=== PATIENT | female | born 1950 | race Caucasian/White ===

== ENCOUNTER → 2018-07-23 11:04 | Outpatient (CLI) | payer MEDICARE, OTHER, SELFPAY ==
[2018-06-30 10:24] VITALS: BMI 25.9
--- NOTE | 2018-07-23 11:10 | BD_ITS ---
STUDY: DUAL ENERGY X-RAY ABSORPTIOMETRY / DXA REASON FOR EXAM: Female, 68 years old. The patient is postmenopausal. Loss of height. TECHNIQUE: Bone Mineral Density (BMD) measurements of lumbar spine and left hip were obtained. Prior right total hip replacement. COMPARISON: None. FINDINGS: Lumbar Spine (L1-L4): g/cm2 (1.258) / T-score (0.6) / Z-score (2.3) Findings are suggestive of normal bone density with a low fracture risk. Left Femur Total: g/cm2 (0.823) / T-score (-1.5) / Z-score (-0.2) Left Femoral Neck: g/cm2 (0.808) / T-score (-1.7) / Z-score (-0.1) BD/Dexa Bone Density Study IMPRESSION: The patient is considered osteopenic as outlined below according to World Aniceto Organization (WHO) criteria with a moderate fracture risk. Reference Information: The T-score is the number of standard deviations above or below the standard which is normal for young adults at their peak bone mineral density. The World Health Organization (WHO) interprets the T-scores as follows: Above -1 Normal bone density Between -1 and -2.5 Osteopenia Equal to / or below -2.5 Osteoporosis As a practical clinical guideline, osteopenia may be graded as follows: Mild -1 through -1.5 Moderate -1.6 through -2.0 Severe -2.1 through -2.4 The Z-score is the number of standard deviations above or below age-matched controls. A Z-score of less than -1.5 would be considered abnormal. References: 1. NIH Osteoporosis and Related Bone Diseases http://www.osteo.org 2. International Society for Clinical Densitometry http://www.iscd.org 3. National Osteoporosis Foundation http://www.nof.org Electronically Signed: Blake Johnson MD at 8:33 EST Tel [phone], Service support ,
== END ==
PROVIDERS: Visit Provider Obstetrics & Gynecology
DX: Z78.0 Asymptomatic menopausal state (principal); M85.80 Other specified disorders of bone density and structure, unspecified site
CPT/HCPCS: 77080

== ENCOUNTER → 2019-07-22 13:21 | Outpatient (CLI) | payer MEDICARE, OTHER, SELFPAY ==
[2019-07-01 11:39] VITALS: BMI 26.9
--- NOTE | 2019-07-22 13:21 | BI_ITS ---
MAMMOGRAPHY - BILATERAL SCREENING REASON FOR EXAM: Female, 69 years old. Routine annual screening examination. PERTINENT HISTORY: Grandmother with breast cancer. Remote right stereotactic breast biopsy. Aunt with breast cancer. TECHNIQUE: Digital bilateral breast mirella (3D mammographic acquisition) in the CC and MLO projections. 2-D mediolateral oblique (MLO) and craniocaudad (CC) views of both breasts were obtained. CAD: Full Field Digital Mammography with Computer Added Detection was performed. COMPARISON: Comparison is made with prior outside examination dated May 19, 2018. FINDINGS: Breast Composition: The breasts are heterogeneously dense, which may obscure small masses. There are no dominant masses or suspicious calcifications. There is a 1 cm x 1.3 cm well-defined nodule in the central lateral aspect of the left breast. Correlation with ultrasound is recommended. No other significant abnormalities are identified. BI/SCREEN MAMM (CAD) W/MIRELLA BILAT IMPRESSION: 1 cm x 1.3 cm nodule in the central lateral aspect of the left breast as described. Correlation with ultrasound is recommended. ASSESSMENT CATEGORY: BIRADS Category 0: Incomplete. Need additional imaging evaluation. A letter regarding these results will be sent to the patient by the facility within 30 days. Approximately 10% of breast cancers are not detected by mammography. A normal mammogram should not delay biopsy of a clinically suspicious abnormality. [id number] Electronically Signed: Blake Johnson, at 14:14 EST , Service support ,
== END ==
PROVIDERS: Family Provider Family Medicine; PCP Family Medicine; Referring Provider Obstetrics & Gynecology; Visit Provider Obstetrics & Gynecology
DX: Z12.31 Encounter for screening mammogram for malignant neoplasm of breast (principal); N63.20 Unspecified lump in the left breast, unspecified quadrant
CPT/HCPCS: 77063; 77067

== ENCOUNTER → 2019-07-27 09:29 | Outpatient (CLI) | payer MEDICARE, OTHER, SELFPAY ==
[2019-07-01 11:39] VITALS: BMI 26.9
--- NOTE | 2019-07-27 09:30 | US_ITS ---
STUDY: ULTRASOUND BREAST - LEFT REASON FOR EXAM: Female, 69 years old. Abnormal screening mammogram. TECHNIQUE: Axial and longitudinal images of the LEFT breast were performed with a high resolution ultrasound transducer. # OF IMAGES: 21 COMPARISON: Comparison is made with prior mammogram dated July 22, 2019. FINDINGS: LEFT Breast: There is a 1.5 cm x 1.4 cm x 0.8 cm cyst at the 3:00 position of the breast at 1 cm from the nipple. US/Breast Limited Unilateral IMPRESSION: The mammographic abnormality corresponds to a 1.5 cm x 1.4 cm x 0.8 cm cyst. ASSESSMENT CATEGORY: BIRADS Category 2: Benign. A letter regarding these results will be sent to the patient by the facility within 30 days. Electronically Signed: Blake Johnson, at 9:04 EST , Service support ,
== END ==
PROVIDERS: Family Provider Family Medicine; PCP Family Medicine; Referring Provider Obstetrics & Gynecology; Visit Provider Obstetrics & Gynecology
DX: N63.42 Unspecified lump in left breast, subareolar (principal)
CPT/HCPCS: 76642

== ENCOUNTER → 2020-11-14 10:44 | Outpatient (CLI) | payer MEDICARE, OTHER, SELFPAY ==
[2020-07-04 13:45] VITALS: BMI 26.4
--- NOTE | 2020-11-14 10:48 | BI_ITS ---
MAMMOGRAPHY - BILATERAL SCREENING REASON FOR EXAM: Female, 70 years old. Routine annual screening examination. PERTINENT HISTORY: Grandmother with breast cancer. Aunt with breast cancer. Prior right stereotactic breast biopsy. TECHNIQUE: Digital bilateral breast mirella (3D mammographic acquisition) in the CC and MLO projections. 2-D mediolateral oblique (MLO) and craniocaudad (CC) views of both breasts were obtained. CAD: Full Field Digital Mammography with Computer Added Detection was performed. COMPARISON: Comparison is made with prior examination dated 07/22/2019. FINDINGS: Breast Composition: The breasts are heterogeneously dense, which may obscure small masses. There are no dominant masses or suspicious calcifications. Cc 1 cm well-defined nodule in the central lateral aspect of the left breast is not seen at this time. This was demonstrated to be a cyst on prior sonogram. No other significant abnormalities are identified. BI/SCRN MAMM (CAD)W/MIRELLA BILAT IMPRESSION: Interval resolution of the small left breast nodule. Yearly follow-up mammogram recommended. (A) ASSESSMENT CATEGORY: BIRADS Category 2: Benign. A letter regarding these results will be sent to the patient by the facility within 30 days. Approximately 10% of breast cancers are not detected by mammography. A normal mammogram should not delay biopsy of a clinically suspicious abnormality. [id number] Electronically Signed: Blake Johnson MD at 12:07 EDT , Service support ,
== END ==
PROVIDERS: PCP Family Medicine; Referring Provider Obstetrics & Gynecology; Visit Provider Obstetrics & Gynecology
DX: Z12.31 Encounter for screening mammogram for malignant neoplasm of breast (principal)
CPT/HCPCS: 77063; 77067

== ENCOUNTER → 2021-12-15 | Outpatient (CLI) | payer MEDICARE, OTHER, SELFPAY ==
--- NOTE | 2021-12-15 10:45 | BI_ITS ---
MAMMOGRAPHY - BILATERAL SCREENING REASON FOR EXAM: Female, 71 years old. Routine annual screening examination. PERTINENT HISTORY: Grandmother with breast cancer. Aunt with breast cancer. TECHNIQUE: Digital bilateral breast mirella (3D mammographic acquisition) in the CC and MLO projections. 2-D mediolateral oblique (MLO) and craniocaudad (CC) views of both breasts were obtained. CAD: Full Field Digital Mammography with Computer Added Detection was performed. COMPARISON: Comparison is made with prior study of 11/14/2020 and 07/22/2019. FINDINGS: Breast Composition: The breasts are heterogeneously dense, which may obscure small masses. There are no dominant masses or suspicious calcifications. No other significant abnormalities are identified. There has been no significant change since the prior study. BI/SCRN MAMM (CAD)W/MIRELLA BILAT IMPRESSION: Stable bilateral screening mammogram. Yearly follow-up mammogram recommended. (A) ASSESSMENT CATEGORY: BIRADS Category 1: Negative. A letter regarding these results will be sent to the patient by the facility within 30 days. Approximately 10% of breast cancers are not detected by mammography. A normal mammogram should not delay biopsy of a clinically suspicious abnormality. [id number] Electronically Signed: Blake Johnson MD at 11:56 EDT ,
== END | disposition home or self-care (01) ==
LOC: OPBI 10:44
PROVIDERS: PCP Family Medicine; Referring Provider Obstetrics & Gynecology; Visit Provider Obstetrics & Gynecology
DX: Z12.31 Encounter for screening mammogram for malignant neoplasm of breast (principal); Z80.3 Family history of malignant neoplasm of breast
CPT/HCPCS: 77063; 77067

== ENCOUNTER → 2023-01-01 | Outpatient (CLI) | payer MEDICARE, OTHER, SELFPAY ==
--- NOTE | 2023-01-01 09:43 | BI_ITS ---
MAMMOGRAPHY - BILATERAL SCREENING REASON FOR EXAM: Female, 72 years old. Routine annual screening examination. PERTINENT HISTORY: Grandmother with breast cancer. Aunt with breast cancer. Right breast stereotactic biopsy in 2016. TECHNIQUE: Digital bilateral breast mirella (3D mammographic acquisition) in the CC and MLO projections. 2-D mediolateral oblique (MLO) and craniocaudad (CC) views of both breasts were obtained. CAD: Full Field Digital Mammography with Computer Added Detection was performed. COMPARISON: Mammogram from 12/15/2021, 11/14/2020. FINDINGS: Breast Composition: The breasts are heterogeneously dense, which may obscure small masses. There are no dominant masses or suspicious calcifications. Stable biopsy marker in the right breast. Stable scattered benign-appearing bilateral calcifications. No other significant abnormalities are identified. There has been no significant change since the prior study. BI/SCRN MAMM (CAD)W/MIRELLA BILAT IMPRESSION: Stable bilateral screening mammogram. Yearly follow-up mammogram recommended. (A) ASSESSMENT CATEGORY: BIRADS Category 2: Benign. A letter regarding these results will be sent to the patient by the facility within 30 days. Approximately 10% of breast cancers are not detected by mammography. A normal mammogram should not delay biopsy of a clinically suspicious abnormality. Electronically Signed: Jeff Malik DO at 15:33 EDT ,
== END | disposition home or self-care (01) ==
LOC: OPBI 09:42
PROVIDERS: Referring Provider Obstetrics & Gynecology; Visit Provider Obstetrics & Gynecology
DX: Z12.31 Encounter for screening mammogram for malignant neoplasm of breast (principal)
CPT/HCPCS: 77063; 77067

== ENCOUNTER → 2024-02-24 | Outpatient (CLI) | payer MEDICARE, OTHER, SELFPAY ==
--- NOTE | 2024-02-24 14:53 | BI_ITS ---
MAMMOGRAPHY - BILATERAL SCREENING REASON FOR EXAM: Female, 73 years old. Routine annual screening examination. PERTINENT HISTORY: Grandmother with breast cancer. TECHNIQUE: Digital bilateral breast mirella (3D mammographic acquisition) in the CC and MLO projections. 2-D mediolateral oblique (MLO) and craniocaudad (CC) views of both breasts were obtained. CAD: Full Field Digital Mammography with Computer Added Detection was performed. COMPARISON: Comparison is made with prior study dated January 01, 2023 and December 15, 2021. FINDINGS: Breast Composition: The breasts are heterogeneously dense, which may obscure small masses. There are no dominant masses or suspicious calcifications. No other significant abnormalities are identified. There has been no significant change since the prior study. BI/SCRN MAMM (CAD)W/MIRELLA BILAT IMPRESSION: Stable bilateral screening mammogram. Yearly follow-up mammogram recommended. (A) ASSESSMENT CATEGORY: BIRADS Category 1: Negative. A letter regarding these results will be sent to the patient by the facility within 30 days. Approximately 10% of breast cancers are not detected by mammography. A normal mammogram should not delay biopsy of a clinically suspicious abnormality. [id number] Electronically Signed: Blake Johnson MD at 15:38 EDT ,
== END | disposition home or self-care (01) ==
LOC: OPBI 14:53
PROVIDERS: PCP Internal Medicine; Referring Provider Obstetrics & Gynecology; Visit Provider Obstetrics & Gynecology
DX: Z12.31 Encounter for screening mammogram for malignant neoplasm of breast (principal); Z80.3 Family history of malignant neoplasm of breast
CPT/HCPCS: 77063; 77067

== ENCOUNTER → 2024-06-03 | Outpatient (CLI) | payer MEDICARE, OTHER, SELFPAY ==
--- NOTE | 2024-06-03 11:04 | BD_ITS ---
STUDY: DUAL ENERGY X-RAY ABSORPTIOMETRY / DXA REASON FOR EXAM: Female, 73 years old. Osteopenia TECHNIQUE: Bone Mineral Density (BMD) measurements of lumbar spine and left hip were obtained. COMPARISON: Comparison is made with prior study dated July 23, 2018. FINDINGS: Lumbar Spine (L1-L4): g/cm2 (1.115) / T-score (0.6) / Z-score (2.9) Findings are suggestive of normal bone density with a low fracture risk. Left Femur Total: g/cm2 (0.725) / T-score (-1.8) / Z-score (-0.1) Left Femoral Neck: g/cm2 (0.644) / T-score (-1.8) / Z-score (0.1) The T-Scores on the most recent prior examination were: Lumbar Spine (L1-L4): There has been worsening of bone density since the previous examination. Left Femur Total: which represents a worsening of 5%. BD/Dexa Bone Density Study IMPRESSION: The patient is considered osteopenic as outlined below according to World Aniceto Organization (WHO) criteria with a moderate fracture risk. There has been worsening of bone density since the previous examination. Reference Information: The T-score is the number of standard deviations above or below the standard which is normal for young adults at their peak bone mineral density. The World Health Organization (WHO) interprets the T-scores as follows: Above -1 Normal bone density Between -1 and -2.5 Osteopenia Equal to / or below -2.5 Osteoporosis As a practical clinical guideline, osteopenia may be graded as follows: Mild -1 through -1.5 Moderate -1.6 through -2.0 Severe -2.1 through -2.4 The Z-score is the number of standard deviations above or below age-matched controls. A Z-score of less than -1.5 would be considered abnormal. References: 1. NIH Osteoporosis and Related Bone Diseases www osteo.org 2. International Society for Clinical Densitometry www iscd.org 3. National Osteoporosis Foundation www nof.org Electronically Signed: Blake Johnson MD at 8:32 EST ,
== END | disposition home or self-care (01) ==
LOC: OPBD 11:01
PROVIDERS: Referring Provider Obstetrics & Gynecology; Visit Provider Obstetrics & Gynecology
DX: M85.80 Other specified disorders of bone density and structure, unspecified site (principal); Z78.0 Asymptomatic menopausal state
CPT/HCPCS: 77080

== ENCOUNTER → 2025-02-24 | Outpatient (CLI) | payer MEDICARE, OTHER, SELFPAY ==
--- NOTE | 2025-02-24 10:15 | BI_ITS ---
EXAM: SCRN MAMM (CAD)W/MIRELLA BILAT DATE: 02/24/2025 CLINICAL HISTORY: F, Age 74 y/o , SCREEN FOR BREAST CANCER Grandmother with breast cancer. Remote right stereotactic breast biopsy. TECHNIQUE: SCRN MAMM (CAD)W/MIRELLA BILAT COMPARISON: Prior exam(s) dated February 24, 2024.. FINDINGS: TISSUE DENSITY: The breasts are heterogeneously dense, which may obscure small masses. Bilateral Breast Mammographic Findings: No significant masses, calcifications or other abnormalities are identified. Stable small benign-appearing mediastinal lymph nodes. A tissue clip marker is once again seen in the anterior upper lateral aspect of the right breast. No suspicious masses, areas of developing architectural distortion, or suspicious calcifications. There has been no significant interval change. BI/SCRN MAMM (CAD)W/MIRELLA BILAT IMPRESSION: Stable examination. OVERALL FINAL ASSESSMENT BI-RADS 2: BENIGN RECOMMENDATION: Routine annual follow-up in 1 Year A letter with findings and recommendations will be mailed to the patient. Reading Location: [facility]
--- OUTSIDE RECORDS SUMMARY | 2025-02-24 19:04 | XMS RPT_ITS | CCD ---
Author Organization [facility] Care Team Providers Care Cutter Apprentice Hand Name Role Phone Clarence WOOTEN, Claudette Chu Primary Care Provider [phone] Dr. Claudette Lima Primary Care Provider Dr. Claudette Lima Referring Provider Dr. Thania Brito Attending Provider Clarence WOOTEN, Claudette Chu Primary Care Provider Clarence WOOTEN, Claudette Chu Primary Care Provider [phone] Sabrina Verduzco MD Primary Care Provider Clarence WOOTEN, Claudette S Primary Care Provider Clarence WOOTEN, Claudette S Primary Care Provider Clarence WOOTEN, Claudette S Primary Care Provider [phone] Batsheva Payan Unavailable Unavailable Romana Chi MD Unavailable [phone] Romana Chi MD Unavailable Alexis Jorgensen PT Unavailable CLARENCE, CLAUDETTE S Primary Care Unavailable CHEL HARRISON Referring Unavailable ROMANA CHI Referring Unavailable CLARENCE, CLAUDETTE S Primary Care Unavailable CLARENCE, CLAUDETTE S Primary Care Unavailable ROMANA CHI Referring Unavailable CLARENCE, CLAUDETTE S Primary Care Unavailable CLARENCE, CLAUDETTE S Primary Care Unavailable ROHITH WILLIS Referring Unavailable CLARENCE, CLAUDETTE S Primary Care Unavailable SYLVAIN CORDERO Consulting Unavailable ROMANA CHI Attending Unavailable ROMANA CHI Admitting Unavailable CLARENCE, CLAUDETTE S Primary Care Unavailable ROHITH WILLIS Referring Unavailable Claudette Lima MD Primary Care Provider ROHITH WILLIS Attending Unavailable CLARENCE, CLAUDETTE S Primary Care Unavailable ROMANA CHI Attending Unavailable CLARENCE, CLAUDETTE S Primary Care Unavailable ROMANA CHI Attending Unavailable CLARENCE, CLAUDETTE S Primary Care Unavailable ROMANA CHI Attending Unavailable CLARENCE, CLAUDETTE S Primary Care Unavailable ROMANA CHI Attending Unavailable CLARENCE, CLAUDETTE S Primary Care Unavailable Sultana Cohen DO Primary Care Provider SULTANA COHEN Attending Unavailable ZAYDA, SULTANA Primary Care Unavailable ZAYDA, SULTANA Attending Unavailable ZAYDA, SULTANA Primary Care Unavailable Marcanthony, Thania Attending Unavailable Marcanthony, Thania Referring Unavailable Dax, Sabrina C Primary Care Unavailable Marcanthony, Thania Attending Unavailable Marcanthony, Thania Referring Unavailable GALOWNIA, ENOCH Primary Care Unavailable Marcanthony, Thania Attending Unavailable Marcanthony, Thania Referring Unavailable GALOWNIA, ENOCH Primary Care Unavailable Marcanthony, Thania Attending Unavailable Dax, Sabrina C Primary Care Unavailable Clarence Claudette Referring Unavailable Allergies Allergy Classification Reported Allergen(s) Allergy Type Date of Onset Reaction(s) Facility Penicillins (antibiotic) (1 source) Penicillins Drug Allergy 5 Rash [facility] Sulfonamides (antibiotic) (1 source) Sulfonamides (Antibiotic) Drug Allergy 5 Rash, Other (See Comments) [facility] Tetracyclines (antibiotic) (1 source) Tetracycline Drug Allergy 5 Rash, Other (See Comments) [facility] (20 sources) Penicillins; Translations: [PENICILLINS] Propensity to adverse reactions to drug 6 Rash [facility] (13 sources) Sulfonamides (Antibiotic) Propensity to adverse reactions to drug 6 Rash, Other (See Comments) [facility] (20 sources) Tetracycline; Translations: [TETRACYCLINE] Drug Allergy 6 Rash, Other (See Comments) [facility] Work Phone: (2 sources) Penicillin G Drug Allergy 0 Other [facility] (20 sources) Sulfonamides (Antibiotic); Translations: [SULFA (SULFONAMIDE ANTIBIOTICS)] Allergy to substance 6 Rash [facility] Work Phone: (1 source) Penicillin Drug Allergy 4 [facility] (1 source) Tetracycline Drug Allergy 4 [facility] Medications Current Medications Medication Drug Class(es) Dates Sig (Normalized) Sig (Original) acetaminophen 325 mg / HYDROcodone bitartrate 5 mg oral tablet (2 sources) Opioid Agonist Start: 11-25-2020 End: 11-28-2020 take 1 tablet by mouth every six hours as needed for pain HYDROcodone-acetam inophen (NORCO) 5-325 MG per tablet Indications: Closed displaced fracture of surgical neck of left humerus, unspecified fracture morphology, initial encounter Take 1 tablet by mouth every 6 hours as needed for Pain for up to 3 days. 12 tablet 0 11/25/2020 11/28/2020 Active Start: 11-23-2020 HYDROcodone-ac etaminophen (NORCO) 5-325 MG per tablet 1 tablet ascorbic acid 500 mg oral tablet (15 sources) Vitamin C Start: 03-25-2024 End: 04-08-2024 take 1 tablet by mouth twice daily at mealtime ascorbic acid, vitamin C, (VITAMIN C) 500 mg tablet Take 1 tablet by mouth two times a day with meals for 27 doses. 27 tablet 03/25/2024 Active Start: 03-25-2024 End: 07-29-2024 ascorbic acid (Vitamin C) 50 0 MG tablet Take 500 mg by mouth. 03/25/2024 07/29/2024 Discontinued (Med list cleanup) atorvastatin 20 mg oral tablet (20 sources) HMG-CoA Reductase Inhibitor Start: 01-11-2025 End: 01-11-2026 take 1 tablet by mouth once daily atorvastatin (Lipitor) 20 MG tablet Take 1 tablet (20 mg) by mouth daily. 90 tablet 3 01/11/2025 01/11/2026 Active Start: 12-21-2019 End: 01-11-2025 take 1 tablet by mouth once daily atorvastatin (Lipitor) 10 MG tablet Take 1 tablet (10 mg) by mouth daily. 90 tablet 3 01/06/2025 01/11/2025 Discontinued Comment on above: Take 10 mg by mouth daily at bedtime. Calcium (1 source) Phosphate Binder, Calcium take 1 tablet by mouth once daily calcium 500 MG tablet Take 500 mg by mouth daily. 0 Active calcium carbonate 1250 mg chewable tablet (3 sources) Start: 06-30-2018 take 1 tablet by mouth twice daily Calcium Carbonate (Calci-Chew) 500 mg calcium (1,250 mg) tablet,chewable Active 500 MG PO TWICE A DAY June 30, 2018 11:27am take 1 tablet by mouth once radha y calcium carbonate (OSCAL) 500 MG TABS tablet Take 500 mg by mouth daily 0 Active Calcium Carbonate / vitamin D3 (20 sources) Start: 03-26-2024 take 1 tablet by mouth once daily calcium carbonate/vitamin D3 (CALCIUM 500 + D ORAL) Take 1 tablet by mouth once daily. Patient should start on March 26, 2024. 03/26/2024 Active calcium carbonat e/vitamin D3 (CALCIUM 500 + D ORAL) Take by mouth. Active calcium carbonat e/vitamin D3 (CALCIUM 500 + D ORAL) Take by mouth. 0 Active Comment on above: Take by mouth. Calcium Carbonate-Vitamin D 500-5 MG-MCG tablet (2 sources) Calcium Carbonate-Vitamin D 500-5 MG-MCG tablet Take by mouth. Active carbamide peroxide 65 mg/ml otic solution (1 source) Start: 07-27-19 End: 07-31-19 carbamide peroxide (Debrox) 6.5 % otic solution Administer 5-10 drops into affected ear(s) 2 times daily for 4 days. 15 mL 0 07/27/2022 07/31/2022 Active cetirizine hydrochloride 10 mg oral tablet (3 sources) Histamine-1 Receptor Antagonist take 1 tablet by mouth once daily as needed cetirizine (ZYRTEC) 10 MG tablet Take 10 mg by mouth daily as needed 0 Active clindamycin 300 mg oral capsule (9 sources) Lincosamide Antibacterial Start: 12-05-19 clindamycin (Cleocin) 300 MG capsule Prior to dentist appointment 12/04/2022 Active Start: 12-04-2022 clindamycin (C leocin) 300 MG capsule TAKE 2 CAPSULES BY MOUTH 30 minutes prior to appt. 0 12/04/2022 Active Start: 07-27-2020 End: 11-25-2020 clindamycin (CLEOCIN) 300 MG capsule TAKE 2 CAPSULES ONE HOUR PRIOR TO APPOINTMENT 0 07/27/2020 11/25/2020 Discontinued (Stop Taking at Discharge) docusate sodium 100 mg oral capsule (16 sources) Start: 03-25-2024 End: 04-24-2024 take 1 capsule by mouth every twelve hours as needed docusate sodium (COLACE) 100 mg capsule Take 1 capsule by mouth two times a day as needed for constipation. 60 capsule 03/25/2024 04/24/2024 Active Start: 11-25-2020 take 1 capsule by mo [facility] once daily as needed for constipation docusate sodium (COLACE) 100 MG capsule Take 1 capsule by mouth daily as needed for Constipation 30 capsule 0 11/25/2020 Active labetalol hydrochloride 5 mg/ml injectable solution (1 source) beta-Adrenergic Bj Start: 11-23-2020 labetalol (NORMODYNE;TRANDATE) injection 10 mg Lisinopril (1 source) Angiotensin Converting Enzyme Inhibitor Start: 11-23-2020 lisinopril (PRINIVIL;ZESTRIL) tablet 20 mg melatonin 5 mg oral tablet (1 source) Start: 11-23-2020 take 5 mg by mouth once daily as needed for sleep 5 mg, Oral, NIGHTLY PRN, sleep, Starting Sat11/23/20 at 2100 1 ml morphine sulfate 4 mg/ml injection (1 source) Opioid Agonist Start: 11-23-2020 take 2 mg by mouth every four hours as needed for pain 2 mg, Intravenous, EVERY 4 HOURS PRN, Pain Severe (7-10), Starting Sat11/23/20 at 0315 If oral and IV narcotics ordered, use oral first and only use IV if oral is ineffective or cannot take oral. Do Not give oral and IV within 1 hour of each other unless specifically ordered. MULTI-VITAMIN ORAL (20 sources) take 1 tablet by mouth once daily MULTI-VITAMIN ORAL Take 1 tablet by mouth once daily. Active take 1 tablet by mouth once radha y MULTI-VITAMIN ORAL Take 1 tablet by mouth once daily. 0 Active Comment on above: Take 1 tablet by ligia th once daily. Multiple Vitamin (MULTI-VITAMIN DAILY PO) (9 sources) take 1 tablet by mouth once daily in the morning Multiple Vitamin (MULTI-VITAMIN DAILY PO) Take 1 tablet by mouth in the morning. Active take 1 tablet by ligia th once daily in the morning Multiple Vitamin (MULTI-VITAMIN DAILY PO ) Take 1 tablet by mouth in the morning. 0 Active Multiple Vitamins-Minerals (DAILY VITAMIN PLUS PO) (1 source) Multiple Vitamins-Minerals (DAILY VITAMIN PLUS PO) Take by mouth 0 Active mupirocin 0.02 mg/mg topical ointment (1 source) RNA Synthetase Inhibitor Antibacterial Start : 03-09 End: 03-14 mupirocin (BACTROBAN) 2 % ointment two times a day for 5 days. Apply 0.5 inch with cotton swab (Q-tip) to each nostril in the morning and evening for 5 days prior to and including day of surgery. 22 g 03/09/2024 03/14/2024 Active oxyCODONE hydrochloride 5 mg oral tablet (6 sources) Opioid Agonist Start : 03-25 End: 04-01 take 1 tablet by mouth every six hours as needed oxyCODONE IR (ROXICODONE) 5 mg immediate release tablet Indications: S/P total knee arthroplasty, right Take 1-2 tablets by mouth every 6 hours as needed for pain for up to 7 days. 50 tablet 03/25/2024 04/01/2024 Active 2 ml prochlorperazine 5 mg/ml injection (1 source) Phenothiazine Start : 11-23 10 mg, Intravenous, EVERY 6 HOURS PRN, Nausea, Starting Sat11/23/20 at 0315 3 ml sodium chloride 9 mg/ml injection (3 sources) Start : 11-23 take 1 dose intravenously twice daily 5-40 mL, Intravenous, EVERY 12 HOURS SCHEDULED (2 times per day), First dose on Sat11/23/20 at 0900 For Line Patency: Peripheral IV = 5 mL; Midline or Central Line = 10 mL/lumen. I f following IV push medication, administer flush at same rate as the IV push. Flush volume is determined by type of infusion therapy being given. For non-viscous solutions use: Peripheral IV = 5 mL Midline or Central Line = 10 mL/lumen Fo r viscous solutions (i.e. blood components, parenteral nutrition, contrast media, or after obtaining blood sample) use: Peripheral IV = 10 mL Midline or Central Line = 20 mL/lumen Start: 11-23-2020 take 25 mL intraveno usly every hour as needed 25 mL, Intravenous, at 100 mL/hr, PRN, If patient receiving piggyback infusions without ordered maintenance IV fluids or with frequent/long duration piggyback infusions, Starting Sat11/23/20 at 0315 Administer at the same rate as the piggyback being infused. Start: 11-23-2020 take 5-40 mL intrave nously once as needed 5-40 mL, Intravenous, PRN, Line Care, After every IV line use, Starting Sat11/23/20 at 0315 For Line Patency: Peripheral IV = 5 mL; Midline or Central Line = 10 mL/lumen. If following IV push medication, administer flush at same rate as the IV push. Flush volume is determined by type of infusion therapy being given. For non-viscous solutions use: Peripheral IV = 5 mL Midline or Central Line = 10 mL/lumen For viscous solutions (i.e. blood components, parenteral nutrition, contrast media, or after obtaining blood sample) use: Peripheral IV = 10 mL Midline or Central Line = 20 mL/lumen sodium chloride flush 0.9 % injection 3 mL (1 source) Start: 11-22-2020 sodium chlorid e flush 0.9 % injection 3 mL ubiquinol 100 mg oral capsule (20 sources) Start: 03-26-2024 take 1 capsule by mouth once daily coQ10, ubiquinol, 100 mg cap Take 1 capsule by mouth once daily. 03/26/2024 Active Comment on above: Take by mouth once d aily. Completed/Discontinued Medications Medication Drug Class(es) Dates Sig (Normalized) Sig (Original) acetaminophen 500 mg oral tablet (20 sources) Start: 03-25-2024 End: 07-29-2024 take 2 tablets by mouth every eight hours as needed acetaminophen (Tylenol) 500 MG tablet Take 1,000 mg by mouth every 8 hours as needed. 03/25/2024 07/29/2024 Discontinued (Med list cleanup) Start: 11-23-2020 acetaminophen (TYLENOL) tablet 650 mg End: 03-25-2024 acetaminophen (TYLENOL ARTHR ITIS ORAL) Take 1 tablet by mouth as needed. 03/25/2024 Discontinued acetaminophen (T YLENOL ARTHRITIS ORAL) Take 1 tablet by mouth as needed. Active End: 08-27-2023 Acetaminophen (TYLENOL ARTHR ITIS PAIN PO) Take 1 tablet by mouth if needed. 0 08/27/2023 Discontinued (Therapy completed) Acetaminophen (T YLENOL ARTHRITIS PAIN PO) Take 1 tablet by mouth if needed. 0 Active acetaminophen (T YLENOL ARTHRITIS ORAL) Take 1 tablet by mouth as needed. 0 Active Comment on above: Take 1 tablet by ligia as needed. acetaminophen 325 mg / oxyCODONE hydrochloride 5 mg oral tablet (2 sources) Opioid Agonist Start: 11-24-2020 End: 11-25-2020 oxyCODONE-acetaminophen (PERCOCET) 5-325 MG per tablet Indications: Dislocation of left shoulder joint, initial encounter , Closed displaced fracture of surgical neck of left humerus, unspecified fracture morphology, initial encounter Take 1 tablet by mouth every 6 hours as needed for Pain for up to 7 days. Intended supply: 7 days. Take lowest dose possible to manage pain 28 tablet 0 11/24/2020 11/25/2020 Discontinued (Stop Taking at Discharge) Start: 11-23-2020 End: 11-23-2020 take 1 tablet by mouth every four hours as needed for pain 1 tablet, Oral, EVERY 4 HOURS PRN, Pain Moderate (4-6), Starting 11/23/20 at 0315 Maximum dose of acetaminophen is 4000 mg from all sources in 24 hours. Albuterol Sulfate (2 sources) beta2-Adrenergic Agonist Start: 09-16-2018 End: 07-01-2019 take 1 puff(s) by inhalation every four hours Albuterol Sulfate (Proair Hfa) 90 mcg/actuation HFA aerosol inhaler Discontinued 2 PUFF INHALATION Q4H 8.5 September 16, 2018 4:25pm July 01, 2019 12:35pm Start: 09-16-2018 End: 09-16-2018 albuterol sulfate Discontinu ed 2.5 MG Continuous Nebulization ONCE 1 September 16, 2018 3:53pm September 16, 2018 3:53pm Albuterol Sulfate (Proair Hfa) 90 mcg/actuation HFA aerosol inhaler (1 source) Start: 09-16-2018 End: 07-01-2019 take 1 puff(s) by inhalation every four hours Albuterol Sulfate (Proair Hfa) 90 mcg/actuation HFA aerosol inhaler Discontinued 2 PUFF INHALATION Q4H 8.5 September 16, 2018 1:00am July 01, 2019 12:35pm alendronic acid 70 mg oral tablet (2 sources) Bisphosphonate Start: 07-29-2024 End: 07-29-2025 take 1 tablet by mouth in the morning alendronate (Fosamax) 70 MG tablet Indications: Fracture Risk Assessment Score (FRAX) indicating greater than 20% risk for major osteoporosis-relat ed fracture Take 1 tablet (70 mg) by mouth every 7 days. Take in the morning with a full glass of water, on an empty stomach, and do not take anything else by mouth or lie down for the next 30 min. 4 tablet 11 07/29/2024 01/06/2025 Discontinued (Med list cleanup) apixaban 5 mg oral tablet (3 sources) Factor Xa Inhibitor Start: 01-03-2021 End: 05-07-2022 take 2 tablets by mouth twice daily, then take 1 tablet by mouth twice daily apixaban (ELIQUIS) 5 mg tab(s) 2 tabs bid for 7 days, then 1 po bid 74 tablet 01/03/2021 05/07/2022 Discontinued (Course of therapy completed) Comment on above: 2 tabs bid for 7 day s, then 1 po bid azithromycin 250 mg oral tablet (2 sources) Macrolide Antimicrobial Start: 09-16-2018 End: 09-21-2018 Azithromycin Discontinued 250 MG PO daily 6 5 September 16, 2018 4:12pm September 21, 2018 1:09am 2 po qd for 1 day then 1 po qd for 4 days with food or after eating betamethasone 3 mg/ml / betamethasone acetate 3 mg/ml injectable suspension (10 sources) Corticosteroid Start: 12-25-2023 End: 12-25-2023 betamethasone acetate-betamethas one sodium phosphate 12 mg injection (CELESTONE) Start: 09-25-2023 End: 09-25-2023 betamethasone acetate-betame thasone sodium phosphate 12 mg injection (CELESTONE) Start: 01-16-2023 End: 01-16-2023 betamethasone acetate-betame thasone sodium phosphate 12 mg injection (CELESTONE) Start: 09-12-2022 End: 09-12-2022 betamethasone acetate-betame thasone sodium phosphate 12 mg injection (CELESTONE) Start: 09-12-2022 End: 09-12-2022 betamethasone acetate-betame thasone sodium phosphate 12 mg injection (CELESTONE) CALCIUM CARB,GLUC/MAG OX,GLUC (CALCIUM MAGNESIUM ORAL) (18 sources) End: 03-09-2024 take 2 tablets by mouth twice daily CALCIUM CARB,GLUC/MAG OX,GLUC (CALCIUM MAGNESIUM ORAL) Take 2 tablets by mouth twice daily. 03/09/2024 Discontinued (Course of therapy completed) take 2 tablets by mouth twice da dg CALCIUM CARB,GLUC/MAG OX,GLUC (CALCIUM MAGNESIUM ORAL) Take 2 tablets by mouth twice daily. Active take 2 tablets by mouth twice da dg CALCIUM CARB,GLUC/MAG OX,GLUC (CALCIUM MAGNESIUM ORAL) Take 2 tablets by mouth twice daily. 0 Active Comment on above: Take 2 tablets by [facility] twice daily. ceFAZolin 2000 mg injection (1 source) Cephalosporin Antibacterial Start: End: 2,000 mg, Intravenous, EVERY 8 HOURS, 2 doses, First dose on Sat11/24/20 at 2200, Last dose on Sat11/25/20 at 0600 cholecalciferol 0.075 mg oral tablet (11 sources) Vitamin D End: cholecalciferol (Vitamin D-3) 75 MCG (3000 UT) tablet Take by mouth. 01/06/2025 Discontinued (Med list cleanup) diclofenac sodium 0.01 mg/mg topical gel (1 source) Nonsteroidal Anti-inflammatory Drug End: apply 2 g topically twice daily diclofenac (VOLTAREN) 1 % topical gel Apply 2 g to affected area twice daily. 0 05/07/2022 Discontinued (Course of therapy completed) Comment on above: Apply 2 g to affecte d area twice daily. 0.4 ml enoxaparin sodium 100 mg/ml prefilled syringe (13 sources) Low Molecular Weight Heparin Start: 09-11-2 024 End: 025 enoxaparin (Lovenox) 40 MG/0.4ML solution prefilled syringe 03/25/2024 07/29/2024 Discontinued (Med list cleanup) Start: 03-25-2024 End: 04-08-2024 inject 0.4 mL by subcutaneous injection once daily enoxaparin (LOVENOX) 40 mg/0.4 mL Inject 0.4 mL subcutaneously once daily for 14 days. 5.6 mL 03/25/2024 04/08/2024 Start: 11-25-2020 enoxaparin (LO VENOX) injection 40 mg 2 ml fentaNYL 0.05 mg/ml injection (1 source) Opioid Agonist Start: 11-23-2020 End: 11-23-2020 fentaNYL (SUBLIMAZE) injection hydroCHLOROthiazide 12.5 mg / lisinopril 20 mg oral tablet (20 sources) Thiazide Diuretic, Angiotensin Converting Enzyme Inhibitor Start: 03-23-2022 lisinopril-hydroCHL OROthiazide 20-12.5 MG tablet Start: 06-30-2018 take 1 tablet by ligia th once daily Lisinopril-Hydrochlorothiazide Active 1 TABLET PO DAILY June 30, 2018 11:26am Start: 03-01-2010 End: 01-06-2026 take 1 tablet by mouth once daily lisinopril-hydroCHLOROthiazide 20-12.5 M G tablet Take 1 tablet by mouth daily. 90 tablet 3 01/06/2024 01/06/2025 Discontinued (Reorder) Comment on above: one tablet daily ibuprofen 200 mg oral tablet (1 source) Nonsteroidal Anti-inflammatory Drug End: 05-07-20 take 1 tablet by mouth every six hours as needed ibuprofen (MOTRIN) 200 mg tablet Take 200 mg by mouth every 6 hours as needed for pain. 0 05/07/2022 Discontinued (Course of therapy completed) Comment on above: Take 200 mg by mouth every 6 hours as needed for pain. ketoconazole 20 mg/ml medicated shampoo (3 sources) Azole Antifungal Start: 11-28-19 23 End: 08-27-19 24 ketoconazole (NIZOral) 2 % shampoo wash the full scalp once a day NEEDED for flares. lather and let sit for 3-5 MINUTES before rinsing off. 0 11/27/2022 08/27/2023 Discontinued (Therapy completed) 10 ml lidocaine hydrochloride 10 mg/ml injection (12 sources) Antiarrhythmic, Amide Local Anesthetic Start: 12-25-19 End: 12-25-19 lidocaine (PF) 10 mg/mL (1 %) 4 mL injection (XYLOCAINE) Start: 09-25-2023 End: 09-25-2023 lidocaine (PF) 10 mg/mL (1 % ) 4 mL injection (XYLOCAINE) Start: 05-20-2023 End: 05-20-2023 lidocaine (PF) 10 mg/mL (1 % ) 4 mL injection (XYLOCAINE) Start: 01-16-2023 End: 01-16-2023 lidocaine (PF) 10 mg/mL (1 % ) 4 mL injection (XYLOCAINE) Start: 09-12-2022 End: 09-12-2022 lidocaine (PF) 10 mg/mL (1 % ) 4 mL injection (XYLOCAINE) Start: 09-12-2022 End: 09-12-2022 lidocaine (PF) 10 mg/mL (1 % ) 4 mL injection (XYLOCAINE) 1 ml LORazepam 2 mg/ml injection (1 source) Benzodiazepine Start: 11-24-2020 End: 11-24-2020 LORazepam (ATIVAN) injection 0.5 mg meloxicam 15 mg oral tablet (20 sources) Nonsteroidal Anti-inflammatory Drug Start: 05-16-2022 End: 03-25-2024 take 1 tablet by mouth once daily meloxicam (MOBIC) 15 mg tablet Take 1 tablet by mouth once daily. 30 tablet 2 09/12/2022 12/25/2023 Discontinued Start: 05-07-2022 End: 01-06-2025 take 2 tablets by mouth once daily meloxicam (Mobic) 7.5 MG tablet Take 15 mg by mouth daily. 05/07/2022 01/06/2025 Discontinued (Med list cleanup) Start: 05-07-2022 End: 06-06-2022 take 1 tablet by mouth once daily meloxicam (MOBIC) 7.5 mg tablet Indications: Primary osteoarthritis of right knee , Primary osteoarthritis of left knee Take 1 tablet by mouth once daily. 30 tablet 0 05/07/2022 06/06/2022 Active Comment on above: Take 1 tablet by ligia th once daily. Take 15 mg by mouth. 1 ml methylPREDNISolone acetate 40 mg/ml injection (2 sources) Corticosteroid Start: 2022 End: 2022 methylPREDNISolone acetate 80 mg injection (DEPO-Medrol) metoprolol tartrate 25 mg oral tablet (20 sources) beta-Adrenergic Bj Start: 2020 End: 2023 take 1 tablet by mouth every twelve hours metoprolol tartrate, short acting, (LOPRESSOR) 25 mg tablet Take 1 tablet by mouth every 12 hours. 60 tablet 01/03/2021 03/09/2024 Discontinued (Course of therapy completed) Comment on above: Take 1 tablet by ligia th every 12 hours. 2 ml midazolam 1 mg/ml injection (1 source) Benzodiazepine Start: 2020 End: 2020 midazolam (VERSED) 2 MG/2ML injection NON FORMULARY (3 sources) End: 2023 NON FORMULARY Nightly. MAG RNR for muscle cramping. B-6, magnesium 0 08/27/2023 Discontinued (Therapy completed) NON FORMULARY Lynn damico. MAG RNR for muscle cramping. B-6, magnesium 0 Active ondansetron 4 mg oral tablet (16 sources) Serotonin-3 Receptor Antagonist Start: 03-26-2024 End: 07-29-2024 take 1 tablet by mouth every eight hours as needed ondansetron (Zofran) 4 MG tablet Take 4 mg by mouth every 8 hours as needed. 03/26/2024 07/29/2024 Discontinued (Med list cleanup) oseltamivir 75 mg oral capsule (2 sources) Neuraminidase Inhibitor Start: 09-16-2018 End: 09-21-2018 take 75 mg by mouth twice daily Oseltamivir Discontinued 75 MG PO TWICE A DAY 10 5 September 16, 2018 4:11pm September 21, 2018 1:09am polyethylene glycol 3350 50059 mg powder for oral solution (12 sources) Osmotic Laxative Start: 03-25-2024 End: 04-08-2024 polyethylene glycol 3350 (MIRALAX) 17 gram/dose powder Take 17 g by mouth once daily as needed for constipation for up to 10 days. Dissolve dose in 4 - 8 ounces of liquid and take as directed. 238 g 03/25/2024 04/08/2024 Start: 11-23-2020 polyethylene g lycol (GLYCOLAX) packet 17 g potassium chloride 10 meq extended release oral tablet (20 sources) Start: 01-03-2023 End: 01-06-2026 take 2 tablets by mouth in the morning potassium chloride CR (Klor-Con) 10 MEQ ER tablet Take 2 tablets (20 mEq) by mouth in the morning. 180 tablet 3 01/06/2024 01/06/2025 Discontinued (Reorder) Start: 12-08-2020 potassium chlo ride (KLOR-CON M10) 10 MEQ extended release tablet Indications: Essential hypertension, benign TAKE 1 TABLET TWICE A DAY 180 tablet 4 12/08/2020 Active Start: 11-23-2020 20 mEq, Oral, DAILY, First dose on Sat11/23/20 at 0900 Do not crush or break. Start: 12-21-2019 potassium chlo ride (KLOR-CON M10) 10 MEQ extended release tablet Indications: Benign hypertension TAKE 1 TABLET TWICE A DAY 180 tablet 4 12/21/2019 Active Start: 06-30-2018 Potassium Chlo ride (Klor-Con M20) 20 mEq tablet,ER particles/crystals Active 20 MEQ PO DAILY June 30, 2018 11:26am Comment on above: Take 20 mEq by mouth once daily. 20 ml propofol 10 mg/ml injection (3 sources) General Anesthetic Start: 11-22-2020 End: 11-23-2020 propofol injection Start: 11-22-2020 End: 11-22-2020 propofol injection 79 mg ubidecarenone 100 mg oral capsule (2 sources) Start: 06-30-2018 End: 07-01-2019 Coenzyme Q10 (Co Q-10) 100 m g capsule Discontinued 100 MG PO DAILY June 30, 2018 11:28am July 01, 2019 12:35pm Problems Active Problems Problem Classification Problem Date Documented Da te Episodic/Chronic Anxiety disorders (14 sources) Anxiety state; Translations: [Generalized anxiety disorder] Onset: 03-01-2010 01-24-2015 Chronic Chronic obstructive pulmonary disease and bronchiectasis (2 sources) Bronchitis; Translations: [Bronchitis, not specified as acute or chronic] 09-16-2018 Episodic Diabetes mellitus without complication (15 sources) Impaired fasting glycemia; Translations: [Impaired fasting glucose] Onset: 12-28-2021 04-28-2022 Episodic Disorders of lipid metabolism (20 sources) Hyperlipidemia; Translations: [Hyperlipidemia, unspecified] Onset: 01-24-2015 01-24-2015 Chronic Essential hypertension (20 sources) Benign essential hypertension; Translations: [Essential (primary) hypertension] Onset: 01-24-2015 Resolved: 05-17-2020 Chronic Fracture of upper limb (1 source) Closed fracture of surgical neck of humerus; Translations: [Unspecified displaced fracture of surgical neck of left humerus, initial encounter for closed fracture] Episodic Influenza (4 sources) Influenza due to Influenza A virus; Translations: [Influenza due to other identified influenza virus with other respiratory manifestations] Onset: 12-08-2020 Resolved: 02-03-2021 02-03-2021 Episodic Menopausal disorders (20 sources) Atrophic vaginitis; Translations: [Postmenopausal atrophic vaginitis] Onset: 03-01-2010 Resolved: 03-02-2011 12-17-2018 Chronic Osteoarthritis (20 sources) Osteoarthritis of knee; Translations: [Unilateral primary osteoarthritis, unspecified knee] Onset: 05-06-2015 12-17-2018 Chronic Other aftercare (5 sources) Patient encounter status; Translations: [Aftercare following joint replacement surgery] 05-20-2023 Chronic Other aftercare (1 source) Aftercare following joint replacement surgery; Translations: [Aftercare following right hip joint replacement surgery] Onset: 05-20-2023 Chronic Other bone disease and musculoskeletal deformities (20 sources) Osteopenia; Translations: [Other specified disorders of bone density and structure, unspecified site] Onset: 04-08-2014 01-24-2015 Episodic Other connective tissue disease (17 sources) History of total knee arthroplasty; Translations: [Presence of right artificial knee joint] Onset: 03-25-2024 03-25-2024 Chronic Other connective tissue disease (1 source) Presence of right artificial knee joint; Translations: [S/P total knee arthroplasty, right] Onset: 03-25-2024 Chronic Other connective tissue disease (1 source) Presence of right artificial hip joint; Translations: [Aftercare following right hip joint replacement surgery] Onset: 05-20-2023 Chronic Other ear and sense organ disorders (2 sources) Impacted cerumen in right ear; Translations: [Impacted cerumen, right ear] 08-27-2023 Episodic Other inflammatory condition of skin (1 source) Palmar erythema; Translations: [Other specified erythematous conditions] 01-06-2025 Episodic Other liver diseases (1 source) Disease of liver; Translations: [Liver disease, unspecified] Chronic Other liver diseases (1 source) Lesion of liver; Translations: [Liver disease, unspecified] Chronic Other lower respiratory disease (1 source) Lung field abnormal; Translations: [Other nonspecific abnormal finding of lung field] Episodic Other lower respiratory disease (1 source) Multiple nodules of lung; Translations: [Other nonspecific abnormal finding of lung field] Episodic Other lower respiratory disease (2 sources) Solitary nodule of lung; Translations: [Solitary pulmonary nodule] 01-03-2023 Episodic Other non-traumatic joint disorders (2 sources) Pain in right knee; Translations: [Pain in joint, lower leg] Onset: 04-06-2024 04-06-2024 Episodic Other screening for suspected conditions (not mental disorders or infectious disease) (2 sources) Encounter for screening mammogram for malignant neoplasm of breast; Translations: [Encounter for screening mammogram for malignant neoplasm of breast] Onset: 03-23-2024 Episodic Pulmonary heart disease (20 sources) Pulmonary thromboembolism; Translations: [Other pulmonary embolism without acute cor pulmonale] Onset: 01-02-2021 01-06-2021 Episodic Residual codes; unclassified (1 source) Pain; Translations: [Pain, unspecified] 12-25-2023 Episodic Residual codes; unclassified (1 source) Other specified postprocedural states; Translations: [PONV (postoperative nausea and vomiting)] Onset: 03-09-2024 Episodic Residual codes; unclassified (1 source) At risk of osteoporotic fracture; Translations: [Other specified personal risk factors, not elsewhere classified] 07-29-2024 Episodic Spondylosis; intervertebral disc disorders; other back problems (1 source) Inflammation of sacroiliac joint; Translations: [Sacroiliitis, not elsewhere classified] 05-20-2023 Chronic Thyroid disorders (1 source) Non-toxic uninodular goiter; Translations: [Nontoxic single thyroid nodule] Chronic Unclassified (2 sources) Results; Translations: [Results] Onset: 07-29-2024 Past or Other Problems Problem Classification Problem Date Documented Da te Episodic/Chronic Cardiac dysrhythmias (15 sources) Tachycardia; Translations: [Tachycardia, unspecified] Onset: 12-08-2020 Resolved: 07-12-2022 12-08-2020 Episodic Fluid and electrolyte disorders (15 sources) Hypokalemia; Translations: [Hypokalemia] Onset: 09-21-2015 Resolved: 07-12-2022 Episodic Joint disorders and dislocations; trauma-related (15 sources) Dislocation of shoulder joint; Translations: [Unspecified dislocation of left shoulder joint, initial encounter] Onset: 11-23-2020 Resolved: 07-12-2022 Episodic Mood disorders (20 sources) Depressive disorder; Translations: [Other specified depressive episodes] Onset: 03-01-2010 Resolved: 03-02-2011 03-02-2011 Chronic Nausea and vomiting (20 sources) Postoperative nausea and vomiting; Translations: [Nausea with vomiting, unspecified] Onset: 03-09-2024 03-09-2024 Episodic Other bone disease and musculoskeletal deformities (20 sources) Disorder of skeletal system; Translations: [Disorder of bone, unspecified] Onset: 03-14-2006 Resolved: 06-21-2016 06-21-2016 Episodic Other bone disease and musculoskeletal deformities (1 source) Other specified disorders of bone density and structure, unspecified site; Translations: [Other specified disorders of bone density and structure, unspecified site] Onset: 06-29-2024 Episodic Residual codes; unclassified (1 source) Pain, unspecified; Translations: [Pain] Onset: 12-25-2023 Episodic Urinary tract infections (20 sources) Recurrent cystitis ; Translations: [Cystitis, unspecified without hematuria] Onset: 03-31-2012 Resolved: 06-21-2016 01-24-2015 Episodic Results Test Name Value Interpretation Reference Range Facility 37 01-06-2025 37 Checking your blood pressure at home: 1. Rest for approx 5 min before checking your blood pressure 2. Sit with your feet flat on the floor and back supported by a chair. 3. Rest your arm on a table at about chest height. 4. Start machine. Check blood pressure 2-3 times to obtain an average reading. 5. Goal blood pressure is less than 140/90. If your blood pressure is consistently running higher than that you should talk to your doctor. Normal [facility] CBC panel Auto (Bld)on 01-06 Erythrocyte distribution width (RBC) [Ratio] 12.8 % 11.0 - 15.0 % [facility] Hematocrit (Bld) [Volume fraction] 37.9 % 35.0 - 45.0 % [facility] Hemoglobin (Bld) [Mass/Vol] 12.5 g/dL 11.7 - 15.5 g/dL [facility] MCH (RBC) [Entitic mass] 30.4 pg 27.0 - 33.0 pg [facility] MCHC (RBC) [Mass/Vol] 33 g/dL 32.0 - 36.0 g/dL [facility] Comment on above: For adults, a slight decrease in the calculated MCHC value (in the range of 30 to 32 g/dL) is most likely not clinically significant; however, it should be interpreted with caution in correlation with other red cell parameters and the patient's clinical condition. MCV (RBC) [Entitic vol] 92.2 fL 80.0 - 100.0 fL [facility] Platelet mean volume (Bld) [Entitic vol] 9.3 fL 7.5 - 12.5 fL [facility] Platelets (Bld) [#/Vol] 271 10*3/uL [facility] RBC (Bld) [#/Vol] 4.11 10*6/uL [facility] WBC (Bld) [#/Vol] 7 10*3/uL [facility] Comprehensive metabolic 1998 panelon 01-06-2025 Albumin [Mass/Vol] 4.2 g/dL 3.6 - 5.1 g/dL [facility] Albumin/Globulin [Mass ratio] 1.4 {ratio} [facility] ALP [Catalytic activity/Vol] 85 U/L 37 - 153 U/L [facility] ALT [Catalytic activity/Vol] 12 U/L 6 - 29 U/L [facility] AST [Catalytic activity/Vol] 17 U/L 10 - 35 U/L [facility] Bilirubin [Mass/Vol] 1.1 mg/dL 0.2 - 1 .2 mg/dL [facility] Calcium [Mass/Vol] 9.7 mg/dL 8.6 - 10. 4 mg/dL [facility] Chloride [Moles/Vol] 103 mmol/L 98 - 11 0 mmol/L [facility] CO2 [Moles/Vol] 28 mmol/L 20 - 32 mmol/L [facility] Creatinine [Mass/Vol] 0.67 mg/dL 0.60 - 1.00 mg/dL [facility] GFR/1.73 sq M.predicted among non-blacks MDRD (S/P/Bld) [Vol rate/Area] 92 mL/min/{1.73_m2} > OR = 60 mL/min/1.73 m2 [facility] Globulin (S) [Mass/Vol] 3 g/dL [facility] Glucose [Mass/Vol] 92 mg/dL 65 - 99 mg/dL [facility] Comment on above: Fasting reference interval Potassium [Moles/Vol] 4.2 mmol/L 3.5 - 5.3 mmol/L [facility] Protein [Mass/Vol] 7.2 g/dL 6.1 - 8.1 g/dL [facility] Sodium [Moles/Vol] 140 mmol/L 135 - 146 mmol/L [facility] Urea nitrogen [Mass/Vol] 20 mg/dL 7 - 25 mg/dL [facility] Urea nitrogen/Creatinine [Mass ratio] SEE NOTE: [facility] Comment on above: Not Reported: BUN an d Creatinine are within reference range. Lipid 1996 panelon 5 Cholesterol [Mass/Vol] 165 mg/dL NINF - 200 mg/dL [facility] Cholesterol in HDL [Mass/Vol] 48 mg/dL Low > OR = 50 [facility] Cholesterol in LDL [Mass/Vol] 81 mg/dL mg/dL (calc) [facility] Comment on above: Reference range: <10 0 Desirable range <100 mg/dL for primary prevention; <70 mg/dL for patients with CHD or diabetic patients with > or = 2 CHD risk factors. LDL-C is now calculated using the Rocky-May calculation, which is a validated novel method providing better accuracy than the Friedewald equation in the estimation of LDL-C. Rocky SS et al. BALWINDER. 2013;310(19): 4404-3062 (http://education.fabrooms.GroundWork/faq/EAE954) Cholesterol non HDL [Mass/Vol] 117 mg/dL [facility] Comment on above: For patients with di abetes plus 1 major ASCVD risk factor, treating to a non-HDL-C goal of <100 mg/dL (LDL-C of <70 mg/dL) is considered a therapeutic option. Cholesterol.total/[place] sterol in HDL [Mass ratio] 3.4 {ratio} [facility] Interpretation and review of laboratory results Abnormal [facility] Triglyceride [Mass/Vol] 296 mg/dL High [facility] - 150 mg/dL [facility] Comment on above: If a non-fasting specimen was collected, consider repeat triglyceride testing on a fasting specimen if clinically indicated. Dawson et al. J. of Clin. Lipidol. 2015;9:129-169. No Panel Informationon 01-06 [facility] Office Visiton 01-06-2025 Follow-up visit [id number] Zeenat Mejia 1950 F Date Provider Department Center 01/06/2025 SULTANA PRITCHARD [facility] Family History Problem Relation Age of Onset Breast cancer Maternal Grandmother No Known Problems Son Arthritis Mother Osteoporosis Mother Hypertension Mother COPD Mother Cancer Mother Comments: colon cancer Colon cancer Mother No Known Problems Paternal Grandmother Hyperlipidemia Other Comments: family COPD Other Comments: aunt at aage 82--sudden cardiac No Known Problems Son No Known Problems Maternal Grandfather No Known Problems Daughter No Known Problems Paternal Grandfather Other Father Comments: skin disorder Cancer Son Comments: malignant melanoma back Lupus Sister Family Status - Relation Status Age at Maternal Grandmother Son Alive Mother Paternal Grandmother Other Son Alive Maternal Grandfather Daughter Alive Paternal Grandfather Father Son Alive Sister Level of Service:G0439 [place] PPPS, SUBSEQ VISIT Reason for Visit and Comments: Medicare Annual Wellness Visit Subsequent [677] Normal [facility] Progress Noteon 01-06-2025 Progress Note Declined fosamax at this time. Will review the supplements she discussed at her visit and determine next steps. Normal [facility] Progress Note Provoked. Completed treatment. Normal [facility] Progress Note [facility] [id number] [facility] [address] Dept: [phone] Dept Visit Type: .Medicare Annual Wellness PCP: Sultana Cohen DO Reason for Visit: Medicare Annual Wellness Visit Subsequent ASSESSMENT AND PLAN Assessment & Plan Annual physical exam Up to date on vaccinations. Declined further shingles vaccine d/t cost. Orders: Comprehensive metabolic panel; Future CBC; Future Lipid panel; Future Hyperlipidemia, unspecified hyperlipidemia type Chronic. Monitor. Continue lipitor and adjust as needed. Orders: Lipid panel; Future History of pulmonary embolus (PE) Provoked. Completed treatment. IFG (impaired fasting glucose) Monitor glucose yearly. Osteopenia, unspecified location Declined fosamax at this time. Will review the supplements she discussed at her visit and determine next steps. Palmar erythema With pruritus. Histamine response to alcohol? Evaluate bilirubin on CMP to r/o cholestasis, but doesn't have any abdominal symptoms or jaundice. Follow up in about 1 year (around 01/06/2026) for AWV. There are no Patient Instructions on file for this visit. SUBJECTIVE HPI Zeenat Mejia presents for an annual exam. She has the following concerns today: Follows with specialists: Dermatology Podiatry Chiropractic Ophthalmology Orthopedics - Dr. Chi (knee replacement) Gynecology - Dr. Brito Never started the fosamax d/t risk of SE. Instead took collagen peptides with a probiotic but caused diarrhea. Fosteum - supplement? Small amount of etoh is causing hand and feet itching erythema. Happened with wine, vodka, and tequila. Doesn't drink often. Never had this issue in the past. No association with abdominal pain and yellow of skin. Review of Systems Pertinent ROS noted in the HPI and all other systems are negative. I have reviewed and reconciled the medication list with the patient today. Current Medications[1] Also reviewed during this visit: The following health maintenance schedule was reviewed with the patient and provided in printed form in the after visit summary: Health Maintenance Topic Date Due RSV Immunization for Adults (1 - Risk 60-74 years 1-dose series) Never done Pneumococcal Vaccine: 50+ Years (3 of 3 - PCV20 or PCV21) 12/27/2021 DTaP/Tdap/Td Vaccines (2 - Td or Tdap) 09/16/2024 Medicare Annual Wellness (AWV) 02/04/2025 Mammogram 02/24/2025 COVID-19 Vaccine (3 - 2023- season) 2025 (Originally 03/15/2024) Influenza Vaccine (Season Ended) 2025 Depression Screening 01/05/2026 Diabetes Screening 01/05/2027 Lipid Panel 01/05/2029 Colorectal Cancer Screening 05/03/2032 Hepatitis C Screening Completed Bone Density Scan Completed RSV Immunization under 20 Months Aged Out HIB Vaccines Aged Out Hepatitis B Vaccines Aged Out IPV Vaccines Aged Out Hepatitis A Vaccines Aged Out Meningococcal Vaccine Aged Out Rotavirus Vaccines Aged Out HPV Vaccines Aged Out Meningococcal B Vaccine Aged Out Zoster Vaccines Discontinued Health Risk Assessment General: General In general, how would you say your health is?: Very good In the past 7 days, have you experienced any of the following: New or Increased Pain, New or Increased Fatigue, Loneliness, Social Isolation, Stress or Anger?: No Do you get the social and emotional suppport you need?: Yes Health Habits/Nutrition: Health Habits / Nutrition On average, how many days per week do you engage in moderate to strenous exercise (like a brisk walk)?: 2 days On average, how man minutes do you engage in exercise at this level?: 60 min Have you lost any weight without trying in the past 3 months? : No Have you seen the dentist within the past year?: Yes Hearing/ Vision: Hearing / Vision Do you or your family notice any trouble with your hearing that hasn't been managed with hearing aids?: No Do you have difficulty driving, watching TV, or doing any of your daily activities because of your eyesight?: No Have you had an eye exam within the past year?: Yes No results found. Interventions: Safety: Safety Do you have a working smoke detector?: Yes Do you have any tripping hazards - loose or unsecured carpets or rugs?: No Do you have any tripping hazards - clutter in doorways, halls, or stairs?: (!) Yes Do you have either shower bars, grab bars, non-slip mats or non-slip surfaces in your shower or bathtub? : Yes Do all your stairways have a railing or banister? : (!) No Do you fasten your seatbelt when you are in a car?: Yes ADL: ADL In the past 7 days, did you need help from others to perform any of the following everyday activities: Eating, dressing, grooming,bathing, toileting, or walking / balance? : No In the past 7 days, did you need help from others to take care of any of the following: laundry, housekeeping, ban (more content not included)... Normal [facility] Progress Note Monitor glucose yearly. Normal [facility] 37on 07-29-2024 37 Vitamin D 800iu at least And calcium 1200mg at least. Normal [facility] Office Visiton 07-29-2024 Follow-up visit [id number] Zeenat Mejia Lashell 1950 F Date Provider Department Center 07/29/2024 [id number] COHEN [facility] Family History Problem Relation Age of Onset Breast cancer Maternal Grandmother No Known Problems Son Arthritis Mother Osteoporosis Mother Hypertension Mother COPD Mother Cancer Mother Comments: colon cancer Colon cancer Mother No Known Problems Paternal Grandmother Hyperlipidemia Other Comments: family COPD Other Comments: aunt at aage 82--sudden cardiac No Known Problems Son No Known Problems Maternal Grandfather No Known Problems Daughter No Known Problems Paternal Grandfather Other Father Comments: skin disorder Cancer Son Comments: malignant melanoma back Lupus Sister Family Status - Relation Status Age at Maternal Grandmother Son Alive Mother Paternal Grandmother Other Son Alive Maternal Grandfather Daughter Alive Paternal Grandfather Father Son Alive Sister Level of Service:24723 [place] OFFICE/OUTPATIENT ESTABLISHED LOW MDM 20 MIN Reason for Visit and Comments: Results [95] - Discuss DEXA scan results Normal [facility] Progress Noteon 07-29-2024 Progress Note [facility] - [address] [facility] [address] Visit Type: Office Visit PCP: Sultana Cohen DO Reason for Visit: Results (Discuss DEXA scan results) Assessment and Plan Assessment & Plan Fracture Risk Assessment Score (FRAX) indicating greater than 20% risk for major osteoporosis-related fracture Based on Frax score and her worsening spine bone density she was advised to start medication mgmt to lower her risk of fracture. Reviewed option of starting bisphosphonate. She does not have any contraindications to use of bisphosphonates. Advised to speak to dentist to ensure appropriate monitoring. Will initiate Rx for fosamax 70mg weekly. Intention to continue 5 yrs with dexa in 2 yrs to monitor. Continue adequate calcium and vitamin d replacement. Advised on SE of medication. Orders: alendronate (Fosamax) 70 MG tablet; Take 1 tablet (70 mg) by mouth every 7 days. Take in the morning with a full glass of water, on an empty stomach, and do not take anything else by mouth or lie down for the next 30 min. Follow up if symptoms worsen or fail to improve. Patient Instructions Vitamin D 800iu at least And calcium 1200mg at least. Subjective HPI Osteopenia - notes a h/o being on a medication for bones in the past - doesn't recall the name - gynecology referred her to us for a osteopenia evaluation since DEXA showed T scores worsening Pt notes a h/o broken L shoulder. And L hand fracture. Her mother had a broken leg x3 different locations (all in large bones). She does not have increased risk factors otherwise - no chronic steroid use, no inflammatory arthritis, non-smoker, no etoh use. Per DEXA scan: Spine T 0.6, Z 2.9 Left femur total T -1.8 Left femoral neck T -1.8 Frax score of 26, indicating a 28% risk of major osteoporotic fracture in 10yrs. She is currently taking citracal generic. Review of Systems Pertinent ROS noted in the HPI and all other systems are negative. Current Outpatient Medications Medication Sig Dispense Refill atorvastatin (Lipitor) 10 MG tablet Take 1 tablet (10 mg) by mouth daily. 90 tablet 3 cholecalciferol (Vitamin D-3) 75 MCG (3000 UT) tablet Take by mouth. clindamycin (Cleocin) 300 MG capsule Prior to dentist appointment lisinopril-hydroCHLORO thiazide 20-12.5 MG tablet Take 1 tablet by mouth daily. 90 tablet 3 meloxicam (Mobic) 7.5 MG tablet Take 15 mg by mouth daily. Multiple Vitamin (MULTI-VITAMIN DAILY PO) Take 1 tablet by mouth in the morning. potassium chloride CR (Klor-Con) 10 MEQ ER tablet Take 2 tablets (20 mEq) by mouth in the morning. 180 tablet 3 Ubiquinol 100 MG capsule Take by mouth daily. alendronate (Fosamax) 70 MG tablet Take 1 tablet (70 mg) by mouth every 7 days. Take in the morning with a full glass of water, on an empty stomach, and do not take anything else by mouth or lie down for the next 30 min. 4 tablet 11 No current facility-administered medications for this visit. Patient Active Problem List Diagnosis Date Noted IFG (impaired fasting glucose) 12/28/2021 PE (pulmonary thromboembolism) ([facility]) 01/02/2021 Essential hypertension, benign 11/23/2020 Postmenopausal atrophic vaginitis 12/17/2018 Osteoarthritis of knee 12/17/2018 Primary osteoarthritis of right hip 12/17/2018 Hypercholesterolemia 04/11/2015 Osteopenia 01/24/2015 Anxiety state 01/24/2015 Recurrent cystitis 01/24/2015 Objective BP 110/80 (BP Location: Left arm, Patient Position: Sitting, BP Cuff Size: Adult) Pulse 84 Temp 37 ?C (98.6 ?F) (Temporal) Ht 5' 7 (1.702 m) Wt 166 lb (75.3 kg) SpO2 98% BMI 26.00 kg/m? Physical Exam Vitals reviewed. Constitutional: Appearance: Normal appearance. HENT: Head: Normocephalic and atraumatic. Mouth/Throat: Mouth: Mucous membranes are moist. Pharynx: Oropharynx is clear. Eyes: Extraocular Movements: Extraocular movements intact. Conjunctiva/sclera: Conjunctivae normal. Cardiovascular: Rate and Rhythm: Normal rate. Pulmonary: Effort: Pulmonary effort is normal. Musculoskeletal: Cervical back: Normal range of motion. Neurological: Mental Status: She is alert. Psychiatric: Mood and Affect: Mood normal. Thought Content: Thought content normal. Medications Discontinued During This Encounter Medication Reason enoxaparin (Lovenox) 40 MG/0.4ML solution prefilled syringe Med list cleanup ondansetron (Zofran) 4 MG tablet Med list cleanup acetaminophen (Tylenol) 500 MG tablet Med list cleanup ascorbic acid (Vitamin C) 500 MG tablet Med list cleanup Sultana Cohen DO 07/29/2024 7:01 PM Normal [facility] Progress Note During rooming, patient was asked if they would like a flu shot. She declined. Normal [facility] 36on 07-06-2024 36 noted Normal [facility] 36 Currently taking coricidin for management of symptoms. Feels this is adequate for symptom control right now. She declined treatment with paxlovid d/t SE associated with med. Notes her eye has been deeply blood shot before the covid symptoms started. No vision affected, painful, discharge or itching noted. Tried to call eye doc and waiting to see about evaluation. Normal [facility] 36on 07-05-2024 36 S: Patient called [facility] with complaints of C19 symptoms and positive self-test. B: Symptoms began yesterday. C19 self-test positive this AM. and brother just had C19 last week. A: Patient reports mild, nonproductive cough, chills, nasal congestion, and slight cough. Denies fever, shortness of breath, wheezing, muscle aches, fatigue, loss of taste or smell. R: Patient instructed that this should be treated at home. Home care advice reviewed with patient per protocol, including hot liquids, humidified air, OTC cough medications. Patient instructed to call back with new or worsening symptoms. Patient verbalizes understanding. Reason for Disposition [1] COVID-19 diagnosed by positive lab test (e.g., PCR, rapid self-test kit) AND [2] mild symptoms (e.g., cough, fever, others) AND [3] no complications or SOB Answer Assessment - Initial Assessment Questions 1. SYMPTOMS: What is your main symptom or concern? (e.g., cough, fever, shortness of breath, muscle aches) Chill, congestion, cough. 2. ONSET: When did the symptoms start? Yesterday. 3. COUGH: Do you have a cough? If Yes, ask: How bad is the cough? Yes. Mild. 4. FEVER: Do you have a fever? If Yes, ask: What is your temperature, how was it measured, and when did it start? No. 5. BREATHING DIFFICULTY: Are you having any difficulty breathing? (e.g., normal; shortness of breath, wheezing, unable to speak) No. 6. GMDHZB-CNGH-PSBPX: Are you getting better, staying the same or getting worse compared to yesterday? If getting worse, ask, In what way? Worsening. 7. OTHER SYMPTOMS: Do you have any other symptoms? (e.g., chills, fatigue, headache, loss of smell or taste, muscle pain, sore throat) Chills, slight headache. 8. COVID-19 DIAGNOSIS: How do you know that you have COVID? (e.g., positive lab test or self-test, diagnosed by doctor or [employer]/PA, symptoms after exposure). Yes, took self this morning. 9. COVID-19 EXPOSURE: Was there any known exposure to COVID before the symptoms began? , brother had it. 10. COVID-19 VACCINE: Have you had the COVID-19 vaccine? If Yes, ask: When did you last get it? Had the first vaccination. 11. HIGH RISK DISEASE: Do you have any chronic medical problems? (e.g., asthma, heart or lung disease, weak immune system, obesity, etc.) No. 12. : Is there any chance you are ? When was your last menstrual period? / 13. O2 SATURATION MONITOR: Do you use an oxygen saturation monitor (pulse oximeter) at home? If Yes, ask What is your reading (oxygen level) today? What is your usual oxygen saturation reading? (e.g., 95%) / Protocols used: Coronavirus (COVID-19) [facility]osed [facility] CNOV Office Visit (ORMDNA ) ZEENAT MEJIA ([id number]) 1950 F Date Time Provider Department 06/19/24 1:45 PM ROMANA CHI During your visit today, we recorded the following information about you: Romana Chi MD 2024 9:[address] CHI- POST-OP KNEE ======== Post-Op F/U Office Visit ======== Zeenat Mejia presents today for a 12 weeks status post Right TKA. Post-operative recovery was uneventful. Patient's rating of condition: improving Comments: None Does the Pt. still experience pain? PAIN EVALUATION 06/19/2024 1350 Pain Level: 0 Pain Location: Knee-Right Functional difficulties: Stair climbing Physical Therapy: Yes Pain Medication: None Ambulating without assistance. Medications and Allergies reviewed and verified. ======== EXAM: ======== GEN: AANDO x3, NAD SKIN:Appropriate postop appearance Incision intact Incision well healed RightKnee: ROM: Flexion/Extension:0 degrees to 110 degrees Pain with ROM:No Mal-alignment: No Effusion: None Non Tender to palpation of the medial , lateral , and patellofemoral joint line(s). Stability:Anterior/Pos terior- Yes, stable and Varus/Valgus- Yes, stable Quad strength: normal HIP: range of motion no loss ROM NV: intact and Joyce's negative ======== IMAGING: ======== Xrays: No x-rays today ====== IMPRESSION/PLAN: ====== 74 year old female s/p Right TKA At normal post-operative stage of recovery. Plan: 1. Continue physical therapy exercises for range of motion/strengthening 2. Continue total knee precautions 3. Follow-up for repeat clinical evaluation Romana Chi MD Electronic Signature Allergies As of Date: 06/19/2024 Noted Allergy Reaction PENICILLINS 03/14/2006 2 - Rash SULFA (SULFONAMIDE ANTIBIOTICS) 03/14/2006 2 - Rash TETRACYCLINE 03/14/2006 2 - Rash Date Reviewed: 06/19/2024 Reviewed by: Sultana Hair MA - Fully Assessed Reason for Visit: Established Patient [175] Knee Pain [132] Post Op [174] Primary Visit Diagnosis:Aftercare following right knee joint replacement surgery [Z47.1, Z96.651] Prescriptions as of 2024 - lisinopril-hydroCHLORO thiazide (ZESTORETIC) 20-12.5 mg per tablet Take 1 tablet by mouth once daily. - ondansetron (ZOFRAN) 4 mg tablet Take 1 tablet by mouth every 8 hours as needed for nausea/vomiting. - acetaminophen (TYLENOL) 500 mg tablet Take 2 tablets by mouth every 8 hours as needed for pain. - ascorbic acid, vitamin C, (VITAMIN C) 500 mg tablet Take 1 tablet by mouth two times a day with meals for 27 doses. - calcium carbonate/vitamin D3 (CALCIUM 500 + D ORAL) Take 1 tablet by mouth once daily. Patient should start on March 26, 2024. - MULTI-VITAMIN ORAL Take 1 tablet by mouth once daily. - potassium chloride (K-TAB) 10 mEq tablet Take 20 mEq by mouth once daily. - atorvastatin (LIPITOR) 10 mg tablet Take 10 mg by mouth daily at bedtime. - coQ10, ubiquinol, 100 mg cap Take 1 capsule by mouth once daily. Problem List As Of Date 06/19/2024 Noted Resolved Disorder of bone and cartilage, unspecified [M8*03/14/2006 06/21/2016 Symptomatic menopausal or female climacteric st*03/01/2010 03/02/2011 POSTMENOPAUSAL ATROPHIC VAGINITIS [N95.2] 03/01/2010 Depressive disorder, not elsewhere classified [*03/01/2010 03/02/2011 Recurrent cystitis [N30.90] 03/31/2012 06/21/2016 Osteopenia [M85.80] 04/08/2014 Primary osteoarthritis of left knee [M17.12] 05/06/2015 Primary osteoarthritis of right hip [M16.11] 05/06/2015 Essential hypertension [I10] 08/13/2016 Hyperlipidemia [E78.5] 08/15/2016 PE (pulmonary thromboembolism) (HCC) [I26.99] 01/02/2021 PONV (postoperative nausea and vomiting) [R11.2*03/09/2024 S/P total knee arthroplasty, right [Z96.651] 03/25/2024 Disposition: Return in about 9 months (around 03/20/2025). Follow-up and Disposition History for Encounter Date Provider Department Center 06/19/2024 [id number][facility] Status:Closed by ROMANA CHI on 07/17/24 Normal [facility] Dexa Bone Density Studyon Dexa Bone Density Study [facility] Imaging Services [address] [place], [place] [id number] Dexa Bone Density Study MR#: [id number] Acct: [id number] Name: ZEENAT MEJIA Rep #: [id number] : 1950 F 73 From: Blake shultz MD PCP: SULTANA COHEN Status: REG CLI Study: Dexa Bone Density Study Date of Exam: 06/03/24 Exam# [id number] Ordering Dr: Thania Brito [id number] STUDY: DUAL ENERGY X-RAY ABSORPTIOMETRY / DXA REASON FOR EXAM: Female, 73 years old. Osteopenia TECHNIQUE: Bone Mineral Density (BMD) measurements of lumbar spine and left hip were obtained. COMPARISON: Comparison is made with prior study dated July 23, 2018. FINDINGS: Lumbar Spine (L1-L4): g/cm2 (1.115) / T-score (0.6) / Z-score (2.9) Findings are suggestive of normal bone density with a low fracture risk. Left Femur Total: g/cm2 (0.725) / T-score (-1.8) / Z-score (-0.1) Left Femoral Neck: g/cm2 (0.644) / T-score (-1.8) / Z-score (0.1) The T-Scores on the most recent prior examination were: Lumbar Spine (L1-L4): There has been worsening of bone density since the previous examination. Left Femur Total: which represents a worsening of 5%. BD/Dexa Bone Density Study IMPRESSION: The patient is considered osteopenic as outlined below according to World Aniceto Organization (WHO) criteria with a moderate fracture risk. There has been worsening of bone density since the previous examination. Reference Information: The T-score is the number of standard deviations above or below the standard which is normal for young adults at their peak bone mineral density. The World Health Organization (WHO) interprets the T-scores as follows: Above -1 Normal bone density Between -1 and -2.5 Osteopenia Equal to / or below -2.5 Osteoporosis As a practical clinical guideline, osteopenia may be graded as follows: Mild -1 through -1.5 Moderate -1.6 through -2.0 Severe -2.1 through -2.4 The Z-score is the number of standard deviations above or below age-matched controls. A Z-score of less than -1.5 would be considered abnormal. References: 1. NIH Osteoporosis and Related Bone Diseases www osteo.org 2. International Society for Clinical Densitometry www iscd.org 3. National Osteoporosis Foundation www nof.org Electronically Signed: Blake Johnson MD at 8:32 EST , CC: SULTANA COHEN; Dr. Thania Brito MD Group Insurance Special Agent: Signed Normal [facility] CNOVon 05-06-2024 [facility] Office Visit (ORMDNA ) ZEENAT MEJIA ([id number]) 1950 F Date Time Provider Department 05/06/24 9:00 AM ROMANA CHI During your visit today, we recorded the following information about you: Romana Chi MD 06/01/2024 10:[address] CHI- POST-OP KNEE ======== Post-Op F/U Office Visit ======== Zeenat Lobo Roberto presents today for a 6 weeks status post Right TKA. Post-operative recovery was uneventful. Patient's rating of condition: improving Comments: None Does the Pt. still experience pain? PAIN EVALUATION 05/06/2024 0923 Pain Level: 0 Pain Location: Knee-Right Functional difficulties: Stair climbing Physical Therapy: Yes Pain Medication: Non-narcotic Ambulating with assistance. Medications and Allergies reviewed and verified. ======== EXAM: ======== GEN: AANDO x3, NAD SKIN:Appropriate postop appearance Incision intact Incision well healed RightKnee: ROM: Flexion/Extension:0 degrees to 110 degrees Pain with ROM:No Mal-alignment: No Effusion: None Tender to palpation of the medial joint line(s). Stability:Anterior/Pos terior- Yes, stable and Varus/Valgus- Yes, stable Quad strength: normal HIP: range of motion no loss ROM NV: intact and Joyce's negative ======== IMAGING: ======== Xrays: No x-rays today ====== IMPRESSION/PLAN: ====== 73 year old female s/p Right TKA At normal post-operative stage of recovery. Plan: 1. Continue range of motion/strengthening exercises 2. We reviewed total knee precautions 3. Follow-up for repeat clinical evaluation Romana Chi MD Electronic Signature Allergies As of Date: 05/06/2024 Noted Allergy Reaction PENICILLINS 03/14/2006 2 - Rash SULFA (SULFONAMIDE ANTIBIOTICS) 03/14/2006 2 - Rash TETRACYCLINE 03/14/2006 2 - Rash Date Reviewed: 05/06/2024 Reviewed by: Ijeoma Perez OCCA - Fully Assessed Reason for Visit: Post Op [174] Knee Replacement [363] Primary Visit Diagnosis:Aftercare following right knee joint replacement surgery [Z47.1, Z96.651] Prescriptions as of 06/01/2024 - lisinopril-hydroCHLORO thiazide (ZESTORETIC) 20-12.5 mg per tablet Take 1 tablet by mouth once daily. - ondansetron (ZOFRAN) 4 mg tablet Take 1 tablet by mouth every 8 hours as needed for nausea/vomiting. - acetaminophen (TYLENOL) 500 mg tablet Take 2 tablets by mouth every 8 hours as needed for pain. - ascorbic acid, vitamin C, (VITAMIN C) 500 mg tablet Take 1 tablet by mouth two times a day with meals for 27 doses. - calcium carbonate/vitamin D3 (CALCIUM 500 + D ORAL) Take 1 tablet by mouth once daily. Patient should start on March 26, 2024. - MULTI-VITAMIN ORAL Take 1 tablet by mouth once daily. - potassium chloride (K-TAB) 10 mEq tablet Take 20 mEq by mouth once daily. - atorvastatin (LIPITOR) 10 mg tablet Take 10 mg by mouth daily at bedtime. - coQ10, ubiquinol, 100 mg cap Take 1 capsule by mouth once daily. Problem List As Of Date 05/06/2024 Noted Resolved Disorder of bone and cartilage, unspecified [M8*03/14/2006 06/21/2016 Symptomatic menopausal or female climacteric st*03/01/2010 03/02/2011 POSTMENOPAUSAL ATROPHIC VAGINITIS [N95.2] 03/01/2010 Depressive disorder, not elsewhere classified [*03/01/2010 03/02/2011 Recurrent cystitis [N30.90] 03/31/2012 06/21/2016 Osteopenia [M85.80] 04/08/2014 Primary osteoarthritis of left knee [M17.12] 05/06/2015 Primary osteoarthritis of right hip [M16.11] 05/06/2015 Essential hypertension [I10] 08/13/2016 Hyperlipidemia [E78.5] 08/15/2016 PE (pulmonary thromboembolism) (HCC) [I26.99] 01/02/2021 PONV (postoperative nausea and vomiting) [R11.2*03/09/2024 S/P total knee arthroplasty, right [Z96.651] 03/25/2024 Disposition: Return in about 6 weeks (around 06/17/2024). Follow-up and Disposition History for Encounter Date Provider Department Center 05/06/2024 [id number]-IVJPYLDROMANA CHI [facility] Encounter Status:Closed by ROMANA CHI on 06/01/24 [facility] CNOVon 04-06-2024 CNOV Office Visit (LUANN ) ZEENAT MEJIA ([id number]) 1950 F Date Time Provider Department 04/06/24 11:30 AM ROHITH WILLIS During your visit today, we recorded the following information about you: Rohith Willis PA-C 04/06/2024 12:03 PM Signed Post-op Office Visit Zeenat Mejia 73 year old April 06, 2024 11:29 AM Surgery Date: 03/24/2024 History: Zeenat Mejia is now 2 weeks out from robotic assisted right TKA. Post-operative course has been without complication. No readmissions. The patient was discharged from [facility] to home with home health care on 03/25/2024. Subjective: Patient reports minimal knee pain. Overall is doing well. She is using walker ambulatory aid She is not taking any opioid pain medication Patients rates her condition as improving. Reports compliance with DVT ppx (Lovenox). Participating in home PT. Objective: Right knee: Ambulates with walker Incision well-approximated, no drainage, well-healing. Suture tails trimmed today. Knee ROM 2 - 90 degrees Distally DP/PT palpable Distally SILT S/S/SP/DP/T intact at baseline Distally DF/PF motor intact at baseline Negative joyce/calf tenderness Xrays: Well-positioned total knee replacement in appropriate alignment with no evidence of loosening Assessment and Plan: 73 year old female 2 weeks status post robotic assisted right total knee arthroplasty - continue ice, rest, and use of non-narcotic analgesia as needed - reviewed antibiotic prophylactic protocols - discussed home exercises and therapy - complete Lovenox DVT prophylaxis x 2 weeks; discussed with patient who states she would like to begin taking ASA 81 BID after Lovenox is completed until she is 4 weeks post-op due to hx of PE - WBAT on operative extremity - discussed driving requirement: 4 weeks post-op, off narcotic pain medication, adequate brake time - follow up in 4 weeks for repeat clinical evaluation with Dr. Chi Normal post-operative course discussed with patient. Patient reassured and supported. All questions answered. Buzz Willis PA-C Orthopaedic Surgery Allergies As of Date: 04/06/2024 Noted Allergy Reaction PENICILLINS 03/14/2006 2 - Rash SULFA (SULFONAMIDE ANTIBIOTICS) 03/14/2006 2 - Rash TETRACYCLINE 03/14/2006 2 - Rash Date Reviewed: 03/30/2024 Reviewed by: Harish Manzanares PTA - Fully Assessed Reason for Visit: Established Patient [175] Follow Up [171] Knee Replacement [363] Post Op [174] Primary Visit Diagnosis:S/P total knee arthroplasty, right [Z96.651] Order(s):CONSULT TO PHYSICAL THERAPY [8839] Order #: [id number]: 1 FUTURE Prescriptions as of 04/06/2024 - lisinopril-hydroCHLORO thiazide (ZESTORETIC) 20-12.5 mg per tablet Take 1 tablet by mouth once daily. - ondansetron (ZOFRAN) 4 mg tablet Take 1 tablet by mouth every 8 hours as needed for nausea/vomiting. - acetaminophen (TYLENOL) 500 mg tablet Take 2 tablets by mouth every 8 hours as needed for pain. - ascorbic acid, vitamin C, (VITAMIN C) 500 mg tablet Take 1 tablet by mouth two times a day with meals for 27 doses. - docusate sodium (COLACE) 100 mg capsule Take 1 capsule by mouth two times a day as needed for constipation. - polyethylene glycol 3350 (MIRALAX) 17 gram/dose powder Take 17 g by mouth once daily as needed for constipation for up to 10 days. Dissolve dose in 4 - 8 ounces of liquid and take as directed. - enoxaparin (LOVENOX) 40 mg/0.4 mL Inject 0.4 mL subcutaneously once daily for 14 days. - calcium carbonate/vitamin D3 (CALCIUM 500 + D ORAL) Take 1 tablet by mouth once daily. Patient should start on March 26, 2024. - MULTI-VITAMIN ORAL Take 1 tablet by mouth once daily. - potassium chloride (K-TAB) 10 mEq tablet Take 20 mEq by mouth once daily. - atorvastatin (LIPITOR) 10 mg tablet Take 10 mg by mouth daily at bedtime. - coQ10, ubiquinol, 100 mg cap Take 1 capsule by mouth once daily. Problem List As Of Date 04/06/2024 Noted Resolved Disorder of bone and cartilage, unspecified [M8*03/14/2006 06/21/2016 Symptomatic menopausal or female climacteric st*03/01/2010 03/02/2011 POSTMENOPAUSAL ATROPHIC VAGINITIS [N95.2] 03/01/2010 Depressive disorder, not elsewhere classified [*03/01/2010 03/02/2011 Recurrent cystitis [N30.90] 03/31/2012 06/21/2016 Osteopenia [M85.80] 04/08/2014 Primary osteoarthritis of left knee [M17.12] 05/06/2015 Primary osteoarthritis of right hip [M16.11] 05/06/2015 Essential hypertension [I10] 08/13/2016 Hyperlipidemia [E78.5] 08/15/2016 PE (pulmonary thromboembolism) (HCC) [I26.99] 01/02/2021 PONV (postoperative nausea and vomiting) [R11.2*03/09/2024 S/P total knee arthroplasty, right [Z96.651] 03/25/2024 Encounter Status:Closed by ROHITH WILLIS on 04/06/24 Normal [facility] XR KNEE 3V AP/LAT/MERCHANT R Ton 04-06-2024 XR KNEE 3V AP/LAT/MERCHANT RT * * *Final Report* * * DATE OF EXAM: Apr 06 2024 11:08AM ANDRÉS 5209 - XR KNEE 3V AP/LAT/MERCHANT RT / PROCEDURE REASON: M25.561-Right knee pain, unspecified chronicity * * * * Physician Interpretation * * * * EXAM(s): XR KNEE 3V AP/LAT/MERCHANT RT EXAM DATE/TIME: 04/06/2024 11:08 AM HISTORY: 73 years old Clinical information: Right knee pain, unspecified chronicity f/u right knee Bilateral wt bearing AP and bilateral merchant TECHNIQUE: Images: XR KNEE 3V AP/LAT/MERCHANT RT Comparison: 03/24/2024. RESULT: Findings: Stable postoperative changes from right total knee arthroplasty with metal-backed patellar component. Hardware is intact without periprosthetic fracture or osteolysis. Alignment is unchanged. No evidence of acute fracture or dislocation. IMPRESSION: Right total knee arthroplasty without hardware complication. Group Insurance Special Agent: MITCH Transcribe Date/Time: Apr 06 2024 3:20P Dictated by : KIKO JONES MD This examination was interpreted and the report reviewed and electronically signed by: KIKO JONES MD on Apr 06 2024 3:21PM EST [id number] [facility] XR Knee AP and Lateral and M erchantson 04-06-2024 IMPRESSION: Right total knee arthroplasty without hardware complication. Group Insurance Special Agent: PSCB Transcribe Date/Time: Apr 06 2024 3:20P Dictated by : KIKO JONES MD This examination was interpreted and the report reviewed and electronically signed by: KIKO JONES MD on Apr 06 2024 3:21PM EST [facility] * * *Final Report* * * DATE OF EXAM: Apr 06 2024 11:08AM ANDRÉS 5209 - XR KNEE 3V AP/LAT/MERCHANT RT / PROCEDURE REASON: M25.561-Right knee pain, unspecified chronicity * * * * Physician Interpretation * * * * EXAM(s): XR KNEE 3V AP/LAT/MERCHANT RT EXAM DATE/TIME: 04/06/2024 11:08 AM HISTORY: 73 years old Clinical information: Right knee pain, unspecified chronicity f/u right knee Bilateral wt bearing AP and bilateral merchant TECHNIQUE: Images: XR KNEE 3V AP/LAT/MERCHANT RT Comparison: 03/24/2024. RESULT: Findings: Stable postoperative changes from right total knee arthroplasty with metal-backed patellar component. Hardware is intact without periprosthetic fracture or osteolysis. Alignment is unchanged. No evidence of acute fracture or dislocation. [facility] Provider, [facility] - 04/06/2024 * * *Final Report* * * DATE OF EXAM: Apr 06 2024 11:08AM ANDRÉS 5209 - XR KNEE 3V AP/LAT/MERCHANT RT / PROCEDURE REASON: M25.561-Right knee pain, unspecified chronicity * * * * Physician Interpretation * * * * EXAM(s): XR KNEE 3V AP/LAT/MERCHANT RT EXAM DATE/TIME: 04/06/2024 11:08 AM HISTORY: 73 years old Clinical information: Right knee pain, unspecified chronicity f/u right knee Bilateral wt bearing AP and bilateral merchant TECHNIQUE: Images: XR KNEE 3V AP/LAT/MERCHANT RT Comparison: 03/24/2024. RESULT: Findings: Stable postoperative changes from right total knee arthroplasty with metal-backed patellar component. Hardware is intact without periprosthetic fracture or osteolysis. Alignment is unchanged. No evidence of acute fracture or dislocation. IMPRESSION IMPRESSION: Right total knee arthroplasty without hardware complication. Group Insurance Special Agent: PSCB Transcribe Date/Time: Apr 06 2024 3:20P Dictated by : KIKO JONES MD This examination was interpreted and the report reviewed and electronically signed by: KIKO JONES MD on Apr 06 2024 3:21PM [facility] Study observation (narrative) Ora Luis XR Knee AP and Lateral and M erchantsOrdered By: Ccf Provider on 04-06-2024 [facility] CNCOon 03-26-2024 CNCO Letter Text Normal [facility] CNPNon 03-26-2024 CNPN Telephone (ORMDNA) ROBERTOZEENAT ([id number]) 1950 F Date Time Provider Department 03/26/24 ROMANA CHI During your visit today, we recorded the following information about you: [facility] Roseline 03/26/2024 3:48 PM Signed Patient is vomiting quite a bit and asking for an anti-nausea medication. Please advise. Tka was 03/24/24. Alfred Chandler PA-C 03/26/2024 4:30 PM Signed I talked with Zeenat. Overall she is doing well. She feels she took her pain medicine on an empty stomach and that led to the nausea. I will send in a prescription for Zofran to her pharmacy to make sure she is ok from a nausea standpoint. There are no other concerns at this time. Alfred Chandler PA-C Allergies As of Date: 03/26/2024 Noted Allergy Reaction PENICILLINS 03/14/2006 2 - Rash SULFA (SULFONAMIDE ANTIBIOTICS) 03/14/2006 2 - Rash TETRACYCLINE 03/14/2006 2 - Rash Date Reviewed: 03/26/2024 Reviewed by: Sarwat Torres, PT - Fully Assessed Reason for Visit: Patient Question [9677] Primary Visit Diagnosis:Aftercare following right knee joint replacement surgery [Z47.1, Z96.651] Other Visit Diagnosis:Postoperativ e nausea [R11.0, Z98.890] Order(s):ondansetron (ZOFRAN) 4 mg tabletTake 1 tablet by mouth every 8 hours as needed for nausea/vomiting.Disp: 20 tabletRfl: 0 Prescriptions as of 03/26/2024 - lisinopril-hydroCHLORO thiazide (ZESTORETIC) 20-12.5 mg per tablet Take 1 tablet by mouth once daily. - ondansetron (ZOFRAN) 4 mg tablet Take 1 tablet by mouth every 8 hours as needed for nausea/vomiting. - acetaminophen (TYLENOL) 500 mg tablet Take 2 tablets by mouth every 8 hours as needed for pain. - ascorbic acid, vitamin C, (VITAMIN C) 500 mg tablet Take 1 tablet by mouth two times a day with meals for 27 doses. - docusate sodium (COLACE) 100 mg capsule Take 1 capsule by mouth two times a day as needed for constipation. - polyethylene glycol 3350 (MIRALAX) 17 gram/dose powder Take 17 g by mouth once daily as needed for constipation for up to 10 days. Dissolve dose in 4 - 8 ounces of liquid and take as directed. - oxyCODONE IR (ROXICODONE) 5 mg immediate release tablet Take 1-2 tablets by mouth every 6 hours as needed for pain for up to 7 days. - enoxaparin (LOVENOX) 40 mg/0.4 mL Inject 0.4 mL subcutaneously once daily for 14 days. - calcium carbonate/vitamin D3 (CALCIUM 500 + D ORAL) Take 1 tablet by mouth once daily. Patient should start on March 26, 2024. - MULTI-VITAMIN ORAL Take 1 tablet by mouth once daily. - potassium chloride (K-TAB) 10 mEq tablet Take 20 mEq by mouth once daily. - atorvastatin (LIPITOR) 10 mg tablet Take 10 mg by mouth daily at bedtime. - coQ10, ubiquinol, 100 mg cap Take 1 capsule by mouth once daily. - lisinopril/hydrochloro thiazide(PRINZIDE 20 MG-12.5 MG TAB) one tablet daily Problem List As Of Date 03/26/2024 Noted Resolved Disorder of bone and cartilage, unspecified [M8*03/14/2006 06/21/2016 Symptomatic menopausal or female climacteric st*03/01/2010 03/02/2011 POSTMENOPAUSAL ATROPHIC VAGINITIS [N95.2] 03/01/2010 Depressive disorder, not elsewhere classified [*03/01/2010 03/02/2011 Recurrent cystitis [N30.90] 03/31/2012 06/21/2016 Osteopenia [M85.80] 04/08/2014 Primary osteoarthritis of left knee [M17.12] 05/06/2015 Primary osteoarthritis of right hip [M16.11] 05/06/2015 Essential hypertension [I10] 08/13/2016 Hyperlipidemia [E78.5] 08/15/2016 PE (pulmonary thromboembolism) (HCC) [I26.99] 01/02/2021 PONV (postoperative nausea and vomiting) [R11.2*03/09/2024 S/P total knee arthroplasty, right [Z96.651] 03/25/2024 Prescriptions ordered this encounter Disp Refills Start End ONDANSETRON HCL 4 MG TABLET 20 t* 0 03/26/2024 Route: ORAL Sig: Take 1 tablet by mouth every 8 hours as needed for nausea/vomiting. Encounter Status:Closed by ALFRED CHANDLER on 03/26/24 Normal [facility] Basic metabolic 2000 panelon 03-25-2024 Anion gap [Moles/Vol] 9 mmol/L Normal 8-15 [facility] Comment on above: Order Comment: Speci men Type: BLOOD SPECIMEN Ordering Facility: [facility] Address: [address] [place] [address] Performed By: #### 2 4321-2 #### [facility] CLIA [id number] [address] [place] [address] [place] Calcium [Mass/Vol] 8.7 mg/dL Normal 8.5-10.2 [facility] Comment on above: Order Comment: Speci men Type: BLOOD SPECIMEN Ordering Facility: [facility] Address: [address] [place] [address] Performed By: #### 2 4321-2 #### [facility] CLIA [id number] [address] [place] [address] [place] Chloride [Moles/Vol] 105 mmol/L Normal 98-107 [facility] Comment on above: Order Comment: Speci men Type: BLOOD SPECIMEN Ordering Facility: [facility] Address: [address] [place] [address] Performed By: #### 2 4321-2 #### [facility] CLIA [id number] [address] [place] [address] [place] CO2 [Moles/Vol] 26 mmol/L Normal 22-30 [facility] Comment on above: Order Comment: Speci men Type: BLOOD SPECIMEN Ordering Facility: [facility] Address: [address] [place] [address] Performed By: #### 2 4321-2 #### [facility] CLIA [id number] [address] [place] Creatinine [Mass/Vol] 0.78 mg/dL Normal 0.58-0.96 [facility] Comment on above: Order Comment: Remi diaz Type: BLOOD SPECIMEN Ordering Facility: [facility] Address: [address] [place] [address] Performed By: #### 2 4321-2 #### [facility] CLIA [id number] [address] Creatinine and Glomerular filtration rate.predicted panel (S/P/Bld) 81 mL/min/1.73m??? Normal >=60 [facility] Comment on above: Order Comment: Remi diaz Type: BLOOD SPECIMEN Ordering Facility: [facility] Address: [address] [place] [address] Result Comment: Lisa mated Glomerular Filtration Rate (eGFR) is calculated using the 2020 CKD-EPI creatinine equation. This equation utilizes serum creatinine, sex, and age as parameters. The creatinine assay has traceable calibration to isotope dilution-mass spectrometry. Refer to KDIGO guidelines for clinical interpretation. In patients with unstable renal function, e.g. those with acute kidney injury, the eGFR may not accurately reflect actual GFR. Performed By: #### 2 4321-2 #### [facility] CLIA [id number] [address] OF [facility] Glucose [Mass/Vol] 96 mg/dL Normal 74-99 [facility] Comment on above: Order Comment: Remi diaz Type: BLOOD SPECIMEN Ordering Facility: [facility] Address: [address] [place] [address] Result Comment: The [place] [employer] (ADA) provides guidance for cutoff values for fasting glucose and random glucose. The ADA defines fasting as no caloric intake for at least 8 hours. Fasting plasma glucose results between 100 to 125 mg/dL indicate increased risk for diabetes (prediabetes). Fasting plasma glucose results greater than or equal to 126 mg/dL meet the criteria for diagnosis of diabetes. In the absence of unequivocal hyperglycemia, results should be confirmed by repeat testing. In a patient with classic symptoms of hyperglycemia or hyperglycemic crisis, random plasma glucose results greater than or equal to 200 mg/dL meet the criteria for diagnosis of diabetes. Reference: Standards of Medical Care in Diabetes 2016, [place] [employer]. Diabetes Care. 2016.39(Suppl 1). Performed By: #### 2 4321-2 #### [facility] CLIA [id number] [address] Potassium [Moles/Vol] 3.7 mmol/L Normal 3.7-5.1 [facility] Comment on above: Order Comment: Remi diaz Type: BLOOD SPECIMEN Ordering Facility: [facility] Address: [address] [place] [address] Performed By: #### 2 4321-2 #### [facility] CLIA [id number] [address] Sodium [Moles/Vol] 140 mmol/L Normal 136-144 [facility] Comment on above: Order Comment: Remi diaz Type: BLOOD SPECIMEN Ordering Facility: [facility] Address: [address] [place] [address] Performed By: #### 2 4321-2 #### [facility] CLIA [id number] [address] Urea nitrogen [Mass/Vol] 14 mg/dL Normal 7-21 [facility] Comment on above: Order Comment: Remi diaz Type: BLOOD SPECIMEN Ordering Facility: [facility] Address: [address] [place] [address] Performed By: #### 2 4321-2 #### [facility] CLIA [id number] [address] OF [facility] CASE MANAGEMon 03-25-2024 CASE MANAGEM HNO ID: [id number] Author: LISA QUINONEZ RN Service: ? Author Type: Registered Nurse Type: Care Mgt Progress Note Filed: 03/25/2024 12:46 Note Text: CARE MANAGEMENT DISCHARGE NOTE SERVICE DATE: March 25, 2024 SERVICE TIME: 12:45 PM Admission Date: 03/24/2024 LOS: 0 days Discharge Arrangement Discharge Arrangement: Home with Home Health Services Arranged Medical Services: Skilled Home Health Care Type: Home Health Agency, Physical Therapy Provider Name: [facility] Caregiver Assessment Caregiver is ready, willing and able to meet the patient's needs as recommended by the inter-professional team: Yes Name of Caregiver: Daughter Transportation Arrangements Transportation Arrangements: Car- Daughter to transport Handoff Communication: Handoff to: Primary Care Physician Primary Care Physician Name/Phone: Dr. Claudette Lima-[phone] Additional Information: Discharge order written for today. [facility] will be seeing the patient for Home PT with a start of care date within 24-48 hours. Notified [facility] of the patients discharge home today. Discharge Information Row Name Admission (Current) from 03/24/[address] [facility] Start of Care -- Within 24-48 hours SIGNATURE: Lisa Quinonez RN PATIENT NAME: Zeenat Mejia DATE: March 25, 2024 TIME: 12:45 PM CONTACT #: [phone] [facility] CASE MGT INIT [facility] 2023 CASE MGT INIT [facility] HNO ID: [id number] Author: LISA QUINONEZ RN Service: ? Author Type: Registered Nurse Type: Care Mgt Initial Assessment Filed: 03/25/2024 09:27 Note Text: CARE MANAGEMENT: ASSESSMENT AND DISCHARGE PLAN SERVICE DATE: March 25, 2024 SERVICE TIME: 9:02 AM PCP: Claudette Lima MD Primary Contact: Extended Emergency Contact Information Primary Emergency Contact: Maciel Mejia Address: [address] [place] [id number] Relation: Spouse Secondary Emergency Contact: Amanda Helm Mobile Phone: Relation: Daughter Admission Status: Ambulatory Surgery Insurance Provider: MEDICARE A AND B Discharge Planning requested by: Per Department Practice Potential Transition Plans Home OT/PT Advance Directives Current Advance Directive: Health Care Power of Piping Design Specialist In Chart: No Current Living Arrangements and Support Lives with: Spouse/significant other Type of Residence: Private Residence (House) Does the patient have to climb stairs at home?: Yes;stairs outside the home;stairs within the home Support: Children How do you manage to accomplish the following: Independent: Ambulation;Bathe/Showe r;Dress;Meals/Meal Prep;Going to the bathroom;Medication Management Current Services/Equipment Current Post-Acute Service(s): DME Current DME Type: Cane, Elevated toilet seat, Crutches, Shower seat, Walker Discharge Planning Patient Goal(s): Be able to go home Harvard of Choice Explained: [employer] of Choice Given: Yes Level of Care Discussed: Home Care Are you interested in bedside delivery of your medications? Yes Discharge Planning Participant(s): Patient Patient/Family Comments: Caregiver Assessment: Caregiver is ready, willing and able to meet the patient's needs as recommended by the inter-professional team: Yes Name of Caregiver: Daughter Transport at Discharge: Transportation Arrangements: Car Needs Prior to Discharge: Needs Prior to Discharge: Other: See Comment (Accepting [facility] agency) Post-Acute Discharge Plan: Review of the chart and met with the patient. The patient lives with her in a ranch home. The patient stated her had dementia, the patient's daughter will be helping her out at discharge. PT- Home PT. Discussed PT recommendations with the patient. Referral to [facility]. CM department will continue to follow for DC needs. 9:27 am- [facility] able to accept. SIGNATURE: Lisa Quinonez RN PATIENT NAME: Zeenat Mejia DATE: March 25, 2024 TIME: 9:02 AM CONTACT #: [phone] Normal [facility] CBC panel Auto (Bld)on 03-25 Erythrocyte distribution width (RBC) [Ratio] 12.5 % Normal 11.5-15.0 [facility] Comment on above: Order Comment: Remi diaz Type: BLOOD SPECIMEN Ordering Facility: [facility] Address: [address] [place] [address] Performed By: #### 5 8410-2 #### [facility] CLIA [id number] [address] [place] [address] [place] Hematocrit (Bld) [Volume fraction] 34.1 % Low 36.0-46.0 [facility] Comment on above: Order Comment: Remi diaz Type: BLOOD SPECIMEN Ordering Facility: [facility] Address: [address] [place] [address] Performed By: #### 5 8410-2 #### [facility] CLIA [id number] [address] Hemoglobin (Bld) [Mass/Vol] 11.1 g/dL Low 11.5-15.5 [facility] Comment on above: Order Comment: Speci men Type: BLOOD SPECIMEN Ordering Facility: [facility] Address: [address] [place] [address] Performed By: #### 5 8410-2 #### [facility] CLIA [id number] [address] [place] MCH (RBC) [Entitic mass] 29.9 pg Normal 26.0-34.0 [facility] Comment on above: Order Comment: Speci men Type: BLOOD SPECIMEN Ordering Facility: [facility] Address: [address] [place] [address] Performed By: #### 5 8410-2 #### [facility] CLIA [id number] [address] MCHC (RBC) [Mass/Vol] 32.6 g/dL Normal 30.5-36.0 [facility] Comment on above: Order Comment: Speci men Type: BLOOD SPECIMEN Ordering Facility: [facility] Address: [address] [place] [address] Performed By: #### 5 8410-2 #### [facility] CLIA [id number] [address] MCV (RBC) [Entitic vol] 91.9 fL Normal 80.0-100.0 M [facility] Comment on above: Order Comment: Speci men Type: BLOOD SPECIMEN Ordering Facility: [facility] Address: [address] [place] [address] Performed By: #### 5 8410-2 #### [facility] CLIA [id number] [address] Nucleated RBC (Bld) [#/Vol] 10*3/uL Normal <0.01 [facility] Comment on above: Order Comment: Speci men Type: BLOOD SPECIMEN Ordering Facility: [facility] Address: [address] [place] [address] Performed By: #### 5 8410-2 #### [facility] CLIA [id number] [address] [place] [address] [place] Platelet mean volume (Bld) [Entitic vol] 9.7 fL Normal 9.0-12.7 [facility] Comment on above: Order Comment: Speci men Type: BLOOD SPECIMEN Ordering Facility: [facility] Address: [address] [place] [address] Performed By: #### 5 8410-2 #### [facility] CLIA [id number] [address] [place] [address] [place] Platelets (Bld) [#/Vol] 219 10*3/uL Normal 150-400 [facility] Comment on above: Order Comment: Speci men Type: BLOOD SPECIMEN Ordering Facility: [facility] Address: [address] [place] [address] Performed By: #### 5 8410-2 #### [facility] CLIA [id number] [address] [place] [address] [place] RBC (Bld) [#/Vol] 3.71 10*6/uL Low 3.90-5.20 [facility] Comment on above: Order Comment: Speci men Type: BLOOD SPECIMEN Ordering Facility: [facility] Address: [address] [place] [address] Performed By: #### 5 8410-2 #### [facility] CLIA [id number] [address] [place] WBC (Bld) [#/Vol] 12.08 10*3/uL High 3.70-11.00 [facility] Comment on above: Order Comment: Speci men Type: BLOOD SPECIMEN Ordering Facility: [facility] Address: [address] [place] [address] Performed By: #### 5 8410-2 #### [facility] CLIA [id number] [address] [place] [address] [place] CNCOon 03-25-2024 CNCO Letter Text Normal [facility] CNDSon 03-25-2024 CNDS HNO ID: [id number] Author: ROMANA CHI MD Service: Orthopaedic Surgery Author Type: Physician Boilermaker'S Assistant Type: Discharge Summary Filed: 03/26/2024 10:35 Note Text: Attestation signed by Romana Chi MD at 03/26/2024 10:35 AM Agree with above DISCHARGE SUMMARY PATIENT NAME: Zeenat Mejia ADMISSION DATE: 03/24/2024 DISCHARGE DATE: 03/25/2024 PATIENT DISCHARGE SUMMARY C O N F I D E N T I A L I N F O R M A T I O N The following is a brief overview of your hospitalization. Some of the information contained on this summary may be confidential. This information should be kept in your records and should be shared with your regular doctor. These instructions explain what you or your intensive care anaesthetist need to do to continue your care at home or at another healthcare facility Please go over these instructions with your nurse and intensive care anaesthetist. If you are not sure about something, please ask. Highest Readmission Risk Score: 11 The 30 day readmissions risk score is derived from an internally validated risk model which evaluates patient level characteristics, utilization history, medication orders and lab results up until the day of discharge. Patients with a score of 40 or above are considered highest risk for readmission. Specific patient level drivers will be listed at the bottom of the summary. The 30 day readmissions risk score is derived from an internally validated risk model which evaluates patient level characteristics, utilization history, medication orders and lab results up until the day of discharge. Patients with a score of 40 or above are considered highest risk for readmission. Where I Will be Going after Discharge: Home with Home Health My Condition at Discharge: Stable PRINCIPAL DIAGNOSIS: (Reason after study for this admission): Procedure(s): ROBOTIC ASSISTED TOTAL KNEE ARTHROPLASTY OTHER DIAGNOSES: Patient Active Hospital Problem List: No active hospital problems. OPERATIONS PERFORMED: Procedure(s): ROBOTIC ASSISTED TOTAL KNEE ARTHROPLASTY My Doctors and Medical Team: My Main Hospital Doctor: Romana Burgess MD PHYSICAL EXAM: See daily progress note Vitals: BP 141/56 Pulse 74 Temp 37.1 ?C (98.8 ?F) (Oral) Resp 16 Ht 171.5 cm (5' 7.5) Wt 75.8 kg (167 lb 1.7 oz) SpO2 98% BMI 25.79 kg/m? SUMMARY OF WHAT HAPPENED WHILE PATIENT WAS IN THE HOSPITAL: The patient was followed by Dr. Chi in clinic for right knee osteoarthritis. It was determined the patient would benefit from right total knee arthroplasty. The procedure, its risks, benefits, and potential complications were discussed in detail prior to surgery. The patient conveyed understanding of all topics and consented to surgery. The patient was admitted to the hospital. Underwent an elective right total knee arthroplasty on 03/24/[address] Chi. The patient tolerated the procedure well and was returned to the Post Anesthesia Care Unit in stable condition. Vital signs per PACU protocol. VTE risk assessment performed. O2 therapy monitored by Respiratory Therapy to include incentive spirometry, ADL, wound and support per physician order set postop protocol. PT and OT to evaluate and treat. IV antibiotics, antiemetics, Eliquis for DVT prophylaxis and pain medication were given. Unfortunately both Eliquis and Xarelto are not covered by the patient's insurance or virtual vouchers. DVT prophylaxis was changed to Lovenox on discharge. The patient progressed with physical therapy. Lab values and vital signs were monitored and remained stable. The incision remained clean, dry and intact. Thigh and calf are not swollen. No signs of DVT or infection. The patient progressed with physical therapy towards goal of safety and independence. Patient was determined safe for discharge to home with home health care on 03/25/2024. TREATMENT / WOUND CARE: If you have any concerns about your wound, please contact the office. Keep wound and incision area clean and dry. You may remove your dressing on POD #7-10 (7 to 10 days after surgery). If it remains drainage-free, you may leave the dressing off, keeping the wound open to air. If there is any drainage please contact the office You may not submerge the wound under standing water for 6 weeks time after surgery (i.e. no baths, no hot tubs, no swimming pools). Do not rub the wound, but rather pat dry. If you have non-absorbable sutures in place, these will be taken out on your 1st follow-up appointment. Observe the wound for signs of infection, including increased redness, swelling, or persistent drainage around the incision site. It is normal f (more content not included)... Normal [facility] 03-25-2024 [facility] Telephone (HCSIND) ZEENAT MEJIA ([id number]) 1950 F Date Time Provider Department 03/25/24 ALLAN POLO During your visit today, we recorded the following information about you: Allan Polo PSS 03/25/2024 10:32 AM Signed Date/Time: 03/25/2024 10:31 AM Spoke with Patient @ phone #: - Preferred # for contact: Have you received help from a home care company in the last 60 days? No Are you agreeable to [facility] services? Yes What address will we be seeing you at? [address] [place] [id number] Do you have any upcoming appointments or things we need to schedule around? No Do you have a teachable CG or can you manage your care independently? Spouse can provide minimal help patients friend and daughter will help Allergies As of Date: 03/25/2024 Noted Allergy Reaction PENICILLINS 03/14/2006 2 - Rash SULFA (SULFONAMIDE ANTIBIOTICS) 03/14/2006 2 - Rash TETRACYCLINE 03/14/2006 2 - Rash Date Reviewed: 03/24/2024 Reviewed by: Ashleigh Dominguez RN - Fully Assessed Reason for Visit: Home Care [4073] Cmt: Confirmation Call Prescriptions as of 03/25/2024 - meloxicam (MOBIC) 15 mg tablet Take 1 tablet by mouth once daily. - calcium carbonate/vitamin D3 (CALCIUM 500 + D ORAL) Take by mouth. - MULTI-VITAMIN ORAL Take 1 tablet by mouth once daily. - acetaminophen (TYLENOL ARTHRITIS ORAL) Take 1 tablet by mouth as needed. - potassium chloride (K-TAB) 10 mEq tablet Take 20 mEq by mouth once daily. - atorvastatin (LIPITOR) 10 mg tablet Take 10 mg by mouth daily at bedtime. - coQ10, ubiquinol, 100 mg cap Take by mouth once daily. - lisinopril/hydrochloro thiazide(PRINZIDE 20 MG-12.5 MG TAB) one tablet daily Facility-Administered Medications as of 03/25/2024 - scopolamine - VERIFY patch - scopolamine - REMOVE PATCH - atorvastatin 10 mg tab(s) (LIPITOR) - potassium chloride 20 mEq tablet (K-TAB) - oxyCODONE IR 5-10 mg tab(s) (ROXICODONE) - acetaminophen 1,000 mg tab(s) (TYLENOL) - ondansetron orally disintegrating 4 mg tab(s) (ZOFRAN ODT) - ondansetron (PF) 4 mg injection (ZOFRAN) - magnesium hydroxide 400 mg/5 mL 30 mL (MOM) - bisacodyl EC 10 mg tab(s) (DULCOLAX) - aluminum-magnesium hydroxide-simethicone 200-200-20 mg/5 mL 30 mL - ascorbic acid (vitamin C) 500 mg tab(s) (VITAMIN C) - docusate sodium 100 mg cap(s) (COLACE) - senna 17.2 mg tab(s) (SENOKOT) - apixaban 2.5 mg tab(s) (ELIQUIS) - lactated ringers iv infusion - HYDROmorphone 0.4 mg injection (DILAUDID) - keTORolac 15 mg injection (Toradol) - lisinopril 20 mg tab(s) (ZESTRIL) - hydroCHLOROthiazide 12.5 mg tab(s) Problem List As Of Date 03/25/2024 Noted Resolved Disorder of bone and cartilage, unspecified [M8*03/14/2006 06/21/2016 Symptomatic menopausal or female climacteric st*03/01/2010 03/02/2011 POSTMENOPAUSAL ATROPHIC VAGINITIS [N95.2] 03/01/2010 Depressive disorder, not elsewhere classified [*03/01/2010 03/02/2011 Recurrent cystitis [N30.90] 03/31/2012 06/21/2016 Osteopenia [M85.80] 04/08/2014 Primary osteoarthritis of left knee [M17.12] 05/06/2015 Primary osteoarthritis of right hip [M16.11] 05/06/2015 Essential hypertension [I10] 08/13/2016 Hyperlipidemia [E78.5] 08/15/2016 PE (pulmonary thromboembolism) (HCC) [I26.99] 01/02/2021 PONV (postoperative nausea and vomiting) [R11.2*03/09/2024 Encounter Status:Closed by ALLAN POLO on 03/25/24 Normal [facility] THERAPY NTon 03-25-2024 THERAPY NT HNO ID: [id number] Author: MOI FLORES PTA Service: Physical Therapy Author Type: Electrician Apprentice Powerhouse Type: Therapy (PT/OT/Speech/Resp) Filed: 03/25/2024 12:18 Note Text: Attestation signed by Vladislav Melara PT at 03/25/2024 5:30 PM I reviewed and agree with the documentation corresponding to this therapy visit. SIGNATURE: VLADISLAV MELARA PT DATE: March 25, 2024 TIME: 5:30 PM Physical Therapy Treatment Summary SERVICE DATE: 03/25/2024 SERVICE TIME: 1116 to 1205 ROOM: [id number] PT 6 Clicks Score: 18 Total Joint Replacement Discharge Readiness: Cleared from Physical Therapy DISCHARGE RECOMMENDATIONS Home PT Recommended Discharge Disposition Comments: Home PT for safety assessment and to increase ROM/strength to operative leg/knee and progress safe functional mobility in the patient's home. Recommended Discharge Equipment: No equipment needs anticipated ASSESSMENT Response to Therapy Interventions: Good Participation in Activities, Improved Tolerance for Activity, On-Track to Achieve Discharge Goals, Pain Patient successfully able to progress ambulation distance and initiate stair training. Patient requires no more than CGA but does fatigue quickly with all activity. Extended time allowed throughout session. Patient is safe for DC home. PRECAUTIONS Fall Risk, Lines/Tubes/Drains, Total Knee Replacement, Weight Bearing Restrictions, Bed/Chair Alarm Right Lower Extremity Weight Bearing Status: WBAT CURRENT HOSPITAL COURSE s/p R TKA 03/24/24 Relevant Past Medical History: HTN, ostopenia, hysterectomy; R JOYCE per patient HOME LIVING Patient Lives With: Spouse, Other: See Comment Comments: spouse has Parkinson's and dementia Assistance Available: PRN, Other: See Comment Comments: friend/family to stop as needed Entry To Home: Stairs, With Rail Number Of Stairs Into Home: 4 Number Of Stairs To Bed/Bath: 0 - ranch home, 2 curb steps to family room Stairs to Bed/Bath with: No Rail Tub/Shower Type: tub/shower + extended tub bench + HHSH Laundry: basement; family will complete Equipment Owned: Cane, Commode- Raised, Crutch(es), Hand Held Shower, Extended Tub Bench, Long Handled Shoe Horn, Walker- Wheeled, Injection Mold Technician PRIOR FUNCTIONAL LEVEL Within Functional Limits Ind with amb without device, ADL/IADL, +drives and denies falls. Sleeps on regular, flat bed but plans to sleep in recliner initially. SUBJECTIVE Patient pleasant and motivated to participate with PT. Eder per RN. THERAPY DIAGNOSIS Difficulty walking-musculoskeleta l TREATMENT INTERVENTIONS Therapeutic Exercise (85155), Therapeutic Activity (93911), Gait Training (12008) Timed Code Treatment (minutes): 45 Skilled Treatment Time (minutes): 45 Therapeutic Exercise (69017) Treatment Minutes: 10 $ Therapeutic Exercise (72619) Billed Units: 1 unit Exercise Heel Slides (number of reps): x3on surgical leg LAQ (number of reps): x5on surgical leg Exercise: Reviewed HEP, patient verbalizes understanding, patient limited by pain, extended time and Min A required to complete Therapeutic Activity (98798) Treatment Minutes: 15 $ Therapeutic Activity (07050) Billed Units: 1 unit Gait Training (72256) Treatment Minutes: 20 $ Gait Training (77479) Billed Units: 1 unit TRAINING AND EDUCATION PROVIDED Advanced Balance Activities, Anatomy and Impact on Deficits, Assistive Device Use, Bed Mobility, Benefits of In-Hospital Mobility, Car Transfers, Discharge Planning, Equipment, Exercise Program, Expected Functional Level, Falls Prevention, Gait Pattern, Reduction of Deviations, Handout Issued, Home Set-up/Modifications, Home Safety, Positioning, Patient Exercise/Therapy Program Support Needs, Role of Physical Therapy, Stair Navigation, Standing Balance THERAPEUTIC SKILLS USED Activity Dosing, Cues for Sequencing/Proper Technique for Activity, Cuing Tactile, Facilitation of Joint Range of Motion, Movement Facilitation, Muscle Activation Facilitation, Physical Assist, Postural Alignment Correction FUNCTIONAL STATUS Bed Mobility Supine To Sit: Additional Information Patient in bed side chair upon arrival Sit to Supine: Additional Information Patient in bed side chair at end of treatment Scooting: Stand By Assistance in sitting forward to EOB Transfers Sit To Stand: Contact Guard Assistance x4 trials from chair, cues for hand placement Stand To Sit: Contact Guard Assistance Cues for safe approach, hand placement, R LE exntesion with controlled/eccentric decent Bed to Chair Gait Contact Guard Assistance Step-to gait, cues for upright posture, sequencing and safety, patient fatigues quickly Gait Device: Wheeled Walker General Deviations/Observation s: Samantha decreased, Step length decreased Gait Distance (feet (more content not included)... [facility] THERAPY NT HNO ID: [id number] Author: MICHELLE KEARNEY OT/L Service: Occupational Therapy Author Type: Occupational Therapist Type: Therapy (PT/OT/Speech/Resp) Filed: 03/25/2024 10:14 Note Text: Summary: OT Evaluation Occupational Therapy Evaluation Summary SERVICE DATE: 03/25/2024 SERVICE TIME: 0847 to 09 ROOM: [place] [address] OT 6 Clicks Score: 20 Total Joint Replacement Discharge Readiness: Cleared from Occupational Therapy DISCHARGE RECOMMENDATIONS Home OT Recommended Discharge Disposition Comments: to maximize safety and indep with ADLs/IADLs, functional mobility and transfers s/p R TKA Anticipated Discharge Needs: Physical Assist at Home, Supervision at Home Physical Assist at Home for: Cleaning, Laundry, Meals, Shopping, Transportation Supervision at Home due to: Other: See Comment (initially for optimal safety) Recommended Discharge Equipment: Sock Aid ASSESSMENT Response to Therapy Interventions: Good Participation in Activities, On-Track to Achieve Discharge Goals, Requires Additional Time to Complete Activities Pt is A+Ox4, tolerates entirety of session without adverse effects. Mostly SBA-CGA with self cares; Min A initially for donning/doffing R sock and shoes however pt utilizes AE well to complete Mod I following education. Pt's dtr planning to stay with her for the first night and then prn afterwards d/t pt's has PD and dementia and isn't physcially able to assist very much. Anticipate safe d/c home with assistance from family prn. PRECAUTIONS Fall Risk, Lines/Tubes/Drains, Total Knee Replacement, Weight Bearing Restrictions, Bed/Chair Alarm Right Lower Extremity Weight Bearing Status: WBAT CURRENT HOSPITAL COURSE s/p R TKA 03/24/24 Relevant Past Medical History: HTN, ostopenia, hysterectomy; R JOYCE per patient HOME LIVING Patient Lives With: Spouse, Other: See Comment Comments: spouse has Parkinson's and dementia Assistance Available: PRN, Other: See Comment Comments: friend/family to stop as needed Entry To Home: Stairs, With Rail Number Of Stairs Into Home: 4 Number Of Stairs To Bed/Bath: 0 - ranch home, 2 curb steps to family room Stairs to Bed/Bath with: No Rail Tub/Shower Type: tub/shower + extended tub bench + HHSH Laundry: basement; family will complete Equipment Owned: Cane, Commode- Raised, Crutch(es), Hand Held Shower, Extended Tub Bench, Long Handled Shoe Horn, Walker- Wheeled, Injection Mold Technician PRIOR FUNCTIONAL LEVEL Within Functional Limits Ind with amb without device, ADL/IADL, +drives and denies falls. Sleeps on regular, flat bed but plans to sleep in recliner initially. Baseline Cognition: Oriented to self, Oriented to place, Oriented to time, Oriented to situation SUBJECTIVE RN cleared to work with pt; pt agreeable COGNITION Orientation Deficits: (A+Ox4) Responsiveness: Alert, Awake Follows Commands: 3-step Commands THERAPY DIAGNOSIS Reduced mobility-other, Decreased activities of daily living (ADL) TREATMENT INTERVENTIONS Evaluation, Self Retirement Management (60676) Timed Code Treatment (minutes): 45 Skilled Treatment Time (minutes): 60 TRAINING AND EDUCATION PROVIDED Activity Adaptation/Test Case Developer y Strategies, Adaptive Equipment/DME, Assistive Device Use, Bed Mobility, Benefits of In-Hospital Mobility, Discharge Planning, Disease Specific Education, Edema Management, Executive Functions/Problem Solving, Expected Functional Level, Functional Mobility Involving ADLs, Grooming Tasks, Lower Extremity Dressing, Pain Management, Positioning, Precautions/Restrictio ns, Role of Occupational Therapy, Safety/Judgment, Sitting Balance to Improve [place] with ADLs/Self-Care, Standing Balance to Improve [place] with ADLs/Self-Care, Toileting , Transfer - Bed to Chair, Transfer - Sit to Stand, Transfer - Toilet/Commode, Transfer - Tub Shower Education and instruction on: -- Role of OT and POC -- Total Knee Precautions and WBAT, instructed on use of wheeled walker at all times until home PT progresses to crutches or cane. -- Hospital and home safety. Pt instructed on having areas free of clutter, removal of throw rugs and areas well lit. Pt instructed on wearing appropriate footwear in their home to reduce risk of falls. Pt instructed on securing pets in separate room or fenced in yard while ambulating in home to reduce risk of falls. Pt instructed on using call light for assistance to bathroom and for functional transfers while in hospital to reduce risk of falls. -- Bed mobility. Instructed patient in elevation of surgical LE for edema management and comfort with proper pillow placement and nothing placed directly behind surgical knee. --ADL techniques. Grooming: instructed pt on safe/proper WW management up to sink and UE support on sink top (more content not included)... [facility] HEALTH 03-24-2024 [facility] HNO ID: [id number] Author: MARKY GALO CT Service: Radiology Author Type: Technologist Type: Allied Health Filed: 03/24/2024 10:38 Note Text: Radiology Service Progress Note PATIENT NAME: Zeenat Mejia DATE OF SERVICE: March 24, 2024 TIME: 10:38 AM PATIENT IDENTITY VERIFICATION COMPLETED USING TWO (2) IDENTIFIERS: Name and Date of confirmed by patient verbally. FALL SCREENING: Has the patient had 2 falls in the last year or 1 fall with injury or currently using an Ambulatory Assistive Device (Walker, Cane, Wheelchair, Crutches, etc.)? No PATIENT GENDER DATA: Female. status: : No status: NO. PATIENT RELEVANT IMPLANT DATA REVIEWED: Not Applicable PATIENT PRESENTS WITH AN IMPLANTABLE OR ATTACHED METAL PATTERN MAKER: No RADIOLOGY DEPARTMENT: General X-ray: Exam(s) Completed: Lower Extremity X-Ray(s): Knee, AP / LAT Right PERIPHERAL IV DATA: Not applicable SIGNED BY: JAE Ya March 24, 2024 10:38 AM [facility] ANES POSTPROC EVALon 024 ANES POSTPROC EVAL HNO ID: [id number] Author: LIZ RUSSELL MD Service: Anesthesiology Author Type: Anesthesiologist Type: Anesthesia Postprocedure Evaluation Filed: 03/24/2024 14:03 Note Text: POST ANESTHESIA EVALUATION NOTE : 1950 Procedure Summary Date: 03/24/24 Room / Location: [place] OR / [place] OR Anesthesia Start: 731 Anesthesia Stop: 955 Procedure: ROBOTIC ASSISTED TOTAL KNEE ARTHROPLASTY (Right: Knee) Diagnosis: Primary osteoarthritis of both knees (Primary osteoarthritis of both knees [M17.0]) Surgeons: Romana Chi MD Responsible Provider: Liz Russell MD Anesthesia Type: spinal, regional ASA Status: 3 Anesthesia Type: spinal, regional Last Vitals Vitals Value Taken Time BP 145/72 03/24/24 1209 Temp 36.8 ?C (98.2 ?F) 03/24/24 1209 Pulse 76 03/24/24 1209 Resp 16 03/24/24 1209 SpO2 95 % 03/24/24 1209 Post Anesthesia Patient Status Patient Evaluation: PACU. PACU/ICU Patient Condition: stable. Anticipated Disposition: inpatient floor planned admission. Neurological Status: aware and responsive. Pulmonary Status: breathing comfortably on room air Airway Control: returned to baseline unsupported. Cardiovascular Status: stable. Pain Management: clinically adequate - multimodal analgesia pain management approach Postoperative Hydration: acceptable. Intraoperative Events: no significant anesthesia events Post Operative Nausea/Vomiting Status: no significant post operative nausea or vomiting Recommendation: continue current plan of care and further care per PACU/ICU/floor team. Anesthesia Observations No Documentation SIGNATURE: Liz Russell MD PATIENT NAME: Zeenat Mejia DATE: March 24, 2024 TIME: 2:03 PM CSN: [id number] [facility] ANES PRE-OPon 03-24-2024 ANES PRE-OP HNO ID: [id number] Author: LIZ RUSSELL MD Service: Anesthesiology Author Type: Anesthesiologist Type: Anesthesia Preprocedure Evaluation Filed: 03/24/2024 06:55 Note Text: ANESTHESIOLOGY DAY OF SURGERY NOTE : 1950 Procedure Information Date/Time: 03/24/24729 Procedure: ROBOTIC ASSISTED TOTAL KNEE ARTHROPLASTY (Right: Knee) Location: [place] [address] / [place] Surgeons: Romana Chi MD Estimated body mass index is 25.75 kg/m? as calculated from the following: Height as of 03/09/24: 171.5 cm (5' 7.5). Weight as of 03/09/24: 75.7 kg (166 lb 14.2 oz). Most recent hematocrit and potassium results: Hematocrit 40.0 03/09/2024 Potassium 3.9 03/09/2024 Relevant Problems No relevant active problems I - PHYSICAL EVALUATION AIRWAY Patient intubated: No. Tracheostomy tube not present Mallampati: III. TM distance: >3 FB. Neck ROM: full ROM without neurological symptoms. Mouth opening: adequate. Short neck: no. Thick neck: no DENTAL Normal dental observations. Dental findings: teeth intact. II - ANESTHESIA PLAN ASA Score: 3 Anesthetic Plan: spinal and regional The patient is not a current smoker. NPO Status: adequate Anesthetic plan additional comments: (pre op adductor canal block) + MAC Sedation. Beta Bj Monitoring Plan Monitoring plan: Standard ASA. Post Procedure Analgesic Plan Postoperative analgesic plan: parenteral or oral opioids, multimodal analgesia and peripheral nerve block. Informed Consent Anesthetic risks, benefits, alternatives and personnel discussed. Consent obtained from: patient. Anesthetic risks, benefits, alternatives, personnel and consent discussed: yes. Patient / Responsible Constitution Party agrees to proceed: yes Patient / Surrogate agrees to blood products: yes DNR status not reviewed with patient and/or family prior to surgery. Significant changes in the patient condition since the History and Physical, not otherwise documented in primary service progress note: no. Potential Anesthesia issues that may suggest increased risk of complications or contraindication to planned procedure: none. Vitals Value Taken Time BP 181/97 03/24/24 0635 Pulse 89 03/24/24 0635 Resp 16 03/24/24 0635 Temp 36 ?C (96.8 ?F) 03/24/24 0635 SpO2 97 % 03/24/24 0635 Facility-Administered Medications as of 03/24/2024 Medication Dose Route Frequency - acetaminophen 1,000 mg tab(s) (TYLENOL) 1,000 mg ORAL Pre-Op Once - celecoxib 200 mg cap(s) (CeleBREX) 200 mg ORAL Pre-Op Once - oxyCODONE ER 10 mg tab(s) (OxyCONTIN) 10 mg ORAL Pre-Op Once - scopolamine 1 mg over 3 days 1 Patch (TRANSDERM-SCOP) 1 Patch TRANSDERMAL Pre-Op Once - promethazine 12.5 mg tab(s) (PHENERGAN) 12.5 mg ORAL Pre-Op Once - famotidine 20 mg injection (PEPCID) 20 mg INTRAVENOUS ONCE - midazolam (PF) 1-2 mg injection (VERSED) 1-2 mg INTRAVENOUS ONCE - lidocaine (PF) 10 mg/mL (1 %) 1-2 mg injection (XYLOCAINE) 0.1-0.2 mL INTRADERMAL PRN - lactated ringers iv infusion 5-30 mL/hr INTRAVENOUS CONTINUOUS - NaCl 0.9% iv flush bag 20 mL INTRAVENOUS PRN - ceFAZolin iv piggyback 2 g in D5W (iso-osmotic) 100 mL (ANCEF) 2 g INTRAVENOUS Pre-Op Once - tranexamic acid (CYKLOKAPRON) in NaCl 0.7% 1,000 mg 100 mL 1,000 mg INTRAVENOUS Pre-Op Once - tranexamic acid (CYKLOKAPRON) in NaCl 0.7% 1,000 mg 100 mL 1,000 mg INTRAVENOUS ONCE - ropivacaine 2.46 mg/mL-EPINEPHrine 0.005 mg/mL-cloNIDine 0.0008 mg/mL-ketorolac 0.3 mg/mL 50 mL injection (R.E.C.K.) 50 mL periarticular ONCE Outpatient Medications as of 03/24/2024 Medication Sig - calcium carbonate/vitamin D3 (CALCIUM 500 + D ORAL) Take by mouth. - atorvastatin (LIPITOR) 10 mg tablet Take 10 mg by mouth daily at bedtime. - MULTI-VITAMIN ORAL Take 1 tablet by mouth once daily. - acetaminophen (TYLENOL ARTHRITIS ORAL) Take 1 tablet by mouth as needed. - potassium chloride (K-TAB) 10 mEq tablet Take 20 mEq by mouth once daily. - coQ10, ubiquinol, 100 mg cap Take by mouth once daily. - lisinopril/hydrochloro thiazide(PRINZIDE 20 MG-12.5 MG TAB) one tablet daily I have interviewed and examined the patient. I have reviewed the medical record and/or the pre-anesthesia evaluation, pertinent labs, and test results. This contains updated information obtained within 48 hours of Surgery/Procedure. SIGNATURE: Liz Russell MD PATIENT NAME: Zeenat Mejia DATE: March 24, 2024 TIME: 6:54 AM CSN: [id number] [facility] BRIEF OP NOTon 03-24-2024 BRIEF OP NOT HNO ID: [id number] Author: ROMANA CHI MD Service: Orthopaedic Surgery Author Type: Physician Type: Brief Op Note Filed: 03/24/2024 09:36 Note Text: TOTAL KNEE ARTHROPLASTY BRIEF OPERATIVE / PROCEDURE NOTE LOG ID: [id number] Surgery/Procedure Date: 03/24/2024 Incision/Procedure Start Time: 8:07 AM Incision Close/Procedure End Time: Surgeon(s)/Procedurali st(s) and Boilermaker'S Assistant(s): Surgeons and Role: * Romana Chi MD - Primary Physician Boilermaker'S Assistant: Mary Jo Gan PA-C; Alfred Chandler PA-C Procedure(s): Procedure(s) (LRB): ROBOTIC ASSISTED TOTAL KNEE ARTHROPLASTY (Right) Anesthesia: Spinal Peripheral Block Type: Saphenous/Adductor and VIKAS Approach: Median parapatellar Findings: Full-thickness osteoarticular wear medial compartment, patellofemoral joint and moderate/severe osteoarticular wear lateral compartment Estimated Blood Loss: 50 mls Specimens: Bone cuttings Complications: None Closure Technique: Primary Total Joint Arthroplasty (TJA) Surgical Risk Procedure: Primary total Knee replacement Date assessed: risk assessed on 12/25/2023 12/25/2023 TJA Risk Procedure Primary total Knee replacement Estimated Length of Stay (# of days) 2 Chance of NOT Returning Home at Discharge 10.18 Implant: * No implants in log * Bearing Surface: Fixed Fixation: Cementless SSI Risk Factors: None Constraint: Retaining Option for Deep [facility]/AP Constrained Other: None Pre-Op/Pre-Procedure Diagnosis: Primary osteoarthritis of both knees [M17.0] Post-Op/Post-Procedure Diagnosis: Primary osteoarthritis of both knees [M17.0] Weight Bearing Status: Weight Bearing As Tolerated Patient was accompanied to the next level of care by a licensed practitioner from the surgical team pending completion of this brief op note (or operative note) Patient with a history of pulmonary embolism after a shoulder surgery therefore Eliquis as an anticoagulants will be selected instead of aspirin SIGNATURE: Romana Chi MD PATIENT NAME: Zeenat Mejia DATE: March 24, 2024 TIME: 9:23 AM Normal [facility] CONSULTon 03-24-2024 CONSULT HNO ID: [id number] Author: SYLVAIN CORDERO MD Service: General Internal Medicine Author Type: Physician Type: Consults Filed: 04/05/2024 20:09 Note Text: [facility]- Consultation ZEENAT MEJIA : 1950 AGE: 73 [facility]: [id number]: [facility] LOCATION: [address] ATTENDING PHYSICIAN: Romana Chi M.D. DATE OF SERVICE: 03/24/2024 TIME OF SERVICE: 01:46 PM REASON FOR CONSULTATION: Postop medical management. HISTORY: A 73-year-old female, whose significant medical history includes osteoarthritis, provoked PE after shoulder surgery in 2020, hypertension, hyperlipidemia. Patient underwent elective right total knee arthroplasty under spinal anesthesia. Patient had uneventful intraoperative course. During initial evaluation, patient was alert and oriented. Continued to have some numbness of the lower extremities. No nausea, vomiting, lightheadedness, dizziness. PAST MEDICAL HISTORY: As mentioned above. PAST SURGICAL HISTORY: Includes right acetabular and proximal femur prosthetic graft/hip replacement, endoscopy, and hysterectomy. FAMILY HISTORY: Positive for COPD and osteoporosis. Mother had colon cancer. SOCIAL HISTORY: She does not smoke. She drinks alcohol rarely. MEDICATIONS: Her current home medication list reviewed. ALLERGIES: She is allergic to penicillin, sulfa, and tetracycline, all caused rash. REVIEW OF SYSTEMS: HEENT/Neck: Patient denies any history of TIA or CVA. No history of seizure disorder. No history of glaucoma. No history of chronic cough, wheezing, dyspnea with exertion. No history of asthma, COPD, obstructive sleep apnea. Does have a history of lung nodule. No history of coronary artery disease or congestive heart failure. History of hypertension, hyperlipidemia, and provoked PE after shoulder surgery. No history of bleeding peptic ulcer disease, hepatitis, colitis. Good appetite. Regular bowel movement. No melenic stools. No history of chronic dysuria, hematuria, CKD, or renal calculi. No history of diabetes, hypothyroidism. No history of DVTs, paresthesia of the feet. PHYSICAL EXAM: General: Elderly female. Alert and oriented. HEENT/Neck: Sclerae anicteric. No thyromegaly appreciated. No carotid bruit heard. No lymphadenopathy of the neck. Extraocular muscles intact. Oral mucosa dry. Lungs: Clear to auscultation bilaterally. Cardiovascular: S1, S2. Regular rhythm. No murmur, gallop, or rub appreciated. Abdomen: Soft, nontender, nondistended. No mass felt. Lower Extremities: No ankle edema noted. IMPRESSION: 1. Osteoarthritis, status post right total knee arthroplasty. Deep venous thrombosis prophylaxis with Eliquis 2.5 mg twice a day. 2. Hyperlipidemia. Continue statins. 3. Hypertension. Continue lisinopril/hydrochloro thiazide and potassium. 4. Hold other medications for now. Thank you very much for kind referral. Continue to follow her while she is in the hospital. Sylvain Cordero M.D. Internal Medicine SKChristen:[id number] /[id number] Normal [facility] Hematocrit Auto (Bld) [Volum e fraction]on 03-24-2024 Hematocrit (Bld) [Volume fraction] 36.5 % Normal 36.0-46.0 [facility] Comment on above: Order Comment: Remi diaz Type: BLOOD SPECIMEN Ordering Facility: [facility] Address: [address] [place] [address] Performed By: #### 5 [id number] #### [facility] CLIA [id number] [address] [place] Hgb Bld-mCncon 03-24-2024 Hemoglobin (Bld) [Mass/Vol] 11.8 g/dL Normal 11.5-15.5 [facility] Comment on above: Order Comment: Remi diaz Type: BLOOD SPECIMEN Ordering Facility: [facility] Address: [address] [place] [address] Performed By: #### 5 8410-2 #### [facility] CLIA [id number] [address] [place] NURSING PROGon 03-24-2024 NURSING PROG HNO ID: [id number] Author: CELINE WEST RN Service: Nursing Author Type: Registered Nurse Type: Nursing Progress Note Filed: 03/24/2024 07:18 Note Text: Dr. Russell at bedside for Ultrasound guided Right adductor nerve block. RN at bedside, pt monitored throughout, BP 159/93 Pulse 80 Temp 36 ?C (96.8 ?F) Resp 15 SpO2 99% . Pt medicated with 2mg IV after sign in. Pt tolerated procedure without difficulty. Family called to bedside at completion of procedure. Report to OR staff Normal [facility] OPERATIVE NOon 03-24-2024 OPERATIVE NO HNO ID: [id number] Author: ROMANA CHI MD Service: Orthopaedic Surgery Author Type: Physician Type: Operative Report Filed: 03/24/2024 10:20 Note Text: [facility] OPERATIVE REPORT PATIENT NAME: Zeenat Mejia CSN: [id number] LOG ID: [id number] Surgery Date: 03/24/2024 Surgeon(s) and Boilermaker'S Assistant(s): Surgeons and Role: * Romana Chi MD - Primary- surgeon * Alfred Chandler PA -Surgical Orderly No qualified orthopedic resident available. The PA was utilized for soft tissue retraction and to hold the limb in proper alignment to allow me to correctly implant the final arthroplasty components. BMI: Estimated body mass index is 25.75 kg/m? as calculated from the following: Height as of 03/09/24: 171.5 cm (5' 7.5). Weight as of 03/09/24: 75.7 kg (166 lb 14.2 oz). Procedure(s): Procedure(s) (LRB): ROBOTIC ASSISTED TOTAL KNEE ARTHROPLASTY (Right) Anesthesia: Spinal Incision Start: 8:07 AM Incision Stop: 9:43 AM Attestation: I was present for all of the critical portions of the operation and performed all critical portions. The resident/fellow/PA assisted during exposure, implantation of the device, and deep closure. The PA /SPARK TESTER performed the closure of the subcutaneous tissue and skin. I was scrubbed from skin incision through the closure of the extensor mechanism and was immediately available for the duration of the entire case. Preop Diagnosis: Pre-Op Diagnosis Codes: * Primary osteoarthritis of both knees [M17.0] Postop Diagnosis: Same as Pre-Op Diagnosis Codes: * Primary osteoarthritis of both knees [M17.0] Implants: * No implants in log * OPERATIVE INDICATIONS: The patient has a long history of progressive right knee pain, arthritis, and degeneration. Non-operative treatment has been attempted but has not improved or controlled the symptoms and pain that occurs during normal daily activities. Knee motion has also become limited and is restricting the patient. Total knee arthroplasty was recommended. The risks, benefits and potential complications of the arthroplasty surgery were discussed with the patient in detail. Specific details of the surgical procedure, hospitalization, recovery, rehabilitation, and long-term precautions were also presented. Pre-operative teaching was provided. Implant/prosthesis selection wasoutlined, and the many options available were explained; the final choice will be made at the time of the procedure to match the anatomy and condition of the bone, ligaments, tendons, and muscles. The patient was evaluated medically for pre-operative optimization, and risk assessment. Nazia-operative blood management and the potential for blood transfusion were discussed with risks and options clearly outlined. Understanding of all topics was conveyed to me by the patient pre-operatively, and patient consent was given to proceed with the robotically assisted right total knee replacement. OPERATIVE PROCEDURE: The patient was identified and brought into the Operating Room by the anesthesia and nursing teams. Anesthesia was successfully performed. The patient was then positioned supine on the operating room table, and all bony prominences were padded. Intravenous antibiotic prophylaxis dosing was confirmed. A tourniquet was applied to the upper thigh. A full knee exam was done after anesthesia was in full effect. The patient had developed a varus deformity in the knee from cartilage wear and bone loss. Flexion contracture was mild. The leg was prepped and draped in the usual sterile fashion. A surgical time-out was performed immediately preceding the incision with all personnel in the operating room; the patient identity was again confirmed, the correct knee surgical site and extremity were identified and confirmed, X-rays were reviewed, and availability of the appropriate surgical equipment was established. A surgical time-out was performed immediately preceding the incision with all personnel in the operating room; the patient identity was again confirmed, the correct knee surgical site and extremity were identified and confirmed, X-rays were reviewed, and availability of the appropriate surgical equipment was established. The knee was exsanguinated and exposed using an anterior-midline skin incision. Dissection was carried down through skin and subcutaneous tissue to the extensor mechanism with a scalpel. A median para-patellar arthrotomy was made to enter the knee space sharply. A large amount of normal appearing joint fluid was encountered and suctioned. The synovium was thickened, hypertrophic, and inflamed. A partial synovectomy was performed for exposure, and the medial and lateral gutters were cleared of scar and synovial reflections. The deep fibers of the medial collateral ligament was carefully elevated off the proximal 5-10 mm of tibial bone. The patella was then subluxed laterally. The knee was then flexed up (more content not included)... Normal [facility] SURGICAL PATHOLOGYon 024 CASE REPORT Normal [facility] Comment on above: Order Comment: Remi diaz Type: BLOOD SPECIMEN Ordering Facility: [facility] Address: [address] [place] [address] Result Comment: Surg ical Pathology Report Case: [id number] Authorizing Provider: Romana Chi MD Collected: 03/24/2024 07:45 AM Ordering Location: [facility] Surgery Received: 03/24/2024 11:54 AM Pathologist: Nathan Muniz MD Specimen: Knee, Right, Arthroplasty, right knee bone cuttings Performed By: #### 5 8410-2 #### [facility] CLIA [id number] [address] CLINICAL HISTORY Normal [facility] Comment on above: Order Comment: Remi diaz Type: BLOOD SPECIMEN Ordering Facility: [facility] Address: [address] [place] [address] Result Comment: Pre- op diagnosis: Primary osteoarthritis of both knees [M17.0] Performed By: #### 5 8410-2 #### [facility] CLIA [id number] [address] FINAL DIAGNOSIS [facility] Comment on above: Order Comment: Remi diaz Type: BLOOD SPECIMEN Ordering Facility: [facility] Address: [address] [place] [address] Result Comment: A. R ight knee, arthroplasty: - Degenerative joint disease. Performed By: #### 5 8410-2 #### [facility] CLIA [id number] [address] FINAL PERFORMING LAB Normal [facility] Comment on above: Order Comment: Remi diaz Type: BLOOD SPECIMEN Ordering Facility: [facility] Address: [address] [place] [address] Result Comment: Diag nostic interpretation performed at [facility], [address] [place] [address] CLIA# [id number] Marketing And Outreach Coordinator: Rob Burkett M.D. Performed By: #### 5 8410-2 #### [id number] [address] GROSS DESCRIPTION Normal [facility] Comment on above: Order Comment: Remi diaz Type: BLOOD SPECIMEN Ordering Facility: [facility] Address: [address] [place] [address] Result Comment: Kaitlynn ball, Right, Arthroplasty Received in formalin, labeled right knee bone cuttings are multiple segments of bone and cartilage measuring 11 x 9 x 3 cm in aggregate. One portion is recognizable as tibial plateau and shows eburnation and roughening of the articular surface. Separate fragments consistent with femoral condyles also show evidence of cartilage eburnation and roughening. Also received are multiple irregular fragments of shen tissue probably representing synovium, capsule and meniscus. Supervisor Record Press sections are submitted as follows: A1-A2 tibial plateau and femoral condyles following formic decalcification A3 soft tissue KSZ March 24, 2024 3:57 PM Gross examination performed at [facility], [address] [place] [address] Performed By: #### 5 8410-2 #### [id number] [address] [place] THERAPY NTon 03-24-2024 THERAPY NT HNO ID: [id number] Author: MYLES SANDERS PT Service: Physical Therapy Author Type: Physical Therapist Type: Therapy (PT/OT/Speech/Resp) Filed: 03/24/2024 15:15 Note Text: Summary: PT evaluation Physical Therapy Evaluation Summary SERVICE DATE: 03/24/2024 SERVICE TIME: 1348 to 1501 ROOM: [id number] PT 6 Clicks Score: 18 Total Joint Replacement Discharge Readiness: Pending Physical Therapy Clearance DISCHARGE RECOMMENDATIONS Home PT Recommended Discharge Disposition Comments: Home PT for safety assessment and to increase ROM/strength to operative leg/knee and progress safe functional mobility in the patient's home. Recommended Discharge Equipment: No equipment needs anticipated ASSESSMENT Response to Therapy Interventions: Good Participation in Activities, Improved Tolerance for Activity, On-Track to Achieve Discharge Goals, Pain, Requires Additional Time to Complete Activities, Requires Encouragement to Complete Activities, Slow Progression with Functional Activities/Skills Patient presents with expected limitations post TKA including pain and decreased ROM/strength operative leg and impaired functional mobility. Patient AANDO x 3 and demonstrates good follow through with cues and education. min cues to stay on task. patient is receptive to education. Patient ind at baseline without device and demonstrates safety with functional mobility with cues/CGA and FWW on level surfaces . Tolerance limited by fatigue and pain. Patient would benefit from skilled PT in acute setting to continue to progress ROM/strength and functional mobility to support patient goal of safe home going. PRECAUTIONS Fall Risk, Lines/Tubes/Drains, Total Knee Replacement, Weight Bearing Restrictions, Bed/Chair Alarm Right Lower Extremity Weight Bearing Status: WBAT CURRENT HOSPITAL COURSE s/p R TKA 03/24/24 Relevant Past Medical History: HTN, ostopenia, hysterectomy; R JOYCE per patient HOME LIVING Patient Lives With: Spouse, Other: See Comment Comments: spouse has Parkinson's and dementia Assistance Available: PRN, Other: See Comment Comments: friend/family to stop as needed Entry To Home: Stairs, With Rail Number Of Stairs Into Home: 4 Number Of Stairs To Bed/Bath: 0 - ranch home, 2 curb steps to family room Stairs to Bed/Bath with: No Rail Equipment Owned: Cane, Commode- Raised, Crutch(es), Hand Held Shower, Extended Tub Bench, Long Handled Shoe Horn, Walker- Wheeled PRIOR FUNCTIONAL LEVEL Within Functional Limits Ind with amb without device, ADL/IADL, +drives and denies falls. SUBJECTIVE patient agreeable to PT and cleared by RN. THERAPY DIAGNOSIS Difficulty walking-musculoskeleta l TREATMENT INTERVENTIONS Evaluation, Therapeutic Activity (32157), Gait Training (63073) Timed Code Treatment (minutes): 45 Skilled Treatment Time (minutes): 65 $ Evaluation-Low (15452) Billed Units: 1 unit Therapeutic Activity (83658) Treatment Minutes: 30 $ Therapeutic Activity (45416) Billed Units: 2 units Gait Training (57571) Treatment Minutes: 15 $ Gait Training (22857) Billed Units: 1 unit Range of Motion: WFL Except, ROM Limitation Comments ROM Limitation Comments: right knee AROM with functional mobility grossly 10 - 50 deg Strength: WFL Except, Strength Limitation Comments Strength Limitation Comments: right Le grossly at least 3-/5 per clinical judgement based on weight bearing. Quality of Movement: Bradykinetic TRAINING AND EDUCATION PROVIDED Anatomy and Impact on Deficits, Assistive Device Use, Bed Mobility, Benefits of In-Hospital Mobility, Discharge Planning, Disease Specific Education, Equipment, Exercise Program, Expected Functional Level, Falls Prevention, Gait Pattern, Reduction of Deviations, Handout Issued, Home Set-up/Modifications, Modalities, Patient Exercise/Therapy Program Support Needs, Positioning, Precautions/Restrictio ns, Pre-gait Activities, Role of Physical Therapy, Standing Balance, Transfers, Treatment Protocol, Edema Management, Energy Conservation, Pain Neuroscience THERAPEUTIC SKILLS USED Activity Dosing, Assessment of Tolerance Including Vitals Response to Activity, Cues for Sequencing/Proper Technique for Activity, Cuing Verbal, Management of Critical Lines, Tubes and/or Drains, Movement Facilitation, Muscle Activation Facilitation, Physical Assist, Postural Alignment Correction, Teach-Back for Education, Cuing Tactile, Cuing Visual, Task Analysis Learning FUNCTIONAL STATUS Bed Mobility Supine To Sit: Stand By Assistance, Additional Information Cues for technique. HOB 45 deg, mod rail use. extended time, step by step cues. intermittent use of L LE to manage right. extended time Sit to Supine: Stand By Assistance, Additional Information cues for technique. L LE to manage (more content not included)... [facility] XR KNEE 2V AP/LAT RTon 03-24 XR KNEE 2V AP/LAT RT * * *Final Report* * * DATE OF EXAM: Mar 24 2024 10:25AM MDX 5207 - XR KNEE 2V AP/LAT RT / PROCEDURE REASON: Post Operative Assessment * * * * Physician Interpretation * * * * EXAMINATION: XR KNEE 2V AP/LAT RT PATIENT/TECHNOLOGIST PROVIDED HISTORY: POST-OP RIGHT TKR POST-OP RIGHT TKR CLINICAL INFORMATION: 73 years old Female with Post Operative Assessment TECHNIQUE: XR KNEE 2V AP/LAT RT Laterality: RIGHT Number of different views (projections): 2 COMPARISON: Radiographs 12/25/2023 RESULT: Interval RIGHT total knee arthroplasty with metal-backed patellar component in satisfactory alignment and position. No periprosthetic fracture or dislocation. Expected immediate postoperative changes with soft tissue and intra-articular gas and overlying dressing material. IMPRESSION: Interval RIGHT total knee arthroplasty without complication. Group Insurance Special Agent: PSCB Transcribe Date/Time: Mar 24 2024 1:03P Dictated by : DORON SKINNER DO This examination was interpreted and the report reviewed and electronically signed by: DORON SKINNER DO on Mar 24 2024 1:04PM EST [id number] [facility] HEALTHon 03-10-2024 [facility] HNO ID: [id number] Author: [facility] Service: Radiology Author Type: Technologist Type: Allied Health Filed: 03/10/2024 09:07 Note Text: Radiology Service Progress Note PATIENT NAME: Zeenat Mejia DATE OF SERVICE: March 10, 2024 TIME: 9:07 AM PATIENT IDENTITY VERIFICATION COMPLETED USING TWO (2) IDENTIFIERS: Name and Date of confirmed by patient verbally and Name and Date of confirmed by identification band. FALL SCREENING: Has the patient had 2 falls in the last year or 1 fall with injury or currently using an Ambulatory Assistive Device (Walker, Cane, Wheelchair, Crutches, etc.)? No PATIENT GENDER DATA: Female. status: : No status: NO. PATIENT RELEVANT IMPLANT DATA REVIEWED: Not Applicable PATIENT PRESENTS WITH AN IMPLANTABLE OR ATTACHED METAL PATTERN MAKER: No RADIOLOGY DEPARTMENT: CT; Exam(s) Completed: RT CHAU KNEE PERIPHERAL IV DATA: Not applicable SIGNED BY: JAE Powell March 10, 2024 9:07 AM [facility] CT KNEE WO IVCON RTon 2023 CT KNEE WO IVCON RT * * *Final Report* * * DATE OF EXAM: Mar 10 2024 9:14AM [facility] 0084 - CT KNEE WO IVCON RT / PROCEDURE REASON: multiple diagnoses * * * * Physician Interpretation * * * * EXAMINATION: CT KNEE WO IVCON RT CLINICAL HISTORY: 73 years old Female with Primary osteoarthritis of right knee Preoperative testing . . TECHNIQUE: CT RIGHT knee without contrast Chau protocol, knee 0.62 mm axial slices, hip and ankle 2.5 mm axial slices obtained for the purposes of presurgical planning CT Radiation dose: Integrated Dose-length product (DLP) for this visit = 1618 mGy*cm. CT Dose Reduction Employed: Automated exposure control(AEC) and iterative recon COMPARISON: Radiographs 12/25/2023 RESULT: Limited CT images for the purposes of presurgical planning. Right knee: Tricompartment osteoarthritis, most advanced in the lateral joint compartment. Joint effusion. Fatty atrophy of the medial head of the gastrocnemius muscle. Right hip: Right total hip arthroplasty. Mild left hip osteoarthrosis. Right ankle and imaged foot: Mild degenerative changes Salicylic Acid Blender: No significant finding. IMPRESSION: Limited CT images for the purposes of presurgical planning. Group Insurance Special Agent: MITCH Transcribe Date/Time: Mar 10 2024 9:21A Dictated by : JOSE FISHER MD This examination was interpreted and the report reviewed and electronically signed by: JOSE FISHER MD on Mar 10 2024 9:24AM EST [id number] [facility] CT Knee - right WO contrasto n 03-10-2024 IMPRESSION: Limited CT images for the purposes of presurgical planning. Group Insurance Special Agent: MITCH Transcribe Date/Time: Mar 10 2024 9:21A Dictated by : JOSE FISHER MD This examination was interpreted and the report reviewed and electronically signed by: JOSE FISHER MD on Mar 10 2024 9:24AM [facility] RADIOLOGY * * *Final Report* * * DATE OF EXAM: Mar 10 2024 9:14AM [facility] [place] [facility] 0084 - CT KNEE WO IVCON RT / PROCEDURE REASON: multiple diagnoses * * * * Physician Interpretation * * * * EXAMINATION: CT KNEE WO IVCON RT CLINICAL HISTORY: 73 years old Female with Primary osteoarthritis of right knee Preoperative testing . . TECHNIQUE: CT RIGHT knee without contrast Chau protocol, knee 0.62 mm axial slices, hip and ankle 2.5 mm axial slices obtained for the purposes of presurgical planning CT Radiation dose: Integrated Dose-length product (DLP) for this visit = 1618 mGy*cm. CT Dose Reduction Employed: Automated exposure control(AEC) and iterative recon COMPARISON: Radiographs 12/25/2023 RESULT: Limited CT images for the purposes of presurgical planning. Right knee: Tricompartment osteoarthritis, most advanced in the lateral joint compartment. Joint effusion. Fatty atrophy of the medial head of the gastrocnemius muscle. Right hip: Right total hip arthroplasty. Mild left hip osteoarthrosis. Right ankle and imaged foot: Mild degenerative changes Salicylic Acid Blender: No significant finding. [facility] Provider, [facility] - 03/10/2024 * * *Final Report* * * DATE OF EXAM: Mar 10 2024 9:14AM [facility] [place] 0084 - CT KNEE WO IVCON RT / PROCEDURE REASON: multiple diagnoses * * * * Physician Interpretation * * * * EXAMINATION: CT KNEE WO IVCON RT CLINICAL HISTORY: 73 years old Female with Primary osteoarthritis of right knee Preoperative testing . . TECHNIQUE: CT RIGHT knee without contrast Chau protocol, knee 0.62 mm axial slices, hip and ankle 2.5 mm axial slices obtained for the purposes of presurgical planning CT Radiation dose: Integrated Dose-length product (DLP) for this visit = 1618 mGy*cm. CT Dose Reduction Employed: Automated exposure control(AEC) and iterative recon COMPARISON: Radiographs 12/25/2023 RESULT: Limited CT images for the purposes of presurgical planning. Right knee: Tricompartment osteoarthritis, most advanced in the lateral joint compartment. Joint effusion. Fatty atrophy of the medial head of the gastrocnemius muscle. Right hip: Right total hip arthroplasty. Mild left hip osteoarthrosis. Right ankle and imaged foot: Mild degenerative changes Salicylic Acid Blender: No significant finding. IMPRESSION IMPRESSION: Limited CT images for the purposes of presurgical planning. Group Insurance Special Agent: PSCB Transcribe Date/Time: Mar 10 2024 9:21A Dictated by : JOSE FISHER MD This examination was interpreted and the report reviewed and electronically signed by: JOSE FISHER MD on Mar 10 2024 9:24AM EST [facility] Radiology Study observation (narrative) [facility] CT Knee - right WO contrastO rdered By: [facility] Provider on 03-10-2024 [facility] Basic metabolic 2000 panelon 03-09-2024 Anion gap [Moles/Vol] 10 mmol/L 8 - 15 mmol/L [facility] Calcium [Mass/Vol] 9.9 mg/dL 8.5 - 10. 2 mg/dL [facility] Chloride [Moles/Vol] 100 mmol/L 98 - 10 7 mmol/L [facility] CO2 [Moles/Vol] 30 mmol/L 22 - 30 mmol/L [facility] Creatinine [Mass/Vol] 0.74 mg/dL 0.58 - 0.96 mg/dL [facility] GFR/1.73 sq M.predicted among non-blacks MDRD (S/P/Bld) [Vol rate/Area] 86 mL/min/{1.73_m2} - PINF [facility] Comment on above: Estimated Glomerular Filtration Rate (eGFR) is calculated using the 2020 CKD-EPI creatinine equation. This equation utilizes serum creatinine, sex, and age as parameters. The creatinine assay has traceable calibration to isotope dilution-mass spectrometry. Refer to KDIGO guidelines for clinical interpretation. In patients with unstable renal function, e.g. those with acute kidney injury, the eGFR may not accurately reflect actual GFR. Glucose [Mass/Vol] 95 mg/dL 74 - 99 mg/dL [facility] Comment on above: The [place] Di[employer] s Association (ADA) provides guidance for cutoff values for fasting glucose and random glucose. The ADA defines fasting as no caloric intake for at least 8 hours. Fasting plasma glucose results between 100 to 125 mg/dL indicate increased risk for diabetes (prediabetes). Fasting plasma glucose results greater than or equal to 126 mg/dL meet the criteria for diagnosis of diabetes. In the absence of unequivocal hyperglycemia, results should be confirmed by repeat testing. In a patient with classic symptoms of hyperglycemia or hyperglycemic crisis, random plasma glucose results greater than or equal to 200 mg/dL meet the criteria for diagnosis of diabetes. Reference: Standards of Medical Care in Diabetes 2016, [place] [employer]. Diabetes Care. 2016.39(Suppl 1). Interpretation and review of laboratory results Normal [facility] Potassium [Moles/Vol] 3.9 mmol/L 3.7 - 5.1 mmol/L [facility] Sodium [Moles/Vol] 140 mmol/L 136 - 144 mmol/L [facility] Urea nitrogen [Mass/Vol] 19 mg/dL 7 - 21 mg/dL [facility] Anion gap [Moles/Vol] 10 mmol/L Normal 8-15 [facility] Comment on above: Order Comment: Speci men Type: BLOOD SPECIMEN Ordering Facility: [facility] Address: [address] [place] [address] Performed By: #### 2 4321-2 #### [facility] CLIA [id number] [address] [place] [address] [place] Calcium [Mass/Vol] 9.9 mg/dL Normal 8.5-10.2 [facility] Comment on above: Order Comment: Speci men Type: BLOOD SPECIMEN Ordering Facility: [facility] Address: [address] [place] [address] Performed By: #### 2 4321-2 #### [facility] CLIA [id number] [address] [place] [address] [place] Chloride [Moles/Vol] 100 mmol/L Normal 98-107 [facility] Comment on above: Order Comment: Speci men Type: BLOOD SPECIMEN Ordering Facility: [facility] Address: [address] [place] [address] Performed By: #### 2 4321-2 #### [facility] CLIA [id number] [address] [place] [address] [place] CO2 [Moles/Vol] 30 mmol/L Normal 22-30 [facility] Comment on above: Order Comment: Speci men Type: BLOOD SPECIMEN Ordering Facility: [facility] Address: [address] [place] [address] Performed By: #### 2 4321-2 #### [facility] CLIA [id number] [address] [place] [address] [place] Creatinine [Mass/Vol] 0.74 mg/dL Normal 0.58-0.96 [facility] Comment on above: Order Comment: Speci men Type: BLOOD SPECIMEN Ordering Facility: [facility] Address: [address] [place] [address] Performed By: #### 2 4321-2 #### [facility] CLIA [id number] [address] [place] [address] [place] Creatinine and Glomerular filtration rate.predicted panel (S/P/Bld) 86 mL/min/1.73m??? Normal >=60 [facility] Comment on above: Order Comment: Remi diaz Type: BLOOD SPECIMEN Ordering Facility: [facility] Address: [address] [place] [address] Result Comment: Lisa mated Glomerular Filtration Rate (eGFR) is calculated using the 2020 CKD-EPI creatinine equation. This equation utilizes serum creatinine, sex, and age as parameters. The creatinine assay has traceable calibration to isotope dilution-mass spectrometry. Refer to KDIGO guidelines for clinical interpretation. In patients with unstable renal function, e.g. those with acute kidney injury, the eGFR may not accurately reflect actual GFR. Performed By: #### 2 4321-2 #### [facility] CLIA [id number] [address] [place] [address] [place] Glucose [Mass/Vol] 95 mg/dL Normal 74-99 [facility] Comment on above: Order Comment: Remi diaz Type: BLOOD SPECIMEN Ordering Facility: [facility] Address: [address] [place] [address] Result Comment: The [place] Diabetes [employer] (ADA) provides guidance for cutoff values for fasting glucose and random glucose. The ADA defines fasting as no caloric intake for at least 8 hours. Fasting plasma glucose results between 100 to 125 mg/dL indicate increased risk for diabetes (prediabetes). Fasting plasma glucose results greater than or equal to 126 mg/dL meet the criteria for diagnosis of diabetes. In the absence of unequivocal hyperglycemia, results should be confirmed by repeat testing. In a patient with classic symptoms of hyperglycemia or hyperglycemic crisis, random plasma glucose results greater than or equal to 200 mg/dL meet the criteria for diagnosis of diabetes. Reference: Standards of Medical Care in Diabetes 2016, [place] [employer]. Diabetes Care. 2016.39(Suppl 1). Performed By: #### 2 4321-2 #### [facility] CLIA [id number] [address] [place] [address] [place] Potassium [Moles/Vol] 3.9 mmol/L Normal 3.7-5.1 [facility] Comment on above: Order Comment: Remi diaz Type: BLOOD SPECIMEN Ordering Facility: [facility] Address: [address] [id number] Performed By: #### 2 4321-2 #### [facility] CLIA [id number] [address] [place] [facility] Sodium [Moles/Vol] 140 mmol/L Normal 136-144 [facility] Comment on above: Order Comment: Speci men Type: BLOOD SPECIMEN Ordering Facility: [facility] Address: [address] [place] [address] Performed By: #### 2 4321-2 #### [facility] CLIA [id number] [address] Urea nitrogen [Mass/Vol] 19 mg/dL Normal 7-21 [facility] Comment on above: Order Comment: Speci men Type: BLOOD SPECIMEN Ordering Facility: [facility] Address: [address] [place] [address] Performed By: #### 2 4321-2 #### [facility] CLIA [id number] [address] STATES OF [facility] CBC W Auto Differential pane l (Bld)on 03-09-2024 Basophils (Bld) [#/Vol] 0.04 10*3/uL [facility] Basophils/100 WBC (Bld) 0.6 % [facility] Differential cell count method Nom (Bld) Auto [facility] Eosinophils (Bld) [#/Vol] 0.11 10*3/uL [facility] Eosinophils/100 WBC (Bld) 1.7 % [facility] Erythrocyte distribution width (RBC) [Ratio] 12.6 % 11.5 - 15.0 % [facility] Hematocrit (Bld) [Volume fraction] 40.0 % 36.0 - 46.0 % [facility] Hemoglobin (Bld) [Mass/Vol] 13.2 g/dL 11.5 - 15.5 g/dL [facility] Immature granulocytes (Bld) [#/Vol] 0.03 10*3/uL [facility] Immature granulocytes/100 WBC (Bld) 0.5 % [facility] Lymphocytes (Bld) [#/Vol] 1.99 10*3/uL [facility] Lymphocytes/100 WBC (Bld) 30.1 % [facility] MCH (RBC) [Entitic mass] 30.1 pg 26.0 - 34.0 pg [facility] MCHC (RBC) [Mass/Vol] 33.0 g/dL 30.5 - 36.0 g/dL [facility] MCV (RBC) [Entitic vol] 91.3 fL 80.0 - 100.0 fL [facility] Monocytes (Bld) [#/Vol] 0.75 10*3/uL [facility] Monocytes/100 WBC (Bld) 11.3 % [facility] Neutrophils (Bld) [#/Vol] 3.70 10*3/uL [facility] Neutrophils/100 WBC (Bld) 55.8 % [facility] Nucleated RBC (Bld) [#/Vol] NINF [facility] Nucleated RBC/100 WBC (Bld) [Ratio] 0.0 % /100 WBC [facility] Platelet mean volume (Bld) [Entitic vol] 9.3 fL 9.0 - 12.7 fL [facility] Platelets (Bld) [#/Vol] 265 10*3/uL [facility] RBC (Bld) [#/Vol] 4.38 10*6/uL 3.90 - 5.2 0 m/uL [facility] WBC (Bld) [#/Vol] 6.62 10*3/uL [facility] Basophils (Bld) [#/Vol] 0.04 10*3/uL Normal <0.11 [facility] Comment on above: Order Comment: Speci men Type: BLOOD SPECIMEN Ordering Facility: [facility] Address: [address] [place] [address] Performed By: #### 5 7021-8 #### [facility] CLIA [id number] [address] Basophils/100 WBC (Bld) 0.6 % Normal [facility] Comment on above: Order Comment: Speci men Type: BLOOD SPECIMEN Ordering Facility: [facility] Address: [address] [place] [address] Performed By: #### 5 7021-8 #### [facility] CLIA [id number] [address] STATES OF [place] Differential cell count method Nom (Bld) Auto Normal [facility] Comment on above: Order Comment: Speci men Type: BLOOD SPECIMEN Ordering Facility: [facility] Address: [address] [place] [address] Performed By: #### 5 7021-8 #### [facility] CLIA [id number] [address] [place] [address] [place] Eosinophils (Bld) [#/Vol] 0.11 10*3/uL Normal <0.46 [facility] Comment on above: Order Comment: Speci men Type: BLOOD SPECIMEN Ordering Facility: [facility] Address: [address] [place] [address] Performed By: #### 5 7021-8 #### [facility] CLIA [id number] [address] [place] [address] [place] Eosinophils/100 WBC (Bld) 1.7 % Normal [facility] Comment on above: Order Comment: Speci men Type: BLOOD SPECIMEN Ordering Facility: [facility] Address: [address] [place] [address] Performed By: #### 5 7021-8 #### [facility] CLIA [id number] [address] [place] [address] [place] Erythrocyte distribution width (RBC) [Ratio] 12.6 % Normal 11.5-15.0 [facility] Comment on above: Order Comment: Speci men Type: BLOOD SPECIMEN Ordering Facility: [facility] Address: [address] [place] [address] Performed By: #### 5 7021-8 #### [facility] CLIA [id number] [address] [place] Hematocrit (Bld) [Volume fraction] 40.0 % Normal 36.0-46.0 [facility] Comment on above: Order Comment: Speci men Type: BLOOD SPECIMEN Ordering Facility: [facility] Address: [address] [place] [address] Performed By: #### 5 7021-8 #### [facility] CLIA [id number] [address] [place] [address] [place] Hemoglobin (Bld) [Mass/Vol] 13.2 g/dL Normal 11.5-15.5 [facility] Comment on above: Order Comment: Speci men Type: BLOOD SPECIMEN Ordering Facility: [facility] Address: [address] [place] [address] Performed By: #### 5 7021-8 #### [facility] CLIA [id number] [address] [place] [address] [place] Immature granulocytes (Bld) [#/Vol] 0.03 10*3/uL Normal <0.10 [facility] Comment on above: Order Comment: Speci men Type: BLOOD SPECIMEN Ordering Facility: [facility] Address: [address] [place] [address] Performed By: #### 5 7021-8 #### [facility] CLIA [id number] [address] Immature granulocytes/100 WBC (Bld) 0.5 % Normal [facility] Comment on above: Order Comment: Speci men Type: BLOOD SPECIMEN Ordering Facility: [facility] Address: [address] [place] [address] Performed By: #### 5 7021-8 #### [facility] CLIA [id number] [address] [place] [address] [place] Lymphocytes (Bld) [#/Vol] 1.99 10*3/uL Normal 1.00-4.00 [facility] Comment on above: Order Comment: Speci men Type: BLOOD SPECIMEN Ordering Facility: [facility] Address: [address] [place] [address] Performed By: #### 5 7021-8 #### [facility] CLIA [id number] [address] OF [place] Lymphocytes/100 WBC (Bld) 30.1 % Normal [facility] Comment on above: Order Comment: Speci men Type: BLOOD SPECIMEN Ordering Facility: [facility] Address: [address] [place] [address] Performed By: #### 5 7021-8 #### [facility] CLIA [id number] [address] [place] [address] [place] MCH (RBC) [Entitic mass] 30.1 pg Normal 26.0-34.0 [facility] Comment on above: Order Comment: Speci men Type: BLOOD SPECIMEN Ordering Facility: [facility] Address: [address] [place] [address] Performed By: #### 5 7021-8 #### [facility] CLIA [id number] [address] [place] [address] [place] MCHC (RBC) [Mass/Vol] 33.0 g/dL Normal 30.5-36.0 [facility] Comment on above: Order Comment: Speci men Type: BLOOD SPECIMEN Ordering Facility: [facility] Address: [address] [place] [address] Performed By: #### 5 7021-8 #### [facility] CLIA [id number] [address] MCV (RBC) [Entitic vol] 91.3 fL Normal 80.0-100.0 [facility] Comment on above: Order Comment: Speci men Type: BLOOD SPECIMEN Ordering Facility: [facility] Address: [address] [place] [address] Performed By: #### 5 7021-8 #### [facility] CLIA [id number] [address] OF [place] Monocytes (Bld) [#/Vol] 0.75 10*3/uL Normal <0.87 [facility] Comment on above: Order Comment: Speci men Type: BLOOD SPECIMEN Ordering Facility: [facility] Address: [address] [place] [address] Performed By: #### 5 7021-8 #### [facility] CLIA [id number] [address] Monocytes/100 WBC (Bld) 11.3 % Normal [facility] Comment on above: Order Comment: Speci men Type: BLOOD SPECIMEN Ordering Facility: [facility] Address: [address] [place] [address] Performed By: #### 5 7021-8 #### [facility] CLIA [id number] [address] OF [place] Neutrophils (Bld) [#/Vol] 3.70 10*3/uL Normal 1.45-7.50 [facility] Comment on above: Order Comment: Speci men Type: BLOOD SPECIMEN Ordering Facility: [facility] Address: [address] [place] [address] Performed By: #### 5 7021-8 #### [facility] CLIA [id number] [address] Neutrophils/100 WBC (Bld) 55.8 % Normal [facility] Comment on above: Order Comment: Speci men Type: BLOOD SPECIMEN Ordering Facility: [facility] Address: [address] [place] [address] Performed By: #### 5 7021-8 #### [facility] CLIA [id number] [address] [place] Nucleated RBC (Bld) [#/Vol] 10*3/uL Normal <0.01 [facility] Comment on above: Order Comment: Speci men Type: BLOOD SPECIMEN Ordering Facility: [facility] Address: [address] [place] [address] Performed By: #### 5 7021-8 #### [facility] CLIA [id number] [address] [place] Nucleated RBC/100 WBC (Bld) [Ratio] 0.0 /100 WBC Normal [facility] Comment on above: Order Comment: Speci men Type: BLOOD SPECIMEN Ordering Facility: [facility] Address: [address] [place] [address] Performed By: #### 5 7021-8 #### [facility] CLIA [id number] [address] [place] Platelet mean volume (Bld) [Entitic vol] 9.3 fL Normal 9.0-12.7 [facility] Comment on above: Order Comment: Speci men Type: BLOOD SPECIMEN Ordering Facility: [facility] Address: [address] [place] [address] Performed By: #### 5 7021-8 #### [facility] CLIA [id number] [address] [place] [address] [place] Platelets (Bld) [#/Vol] 265 10*3/uL Normal 150-400 [facility] Comment on above: Order Comment: Speci men Type: BLOOD SPECIMEN Ordering Facility: [facility] Address: [address] [place], [place] [address] Performed By: #### 5 7021-8 #### [facility] CLIA [id number] [address] RBC (Bld) [#/Vol] 4.38 10*6/uL Normal 3.90-5.20 [facility] Comment on above: Order Comment: Speci men Type: BLOOD SPECIMEN Ordering Facility: [facility] Address: [address] [place], [place] [address] Performed By: #### 5 7021-8 #### [facility] CLIA [id number] [address] WBC (Bld) [#/Vol] 6.62 10*3/uL Normal 3.70-11.00 [facility] Comment on above: Order Comment: Speci men Type: BLOOD SPECIMEN Ordering Facility: [facility] Address: [address] [place] [address] Performed By: #### 5 7021-8 #### [facility] CLIA [id number] [address] ECG COMPLETEon 03-09-2024 Atrial Rate 79 BPM [facility] Calculated P [place] 65 degrees [facility] Calculated R [place] 60 degrees [facility] Calculated T [place] 57 degrees [facility] P-R Interval 170 ms [facility] QRS Duration 94 ms [facility] QT Interval 420 ms [facility] QTC Calculation (Bazett) 481 ms [facility] Ventricular Rate 79 BPM [facility] SINUS RHYTHM WITH POSSIBLE PREMATURE VENTRICULAR COMPLEXES OTHERWISE NORMAL ECG WHEN COMPARED WITH ECG OF 15-Aug-2016 10:11, ELECTRONIC DEMAND PACING IS NO LONGER PRESENT FUSION COMPLEXES ARE NO LONGER PRESENT PREMATURE VENTRICULAR COMPLEXES ARE NO LONGER PRESENT Confirmed by MD FALCON GREGORY () on 03/09/2024 11:10:22 AM [facility] NAME : ZEENAT MEJIA PID : [id number] : 1950 Gender : Female Race : ORD : [id number] Procedure Date : Mar 09 2024 10:19:42 Edit Date : Aug 26 2024 11:32:34 Diagnosis: SINUS RHYTHM WITH POSSIBLE PREMATURE VENTRICULAR COMPLEXES OTHERWISE NORMAL ECG WHEN COMPARED WITH ECG OF 15-Aug-2016 10:11, ELECTRONIC DEMAND PACING IS NO LONGER PRESENT FUSION COMPLEXES ARE NO LONGER PRESENT PREMATURE VENTRICULAR COMPLEXES ARE NO LONGER PRESENT Confirmed by MD FALCON GREGORY () on 03/09/2024 11:10:22 AM Test Reason : [facility] Location : 10 : [facility]/ Overread By : MD FALCON GREGORY Edited By : MD FALCON GREGORY Referred By : ROMANA CHI Acquired by : [facility] ECG COMPLETE Ventricular Rate : 7 9 BPM Atrial Rate : 79 BPM P-R Interval : 170 ms QRS Duration : 94 ms Q-T Interval : 420 ms QTC Calculation(Bazett) : 481 ms Calculated P [place] : 65 degrees Calculated R [place] : 60 degrees Calculated T [place] : 57 degrees SINUS RHYTHM WITH POSSIBLE PREMATURE VENTRICULAR COMPLEXES OTHERWISE NORMAL ECG WHEN COMPARED WITH ECG OF 15-Aug-2016 10:11, ELECTRONIC DEMAND PACING IS NO LONGER PRESENT FUSION COMPLEXES ARE NO LONGER PRESENT PREMATURE VENTRICULAR COMPLEXES ARE NO LONGER PRESENT Confirmed by MD FALCON GREGORY () on 03/09/2024 11:10:22 AM NAME : ZEENAT MEJIA PID : [id number] : 1950 Gender : Female Race : ORD : [id number] Procedure Date : Mar 09 2024 10:19:42 Edit Date : Mar 09 2024 11:32:34 Diagnosis: SINUS RHYTHM WITH POSSIBLE PREMATURE VENTRICULAR COMPLEXES OTHERWISE NORMAL ECG WHEN COMPARED WITH ECG OF 15-Aug-2016 10:11, ELECTRONIC DEMAND PACING IS NO LONGER PRESENT FUSION COMPLEXES ARE NO LONGER PRESENT PREMATURE VENTRICULAR COMPLEXES ARE NO LONGER PRESENT Confirmed by MD FALCON GREGORY () on 03/09/2024 11:10:22 AM Test Reason : [facility] Location : 10 : [facility]/ Overread By : MD FALCON GREGORY Edited By : MD FALCNO GREGORY Referred By : ROMANA CHI Acquired by : [facility] HISTORY PHYSICALon HISTORY PHYSICAL HNO ID: [id number] Author: CHEL HARRISON PA-C Service: ? Author Type: Physician Boilermaker'S Assistant Type: H&P Filed: 03/10/2024 11:27 Note Text: HISTORY AND PHYSICAL EXAMINATION SERVICE DATE: 03/09/2024 SERVICE TIME: 11:14 AM PRIMARY CARE PHYSICIAN: Claudette Lima MD Assessment Patient has the following medical conditions which may affect nazia-operative course: Essential hypertension Assessment: BP today in clinic 154/86. Stable on RX. Hyperlipidemia Assessment: Stable on RX PE (pulmonary thromboembolism) (HCC) Assessment: after shoulder surgery in 2020, no longer takes AC PONV (postoperative nausea and vomiting) Assessment: reports vomiting after hysterectomy Gomez Activity Status Index: METS: Climb a flight of stairs or walk up a hill (5.50 METs) DASI Score: 5.5 Patient denies any chest pain or undue shortness of breath with the above physical activity. Clinical Frailty Scale: 3. Well, with treated comorbid disease STOP-Bang Score: Snores loudly Has or is being treated for high blood pressure Patient over 50 years old Denies feeling tired, fatigued, or sleepy during the daytime Has not been observed to stop breathing or choking/gasping during sleep BMI less than or equal to 35 kg/m2 Does not have a large neck Non-male patient STOP-Bang Score: 3 [id number] Score: Age: 65-74 Sex: female CHF history: No Hypertension history: Yes Stroke/TIA/thromboembo lism history: No Vascular disease history: No Diabetes history: No [id number] Score: 3 ARISCAT Score: Age: 51-80 Preoperative SpO2: >=96% Respiratory infection in the last month: No Preoperative anemia: Yes Surgical incision: peripheral Duration of surgery: 2-3 hrs Emergency procedure: No ARISCAT Score: 30 ANESTHESIA FINDINGS: Intubation History: No history of difficult intubation. No abnormal airway history Significant Anesthesia Considerations: reports vomitting after hyster potential postop nausea/vomiting Airway History: No history of difficult airway No abnormal airway history I - PHYSICAL EVALUATION AIRWAY Patient intubated: No. Tracheostomy tube not present Mallampati: IV. TM distance: >3 FB. Neck ROM: full ROM without neurological symptoms. Mouth opening: adequate. Short neck: no. Thick neck: no Marie present: no Lip Bite Test: I DENTAL Dental findings: broken tooth. Additional comments: + crowns, permanent bridge. II - ANESTHESIA PLAN Anesthetic Plan: other Anesthetic plan additional comments: *PACC/TCI - anesthesia choice. Beta Bj Monitoring Plan Post Procedure Analgesic Plan Prepared for Surgery: optimally prepared for surgery. Labs, EKG March 10, 2024 11:27 AM Labs and EKG reviewed. OK to proceed with procedure. Chel Harrison PA-C CONSULTS: Patient does not require consults for optimization at this time Planned Anesthetic: other anesthesia choice REASON FOR VISIT: Zeenat Mejia is a 73 year old female who is scheduled for Procedure(s): ROBOTIC ASSISTED TOTAL KNEE ARTHROPLASTY (Right) at the request of Romana Cortes MD for consultation. My final recommendation will be communicated back to the requesting physician by way of shared medical record or letter. Subjective The patient has the following: ACTIVE PROBLEM LIST POSTMENOPAUSAL ATROPHIC VAGINITIS Osteopenia Primary Osteoarthritis of Left Knee Primary Osteoarthritis of Right Hip Essential Hypertension Hyperlipidemia Pe (Pulmonary Thromboembolism) (Hcc) Ponv (Postoperative Nausea and Vomiting) COVID-19 Immunization Status Overdue - Covid-19 Vaccine () Overdue since 03/15/2023 10/04/2020 Imm Admin: COVID-19 original vaccine, age 12+ yr, monovalent (PFIZER-BIONTECH - PURPLE TOP) 09/13/2020 Imm Admin: COVID-19 original vaccine, age 12+ yr, monovalent (PFIZER-BIONTECH - PURPLE TOP) CHIEF COMPLAINT: Pre-anesthesia optimization HPI: Zeenat Mejia is a 73 year old female presenting for pre-anesthesia consultation. Pt has history of bilateral knee OA, reports stairs or stepping off curb causes a lot of difficulty. Affecting ambulation and activities. Above procedure recommended to manage symptoms. Procedure scheduled on 03/24/2024 at [facility]. REVIEW OF SYSTEMS: General: No weight loss, malaise or fevers. Neurological: No history of TIA's, stroke, TABULATING MACHINE MECHANIC tumor, impaired sensorium, hemiplegia, paraplegia or quadraplegia. No neurological symptoms or problems. Respiratory: + lung nodule. No history of current cough or dyspnea, or pneumonia in the past 6 weeks. No history of respiratory/pulmonary symptoms or problems. Cardiovascular: Positive for: DVT/PE (provoked from shoulder surgery, 2020), hyperlipidemia and hypertension Negative for: arrhythmia, atrial fibrillation, CAD, chest pain and murmur/valvular heart disease. GI: Positive for: history of polyps Negative for: dysphagia, GERD, heartburn, irritable bowel syndrome, infla (more content not included)... [facility] 03-04-2024 [facility] Telephone (ME2E) ORBERTOZEENAT Lashell ([id number]) 1950 F Date Time Provider Department 03/04/24 [facility] ME2E During your visit today, we recorded the following information about you: Batsheva Rose PSS 03/04/2024 6:49 AM Signed TOTAL JOINT COMPLETE CARE PROGRAM PRE-OPERATIVE TEACHING Service Date: 03/03/2024 Service Time: 3:50PM Date of : 1950 Gender: female Date of Surgery: 03/24/24 Procedure: Right Total Knee Replacement Complete Care Program was discussed with the patient: Metal Reed Tuner Identification: Patient identified a intensive care anaesthetist to help when discharged to home: spouse, neighbors Home Environment: Home Layout: Ranch, Entry Steps: 3 with rail, Bedroom Location: 1st floor, Bathroom Location: 1st floor, and tub shower. Pt owns walker, cane, tall toilets. Discussed with patient importance of attending joint education class and provided date and times of class: YES declined. Patient received Joint Education Binder: Yes Patient plans discharge home with [facility] SIGNATURE: JESIKA Harrell PATIENT NAME: Zeenat Camarenaier DATE: March 04, 2024 TIME: 6:47 AM Allergies As of Date: 03/04/2024 Noted Allergy Reaction PENICILLINS 03/14/2006 2 - Rash SULFA (SULFONAMIDE ANTIBIOTICS) 03/14/2006 2 - Rash TETRACYCLINE 03/14/2006 2 - Rash Date Reviewed: 12/25/2023 Reviewed by: Ijeoma Perez OCCA - Fully Assessed Reason for Visit: Pre-Op Teaching [134] Prescriptions as of 03/04/2024 - meloxicam (MOBIC) 15 mg tablet Take 1 tablet by mouth once daily. - calcium carbonate/vitamin D3 (CALCIUM 500 + D ORAL) Take by mouth. - MULTI-VITAMIN ORAL Take 1 tablet by mouth once daily. - acetaminophen (TYLENOL ARTHRITIS ORAL) Take 1 tablet by mouth as needed. - metoprolol tartrate, short acting, (LOPRESSOR) 25 mg tablet Take 1 tablet by mouth every 12 hours. - potassium chloride (K-TAB) 10 mEq tablet Take 20 mEq by mouth once daily. - CALCIUM CARB,GLUC/MAG OX,GLUC (CALCIUM MAGNESIUM ORAL) Take 2 tablets by mouth twice daily. - atorvastatin (LIPITOR) 10 mg tablet Take 10 mg by mouth daily at bedtime. - coQ10, ubiquinol, 100 mg cap Take by mouth once daily. - lisinopril/hydrochloro thiazide(PRINZIDE 20 MG-12.5 MG TAB) one tablet daily Problem List As Of Date 03/04/2024 Noted Resolved Disorder of bone and cartilage, unspecified [M8*03/14/2006 06/21/2016 Symptomatic menopausal or female climacteric st*03/01/2010 03/02/2011 POSTMENOPAUSAL ATROPHIC VAGINITIS [N95.2] 03/01/2010 Depressive disorder, not elsewhere classified [*03/01/2010 03/02/2011 Recurrent cystitis [N30.90] 03/31/2012 06/21/2016 Osteopenia [M85.80] 04/08/2014 Primary osteoarthritis of left knee [M17.12] 05/06/2015 Primary osteoarthritis of right hip [M16.11] 05/06/2015 Essential hypertension [I10] 08/13/2016 Hyperlipidemia [E78.5] 08/15/2016 PE (pulmonary thromboembolism) (HCC) [I26.99] 01/02/2021 Encounter Status:Closed by [facility] ZEENAT MEJIA ([id number]) 1950 F Date Time Provider Department 02/25/24 [facility]I During your visit today, we recorded the following information about you: Roseline Mcconnell 02/25/2024 10:[address] order and schedule ct scan for 03/24/24 Rt tka chau. Rohith Willis PA-C 02/25/2024 11:[address] order entered. Cady Prabhakar 02/25/2024 2:56 PM Signed Patient called stating she received a call but accidentally refused the call and she did not get a voice mail. If someone called her today, can you please call her back. Janae Garland 02/25/2024 4:54 PM Signed Patient scheduled for CT on 03/10/2024 Janae Garland Allergies As of Date: 02/25/2024 Noted Allergy Reaction PENICILLINS 03/14/2006 2 - Rash SULFA (SULFONAMIDE ANTIBIOTICS) 03/14/2006 2 - Rash TETRACYCLINE 03/14/2006 2 - Rash Date Reviewed: 12/25/2023 Reviewed by: Ijeoma Perez OCCA - Fully Assessed Reason for Visit: Appointment [186] Primary Visit Diagnosis:Primary osteoarthritis of right knee [M17.11] Other Visit Diagnosis:Preoperative testing [Z01.818] Order(s):CT KNEE WO IVCON RIGHT [[id number]] Order #: [id number] FUTURE Prescriptions as of 02/25/2024 - meloxicam (MOBIC) 15 mg tablet Take 1 tablet by mouth once daily. - calcium carbonate/vitamin D3 (CALCIUM 500 + D ORAL) Take by mouth. - MULTI-VITAMIN ORAL Take 1 tablet by mouth once daily. - acetaminophen (TYLENOL ARTHRITIS ORAL) Take 1 tablet by mouth as needed. - metoprolol tartrate, short acting, (LOPRESSOR) 25 mg tablet Take 1 tablet by mouth every 12 hours. - potassium chloride (K-TAB) 10 mEq tablet Take 20 mEq by mouth once daily. - CALCIUM CARB,GLUC/MAG OX,GLUC (CALCIUM MAGNESIUM ORAL) Take 2 tablets by mouth twice daily. - atorvastatin (LIPITOR) 10 mg tablet Take 10 mg by mouth daily at bedtime. - coQ10, ubiquinol, 100 mg cap Take by mouth once daily. - lisinopril/hydrochloro thiazide(PRINZIDE 20 MG-12.5 MG TAB) one tablet daily Problem List As Of Date 02/25/2024 Noted Resolved Disorder of bone and cartilage, unspecified [M8*03/14/2006 06/21/2016 Symptomatic menopausal or female climacteric st*03/01/2010 03/02/2011 POSTMENOPAUSAL ATROPHIC VAGINITIS [N95.2] 03/01/2010 Depressive disorder, not elsewhere classified [*03/01/2010 03/02/2011 Recurrent cystitis [N30.90] 03/31/2012 06/21/2016 Osteopenia [M85.80] 04/08/2014 Primary osteoarthritis of left knee [M17.12] 05/06/2015 Primary osteoarthritis of right hip [M16.11] 05/06/2015 Essential hypertension [I10] 08/13/2016 Hyperlipidemia [E78.5] 08/15/2016 PE (pulmonary thromboembolism) (HCC) [I26.99] 01/02/2021 Encounter Status:Closed by JANAE GARLAND on 02/25/24 Normal [facility] Roll Mill Operator Office Visit Reporton 02-24-2024 Roll Mill Operator Office Visit Report [facility]'s [address] [place] [id number] OFFICE VISIT Date of Service: 02/24/24 MR#: [id number] Acct: [id number] Name: ZEENAT MEJIA Rep #: [id number] : 1950 Provider: Dr. 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) Chief Complaint: est annual Alteration Workroom Supervisor Required: No Is patient in pain?: No Allergies penicillin G Allergy (Mild, Verified 02/24/24 15:38) Other Sulfa (Sulfonamide Antibiotics) Allergy (Mild, Verified 02/24/24 15:38) Other tetracycline Allergy (Mild, Verified 02/24/24 15:38) Other Medications ???Medication ???Instructions ???Recorded ???Confirmed ???Type calcium carbonate (Calci-Chew) 500 mg PO BID 06/30/18 02/24/24 History lisinopril 20 1 tab PO DAILY 06/30/18 02/24/24 History mg-hydrochlorothiazide 12.5 mg tablet potassium chloride 20 mEq 20 meq PO DAILY 06/30/18 02/24/24 History tablet,extended release(part/cryst) (Klor-Con M) atorvastatin 10 mg tablet 10 mg PO DAILY 02/24/24 02/24/24 History coenzyme Q10 60 mg tablet 60 mg PO DAILY 02/24/24 02/24/24 History multivitamin 1 tab PO DAILY 02/24/24 02/24/24 History Is last menstrual period known: No Post menopausal: Yes Patient : No : No PFS Medical History (Updated 02/24/24 @ 16:[address] Thania Brito MD) Pulmonary embolism Macular hole of right eye Osteopenia MVP (mitral valve prolapse) Hyperlipidemia Hypertension Anemia Arthritis Surgical History H/O shoulder surgery S/P cataract extraction History of hip replacement History of hysterectomy History of tonsillectomy Family History Mother Hypertension Colon cancer Father Hypertension Social History Smoking Status: Never smoker alcohol intake: never substance use type: does not use caffeine: Yes what type of physical activity do you participate in: walking seatbelt use: always do you feel safe at home: Yes additional social history: [employer]- Retired History 5 Elective abortions Hx Para 4 Spontaneous abortions Hx # Term Pregnancies Ectopic pregnancies Hx # Pregnancies Multiple births # of living children Past Pregnancies Del. Date Name GA/Weeks Outcome Route Bth Weight Gen Labor Lgth Anesthesia Del Locatn Provider FOB Unknown 1979 Amanda Unknown 1983 Uriel Unknown Craig Unknown 1990 Tad HPI Encounter for routine gynecological examination Details: ZEENAT MEJIA is a 73 year old who presents for annual exam. with parkinsons/dementia Last PAP: hyst History of abnormal PAP: no severe Last mammogram: today History of abnormal mammogram: Colon cancer screening: up to date - every 5 years Other preventative health care screenings: Marta (leaving this year) PCP does screening labs Dexa last done in 2019 ROS Const Constitutional: Reports as per HPI; Denies fatigue, increased appetite, poor appetite, weight gain or weight loss Cardio Card: Denies chest pain Resp Resp: Denies cough or dyspnea GI GI: Reports as per HPI; Denies abdominal pain, bloating, constipation, nausea or vomiting : Reports as per HPI and other; Denies difficulty voiding, dysuria, hematuria, nipple discharge, pelvic pain, prolapse symptoms, urinary frequency, urinary incontinence, urinary urgency, vaginal discharge, vaginal dryness, vaginal odor or vaginal pruritus Skin Skin/Breast: Denies changing lesions, breast mass, breast pain, breast skin changes or nipple discharge Psych Psych: Denies anxiety or depression Exam Const General: cooperative, healthy appearing, comfortable, no acute distress, well developed and well groomed HENMT Head: normal to inspection and normocephalic Ears: hearing grossly normal bilaterally and external ears normal Nose: external nose normal Face and sinus: normal facial exam Neck Neck: normal visual inspection, full ROM and no lymphadenopathy Thyroid: thyroid normal Chest Chest palpation inspection: normal inspection of the chest Breast inspection: normal inspection of the breasts and normal inspection of the axillae Breast palpation: normal palpation of the breasts, normal palpation of the axillae and no axillary lymphadenopathy Resp Effort Inspection: normal respiratory effort GI Inspection: normal to inspection and non-distended Palpation: soft, no hepatosplenomegaly and no guarding (more content not included)... Normal [facility] SCRN MAMM (CAD)W/MIRELLA BILATo n 02-24-2024 SCRN MAMM (CAD)W/MIRELLA BILAT [facility] [address], [place] [address] SCRN MAMM (CAD)W/MIRELLA BILAT MR#: [id number] Acct: [id number] Name: ZEENAT MEJIA Rep #: [id number] : 1950 F 73 From: Blake shultz MD PCP: Dr. Sabrina Verduzco MD Status: REG CLI Study: SCRN MAMM (CAD)W/MIRELLA BILAT Date of Exam: 02/12 09/07 Exam# [id number] Ordering Dr: Thania Brito [id number] MAMMOGRAPHY - BILATERAL SCREENING REASON FOR EXAM: Female, 73 years old. Routine annual screening examination. PERTINENT HISTORY: Grandmother with breast cancer. TECHNIQUE: Digital bilateral breast mirella (3D mammographic acquisition) in the CC and MLO projections. 2-D mediolateral oblique (MLO) and craniocaudad (CC) views of both breasts were obtained. CAD: Full Field Digital Mammography with Computer Added Detection was performed. COMPARISON: Comparison is made with prior study dated January 01, 2023 and December 15, 2021. FINDINGS: Breast Composition: The breasts are heterogeneously dense, which may obscure small masses. There are no dominant masses or suspicious calcifications. No other significant abnormalities are identified. There has been no significant change since the prior study. BI/SCRN MAMM (CAD)W/MIRELLA BILAT IMPRESSION: Stable bilateral screening mammogram. Yearly follow-up mammogram recommended. (A) ASSESSMENT CATEGORY: BIRADS Category 1: Negative. A letter regarding these results will be sent to the patient by the facility within 30 days. Approximately 10% of breast cancers are not detected by mammography. A normal mammogram should not delay biopsy of a clinically suspicious abnormality. [id number] Electronically Signed: Blake Johnson MD at 15:38 EDT , CC: Dr. Sabrina Verduzco MD; Dr. Thania Brito MD Group Insurance Special Agent: Signed Normal [facility] XR Knee - bilateral 4 Viewso n 12-29-2023 * * *Final Report* * * DATE OF EXAM: Dec 25 2023 11:11AM NADRÉS [id number] - XR KNEE 4V AP/PA/LAT/MERCH KENDALL / PROCEDURE REASON: [id number] * * * * Physician Interpretation * * * * PROCEDURE: Bilateral knees INDICATION: Pain .BILATERAL KNEE PAIN TECHNIQUE: XR KNEE 4V AP/PA/LAT/MERCH KENDALL COMPARISON: 05/07/2022 FINDINGS: Tricompartment osteoarthrosis bilaterally, most advanced on the left in the medial joint compartment and on the right in the lateral joint compartment. No fracture or joint effusion. [facility] Provider, Anna Marques Shubham - 12/29/2023 * * *Final Report* * * DATE OF EXAM: Dec 25 2023 11:11AM ANDRÉS 5618 - XR KNEE 4V AP/PA/LAT/MERCH KENDALL / PROCEDURE REASON: [id number] * * * * Physician Interpretation * * * * PROCEDURE: Bilateral knees INDICATION: Pain .BILATERAL KNEE PAIN TECHNIQUE: XR KNEE 4V AP/PA/LAT/MERCH KENDALL COMPARISON: 05/07/2022 FINDINGS: Tricompartment osteoarthrosis bilaterally, most advanced on the left in the medial joint compartment and on the right in the lateral joint compartment. No fracture or joint effusion. IMPRESSION IMPRESSION: Advanced bilateral osteoarthrosis, showing mild interval progression Group Insurance Special Agent: [facility] Transcribe Date/Time: Dec 29 2023 9:10P Dictated by : JOSE FISHER MD This examination was interpreted and the report reviewed and electronically signed by: JOSE FISHER MD on Dec 29 2023 9:11PM EST [facility] XR Knee - bilateral 4 ViewsO rdered By: Cc Provider on 12-29-2023 [facility] CNOVgogo 12-25-2023 CNOV Office Visit (ORMDNA ) ZEENAT MEJIA ([id number]) 1950 F Date Time Provider Department 12/25/23 11:00 AM ROMANA CHI During your visit today, we recorded the following information about you: Weight Height 76 kg 1.702 m Romana Chi MD 01/22/2024 7:24 AM Signed CONSULT ORTHOPAEDIC: KNEE PRIMARY CARE PHYSICIAN: Claudette Lima MD REFERRING PROVIDER: No referring provider defined for this encounter. ASSESSMENT AND PLAN Impression: Right Knee Severe Degenerative Osteoarthritis, Primary Left knee osteoarthritis Diagnoses: Osteoarthritis both knees Based upon the evaluation today and after discussions with Zeenat MejiaZeenat has significant, worsening pain at the knee. This pain is increased with activity and weight bearing, and interferes with activities of daily living. These symptoms have continued despite a number of non-surgical measures, including a trial of oral pain medication and attempted physical therapy/ structured exercise program and/or use of an assistive device/ bracing (for at least 12 weeks unless the patient was unable to tolerate these measures as discussed above). At this point, the patient will not benefit from further PT due to the severity of their condition. The patient's physical examination is consistent with limitations in range of motion, pain with passive range of motion, crepitus, and effusion/ synovitis. These examination findings are corroborated by imaging findings of joint space narrowing, periarticular osteophyte formation, and subchondral sclerosis. The patient has been treated by the practice and all reasonable treatments have failed to control the disease, which causes significant pain and limits activities of daily living. The patient has failed conservative treatment and joint replacement surgery was discussed and agreed upon by both provider and patient. We will proceed with surgical management to improve function and relieve pain refractory to non-surgical measures. Right Primary Total Knee Arthroplasty as evidenced by progressive symptoms. Progressive Symptoms Include: Pain impacting sleep or causing fatigue Pain worsened by weight bearing Pain effecting living situation Pain limiting ability to stay fit and healthy Unable to ambulate 2 blocks without significant pain and dysfunction . Surgery Details Date and Location: At [facility] on date to be determined. Implants: Donell Robotic: Yes Predicted LOS: 2 days (Inpatient candidate) Informed consent obtained in the office today. The risks and benefits of surgery were discussed at length including but not limited to the risks of infection, bleeding, nerve or blood vessel injury, deep venous thrombosis, pulmonary embolism, arthrofibrosis, reflex sympathetic dystrophy, , paralysis, knee or patellar dislocation, extensor mechanism injury, bone fracture, component loosening or failure requiring re-operation or amputation. Informed consent was obtained and the patient was scheduled for surgery. We also discussed fixation strategies including cement and cementless fixation and advantages and disadvantages of each. We discussed the details of the surgery as well as rehabilitation. All questions were answered, and the patient wishes to proceed with surgery.. The patient has been ordered: No orders found for this visit on 12/25/23. CONSULTS: Patient does not require consults for optimization at this time. Total Joint Arthroplasty: Risk Calculator Zeenatnessa Mejia has a 10.18% chance of NOT returning home at discharge for a Primary total Knee replacement. Zeenat's estimated Length of Stay is 2 days (Inpatient candidate). Zeenat's 30 day chance of readmission is . Estimated LOS 2 days Discharge Disposition Probability D/C to Home 89.82 % D/C to SNF 10.18 % These calculations are based on the following factors: - 73 years of age - sex is not male - BMI of 26.24 kg/m2 - 0 hospitalizations in the last 12 months - no history of heart disease - no history of diabetes - no history of COPD - no history of anemia - preoperative ambulation: impaired community distances - 3 step(s) to enter home - bed location is on the first floor - bath location is on the first floor - caregiver is consistent - home is not more than 150 miles away - PROMIS-10 Mental Health T score 50+ - Marital status: Risk Factors for Total Knee Arthroplasty (TKA) Major Risk Factors Obesity normal High: BMI > 40 Moderate: BMI 30-40 Normal: BMI < 30 Diabetes normal High: A1C > 8 Moderate: A1C 7-8 Normal: A1C < 7 Hx of DVT / PE High Risk High: dx of DVT / PE Normal: no dx of DVT / PE Smoking normal High: Current smoker Normal: Non smoker Narcotics Use normal High:NarxCare >=300 Moderate: 100-299 Normal: 0-99 Depression Unknown Risk High: PHQ-9 >14 Moderate: (more content not included)... Normal [facility] Large Joint Arthro/Inj: bila teral knee jointson 12-25-2023 Romana Chi MD 01/22/2024 7:24 AM Large Joint Arthro/Inj: bilateral knee joints Informed Consent Consent Obtained: Verbal [place] Protocol A moment to CARE was completed. SIGN IN Personnel directly involved with the procedure wore the appropriate PPE. Special Equipment: N/A Patient/Surrogate Stated/Verified: Patient name, Date of , Relevant allergies and Intended procedure TIME OUT Intended patient and procedure match the source document(s). Consent documented and matches the intended procedure. Relevant labs, photos, and/or imaging studies have been reviewed. Correct side/site marked and visible. Medications required for procedure verified. No fire risk assessment and interventions applicable. No implant(s) inserted. 12/25/2023 11:53 AM The procedure site was prepped in the usual sterile fashion. Site: bilateral knee joints Medications (Right): 12 mg betamethasone acetate-betamethasone sodium phosphate 6 mg/mL Medications (Left): 12 mg betamethasone acetate-betamethasone sodium phosphate 6 mg/mL Anesthetics (Right): 4 mL lidocaine (PF) 10 mg/mL (1 %) Anesthetics (Left): 4 mL lidocaine (PF) 10 mg/mL (1 %) Outcome: Tolerated well, no immediate complications Post-injection instructions were reviewed with the patient and the patient voiced understanding of these instructions. SIGN OUT No specimen collected. No instruments, equipment or retained foreign bodies applicable. Post-procedure follow-up management communicated and Plan of Care Visit completed when applicable [facility] XR KNEE 4V AP/PA/LAT/MERCH B ILon 12-25-2023 XR KNEE 4V AP/PA/LAT/MERCH KENDALL * * *Final Report* * * DATE OF EXAM: Dec 25 2023 11:11AM ANDRÉS 5618 - XR KNEE 4V AP/PA/LAT/MERCH KENDALL / PROCEDURE REASON: [id number] * * * * Physician Interpretation * * * * PROCEDURE: Bilateral knees INDICATION: Pain .BILATERAL KNEE PAIN TECHNIQUE: XR KNEE 4V AP/PA/LAT/MERCH KENDALL COMPARISON: 05/07/2022 FINDINGS: Tricompartment osteoarthrosis bilaterally, most advanced on the left in the medial joint compartment and on the right in the lateral joint compartment. No fracture or joint effusion. IMPRESSION: Advanced bilateral osteoarthrosis, showing mild interval progression Group Insurance Special Agent: [employer] Transcribe Date/Time: Dec 29 2023 9:10P Dictated by : JOSE FISHER MD This examination was interpreted and the report reviewed and electronically signed by: JOSE FISHER MD on Dec 29 2023 9:11PM EST [id number] Normal [facility] XR Knee - bilateral 4 Viewso n 12-25-2023 Radiology Study observation (narrative) [facility] (ORMDNA) ZEENAT MEJIA ([id number]) 1950 F Date Time Provider Department 11/12/23 ROMANA CHI During your visit today, we recorded the following information about you: Roseline Mcconnell 11/12/2023 12:03 PM Signed Patient called to schedule a tka. Please advise if she needs seen first. Alfred Chandler PA-C 11/13/2023 8:01 AM Signed Zeenat saw Dr. Chi 09/24/23 and had bilateral knee injections. I believe they did discuss surgery but she was not ready to commit to surgery at the time. She is appropriate surgical candidate for either knee. Depending on which one hurts the most but will need to be scheduled after 12/26/23 because of the recent injections. [facility] 11/13/2023 10:44 AM Signed I spoke to the patient. She will be scheduled 03/24/24. Allergies As of Date: 11/12/2023 Noted Allergy Reaction PENICILLINS 03/14/2006 2 - Rash SULFA (SULFONAMIDE ANTIBIOTICS) 03/14/2006 2 - Rash TETRACYCLINE 03/14/2006 2 - Rash Date Reviewed: 10/21/2023 Reviewed by: Romana Chi MD - Fully Assessed Reason for Visit: Patient Question [2057] Prescriptions as of 11/13/2023 - calcium carbonate/vitamin D3 (CALCIUM 500 + D ORAL) Take by mouth. - meloxicam (MOBIC) 15 mg tablet Take 1 tablet by mouth once daily. - MULTI-VITAMIN ORAL Take 1 tablet by mouth once daily. - acetaminophen (TYLENOL ARTHRITIS ORAL) Take 1 tablet by mouth as needed. - metoprolol tartrate, short acting, (LOPRESSOR) 25 mg tablet Take 1 tablet by mouth every 12 hours. - potassium chloride (K-TAB) 10 mEq tablet Take 20 mEq by mouth once daily. - CALCIUM CARB,GLUC/MAG OX,GLUC (CALCIUM MAGNESIUM ORAL) Take 2 tablets by mouth twice daily. - atorvastatin (LIPITOR) 10 mg tablet Take 10 mg by mouth daily at bedtime. - coQ10, ubiquinol, 100 mg cap Take by mouth once daily. - lisinopril/hydrochloro thiazide(PRINZIDE 20 MG-12.5 MG TAB) one tablet daily Problem List As Of Date 11/12/2023 Noted Resolved Disorder of bone and cartilage, unspecified [M8*03/14/2006 06/21/2016 Symptomatic menopausal or female climacteric st*03/01/2010 03/02/2011 POSTMENOPAUSAL ATROPHIC VAGINITIS [N95.2] 03/01/2010 Depressive disorder, not elsewhere classified [*03/01/2010 03/02/2011 Recurrent cystitis [N30.90] 03/31/2012 06/21/2016 Osteopenia [M85.80] 04/08/2014 Primary osteoarthritis of left knee [M17.12] 05/06/2015 Primary osteoarthritis of right hip [M16.11] 05/06/2015 Essential hypertension [I10] 08/13/2016 Hyperlipidemia [E78.5] 08/15/2016 PE (pulmonary thromboembolism) (HCC) [I26.99] 01/02/2021 Encounter Status:Closed by ROSELINE MCCONNELL on 11/13/23 [facility] Maryam 09-25-2023 CNOV Office Visit (ORMDNA ) ZEENAT MEJIA ([id number]) 1950 F Date Time Provider Department 09/25/23 3:00 PM ROMANA CHI During your visit today, we recorded the following information about you: Romana Chi MD 10/21/2023 8:05 PM Signed [id number] Ms. Mejia was last seen for bilateral knee pain secondary to osteoarthritis four months. had the following plan implemented corticosteroid injection She presents today for Follow Up of the Left Knee and Follow Up of the Right Knee. Review of Systems Constitutional: Negative for fever. Respiratory: Negative for cough and shortness of breath. Cardiovascular: Negative for chest pain. History: PAIN EVALUATION 09/25/2023 1515 Pain Level: 0 Pain Location: -- knees Frequency: Intermittent The patient denies swelling, warmth, discharge, drainage, fevers, chills, sweats. She reports compliance with therapy, sling/splint/ambulator y device/dressing/wound care, and the use of medications. Previous treatments have included steroid injections. She reports no change in past medical AND surgical history, medications, allergies, social history, family history and review of systems since last visit, with the exception of the following: None Radiographs: Last XR Knee - Impression Only XR KNEE GENERAL 4V AP BOTH/PA BOTH/LAT/MERC BILATERAL Exam End: 05/07/2022 10:05 AM (Final result) Impression: IMPRESSION: Progressive bilateral osteoarthrosis Group Insurance Special Agent: [employer] Transcribe Date/Time: May 07 2022 11:02A Dictated by : JOSE FISHER MD ... Physical Examination: Unchanged from previous. Grossly NVI. Right Knee with valgus alignment left knee with varus alignment Both knees with with palpable effusion Both knees palpable crepitance at the patellofemoral joint Procedure: Large Joint Arthro/Inj: bilateral knee joints Informed Consent Consent Obtained: Verbal [place] Protocol A moment to CARE was completed. SIGN IN Personnel directly involved with the procedure wore the appropriate PPE. Special Equipment: N/A Patient/Surrogate Stated/Verified: Patient name, Date of , Relevant allergies and Intended procedure TIME OUT Intended patient and procedure match the source document(s). Consent documented and matches the intended procedure. Relevant labs, photos, and/or imaging studies have been reviewed. Correct side/site marked and visible. Medications required for procedure verified. No fire risk assessment and interventions applicable. No implant(s) inserted. 09/25/2023 3:42 PM The procedure site was prepped in the usual sterile fashion. Site: bilateral knee joints Medications (Right): 12 mg betamethasone acetate-betamethasone sodium phosphate 6 mg/mL Medications (Left): 12 mg betamethasone acetate-betamethasone sodium phosphate 6 mg/mL Anesthetics (Right): 4 mL lidocaine (PF) 10 mg/mL (1 %) Anesthetics (Left): 4 mL lidocaine (PF) 10 mg/mL (1 %) Outcome: Tolerated well, no immediate complications Post-injection instructions were reviewed with the patient and the patient voiced understanding of these instructions. SIGN OUT No instruments, equipment or retained foreign bodies applicable. Assessment: Bilateral knee pain secondary to osteoarthritis patient is not at the point that she would like to commit to surgical but is considering it. She has concerns given the fact that her has Parkinson's disease and does require assistance Plan: 1. Injection corticosteroid both knees as noted above 2. Continue independent exercise program 3. Follow-up for repeat clinical evaluation Allergies As of Date: 09/25/2023 Noted Allergy Reaction PENICILLINS 03/14/2006 2 - Rash SULFA (SULFONAMIDE ANTIBIOTICS) 03/14/2006 2 - Rash TETRACYCLINE 03/14/2006 2 - Rash Date Reviewed: 09/25/2023 Reviewed by: Romana Chi MD - Fully Assessed Reason for Visit: Follow Up [171] Follow Up [171] Primary Visit Diagnosis:Primary osteoarthritis of both knees [M17.0] Order(s):Large Joint Arthro/Inj: bilateral knee joints [[id number]] Order #: [id number] [] betamethasone acetate-betamethasone sodium phosphate 12 mg injection (CELESTONE)Disp: Rfl: [] betamethasone acetate-betamethasone sodium phosphate 12 mg injection (CELESTONE)Disp: Rfl: [] lidocaine (PF) 10 mg/mL (1 %) 4 mL injection (XYLOCAINE)Disp: Rfl: [] lidocaine (PF) 10 mg/mL (1 %) 4 mL injection (XYLOCAINE)Disp: Rfl: Prescriptions as of 10/21/2023 - calcium carbonate/vitamin D3 (CALCIUM 500 + D ORAL) Take by mouth. - meloxicam (MOBIC) 15 mg tablet Take 1 tablet by mouth once daily. - MULTI-VITAMIN ORAL Take 1 tablet by mouth once daily. - acetaminophen (TYLENOL ARTHRITIS ORAL) Take 1 tablet by mouth as needed. - metoprolol tartrate, short acting, (LOPRESSOR) 25 mg tablet Take 1 tablet by mouth (more content not included)... Normal [facility] XR HIP 3V PELV+ AP/LAT RTon 05-20-2023 XR HIP 3V PELV+ AP/LAT RT * * *Final Report* * * DATE OF EXAM: May 20 2023 2:28PM ANDRÉS [id number] - XR HIP 3V PELV+ AP/LAT RT / PROCEDURE REASON: multiple diagnoses * * * * Physician Interpretation * * * * EXAMINATION / TECHNIQUE: XR HIP 3V PELV+ AP/LAT RT PATIENT/TECHNOLOGIST PROVIDED HISTORY: F/U RIGHT HIP REPLACEMENT CLINICAL INFORMATION ( PROVIDED BY ORDERING CLINICIAN) : Aftercare following right hip joint replacement surgery COMPARISON: 05/25/2020 RESULT: Right total hip arthroplasty with satisfactory alignment. No evidence of loosening. No acute fracture or dislocation. Stable/mature cortical remodeling along the lateral right femur adjacent to stem. Left hip joint space, pubic symphysis, and sacroiliac joints are relatively preserved. IMPRESSION: Right total hip arthroplasty without hardware-related complication. Group Insurance Special Agent: [employer] Transcribe Date/Time: May 20 2023 3:58P Dictated by : TAD HENDRICKS MD This examination was interpreted and the report reviewed and electronically signed by: TAD HENDRICKS MD on May 20 2023 3:59PM EST [id number] [facility] [facility] XR HIP GENERAL 3V PELV/AP/LA T RIGHTon 05-20-2023 [facility] XR Pelvis and Hip - right AP and Lateral frogon 05-20-2023 IMPRESSION: Right total hip arthroplasty without hardware-related complication. Group Insurance Special Agent: [employer] Transcribe Date/Time: May 20 2023 3:58P Dictated by : TAD HENDRICKS MD This examination was interpreted and the report reviewed and electronically signed by: TAD HENDRICKS MD on May 20 2023 3:59PM EST [facility] * * *Final Report* * * DATE OF EXAM: May 20 2023 2:28PM MDO 5352 - XR HIP 3V PELV+ AP/LAT RT / PROCEDURE REASON: multiple diagnoses * * * * Physician Interpretation * * * * EXAMINATION / TECHNIQUE: XR HIP 3V PELV+ AP/LAT RT PATIENT/TECHNOLOGIST PROVIDED HISTORY: F/U RIGHT HIP REPLACEMENT CLINICAL INFORMATION ( PROVIDED BY ORDERING CLINICIAN) : Aftercare following right hip joint replacement surgery COMPARISON: 05/25/2020 RESULT: Right total hip arthroplasty with satisfactory alignment. No evidence of loosening. No acute fracture or dislocation. Stable/mature cortical remodeling along the lateral right femur adjacent to stem. Left hip joint space, pubic symphysis, and sacroiliac joints are relatively preserved. [facility] Provider, [facility] - 05/20/2023 * * *Final Report* * * DATE OF EXAM: May 20 2023 2:28PM MDO 5352 - XR HIP 3V PELV+ AP/LAT RT / PROCEDURE REASON: multiple diagnoses * * * * Physician Interpretation * * * * EXAMINATION / TECHNIQUE: XR HIP 3V PELV+ AP/LAT RT PATIENT/TECHNOLOGIST PROVIDED HISTORY: F/U RIGHT HIP REPLACEMENT CLINICAL INFORMATION ( PROVIDED BY ORDERING CLINICIAN) : Aftercare following right hip joint replacement surgery COMPARISON: 05/25/2020 RESULT: Right total hip arthroplasty with satisfactory alignment. No evidence of loosening. No acute fracture or dislocation. Stable/mature cortical remodeling along the lateral right femur adjacent to stem. Left hip joint space, pubic symphysis, and sacroiliac joints are relatively preserved. IMPRESSION IMPRESSION: Right total hip arthroplasty without hardware-related complication. Group Insurance Special Agent: PSCB Transcribe Date/Time: May 20 2023 3:58P Dictated by : TAD HENDRICKS MD This examination was interpreted and the report reviewed and electronically signed by: TAD HENDRICKS MD on May 20 2023 3:59PM EST [facility] Radiology Study observation (narrative) [facility] XR Pelvis and Hip - right AP and Lateral frogOrdered By: [facility]cf Provider on 05-20-2023 [facility] XR Knee - bilateral 4 Viewso n 05-07-2022 * * *Final Report* * * DATE OF EXAM: May 07 2022 10:05AM ANDRÉS 5618 - XR KNEE 4V AP/PA/LAT/MERCH KENDALL / PROCEDURE REASON: M17.0-Primary osteoarthritis of knees, bilateral * * * * Physician Interpretation * * * * PROCEDURE: Bilateral knees INDICATION: Primary osteoarthritis of knees, bilateral .BILATERAL KNEE PAIN TECHNIQUE: XR KNEE 4V AP/PA/LAT/MERCH KENDALL COMPARISON: 05/02/2016 FINDINGS: Severe lateral joint compartment narrowing on the right and medial joint compartment narrowing on the left with bilateral tricompartment spur formation. Left-sided lateral tibial translation. Mild bilateral patellofemoral joint compartment narrowing, left greater than right. No acute fracture. Small bilateral joint effusions. [facility] Provider, [facility] - 05/07/2022 * * *Final Report* * * DATE OF EXAM: May 07 2022 10:05AM ANDRÉS 5618 - XR KNEE 4V AP/PA/LAT/MERCH KENDALL / PROCEDURE REASON: M17.0-Primary osteoarthritis of knees, bilateral * * * * Physician Interpretation * * * * PROCEDURE: Bilateral knees INDICATION: Primary osteoarthritis of knees, bilateral .BILATERAL KNEE PAIN TECHNIQUE: XR KNEE 4V AP/PA/LAT/MERCH KENDALL COMPARISON: 05/02/2016 FINDINGS: Severe lateral joint compartment narrowing on the right and medial joint compartment narrowing on the left with bilateral tricompartment spur formation. Left-sided lateral tibial translation. Mild bilateral patellofemoral joint compartment narrowing, left greater than right. No acute fracture. Small bilateral joint effusions. IMPRESSION IMPRESSION: Progressive bilateral osteoarthrosis Group Insurance Special Agent: PSCB Transcribe Date/Time: May 07 2022 11:02A Dictated by : JOSE FISHER MD This examination was interpreted and the report reviewed and electronically signed by: JOSE FISHER MD on May 07 2022 11:03AM EST [facility] Radiology Study observation (narrative) [facility] XR Knee - bilateral 4 ViewsO rdered By: [facility] Provider on 05-07-2022 [facility] CT Chest/Abdomen/Pelvis (No PO, No IV)on 11-21-2021 CT Chest/Abdomen/Pelvis (No PO, No IV) Patient Name: ZEENAT MEJIA Computed Tomography ACCESSION EXAM DATE/TIME PROCEDURE ORDERING PROVIDER [id number] 11/21/2021 09:[address] Chest/Abdomen/Pelvis ABELINO HARPER (No PO, No IV) CPT code 99736 [id number] Reason For Exam (CT Chest/Abdomen/Pelvis (No PO, No IV)) lung nodule, liver findings Report CT CHEST, ABDOMEN, AND PELVIS, WITHOUT INTRAVENOUS CONTRAST CLINICAL HISTORY: lung nodule, liver findings COMPARISON: CT abdomen 03/24/2021 CT chest 08/01/2021 performed at outside facility TECHNIQUE: Transaxial sequence through the chest, abdomen and pelvis with 3 mm reconstruction without Isovue-370 intravenous contrast media. Enteric contrast was not administered. Coronal and sagittal reconstructions included. Dose reduction was employed with automated exposure control. FINDINGS: LIMITATIONS: * Lack of intravenous contrast patient of the solid organs and vessels. * Lack of enteric contrast limits evaluation of the bowel. * Current examination could not be compared to prior studies [id number] giving a performed at outside facility. Additionally current study is utilized enteric and intravenous contrast. CHEST: Heart/mediastinum: Heart size is within normal limits. Thoracic aorta and pulmonary trunk are normal in caliber. Scant atherosclerosis with involvement of the coronary arteries. No suspicious bulky adenopathy. Lungs/pleura: Mild branching and nodular centrilobular opacities involving the right middle lobe and lingula similar to slightly improved. 4 mm subpleural nodule left upper lobe series 3 image 149 unchanged. 4 mm nodule left lower lobe series 3 image 190 unchanged. Scant biapical pleural-parenchymal scarring. Chronic atelectasis or scarring involving the right greater than left subpleural lower lobes. No consolidation, pleural effusions, or pneumothorax. Central tracheobronchial tree appears patent. Osseous structures/soft tissues: Osseous structures appear somewhat demineralized. Mild degenerative spondylosis in the visualized spine Computed Tomography Report left shoulder arthroplasty prosthesis with streak artifact. No suspicious bulky axillary adenopathy. Subcentimeter thyroid nodules unchanged. Additional findings: None. ABDOMEN AND PELVIS: Liver: 9 mm focal hypodensity inferior right hepatic lobe adjacent to gallbladder fossa. Liver is otherwise fairly homogeneous on this unenhanced examination. Gallbladder/Biliary tree: Gallbladder appears within normal limits. No intra or extrahepatic biliary ductal dilatation Spleen: No significant abnormality detected. Pancreas: Homogeneous without adjacent stranding or other significant abnormality. Adrenals: No discrete mass or nodule detected. Kidneys/pelvic organs: No obstructive uropathy. No nephrolithiasis. Tiny hypodensity right kidney too small to characterize but unchanged. Somewhat limited evaluation of the pelvic organs due to streak artifact from right hip arthroplasty prosthesis. Urinary bladder is slightly underdistended but without definite abnormality. Uterus is not visualized. GI tract: No dilated loops of small bowel. Duodenal diverticula incidentally noted. Portions of a normal-appearing appendix are possibly partially visualized. Colonic diverticula without evidence of acute diverticulitis. Mild to moderate amount retained colonic stool. Peritoneal cavity/retroperitoneum : No pneumatosis or pneumoperitoneum. No suspicious bulky adenopathy. No ascites or focal fluid collection. Vasculature: Normal caliber abdominal aorta. Scant atherosclerosis Osseous structures/soft tissues: Osseous structures appear somewhat demineralized. Mild degenerative spondylosis in the visualized spine slight anterolisthesis of L4 over L5. Right hip arthroplasty prosthesis with streak artifact. A few nonspecific sclerotic foci likely bone islands, unchanged. Additional findings: None. IMPRESSION: 1. No CT evidence of acute abnormality in the chest, abdomen, and pelvis. 2. Mild branching nodular opacities involving the right middle lobe and lingula similar to slightly improved suggesting infectious or inflammatory etiology. A few additional small nodules are unchanged as well. Recommend continued surveillance as per clinical protocol. 3. 9 mm focal hypodensity, right hepatic lobe, without significant change. 4. Colonic diverticulosis without CT evidence of acute diverticulitis. Computed Tomography Report Report Dictated on Final Dictated: 11/24/2021 6:37 pm Dictating Physician: MD DAVIS VLADIMIR Signed Date and Time: 11/25/2021 8:54 am Signed by: MD DAVIS VLADIMIR Transcribed Date and Time: 11/25/2021 8:51 Normal [facility] US Head/Neck Soft Tissueon 0 08-09-2021 US Head/Neck Soft Tissue Patient Name: ZEENAT MEJIA Ultrasound ACCESSION EXAM DATE/TIME PROCEDURE ORDERING PROVIDER [id number] 08/09/2021 09:49 EST US Head/Neck Soft Tissue MD CLARENCE, CLAUDETTE ChuApril CPT code 34683 Reason For Exam (US Head/Neck Soft Tissue) Right thyroid nodule seen on CT scan Report THYROID ULTRASOUND CLINICAL INDICATION: Thyroid nodule Grayscale and color Doppler sonographic images of the thyroid were obtained. COMPARISON: None FINDINGS: RIGHT LOBE: 1.9 x 2.3 x 4.5 cm LEFT LOBE: 1.3 x 1.7 x 3.9 cm ISTHMUS: 4 mm in thickness PARENCHYMA: Normal in size and morphology with mildly heterogeneous echogenicity. NODULES: Nodule Location: Mid right lobe Size: 0.9 x 1.3 x 1.1 cm (AP x transverse x cephalocaudad) Composition: Partially cystic (+1) Echogenicity: Hyperechoic or isoechoic (+1) Margins: Smooth (0) Echogenic Foci: None (0) TI-RADS category*: 2 - not suspicious Change since last exam: Not applicable Nodule Location: Inferior left lobe Size: 0.5 x 0.7 x 0.7 cm (AP x transverse x cephalocaudad) Composition: Solid (+2) Echogenicity: Hyperechoic or isoechoic (+1) Margins: Smooth (0) Echogenic Foci: None (0) TI-RADS category*: 3 - mildly suspicious Change since last exam: Not applicable IMPRESSION: Normal size thyroid gland with 2 small nodules which are not suspicious and do not require surveillance or biopsy. TI-RADS Classification: Ultrasound Report Risk for malignancy: TI-RADS 1 = 0 points - (benign) <2% risk TI-RADS 2 = 2 points - (not suspicious) <5% TI-RADS 3 = 3 points - (mildly suspicious) <5% FNA when >/= 2.5cm Follow when >1.5cm at 1, 3 and 5 years TI-RADS 4 = 4-6 points - (moderately suspicious) 5-20% FNA when >/= 1.5cm Follow when >1.0cm at 1, 2, 3 and 5 years TI-RADS 5 = 7+ points - (highly suspicious) >20% FNA when >/= 1.0cm Follow when >0.5cm every year for up to 5 years Notes: 1. There are other existing guidelines to classify thyroid nodules to determine need for FNA; and this decision will be deferred to the ordering physician. 2. Nodule vascularity is no longer considered a useful characteristic to assess risk for malignancy. 3. Score and follow a maximum of four nodules 4. Significant growth is increase in two dimensions each by 20% 5. Follow up scanning of less than 1yr is not warranted 6. FNA biopsy of no more than two nodules with highest TI-RADS levels References: Antony Mcmullen. ACR Thyroid Imaging, Reporting and Data System (TI-RADS): White Paper of the ACR TI-RADS Committee. J Am [employer]. 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 This test was developed and its performance characteristics determined by [facility]'s [facility] [place]. This test has been authorized by FDA under an Emergency Use Authorization (EUA). This test has been validated in accordance with the FDA's Guidance Document Policy for Diagnostics Testing in Laboratories Certified to Perform High Complexity Testing under CLIA prior to Emergency use Authorization for Coronavirus Disease 2019 during the Public Health Emergency issued on September 12, 2019. Test performed by [facility], [facility] [place], [address] [place] [address]. Normal [facility] Comment on above: Performed By: #### C OVID #### [facility] CLIA [id number] [address] [place] [address] CBC W Auto Differential pane l (Bld)on 01-02-2021 Basophils (Bld) [#/Vol] 10*3/uL Normal <0.11 A [facility] Comment on above: Order Comment: Speci men Type: BLOOD SPECIMEN Performed By: #### 5 7021-8 #### [facility] CLIA [id number] [address] [place] [address] [place] Basophils/100 WBC (Bld) 0.2 % Normal A [facility] Comment on above: Order Comment: Speci men Type: BLOOD SPECIMEN Performed By: #### 5 7021-8 #### [facility] CLIA [id number] [address] [place] [address] [facility] [place] Differential cell count method Nom (Bld) Auto Normal [facility] Comment on above: Order Comment: Speci men Type: BLOOD SPECIMEN Performed By: #### 5 7021-8 #### [facility] CLIA [id number] [address] [place] [address] [place] Eosinophils (Bld) [#/Vol] 0.06 10*3/uL Normal <0.46 [facility] Comment on above: Order Comment: Speci men Type: BLOOD SPECIMEN Performed By: #### 5 7021-8 #### [facility] CLIA [id number] [address] [place] [address] [place] Eosinophils/100 WBC (Bld) 0.5 % Normal [facility] Comment on above: Order Comment: Speci men Type: BLOOD SPECIMEN Performed By: #### 5 7021-8 #### [facility] CLIA [id number] [address] [place] [address] [facility] Erythrocyte distribution width (RBC) [Ratio] 13.2 % Normal 11.5-15.0 [facility] Comment on above: Order Comment: Speci men Type: BLOOD SPECIMEN Performed By: #### 5 7021-8 #### [facility] CLIA [id number] [address] [place] [address] [place] Hematocrit (Bld) [Volume fraction] 37.5 % Normal 36.0-46.0 [facility] Comment on above: Order Comment: Speci men Type: BLOOD SPECIMEN Performed By: #### 5 7021-8 #### [facility] CLIA [id number] [address] [place] [address] [place] Hemoglobin (Bld) [Mass/Vol] 12.2 g/dL Normal 11.5-15.5 [facility] Comment on above: Order Comment: Speci men Type: BLOOD SPECIMEN Performed By: #### 5 7021-8 #### [facility] CLIA [id number] [address] [place] [address] [facility] Lymphocytes (Bld) [#/Vol] 1.57 10*3/uL Normal 1.00-4.00 [facility] Comment on above: Order Comment: Speci men Type: BLOOD SPECIMEN Performed By: #### 5 7021-8 #### [facility] CLIA [id number] [address] [place] [address] [place] Lymphocytes/100 WBC (Bld) 12.3 % Normal [facility] Comment on above: Order Comment: Speci men Type: BLOOD SPECIMEN Performed By: #### 5 7021-8 #### [facility] CLIA [id number] [address] [place] [address] [place] MCH (RBC) [Entitic mass] 30.0 pg Normal 26.0-34.0 [facility] Comment on above: Order Comment: Speci men Type: BLOOD SPECIMEN Performed By: #### 5 7021-8 #### [facility] CLIA [id number] [address] [place] [address] [place] MCHC (RBC) [Mass/Vol] 32.5 g/dL Normal 30.5-36.0 [facility] Comment on above: Order Comment: Speci men Type: BLOOD SPECIMEN Performed By: #### 5 7021-8 #### [facility] CLIA [id number] [address] [facility] [place] [address] [place] MCV (RBC) [Entitic vol] 92.1 fL Normal 80.0-100.0 [facility] Comment on above: Order Comment: Speci men Type: BLOOD SPECIMEN Performed By: #### 5 7021-8 #### [facility] CLIA [id number] [address] [place] [address] [place] Monocytes (Bld) [#/Vol] 1.26 10*3/uL High <0.87 [facility] Comment on above: Order Comment: Speci men Type: BLOOD SPECIMEN Performed By: #### 5 7021-8 #### [facility] CLIA [id number] [address] [place] [address] [place] Monocytes/100 WBC (Bld) 9.9 % Normal [facility] Comment on above: Order Comment: Speci men Type: BLOOD SPECIMEN Performed By: #### 5 7021-8 #### [facility] CLIA [id number] [address] [place] [address] [place] Neutrophils (Bld) [#/Vol] 9.82 10*3/uL High 1.45-7.50 [facility] Comment on above: Order Comment: Speci men Type: BLOOD SPECIMEN Performed By: #### 5 7021-8 #### [facility] CLIA [id number] [address] [place] [address] [place] Neutrophils/100 WBC (Bld) 77.1 % Normal [facility] Comment on above: Order Comment: Speci men Type: BLOOD SPECIMEN Performed By: #### 5 7021-8 #### [facility] CLIA [id number] [address] [place] [address] [place] Platelet mean volume (Bld) [Entitic vol] 9.0 fL Normal 9.0-12.7 [facility] Comment on above: Order Comment: Speci men Type: BLOOD SPECIMEN Performed By: #### 5 7021-8 #### [facility] CLIA [id number] [address] [place] [address] [place] Platelets (Bld) [#/Vol] 290 10*3/uL Normal 150-400 [facility] Comment on above: Order Comment: Speci men Type: BLOOD SPECIMEN Performed By: #### 5 7021-8 #### [facility] CLIA [id number] [address] [place] [address] [facility] RBC (Bld) [#/Vol] 4.07 10*6/uL Normal 3.90-5.20 [facility] Comment on above: Order Comment: Speci men Type: BLOOD SPECIMEN Performed By: #### 5 7021-8 #### [facility] CLIA [id number] [address] [place] [address] [facility] WBC (Bld) [#/Vol] 12.73 10*3/uL High 3.70-11.00 [facility] Comment on above: Order Comment: Speci men Type: BLOOD SPECIMEN Performed By: #### 5 7021-8 #### [facility] CLIA [id number] [address] [place] [address] [facility] CBC panel Auto (Bld)on 01-02 Erythrocyte distribution width (RBC) [Ratio] 13.0 % Normal 11.5-15.0 [facility] Comment on above: Order Comment: Speci men Type: BLOOD SPECIMEN Performed By: #### 5 8410-2 #### [facility] CLIA [id number] [address] [place] [address] [facility] Hematocrit (Bld) [Volume fraction] 36.0 % Normal 36.0-46.0 [facility] Comment on above: Order Comment: Speci men Type: BLOOD SPECIMEN Performed By: #### 5 8410-2 #### [facility] CLIA [id number] [address] [place] [address] [facility] Hemoglobin (Bld) [Mass/Vol] 11.6 g/dL Normal 11.5-15.5 [facility] Comment on above: Order Comment: Speci men Type: BLOOD SPECIMEN Performed By: #### 5 8410-2 #### [facility] CLIA [id number] [address] [place] [address] [facility] MCH (RBC) [Entitic mass] 29.7 pg Normal 26.0-34.0 [facility] Comment on above: Order Comment: Speci men Type: BLOOD SPECIMEN Performed By: #### 5 8410-2 #### [facility] CLIA [id number] [address] [place] [address] [facility] MCHC (RBC) [Mass/Vol] 32.2 g/dL Normal 30.5-36.0 [facility] Comment on above: Order Comment: Speci men Type: BLOOD SPECIMEN Performed By: #### 5 8410-2 #### [facility] CLIA [id number] [address] [place] [address] [place] MCV (RBC) [Entitic vol] 92.3 fL Normal 80.0-100.0 [facility] Comment on above: Order Comment: Speci men Type: BLOOD SPECIMEN Performed By: #### 5 8410-2 #### [facility] CLIA [id number] [address] [place] [address] [facility] Platelet mean volume (Bld) [Entitic vol] 8.8 fL Low 9.0-12.7 [facility] Comment on above: Order Comment: Speci men Type: BLOOD SPECIMEN Performed By: #### 5 8410-2 #### [facility] CLIA [id number] [address] [place] [address] [place] Platelets (Bld) [#/Vol] 251 10*3/uL Normal 150-400 [facility] Comment on above: Order Comment: Speci men Type: BLOOD SPECIMEN Performed By: #### 5 8410-2 #### [facility] CLIA [id number] [address] [place] [address] [facility] RBC (Bld) [#/Vol] 3.90 10*6/uL Normal 3.90-5.20 [facility] Comment on above: Order Comment: Speci men Type: BLOOD SPECIMEN Performed By: #### 5 8410-2 #### [facility] CLIA [id number] [address] [place] [address] [facility] WBC (Bld) [#/Vol] 12.70 10*3/uL High 3.70-11.00 [facility] Comment on above: Order Comment: Speci men Type: BLOOD SPECIMEN Performed By: #### 5 8410-2 #### [facility] CLIA [id number] [address] [place] [address] [facility] [address] CHEST W IVCON PEon 2020 CT CHEST W IVCON PE * * *Final Report* * * DATE OF EXAM: Jan 02 2021 2:43PM [facility] 0540 - CT CHEST W IVCON PE / PROCEDURE REASON: PE suspected, high pretest prob * * * * Physician Interpretation * * * * EXAMINATION: CHEST CT WITH CONTRAST (PULMONARY EMBOLISM PROTOCOL) CLINICAL HISTORY: Right-sided chest pain. Technique: Spiral CT acquisition of the chest from the thoracic inlet to the upper abdomen following IV contrast. Axial 1 and 3 mm thick slices plus coronal and sagittal reformatted images. MQ: CTCP_5 Contrast: 100 mL Omnipaque [address] Radiation dose: Integrated Dose-length product (DLP) for this visit = 344 mGy*cm CT Dose Reduction Employed: Automated exposure control (AEC) Comparison: No relevant prior studies available. RESULT: Limitations: None. Evaluation for thromboembolic disease: - Right heart chambers: No thromboembolic disease. - Main pulmonary arteries: No thromboembolic disease. - Lobar pulmonary arteries: No thromboembolic disease. - Segmental pulmonary arteries: Filling defect is in segmental and subsegmental pulmonary artery branches in the right lower lobe consistent with pulmonary emboli. - Subsegmental pulmonary arteries: Filling defect is in segmental and subsegmental pulmonary artery branches in the right lower lobe consistent with pulmonary emboli.. - Additional pulmonary artery findings: The main pulmonary artery is normal in caliber. Lines, tubes, and devices: None. Lung parenchyma and airways: No lung mass or consolidation. Linear opacities in both lower lobes likely atelectasis or scarring. Tracheobronchial tree is unremarkable. Pleural space: Small right pleural effusion. Lower neck, lymph nodes, and mediastinum: The imaged thyroid gland is normal. No lymphadenopathy in the supraclavicular, axillary, mediastinal, or hilar regions. Heart, pericardium, and thoracic vessels: Ectatic ascending thoracic aorta measuring up to 3.9 cm in diameter. No cardiomegaly. No evidence of right heart strain. No pericardial effusion. Bones and soft tissues: Left shoulder replacement. No suspicious lytic or blastic osseous lesions. Upper abdomen: No abnormality in the imaged upper abdomen. Salicylic Acid Blender (topogram) images: No additional findings. IMPRESSION: Pulmonary emboli involving segmental and subsegmental pulmonary artery branches in the right lower lobe. Small right pleural effusion. Areas of atelectasis in both lower lobes. CRITICAL TEST/RESULTS: CRITICAL TEST/RESULTS: Acuity: Critical Finding: Pulmonary embolus Communication: Communicated with DR. JEANCARLOS BELCHER on 01/02/2021 2:55 PM via verbal communication. Group Insurance Special Agent: ALLENB Transcribe Date/Time: Jan 02 2021 2:49P Dictated by : SEBASTIAN PETER MD This examination was interpreted and the report reviewed and electronically signed by: SEBASTIAN PETER MD on Jan 02 2021 2:55PM EST [id number] CRITICAL!! Invalid Interpretation Code [facility] Comprehensive metabolic 2000 panelon 01-02-2021 Albumin [Mass/Vol] 4.2 g/dL Normal 3.9-4.9 [facility] Comment on above: Order Comment: Speci men Type: BLOOD SPECIMEN Performed By: #### 2 4323-8 #### [facility] CLIA [id number] [address] [place] [address] [place] ALP [Catalytic activity/Vol] 117 U/L Normal 34-123 [facility] Comment on above: Order Comment: Speci men Type: BLOOD SPECIMEN Performed By: #### 2 4323-8 #### [facility] CLIA [id number] [address] [place] [address] [place] ALT With P-5'-P [Catalytic activity/Vol] 21 U/L Normal 7-38 [facility] Comment on above: Order Comment: Speci men Type: BLOOD SPECIMEN Performed By: #### 2 4323-8 #### [facility] [place] [facility] CLIA [id number] [address] [place] [address] [place] Anion gap [Moles/Vol] 11 mmol/L Normal 9-18 [facility] Comment on above: Order Comment: Speci men Type: BLOOD SPECIMEN Performed By: #### 2 4323-8 #### [facility] [place] [facility] CLIA [id number] [address] [facility] [place] [address] [place] AST With P-5'-P [Catalytic activity/Vol] 34 U/L Normal 13-35 [facility] Comment on above: Order Comment: Speci men Type: BLOOD SPECIMEN Performed By: #### 2 4323-8 #### [facility] [place] [facility] CLIA [id number] [address] [facility] [place] [address] [place] Bilirubin [Mass/Vol] 1.2 mg/dL Normal 0.2-1.3 [facility] Comment on above: Order Comment: Speci men Type: BLOOD SPECIMEN Performed By: #### 2 4323-8 #### [facility] [place] [facility] CLIA [id number] [address] [facility] [place] [address] [place] Calcium [Mass/Vol] 10.0 mg/dL Normal 8.5-10.2 [facility] Comment on above: Order Comment: Speci men Type: BLOOD SPECIMEN Performed By: #### 2 4323-8 #### [facility] [place] [facility] CLIA [id number] [address] [facility] [place] [address] [place] Chloride [Moles/Vol] 100 mmol/L Normal 97-105 [facility] Comment on above: Order Comment: Speci men Type: BLOOD SPECIMEN Performed By: #### 2 4323-8 #### [facility] [place] [facility] CLIA [id number] [address] [place] [address] [facility] [place] CO2 [Moles/Vol] 27 mmol/L Normal 22-30 [facility] Comment on above: Order Comment: Speci men Type: BLOOD SPECIMEN Performed By: #### 2 4323-8 #### [facility] [place] [facility] CLIA [id number] [address] [place] [address] [place] Creatinine [Mass/Vol] 0.67 mg/dL Normal 0.58-0.96 [facility] Comment on above: Order Comment: Speci men Type: BLOOD SPECIMEN Performed By: #### 2 4323-8 #### [facility] [place] [facility] CLIA [id number] [address] [place] [address] [facility] [place] GFR/1.73 sq M.predicted among blacks MDRD (S/P/Bld) [Vol rate/Area] mL/min/{1.73_m2} Normal [facility] Comment on above: Order Comment: Speci men Type: BLOOD SPECIMEN Performed By: #### 2 4323-8 #### [facility] [place] [facility] CLIA [id number] [address] [place] [address] [facility] GFR/1.73 sq M.predicted among non-blacks MDRD (S/P/Bld) [Vol rate/Area] mL/min/{1.73_m2} Normal [facility] Comment on above: Order Comment: Speci men Type: BLOOD SPECIMEN Result Comment: eGFR (Estimated GFR) Units of measure: mL/min/1.73 meters squared eGFR is derived from the reexpressed MDRD Study equation using the following parameters: serum creatinine, age, gender and race. The creatinine assay has been calibrated to be traceable to IDMS. An eGFR <60 mL/min/1.73m2 for >3 months is consistent with chronic kidney disease. Refer to KDOQI guidelines for clinical interpretation. In patients with unstable renal function, e.g. those with acute kidney injury, the eGFR may not accurately reflect actual GFR. Performed By: #### 2 4323-8 #### [facility] [place] [facility] CLIA [id number] [address] [place] [address] [place] Glucose [Mass/Vol] 94 mg/dL Normal 74-99 [facility] Comment on above: Order Comment: Speci men Type: BLOOD SPECIMEN Result Comment: The [place] [employer] (ADA) provides guidance for cutoff values for fasting glucose and random glucose. The ADA defines fasting as no caloric intake for at least 8 hours. Fasting plasma glucose results between 100 to 125 mg/dL indicate increased risk for diabetes (prediabetes). Fasting plasma glucose results greater than or equal to 126 mg/dL meet the criteria for diagnosis of diabetes. In the absence of unequivocal hyperglycemia, results should be confirmed by repeat testing. In a patient with classic symptoms of hyperglycemia or hyperglycemic crisis, random plasma glucose results greater than or equal to 200 mg/dL meet the criteria for diagnosis of diabetes. Reference: Standards of Medical Care in Diabetes 2016, [place] [employer]. Diabetes Care. 2016.39(Suppl 1). Performed By: #### 2 4323-8 #### [facility] [place] [facility] CLIA [id number] [address] [place] [address] [place] Potassium [Moles/Vol] 3.5 mmol/L Low 3.7-5.1 [facility] Comment on above: Order Comment: Speci men Type: BLOOD SPECIMEN Performed By: #### 2 4323-8 #### [facility] [place] [facility] CLIA [id number] [address] [place] [address] [place] Protein [Mass/Vol] 7.5 g/dL Normal 6.3-8.0 [facility] Comment on above: Order Comment: Speci men Type: BLOOD SPECIMEN Performed By: #### 2 4323-8 #### [facility] [place] [facility] CLIA [id number] [address] [place] [address] [place] Sodium [Moles/Vol] 138 mmol/L Normal 136-144 [facility] Comment on above: Order Comment: Speci men Type: BLOOD SPECIMEN Performed By: #### 2 4323-8 #### [facility] [place] [facility] CLIA [id number] [address] [place] [address] [place] Urea nitrogen [Mass/Vol] 19 mg/dL Normal 7-21 [facility] Comment on above: Order Comment: Speci [facility] Type: BLOOD SPECIMEN Performed By: #### 2 4323-8 #### [facility] CLIA [id number] [address] [place] [address] [facility] HIGH SENSITIVITY TROPONIN To n 01-02-2021 HIGH SENSITIVITY ROBBY 11 ng/L Normal <12 [facility] Comment on above: Order Comment: Speci men Type: BLOOD SPECIMEN Result Comment: When assessing risk for acute coronary syndromes: In patients undergoing blood draw greater than or equal to 2 hours from symptom onset, with history of very low to moderate risk and non-ischemic ECG, an initial hs-Troponin T less than 12 ng/L AND a 1 hour delta hs-Troponin T less than 3 ng/L should be considered very low risk for 30 day MACE. Performed By: #### H STNT #### [facility] CLIA [id number] [address] [place] [address] [facility] HIGH SENSITIVITY ROBBY 12 ng/L High <12 [facility] Comment on above: Order [facility]: [facility] Type: BLOOD SPECIMEN Result Comment: When assessing risk for acute coronary syndromes: In patients undergoing blood draw greater than or equal to 2 hours from symptom onset, with history of very low to moderate risk and non-ischemic ECG, an initial hs-Troponin T less than 12 ng/L AND a 1 hour delta hs-Troponin T less than 3 ng/L should be considered very low risk for 30 day MACE. Performed By: #### H STNT #### [facility] CLIA [id number] [address] [place] [address] [facility] HIGH SENSITIVITY ROBBY 12 ng/L High <12 [facility] Comment on above: Order Comment: [facility] Type: BLOOD SPECIMEN Result Comment: When assessing risk for acute coronary syndromes: In patients undergoing blood draw greater than or equal to 2 hours from symptom onset, with history of very low to moderate risk and non-ischemic ECG, an initial hs-Troponin T less than 12 ng/L AND a 1 hour delta hs-Troponin T less than 3 ng/L should be considered very low risk for 30 day MACE. Performed By: #### H STNT #### [facility] CLIA [id number] [address] [place] [address] [facility] PT panel Coag (PPP)on 2020 INR Coag (PPP) [Relative time] 1.0 {INR} Normal 0.9-1.3 [facility] Comment on above: Order Comment: Speci men Type: BLOOD SPECIMEN Result Comment: Iman min K Antagonist (VKA) Therapeutic Range: INR 2 to 3 (Target INR of 2.5) Note: For patients treated with VKA drugs, such as warfarin, the [place] [employer] 2012 Guideline recommends a therapeutic INR range of 2 to 3 (target INR of 2.5). This recommendation includes high-risk patients with antiphospholipid syndrome with previous arterial or venous thromboembolism, current-generation mechanical or bioprosthetic aortic heart valve replacement. Note: Patients with mechanical aortic valve replacement and additional risk factors for thromboembolic events (atrial fibrillation, previous thromboembolism, LV dysfunction, hypercoagulable conditions) or an older generation mechanical AVR (i.e., ball in-Cage) or any mechanical MVR should have a INR therapeutic range of 2.5 to 3.5 (target INR of 3). Pita GH, et al. Chest 2012, 141:7S-47S Krish RA, et al. [facility] 2017, 70: 252-289 Performed By: #### 3 4528-0, 78613-0 #### [facility] CLIA [id number] [address] [place] [address] [facility] PT Coag (PPP) [Time] 9.9 s Normal 9.7-13.0 [facility] Comment on above: Order Comment: Speci men Type: BLOOD SPECIMEN Performed By: #### 3 4528-0, 47075-3 #### [facility] CLIA [id number] [address] [place] [address] [place] US DVT LOWER LTon 01-02-2021 US DVT LOWER LT * * *Final Report* * * DATE OF EXAM: Jan 02 2021 3:06PM LDU 1006 - US DVT LOWER LT / PROCEDURE REASON: Leg swelling * * * * Physician Interpretation * * * * EXAMINATION: LEFT LOWER EXTREMITY DEEP VENOUS ULTRASOUND WITH DOPPLER IMAGING CLINICAL HISTORY: Shortness of breath left leg swelling TECHNIQUE: Grayscale with compression maneuvers, color Doppler and spectral Doppler at rest and with augmentation of the left distal external iliac, common femoral, femoral and popliteal veins was performed. Grayscale with compression maneuvers of the peroneal and posterior tibial veins was performed. The left great and small saphenous veins were also imaged in grayscale with compression maneuvers at their insertion to the deep system. The contralateral common femoral vein was imaged for comparison. Images were obtained and stored in a permanent archive. MQ: [id number] COMPARISON: None RESULT: LEFT LOWER EXTREMITY PROXIMAL DEEP VEINS Distal External Iliac and Common Femoral Veins: Compression: Normal Doppler: Normal, spontaneous respirophasic flow. Normal response to augmentation. Femoral vein: Compression: Normal Doppler: Normal, spontaneous flow. Normal response to augmentation. Popliteal vein: Compression: Normal Doppler: Normal, spontaneous flow. Normal response to augmentation. CALF DEEP VEINS Peroneal veins: Normal compression. Posterior tibial veins: Normal compression. Gastrocnemius and Soleal veins: Not imaged. SUPERFICIAL VEINS Great saphenous: Patent and compressible at insertion into common femoral vein; not otherwise assessed. Small Saphenous: Not identified. RIGHT LOWER EXTREMITY (FOR COMPARISON) Common Femoral Vein: Compression: Normal Doppler: Normal, spontaneous respirophasic flow. Normal response to augmentation. IMPRESSION: Negative study for proximal DVT in the left lower extremity. Negative study for calf DVT in the left lower extremity. Negative study for superficial thrombophlebitis in the imaged segments of the left lower extremity. [facility] Transcribe Date/Time: Jan 02 2021 3:11P Dictated by : SEBASTIAN PETER MD This examination was interpreted and the report reviewed and electronically signed by: SEBASTIAN PETER MD on Jan 02 2021 3:13PM EST [id number] Normal [facility] aPTT PPPon 01-02-2021 aPTT Coag (PPP) [Time] 24.2 s Normal 23.0-32.4 [facility] Comment on above: Order Comment: Speci men Type: BLOOD SPECIMEN Performed By: #### 3 4528-0, 36456-3 #### [facility] [place] [facility] CLIA [id number] [address] [place] [address] [place] Basic Metabolic Panel w/ Ref muna to MGOrdered By: Taz Bautista on 11-25-2020 Anion gap [Moles/Vol] 7 mmol/L 3 - 13 mmol/L [facility] Work Phone: Calcium [Mass/Vol] 8.8 mg/dL 8.4 - 10. 4 mg/dL [facility] Work Phone: Chloride [Moles/Vol] 103 mmol/L 98 - 10 7 mmol/L [facility] Work Phone: CO2 [Moles/Vol] 26 mmol/L 22 - 30 mmol/L [facility] Work Phone: Creatinine [Mass/Vol] 0.67 mg/dL 0.52 - 1.25 mg/dL [facility] Work Phone: EGFR IF NonAfrican Afghan 89.5 mL/min >60 [facility] Work Phone: Comment on above: KDIGO guidelines pro vide the following GFR categories: Stage GFR(ml/min/1.73 m2) Terms G1 >=90 Normal or high G2 60-89 Mildly decreased* G3a 45-59 Mildly to moderately decreased G3b 30-44 Moderately to severely decreased G4 15-29 Severely decreased G5 <15 Kidney failure *Relative to young adult level. In the absence of evidence of kidney damage, neither GFR category G1 nor G2 fulfill the criteria for CKD. The CKD-EPI equation is validated in individuals 18 years of age and older. Currently the best equation for estimating glomerular filtration rate (GFR) from serum creatinine in children is the Bedside Mccain equation. It is less accurate in patients with extremes of muscle mass, restriction of dietary protein, ingestion of creatine, extra-renal metabolism of creatinine, or treatment with medications that affect renal tubular creatinine secretion. GFR/1.73 sq M.predicted among blacks MDRD (S/P/Bld) [Vol rate/Area] mL/min/{1.73_m2} >60 mL/min [facility] Work Phone: Glucose [Mass/Vol] 121 mg/dL High 70 - 100 mg/dL [facility] Work Phone: Potassium [Moles/Vol] 4.1 mmol/L 3.5 - 5.1 mmol/L [facility] Work Phone: Sodium [Moles/Vol] 136 mmol/L 135 - 145 mmol/L [facility] Work Phone: Urea nitrogen (BldV) [Mass/Vol] 22 mg/dL High 7 - 20 mg/dL [facility] Work Phone: CBCOrdered By: Taz giles on 11-25-2020 Hematocrit (Bld) [Volume fraction] 31.2 % Low 35.0 - 47.0 % [facility] Work Phone: Hemoglobin.gastrointest inal spec 1 Ql (Stl) 10.7 g/dL Low 11.7 - 16.0 g/dL [facility] Work Phone: MCH (RBC) [Entitic mass] 31.2 pg 26.0 - 34.0 pg [facility] Work Phone: MCHC (RBC) [Mass/Vol] 34.5 % 32.0 - 36.0 % [facility] Work Phone: MCV (RBC) [Entitic vol] 90.6 fL 79.0 - 98.0 fL [facility] Work Phone: Platelet distribution width (Bld) [Ratio] 13.5 % 11.5 - 14.5 % [facility] Work Phone: Platelet mean volume (Bld) [Entitic vol] 7.5 fL 7.4 - 10.4 fL [facility] Work Phone: Platelets (Bld) [#/Vol] 259 10*3/uL 140 - 440 10*3/uL [facility] Work Phone: RBC (Bld) [#/Vol] 3.44 10*6/uL Low 3.80 - 5.2 0 10*6/uL [facility] Work Phone: WBC (Bld) [#/Vol] 10.8 10*3/uL High 3.6 - 10.7 10*3/uL [facility] Work Phone: No Panel InformationOrdered By: Taz Bautista on 11-25-2020 Interpretation and review of laboratory results Abnormal [facility] Work Phone: Test Performed by [facility], [address] [place] [address] [facility] Work Phone: [phone] Basic Metabolic Panel w/ Ref muna to MGOrdered By: Taz Bautista on 11-24-2020 Anion gap [Moles/Vol] 4 mmol/L 3 - 13 mmol/L [facility] Work Phone: [phone] Calcium [Mass/Vol] 9.0 mg/dL 8.4 - 10. 4 mg/dL [facility] Work Phone: [phone] Chloride [Moles/Vol] 100 mmol/L 98 - 10 7 mmol/L [facility] Work Phone: [phone] CO2 [Moles/Vol] 30 mmol/L 22 - 30 mmol/L [facility] Work Phone: [phone] Creatinine [Mass/Vol] 0.64 mg/dL 0.52 - 1.25 mg/dL [facility] Work Phone: [phone] EGFR IF NonAfrican Afghan >90.0 >60 mL/min [employer] Phone: Comment on above: KDIGO guidelines pro vide the following GFR categories: Stage GFR(ml/min/1.73 m2) Terms G1 >=90 Normal or high G2 60-89 Mildly decreased* G3a 45-59 Mildly to moderately decreased G3b 30-44 Moderately to severely decreased G4 15-29 Severely decreased G5 <15 Kidney failure *Relative to young adult level. In the absence of evidence of kidney damage, neither GFR category G1 nor G2 fulfill the criteria for CKD. The CKD-EPI equation is validated in individuals 18 years of age and older. Currently the best equation for estimating glomerular filtration rate (GFR) from serum creatinine in children is the Bedside Mccain equation. It is less accurate in patients with extremes of muscle mass, restriction of dietary protein, ingestion of creatine, extra-renal metabolism of creatinine, or treatment with medications that affect renal tubular creatinine secretion. GFR/1.73 sq M.predicted among blacks MDRD (S/P/Bld) [Vol rate/Area] mL/min/{1.73_m2} >60 mL/min [facility] Work Phone: 1 Glucose [Mass/Vol] 113 mg/dL High 70 - 100 mg/dL [facility] Work Phone: Interpretation and review of laboratory results Abnormal [facility] Work Phone: 1 Potassium [Moles/Vol] 3.7 mmol/L 3.5 - 5.1 mmol/L [facility] Work Phone: Sodium [Moles/Vol] 133 mmol/L Low 135 - 145 mmol/L [facility] Work Phone: Urea nitrogen (BldV) [Mass/Vol] 14 mg/dL 7 - 20 mg/dL [facility] Work Phone: Test Performed by [facility] [address] [facility] Work Phone: CBCOrdered By: Taz giles on 11-24-2020 Hematocrit (Bld) [Volume fraction] 33.4 % Low 35.0 - 47.0 % [facility] Work Phone: Hemoglobin.gastrointest inal spec 1 Ql (Stl) 11.4 g/dL Low 11.7 - 16.0 g/dL [facility] Work Phone: Interpretation and review of laboratory results Abnormal [facility] Work Phone: MCH (RBC) [Entitic mass] 31.2 pg 26.0 - 34.0 pg [facility] Work Phone: MCHC (RBC) [Mass/Vol] 34.3 % 32.0 - 36.0 % [facility] Work Phone: MCV (RBC) [Entitic vol] 91.0 fL 79.0 - 98.0 fL [facility] Work Phone: Platelet distribution width (Bld) [Ratio] 13.2 % 11.5 - 14.5 % [facility] Phone: Platelet mean volume (Bld) [Entitic vol] 7.4 fL 7.4 - 10.4 fL [facility] Work Phone: Platelets (Bld) [#/Vol] 259 10*3/uL 140 - 440 10*3/uL [facility] Work Phone: RBC (Bld) [#/Vol] 3.67 10*6/uL Low 3.80 - 5.2 0 10*6/uL [facility] Work Phone: WBC (Bld) [#/Vol] 10.1 10*3/uL 3.6 - 10.7 10*3/uL [facility] Work Phone: Test Performed by [facility], [address] [place] [address] [facility] Work Phone: EKG 12 LeadOrdered By: Marcos Milner on 11-24-2020 [facility] Test Date: 2020-11-23 Pat Name: ZEENAT MEJIA Department: [facility] Room: 23 Gender: F Dental Therapist: TATY CUELLOB: 1950 Requested By: MARCOS MILNER Order Number: [id number] Reading MD: Migue Welch Measurements Intervals [place] Rate: 87 P: 53 VT: 158 QRS: 38 QRSD: 96 T: 40 QT: 434 QTc: 522 Interpretive Statements Sinus rhythm Prolonged QT interval Compared to ECG 11/23/2020 01:53:14 PVCs no longer present Electronically Signed On 11-24-2020 7:39:16 EDT by [employer] Work Phone: Que, [facility] Incoming Cardiology Results From [facility] - 11/24/2020 7:40 AM EDT [facility] Test Date: 2020-11-23 Pat Name: ZEENAT MEJIA Department: [facility] Room: 6123 Gender: F Dental Therapist: TATY CUELLOB: 1950 Requested By: MARCOS MILNER Order Number: [id number] Reading MD: Migue Welch Measurements Intervals [place] Rate: 87 P: 53 VT: 158 QRS: 38 QRSD: 96 T: 40 QT: 434 QTc: 522 Interpretive Statements Sinus rhythm Prolonged QT interval Compared to ECG 11/23/2020 01:53:14 PVCs no longer present Electronically Signed On 11-24-2020 7:39:16 EDT by Migue MITCHELL Work Phone: XR SHOULDER LEFT 1 VWOrdered By: Taz Bautista on 11-24-2020 Patient Name: ZEENAT MEJIA Diagnostic Radiology ACCESSION EXAM DATE/TIME PROCEDURE ORDERING PROVIDER [id number] 11/24/2020 17:49 EDT CR Shoulder 1 View Left [id number] TAZ MANCERA CPT code 31640 Reason For Exam (CR Shoulder 1 View Left) status post reverse total shoulder arthroplasty Report LEFT SHOULDER: CLINICAL INDICATION: status post reverse total shoulder arthroplasty. 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 Skin anjelica overlie the incision site. Alignment is near anatomic. Surgical emphysema noted. Report Dictated on --- Final --- Dictated: 11/24/2020 5:23 pm Dictating Physician: MD FARRELL KEVIN Signed Date and Time: 11/24/2020 5:24 pm Signed by: MD FARRELL KEVIN Transcribed Date and Time: 11/24/2020 5:23 [facility] Work Phone: Que, [facility] Incoming Radiology Results From [facility] - 11/24/2020 5:49 PM EDT Patient Name: ZEENAT MEJIA Diagnostic Radiology ACCESSION EXAM DATE/TIME PROCEDURE ORDERING PROVIDER [id number] 11/24/2020 17:49 EDT CR Shoulder 1 View Left [id number] TAZ MANCERA CPT code 91390 Reason For Exam (CR Shoulder 1 View Left) status post reverse total shoulder arthroplasty Report LEFT SHOULDER: CLINICAL INDICATION: status post reverse total shoulder arthroplasty. 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 Skin anjelica overlie the incision site. Alignment is near anatomic. Surgical emphysema noted. Report Dictated on --- Final --- Dictated: 11/24/2020 5:23 pm Dictating Physician: MD FARRELL KEVIN Signed Date and Time: 11/24/2020 5:24 pm Signed by: MD FARRELL KEVIN Transcribed Date and Time: 11/24/2020 5:23 [facility] Work Phone: Add On Lab TestOrdered By: Jose Manuel Milner on 11-23-2020 Add On Accepted [facility] Work Phone: [phone] Comment on above: Specimen available & acceptable for analysis. Test Performed by [facility], [facility] [place] [address] [facility] Work Phone: Add On Lab TestOrdered By: Kimberley Crawford on 11-23-2020 Add On Accepted [facility] Work Phone: Comment on above: Specimen available & acceptable for analysis. Test Performed by [facility], [facility] [place] [address] [facility] Work Phone: [phone] Basic Metabolic Panel w/ Ref muna to MGOrdered By: Taz Bautista on 11-23-2020 Anion gap [Moles/Vol] 8 mmol/L 3 - 13 mmol/L [facility] Work Phone: [phone] Calcium [Mass/Vol] 8.8 mg/dL 8.4 - 10. 4 mg/dL [facility] Work Phone: Chloride [Moles/Vol] 101 mmol/L 98 - 10 7 mmol/L [facility] Work Phone: CO2 [Moles/Vol] 24 mmol/L 22 - 30 mmol/L [facility] Work Phone: Creatinine [Mass/Vol] 0.52 mg/dL 0.52 - 1.25 mg/dL [facility] Work Phone: EGFR IF NonAfrican Afghan >90.0 >60 mL/min [facility] Work Phone: Comment on above: KDIGO guidelines pro vide the following GFR categories: Stage GFR(ml/min/1.73 m2) Terms G1 >=90 Normal or high G2 60-89 Mildly decreased* G3a 45-59 Mildly to moderately decreased G3b 30-44 Moderately to severely decreased G4 15-29 Severely decreased G5 <15 Kidney failure *Relative to young adult level. In the absence of evidence of kidney damage, neither GFR category G1 nor G2 fulfill the criteria for CKD. The CKD-EPI equation is validated in individuals 18 years of age and older. Currently the best equation for estimating glomerular filtration rate (GFR) from serum creatinine in children is the Bedside Mccain equation. It is less accurate in patients with extremes of muscle mass, restriction of dietary protein, ingestion of creatine, extra-renal metabolism of creatinine, or treatment with medications that affect renal tubular creatinine secretion. GFR/1.73 sq M.predicted among blacks MDRD (S/P/Bld) [Vol rate/Area] mL/min/{1.73_m2} >60 mL/min [facility] Work Phone: [phone] Glucose [Mass/Vol] 111 mg/dL High 70 - 100 mg/dL [facility] Work Phone: [phone] Interpretation and review of laboratory results Abnormal [facility] Work Phone: [phone] Potassium [Moles/Vol] 3.7 mmol/L 3.5 - 5.1 mmol/L [facility] Work Phone: [phone] Sodium [Moles/Vol] 133 mmol/L Low 135 - 145 mmol/L [facility] Work Phone: [phone] Urea nitrogen (BldV) [Mass/Vol] 17 mg/dL 7 - 20 mg/dL [facility] Work Phone: [phone] Test Performed by [facility] [address] [facility] Work Phone: [phone] CBCOrdered By: Taz giles on 11-23-2020 Hematocrit (Bld) [Volume fraction] 34.1 % Low 35.0 - 47.0 % [facility] Work Phone: [phone] Hemoglobin.gastrointest inal spec 1 Ql (Stl) 11.4 g/dL Low 11.7 - 16.0 g/dL [facility] Work Phone: Interpretation and review of laboratory results Abnormal [facility] Work Phone: [phone] MCH (RBC) [Entitic mass] 30.0 pg 26.0 - 34.0 pg [facility] Work Phone: MCHC (RBC) [Mass/Vol] 33.4 % 32.0 - 36.0 % [facility] Work Phone: MCV (RBC) [Entitic vol] 89.8 fL 79.0 - 98.0 fL [facility] Work Phone: Platelet distribution width (Bld) [Ratio] 13.2 % 11.5 - 14.5 % [facility] Work Phone: Platelet mean volume (Bld) [Entitic vol] 7.1 fL Low 7.4 - 10.4 fL [facility] Work Phone: Platelets (Bld) [#/Vol] 273 10*3/uL 140 - 440 10*3/uL [facility] Work Phone: RBC (Bld) [#/Vol] 3.80 10*6/uL 3.80 - 5.2 0 10*6/uL [facility] Work Phone: 1 WBC (Bld) [#/Vol] 13.5 10*3/uL High 3.6 - 10.7 10*3/uL [facility] Work Phone: [phone] Test Performed by [facility], [address] [place] [address] [facility] Work Phone: [phone] UPPER EXTREMITY LEFT WO C ONTRASTOrdered By: Karan Crawford on 11-23-2020 Patient Name: ZEENAT MEJIA Computed Tomography ACCESSION EXAM DATE/TIME PROCEDURE ORDERING PROVIDER [id number] 11/23/2020 02:[address] Up Ext w/o Contrast MD ALYX, BELLA Left CPT code 06031 Reason For Exam (CT Up Ext w/o Contrast Left) L proximal humerus fracture/dislocation Report Clinical history: L proximal humerus fracture/dislocation COMPARISON: Multiple prior radiographs from earlier today and previous day TECHNIQUE: Axial CT images of the left shoulder were obtained without contrast administration. Subsequent coronal and sagittal reformatted images were created for further evaluation. Three dimensional volume rendered and maximum intensity projection reconstruction was performed concurrently with independent workstation software by the radiologist to better visualize the osseous structures in various orientations. FINDINGS: Soft tissue edema is seen throughout the left shoulder with a moderate sized effusion. There is redemonstration of a mildly comminuted humeral neck fracture with foreshortening and lateral displacement of the distal fracture element. Humeral head is dislocated from the glenoid with counterclockwise rotation on coronal views and clockwise rotation on axial views from normal alignment. The fractured surface is impacted on the anterior inferior glenoid. A few additional small fracture fragments are seen adjacent to the humeral neck. No other fractures or dislocations identified. IMPRESSION: Redemonstration of left proximal humeral fracture and dislocation as described above. Report Dictated on Workstation: [email or web address] --- Final --- Dictated: 11/23/2020 3:44 am Dictating Physician: MD LANE JAMES Signed Date and Time: 11/23/2020 4:50 am Signed by: MD LANE JAMES Transcribed Date and Time: 11/23/2020 3:44 [facility] Work Phone: Que, [facility] Incoming Radiology Results From [facility] - 11/23/2020 4:51 AM EDT Patient Name: ZEENAT MEJIA Computed Tomography ACCESSION EXAM DATE/TIME PROCEDURE ORDERING PROVIDER [id number] 11/23/2020 02:[address] Up Ext w/o Contrast MD ALYX, BELLA Left CPT code 07214 Reason For Exam (CT Up Ext w/o Contrast Left) L proximal humerus fracture/dislocation Report Clinical history: L proximal humerus fracture/dislocation COMPARISON: Multiple prior radiographs from earlier today and previous day TECHNIQUE: Axial CT images of the left shoulder were obtained without contrast administration. Subsequent coronal and sagittal reformatted images were created for further evaluation. Three dimensional volume rendered and maximum intensity projection reconstruction was performed concurrently with independent workstation software by the radiologist to better visualize the osseous structures in various orientations. FINDINGS: Soft tissue edema is seen throughout the left shoulder with a moderate sized effusion. There is redemonstration of a mildly comminuted humeral neck fracture with foreshortening and lateral displacement of the distal fracture element. Humeral head is dislocated from the glenoid with counterclockwise rotation on coronal views and clockwise rotation on axial views from normal alignment. The fractured surface is impacted on the anterior inferior glenoid. A few additional small fracture fragments are seen adjacent to the humeral neck. No other fractures or dislocations identified. IMPRESSION: Redemonstration of left proximal humeral fracture and dislocation as described above. Report Dictated on Workstation: [facility] --- Final --- Dictated: 11/23/2020 3:44 am Dictating Physician: MD LANE JAMES Signed Date and Time: 11/23/2020 4:50 am Signed by: MD LANE JAMES Transcribed Date and Time: 11/23/2020 3:44 [facility] Work Phone: EKG 12 LeadOrdered By: Ceci Crawford on 11-23-2020 [facility] Test Date: 2020-11-23 Pat Name: ZEENAT MEJIA Department: [facility] Room: [facility] Gender: F Dental Therapist: TRU : 1950 Requested By: KARAN CRAWFORD Order Number: [id number] Reading MD: Frederick Reyes Measurements Intervals [place] Rate: 99 P: 54 VT: 163 QRS: 51 QRSD: 92 T: 38 QT: 406 QTc: 522 Interpretive Statements Sinus tachycardia PVCs Electronically Signed On 11-23-2020 14:27:51 EDT by Frederick MITCHELL Work Phone: Que, [facility] Incoming Cardiology Results From [facility] - 11/23/2020 2:28 PM EDT [facility] Test Date: 2020-11-23 Pat Name: ZEENAT MEJIA Department: [facility] Room: 6123 Gender: F Dental Therapist: TRU : 1950 Requested By: KARAN CRAWFORD Order Number: [id number] Reading : Frederick Reyes Measurements Intervals [place] Rate: 99 P: 54 VT: 163 QRS: 51 QRSD: 92 T: 38 QT: 406 QTc: 522 Interpretive Statements Sinus tachycardia PVCs Electronically Signed On 11-23-2020 14:27:51 EDT by Frederick Paz Phone: MagnesiumOrdered By: Last Cunha on 11-23-2020 Magnesium [Mass/Vol] 1.9 mg/dL 1.6 - 2 .3 mg/dL [facility] Work Phone: Comment on above: Moderately hemolysed , interpret with caution. Test Performed by [facility], [address] [place] [address] [facility] Work Phone: ProcalcitoninOrdered By: Mathew Crawford on 11-23-2020 Interpretation See Below [facility] Work Phone: Comment on above: PCT <0.50 = Low risk of severe sepsis and/or septic shock. PCT >2.00 = High risk of severe sepsis and/or septic shock. Procalcitonin <0.10 <0.10 ng/mL [facility] Work Phone: Test Performed by [facility], [facility] [place] [address] [facility] Work Phone: XR CHEST PORTABLEOrdered By: Karan Crawford on 11-23-2020 [id number] ACCESSION EXAM DATE/TIME PROCEDURE ORDERING PROVIDER [id number] 11/23/2020 03:06 EDT CR Chest Portable MD CRAWFORD STEPHEN JOHN CPT code 27293 Reason For Exam (CR Chest Portable) pre-op Report Clinical History: pre-op Comparison: None Technique: Single AP radiograph of the chest. Findings: The heart size and mediastinal contours are normal. Pulmonary vascularity is normal and there is no pneumothorax. A few linear left basilar densities are present. There is redemonstration of left proximal humerus dislocation and fracture. Impression: 1. Probable atelectasis in the left lung base. 2. Redemonstration of left proximal humeral dislocation and fracture. Report Dictated on Workstation: [facility] --- Final --- Dictated: 11/23/2020 4:15 am Dictating Physician: MD LANE JAMES Signed Date and Time: 11/23/2020 4:16 am Signed by: MD LANE JAMES Transcribed Date and Time: 11/23/2020 4:15 [facility] Work Phone: Que, [facility] Results From [facility] - 11/23/2020 4:17 AM EDT Patient Name: ZEENAT MEJIA Diagnostic Radiology ACCESSION EXAM DATE/TIME PROCEDURE ORDERING PROVIDER [id number] 11/23/2020 03:06 EDT CR Chest Portable MD CRAWFORD STEPHEN JOHN CPT code 66969 Reason For Exam (CR Chest Portable) pre-op Report Clinical History: pre-op Comparison: None Technique: Single AP radiograph of the chest. Findings: The heart size and mediastinal contours are normal. Pulmonary vascularity is normal and there is no pneumothorax. A few linear left basilar densities are present. There is redemonstration of left proximal humerus dislocation and fracture. Impression: 1. Probable atelectasis in the left lung base. 2. Redemonstration of left proximal humeral dislocation and fracture. Report Dictated on Workstation: [facility] --- Final --- Dictated: 11/23/2020 4:15 am Dictating Physician: MD LANE JAMES Signed Date and Time: 11/23/2020 4:16 am Signed by: MD LANE JAMES Transcribed Date and Time: 11/23/2020 4:15 [facility] Work Phone: XR Shoulder Left 2 VWOrdered By: Bella Wisdom on 11-23-2020 Patient Name: ZEENAT MEJIA Diagnostic Radiology ACCESSION EXAM DATE/TIME PROCEDURE ORDERING PROVIDER [id number] 11/23/2020 00:54 EDT CR Shoulder 2+ Views MD WISDOM KATHERINE Left CPT code 31112 Reason For Exam (CR Shoulder 2+ Views Left) pain Post reduction Xr Report Clinical history: pain Post reduction Xr COMPARISON: 11/22/2020 TECHNIQUE: Axillary view of the left shoulder FINDINGS/IMPRESSION: There is redemonstration of left shoulder dislocation with proximal humeral neck fracture, similar in appearance to prior study. Report Dictated on Workstation: [email or web address] --- Final --- Dictated: 11/23/2020 1:00 am Dictating Physician: MD LANE JAMES Signed Date and Time: 11/23/2020 1:01 am Signed by: MD LANE JAMES Transcribed Date and Time: 11/23/2020 1:00 [facility] Work Phone: Que, [facility] Incoming Radiology Results From [facility] - 11/23/2020 1:03 AM EDT Patient Name: ZEENAT MEJIA Diagnostic Radiology ACCESSION EXAM DATE/TIME PROCEDURE ORDERING PROVIDER [id number] 11/23/2020 00:54 EDT CR Shoulder 2+ Views MD WISDOM KATHERINE Left CPT code 17227 Reason For Exam (CR Shoulder 2+ Views Left) pain Post reduction Xr Report Clinical history: pain Post reduction Xr COMPARISON: 11/22/2020 TECHNIQUE: Axillary view of the left shoulder FINDINGS/IMPRESSION: There is redemonstration of left shoulder dislocation with proximal humeral neck fracture, similar in appearance to prior study. Report Dictated on Workstation: [facility] --- Final --- Dictated: 11/23/2020 1:00 am Dictating Physician: MD LANE JAMES Signed Date and Time: 11/23/2020 1:01 am Signed by: MD LANE JAMES Transcribed Date and Time: 11/23/2020 1:00 [facility] Work Phone: Patient Name: ZEENAT MEJIA Diagnostic Radiology ACCESSION EXAM DATE/TIME PROCEDURE ORDERING PROVIDER [id number] 11/23/2020 00:55 EDT CR Shoulder 2+ Views MD WISDOM KATHERINE Left CPT code 09408 Reason For Exam (CR Shoulder 2+ Views Left) s/p L shoulder reduction Report Clinical history: s/p L shoulder reduction COMPARISON: 11/22/2020 at 6:40 PM TECHNIQUE: Left shoulder, two views FINDINGS: Similar appearance of anterior inferior dislocation of the left humeral head with displaced and angulated humeral neck fracture. No other fractures or dislocations identified. IMPRESSION: Similar appearance of anterior inferior dislocation of the left humeral head with displaced and angulated humeral neck fracture. Report Dictated on Workstation: [facility] --- Final --- Dictated: 11/23/2020 0:37 am Dictating Physician: MD LANE JAMES Signed Date and Time: 11/23/2020 0:39 am Signed by: MD LANE JAMES Transcribed Date and Time: 11/23/2020 0:37 [facility] Work Phone: Que, [facility] Incoming Radiology Results From [facility] - 11/23/2020 12:56 AM EDT Patient Name: ZEENAT MEJIA Diagnostic Radiology ACCESSION EXAM DATE/TIME PROCEDURE ORDERING PROVIDER [id number] 11/23/2020 00:55 EDT CR Shoulder 2+ Views MD ALYX, BELLA Left CPT code 94136 Reason For Exam (CR Shoulder 2+ Views Left) s/p L shoulder reduction Report Clinical history: s/p L shoulder reduction COMPARISON: 11/22/2020 at 6:40 PM TECHNIQUE: Left shoulder, two views FINDINGS: Similar appearance of anterior inferior dislocation of the left humeral head with displaced and angulated humeral neck fracture. No other fractures or dislocations identified. IMPRESSION: Similar appearance of anterior inferior dislocation of the left humeral head with displaced and angulated humeral neck fracture. Report Dictated on Workstation: [facility] --- Final --- Dictated: 11/23/2020 0:37 am Dictating Physician: MD LANE JAMES Signed Date and Time: 11/23/2020 0:39 am Signed by: MD LANE JAMES Transcribed Date and Time: 11/23/2020 0:37 [facility] Work Phone: Basic Metabolic PanelOrdered By: Last Cunha on 11-22-2020 Anion gap [Moles/Vol] 11 mmol/L 3 - 13 mmol/L [facility] Work Phone: Calcium [Mass/Vol] 9.7 mg/dL 8.4 - 10. 4 mg/dL [facility] Work Phone: Chloride [Moles/Vol] 101 mmol/L 98 - 10 7 mmol/L [facility] Work Phone: [phone] CO2 [Moles/Vol] 23 mmol/L 22 - 30 mmol/L [facility] Work Phone: [phone] Creatinine [Mass/Vol] 0.64 mg/dL 0.52 - 1.25 mg/dL [facility] Work Phone: [phone] IF NonAfrican Afghan >90.0 >60 mL/min [facility] Work Phone: [phone] Comment on above: KDIGO guidelines pro vide the following GFR categories: Stage GFR(ml/min/1.73 m2) Terms G1 >=90 Normal or high G2 60-89 Mildly decreased* G3a 45-59 Mildly to moderately decreased G3b 30-44 Moderately to severely decreased G4 15-29 Severely decreased G5 <15 Kidney failure *Relative to young adult level. In the absence of evidence of kidney damage, neither GFR category G1 nor G2 fulfill the criteria for CKD. The CKD-EPI equation is validated in individuals 18 years of age and older. Currently the best equation for estimating glomerular filtration rate (GFR) from serum creatinine in children is the Bedside Mccain equation. It is less accurate in patients with extremes of muscle mass, restriction of dietary protein, ingestion of creatine, extra-renal metabolism of creatinine, or treatment with medications that affect renal tubular creatinine secretion. GFR/1.73 sq M.predicted among blacks MDRD (S/P/Bld) [Vol rate/Area] mL/min/{1.73_m2} >60 mL/min [facility] Work Phone: [phone] Glucose [Mass/Vol] 131 mg/dL High 70 - 100 mg/dL [facility] Work Phone: [phone] Interpretation and review of laboratory results Abnormal [facility] Work Phone: [phone] Potassium [Moles/Vol] 4.5 mmol/L 3.5 - 5.1 mmol/L [facility] Work Phone: [phone] Comment on above: Moderately hemolysed , interpret with caution. Sodium [Moles/Vol] 135 mmol/L 135 - 145 mmol/L [facility] Work Phone: [phone] Urea nitrogen (BldV) [Mass/Vol] 21 mg/dL High 7 - 20 mg/dL [facility] Work Phone: [phone] Test Performed by [facility], [address] [place] [address] [facility] Work Phone: Hemogram (CBC) w/Auto DiffOr dered By: Last Cunha on 11-22-2020 Absolute Baso # 0.1 10*3/uL 0.0 - 0.2 10*3/uL [facility] Work Phone: Absolute Neut # 16.6 10*3/uL High 1.8 - 7.0 10*3/uL [facility] Work Phone: Basophils/100 WBC (Bld) 0.3 % 0.0 - 2.0 % [facility] Work Phone: Eosinophils (Bld) [#/Vol] 0.0 10*3/uL 0.0 - 0.5 10*3/uL [facility] Work Phone: 1 Eosinophils/100 WBC (Bld) 0.1 % Low 1.0 - 6.0 % [facility] Work Phone: Granulocytes/100 WBC (Bld) 89.0 % High 40.0 - 80.0 % [facility] Work Phone: Hematocrit (Bld) [Volume fraction] 36.9 % 35.0 - 47.0 % [facility] Work Phone: Hemoglobin.gastrointest inal spec 1 Ql (Stl) 12.5 g/dL 11.7 - 16.0 g/dL [facility] Work Phone: Interpretation and review of laboratory results Abnormal [facility] Work Phone: Lymphocytes (Bld) [#/Vol] 1.2 10*3/uL 1.0 - 4.3 10*3/uL [facility] Work Phone: 1 Lymphocytes/100 WBC (Bld) 6.3 % Low 20.0 - 40.0 % [facility] Work Phone: MCH (RBC) [Entitic mass] 30.5 pg 26.0 - 34.0 pg [facility] Work Phone: MCHC (RBC) [Mass/Vol] 33.8 % 32.0 - 36.0 % [facility] Work Phone: [phone] MCV (RBC) [Entitic vol] 90.0 fL 79.0 - 98.0 fL [facility] Work Phone: [phone] Monocytes (Bld) [#/Vol] 0.8 10*3/uL 0.0 - 0.8 10*3/uL [facility] Work Phone: 1 Monocytes/100 WBC (Bld) 4.3 % 2.0 - 10.0 % [facility] Work Phone: [phone] Platelet distribution width (Bld) [Ratio] 13.2 % 11.5 - 14.5 % [facility] Phone: [phone] Platelet mean volume (Bld) [Entitic vol] 7.5 fL 7.4 - 10.4 fL [facility] Phone: 1 Platelets (Bld) [#/Vol] 300 10*3/uL 140 - 440 10*3/uL [facility] Work Phone: 1 RBC (Bld) [#/Vol] 4.10 10*6/uL 3.80 - 5.2 0 10*6/uL [facility] Work Phone: [phone] WBC (Bld) [#/Vol] 18.9 10*3/uL High 3.6 - 10.7 10*3/uL [facility] Work Phone: [phone] Test Performed by [facility], [address] [place] [address] [facility] Work Phone: [phone] Procedural sedationOrdered B y: Mari Rodriguez on 11-22-2020 Mari Rodriguez DO 11/23/2020 12:53 AM Procedural sedation Date/Time: 11/23/2020 12:17 AM Performed by: Mari Rodriguez DO Authorized by: Mari Rodriguez DO Consent: Consent obtained: Written Consent given by: Patient Risks discussed: Allergic reaction, inadequate sedation, nausea, vomiting, prolonged hypoxia resulting in organ damage and respiratory compromise necessitating ventilatory assistance and intubation Indications: Procedure performed: Dislocation reduction Procedure necessitating sedation performed by: Different physician Intended level of sedation: Moderate (conscious sedation) Pre-sedation assessment: Time since last food or drink: > 8 hrs ASA classification: class 2 - patient with mild systemic disease Neck mobility: normal Mouth openin or more finger widths Thyromental distance: 4 finger widths Mallampati score: II - soft palate, uvula, fauces visible Pre-sedation assessments completed and reviewed: airway patency, anesthesia/sedation history, cardiovascular function, hydration status, mental status, pain level and respiratory function History of difficult intubation: no Immediate pre-procedure details: Verified: bag valve mask available, intubation equipment available, IV patency confirmed and oxygen available Procedure details (see MAR for exact dosages): Preoxygenation: Nonrebreather mask Sedation: Propofol Intra-procedure monitoring: Blood pressure monitoring, continuous capnometry, continuous pulse oximetry, frequent LOC assessments, 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 Orthopedics unable to successfully reduce shoulder dislocation. Repeat conscious sedation performed without complication but again unable to successfully reduce shoulder dislocation [facility] Work Phone: Protime-INROrdered By: Rao Cunha on 11-22-2020 INR Coag (Bld) [Relative time] 1.0 {INR} [facility] Work Phone: Comment on above: Recommended Anticoag ulant Therapy: SEE BELOW ----- INR of 2.0 - 3.0 : - Prophylaxis of Venous Thrombosis (high-risk surgery) - Treatment of Venous Thrombosis - Treatment of Pulmonary Embolism (Includes tissue heart valves, Acute Myocardial Infarction to prevent systemic embolism, Valvular Heart Disease, and Atrial Fibrillation) ----- INR of 2.5 - 3.5 : - Mechanical Prosthetic Valves (high risk) - If oral anticoagulant therapy is used to prevent Myocardial Infarction PT Coag (PPP) [Time] 10.6 s 9.0 - 1 2.0 s [facility] Work Phone: Comment on above: . Test Performed by [facility], [address] [place] [address] [facility] Work Phone: TYPE AND SCREENOrdered By: Tanya Cunha on 11-22-2020 ABO Grouping A [facility] Work Phone: Rh Type Positive [facility] Work Phone: Test Performed by [address] [address] [facility] Work Phone: XR Shoulder Left 2 VWOrdered By: Bella Wisdom on 11-22-2020 Patient Name: ZEENAT MEJIA Diagnostic Radiology ACCESSION EXAM DATE/TIME PROCEDURE ORDERING PROVIDER [id number] 11/22/2020 22:38 EDT CR Shoulder 2+ Views MD WISDOM KATHERINE Left CPT code 41071 Reason For Exam (CR Shoulder 2+ Views Left) need axillary view to determine if dislocated. If unable to obtain axillary please obtain valpo Report Left shoulder axillary view CLINICAL INDICATION: Evaluate for dislocation COMPARISON: Earlier left shoulder Axillary views of the left shoulder were obtained. Patient has a fracture through the neck of the left humerus. The humeral head is dislocated anterior to the glenoid process. Report Dictated on --- Final --- Dictated: 11/22/2020 11:09 pm Dictating Physician: MD MULLEN DIANE Signed Date and Time: 11/22/2020 11:10 pm Signed by: MD MULLEN DIANE Transcribed Date and Time: 11/22/2020 11:09 [facility] Work Phone: Que, [facility] Incoming Radiology Results From [facility] - 11/22/2020 11:11 PM EDT Patient Name: ZEENAT MEJIA Diagnostic Radiology ACCESSION EXAM DATE/TIME PROCEDURE ORDERING PROVIDER [id number] 11/22/2020 22:38 EDT CR Shoulder 2+ Views MD WISDOM KATHERINE Left CPT code 34427 Reason For Exam (CR Shoulder 2+ Views Left) need axillary view to determine if dislocated. If unable to obtain axillary please obtain valpo Report Left shoulder axillary view CLINICAL INDICATION: Evaluate for dislocation COMPARISON: Earlier left shoulder Axillary views of the left shoulder were obtained. Patient has a fracture through the neck of the left humerus. The humeral head is dislocated anterior to the glenoid process. Report Dictated on --- Final --- Dictated: 11/22/2020 11:09 pm Dictating Physician: MD MULLEN DIANE Signed Date and Time: 11/22/2020 11:10 pm Signed by: MD MULLEN DIANE Transcribed Date and Time: 11/22/2020 11:09 [facility] Work Phone: Colonoscopy w/ or w/o biopsy on 09-15-2013 3 mm polyp at 40 cm Few sigmoid diverticula Small internal hemorrhoids Sub optimal bowel prep [facility] This order was creat ed through External Result Entry [facility] No Panel Information [facility] Vital Signs Date Time Vital Sign Value Performing Clinician Facility 01-06-2025 11:06-0400 Diastolic blood pressure 70 mm[Hg] Sultana Coehn DO Work Phone: [facility] 01-06-2025 11:06-0400 Systolic blood pressure 140 mm[Hg] Sultana Cohen DO Work Phone: [facility] 01-06-2025 09:45-0400 Body height 167.6 cm Sultana Cohen DO Work Phone: [facility] 01-06-2025 09:45-0400 Body mass index (BMI) [Ratio] 26.95 kg/m2 Sultana Cohen DO Work Phone: [facility] 01-06-2025 09:45-0400 Body weight 75.75 kg Sultana Cohen DO Work Phone: [facility] [employer] 01-06-2025 09:45-0400 Heart rate 83 /min Sultana Cohen DO Work Phone: [employer] 01-06-2025 09:45-0400 SaO2% (BldA) [Mass fraction] 97 % Sultana Cohen DO Work Phone: [employer] 07-29-2024 11:14-0500 Body height 170.2 cm Sultana Cohen DO Work Phone: [facility] 07-29-2024 11:14-0500 Body mass index (BMI) [Ratio] 26 kg/m2 Sultana Cohen DO Work Phone: [facility] 07-29-2024 11:14-0500 Body temperature 98.6 [degF] Sultana Cohen DO Work Phone: [facility] 07-29-2024 11:14-0500 Body weight 75.3 kg Sultana Cohen DO Work Phone: [facility] 07-29-2024 11:14-0500 Diastolic blood pressure 80 mm[Hg] Sultana Cohen DO Work Phone: [facility] 07-29-2024 11:14-0500 Heart rate 84 /min Sultana Cohen DO Work Phone: [facility] 07-29-2024 11:14-0500 SaO2% (BldA) [Mass fraction] 98 % Sultana Cohen DO Work Phone: [facility] 07-29-2024 11:14-0500 Systolic blood pressure 110 mm[Hg] Sultana Cohen DO Work Phone: [facility] 04-13-2024 16:20-0400 Diastolic blood pressure 70 mm[Hg] Alexis Rufener PT Work Phone: [facility] 04-13-2024 16:20-0400 Systolic blood pressure 118 mm[Hg] Alexis Rufener PT Work Phone: [facility] 04-13-2024 15:48-0400 Body temperature 98.2 [degF] Alexis Rufener PT Work Phone: [facility] 04-13-2024 15:48-0400 Heart rate 78 /min Alexis Rufener PT Work Phone: [facility] 04-13-2024 15:48-0400 Respiratory rate 16 /min Alexis Rufener PT Work Phone: [facility] 04-13-2024 15:48-0400 SaO2% (BldA) [Mass fraction] 98 % Alexis Rufener PT Work Phone: [facility] 04-10-2024 09:40-0400 Body temperature 97.3 [degF] Nathan Torresert COMMUNICATION TECHNICIAN Work Phone: [facility] 04-10-2024 09:40-0400 Diastolic blood pressure 74 mm[Hg] Nathan Blackert COMMUNICATION TECHNICIAN Work Phone: [facility] 04-10-2024 09:40-0400 Heart rate 81 /min Nathan Blackert COMMUNICATION TECHNICIAN Work Phone: [facility] 04-10-2024 09:40-0400 Respiratory rate 16 /min Nathan Blackert COMMUNICATION TECHNICIAN Work Phone: [facility] 04-10-2024 09:40-0400 SaO2% (BldA) [Mass fraction] 96 % Nathan Blackert COMMUNICATION TECHNICIAN Work Phone: [facility] 04-10-2024 09:40-0400 Systolic blood pressure 116 mm[Hg] Nathan Blackert COMMUNICATION TECHNICIAN Work Phone: [facility] 04-08-2024 10:25-0400 Body temperature 97.81 [degF] Sebastian Heller COMMUNICATION TECHNICIAN Work Phone: [facility] 04-08-2024 10:25-0400 Diastolic blood pressure 68 mm[Hg] Sebastian Heller COMMUNICATION TECHNICIAN Work Phone: [facility] 04-08-2024 10:25-0400 Heart rate 93 /min Sebastian Heller COMMUNICATION TECHNICIAN Work Phone: [facility] 04-08-2024 10:25-0400 Respiratory rate 18 /min Sebastian Heller COMMUNICATION TECHNICIAN Work Phone: [facility] 04-08-2024 10:25-0400 SaO2% (BldA) [Mass fraction] 97 % Sebastian Heller COMMUNICATION TECHNICIAN Work Phone: [facility] 04-08-2024 10:25-0400 Systolic blood pressure 109 mm[Hg] Sebastian Troy COMMUNICATION TECHNICIAN Work Phone: [facility] 04-05-2024 09:05-0400 Body temperature 97.3 [degF] Nathan Torresert COMMUNICATION TECHNICIAN Work Phone: [facility] 04-05-2024 09:05-0400 Diastolic blood pressure 80 mm[Hg] Nathan Blackert COMMUNICATION TECHNICIAN Work Phone: [facility] 04-05-2024 09:05-0400 Heart rate 87 /min Nathan Blackert COMMUNICATION TECHNICIAN Work Phone: [facility] 04-05-2024 09:05-0400 Respiratory rate 16 /min Nathan Blackert COMMUNICATION TECHNICIAN Work Phone: [facility] 04-05-2024 09:05-0400 SaO2% (BldA) [Mass fraction] 99 % Nathan Blackert COMMUNICATION TECHNICIAN Work Phone: [facility] 04-05-2024 09:05-0400 Systolic blood pressure 134 mm[Hg] Nathan Blackert COMMUNICATION TECHNICIAN Work Phone: [facility] 04-03-2024 09:18-0400 Body temperature 98.2 [degF] Nathan Blackert COMMUNICATION TECHNICIAN Work Phone: [facility] 04-03-2024 09:18-0400 Diastolic blood pressure 70 mm[Hg] Nathan Blackert COMMUNICATION TECHNICIAN Work Phone: [facility] 04-03-2024 09:18-0400 Heart rate 93 /min Nathan Blackert COMMUNICATION TECHNICIAN Work Phone: [facility] 04-03-2024 09:18-0400 Respiratory rate 16 /min Nathan Blackert COMMUNICATION TECHNICIAN Work Phone: [facility] 04-03-2024 09:18-0400 SaO2% (BldA) [Mass fraction] 99 % Nathan Blackert COMMUNICATION TECHNICIAN Work Phone: [facility] 04-03-2024 09:18-0400 Systolic blood pressure 130 mm[Hg] Nathan Blackert COMMUNICATION TECHNICIAN Work Phone: [facility] 04-01-2024 09:07-0400 Body temperature 97.3 [degF] Nathan Magana COMMUNICATION TECHNICIAN Work Phone: [facility] 04-01-2024 09:07-0400 Diastolic blood pressure 70 mm[Hg] Nathan Magana COMMUNICATION TECHNICIAN Work Phone: [facility] 04-01-2024 09:07-0400 Heart rate 86 /min Nathan Torresert COMMUNICATION TECHNICIAN Work Phone: [facility] 04-01-2024 09:07-0400 Respiratory rate 16 /min Nathan Magana COMMUNICATION TECHNICIAN Work Phone: [facility] 04-01-2024 09:07-0400 SaO2% (BldA) [Mass fraction] 97 % Nathan Magana COMMUNICATION TECHNICIAN Work Phone: [facility] 04-01-2024 09:07-0400 Systolic blood pressure 120 mm[Hg] Nathan Magana COMMUNICATION TECHNICIAN Work Phone: [facility] 03-30-2024 12:52-0400 Diastolic blood pressure 82 mm[Hg] Prinston Manzanares COMMUNICATION TECHNICIAN Work Phone: [facility] 03-30-2024 12:52-0400 Heart rate 84 /min Prinston Manzanares COMMUNICATION TECHNICIAN Work Phone: [facility] 03-30-2024 12:52-0400 Respiratory rate 17 /min Prinston Manzanares COMMUNICATION TECHNICIAN Work Phone: [facility] 03-30-2024 12:52-0400 SaO2% (BldA) [Mass fraction] 94 % Prinston Manzanares COMMUNICATION TECHNICIAN Work Phone: [facility] 03-30-2024 12:52-0400 Systolic blood pressure 132 mm[Hg] Prinston Manzanares COMMUNICATION TECHNICIAN Work Phone: [facility] 03-30-2024 12:17-0400 Body temperature 98.01 [degF] Prinston Manzanares COMMUNICATION TECHNICIAN Work Phone: [facility] 03-28-2024 12:04-0400 Body temperature 98.1 [degF] Tita Flaco COMMUNICATION TECHNICIAN Work Phone: [facility] 03-28-2024 12:04-0400 Diastolic blood pressure 78 mm[Hg] Tita Flaco COMMUNICATION TECHNICIAN Work Phone: [facility] 03-28-2024 12:04-0400 Heart rate 86 /min Tita Flaco COMMUNICATION TECHNICIAN Work Phone: [facility] 03-28-2024 12:04-0400 Respiratory rate 18 /min Tita Flaco COMMUNICATION TECHNICIAN Work Phone: [facility] 03-28-2024 12:04-0400 SaO2% (BldA) [Mass fraction] 98 % Tita Flaco COMMUNICATION TECHNICIAN Work Phone: [facility] 03-28-2024 12:04-0400 Systolic blood pressure 118 mm[Hg] Tita Flaco COMMUNICATION TECHNICIAN Work Phone: [facility] 03-26-2024 11:38-0400 Diastolic blood pressure 70 mm[Hg] Sarwat Knupp PT Work Phone: [facility] 03-26-2024 11:38-0400 Heart rate 74 /min Sarwat Knupp PT Work Phone: [facility] 03-26-2024 11:38-0400 Respiratory rate 18 /min Sarwat Knupp PT Work Phone: [facility] 03-26-2024 11:38-0400 SaO2% (BldA) [Mass fraction] 98 % Sarwat Knupp PT Work Phone: [facility] 03-26-2024 11:38-0400 Systolic blood pressure 140 mm[Hg] Sarwat Knupp PT Work Phone: [facility] 03-26-2024 10:49-0400 Body temperature 97.5 [degF] Sarwat Knupp PT Work Phone: [facility] 03-09-2024 10:30-0400 Body height 171.5 cm Pacc 1 Work Phone: [facility] 03-09-2024 10:30-0400 Body mass index (BMI) [Ratio] 25.75 kg/m2 Pacc 1 Work Phone: [facility] 03-09-2024 10:30-0400 Body temperature 97.81 [degF] Pacc 1 Work Phone: [facility] 03-09-2024 10:30-0400 Body weight 75.7 kg Pacc 1 Work Phone: [facility] 03-09-2024 10:30-0400 Diastolic blood pressure 86 mm[Hg] Pacc 1 Work Phone: [facility] 03-09-2024 10:30-0400 Heart rate 82 /min Pacc 1 Work Phone: [facility] 03-09-2024 10:30-0400 Respiratory rate 16 /min Pacc 1 Work Phone: [facility] 03-09-2024 10:30-0400 SaO2% (BldA) [Mass fraction] 99 % Pacc 1 Work Phone: [facility] 03-09-2024 10:30-0400 Systolic blood pressure 154 mm[Hg] Pacc 1 Work Phone: [facility] 01-06-2024 10:54-0400 Body height 170.2 cm Sabrina Verduzco MD Work Phone: [facility] 01-06-2024 10:54-0400 Body mass index (BMI) [Ratio] 26.31 kg/m2 Sabrina Verduzco MD Work Phone: [facility] 01-06-2024 10:54-0400 Body temperature 96.8 [degF] Sabrina Verduzco MD Work Phone: [facility] 01-06-2024 10:54-0400 Body weight 76.2 kg Sabrina Verduzco MD Work Phone: [facility] 01-06-2024 10:54-0400 Diastolic blood pressure 78 mm[Hg] Sabrina Verduzco MD Work Phone: [facility] 01-06-2024 10:54-0400 Heart rate 67 /min Sabrina Verduzco MD Work Phone: [facility] 01-06-2024 10:54-0400 SaO2% (BldA) [Mass fraction] 97 % Sabrina Verduzco MD Work Phone: [facility] 01-06-2024 10:54-0400 Systolic blood pressure 127 mm[Hg] Sabrina Verduzco MD Work Phone: [facility] 12-25-2023 11:20-0400 Body height 170.2 cm Romana Chi MD Work Phone: [facility] 12-25-2023 11:20-0400 Body mass index (BMI) [Ratio] 26.24 kg/m2 Romana Chi MD Work Phone: [facility] 12-25-2023 11:20-0400 Body weight 76 kg Romana Chi MD Work Phone: [facility] 08-27-2023 11:38-0500 Body height 170.2 cm Sabrina Verduzco MD Work Phone: [facility] 08-27-2023 11:38-0500 Body mass index (BMI) [Ratio] 26.78 kg/m2 Sabrina Verduzco MD Work Phone: [facility] 08-27-2023 11:38-0500 Body temperature 97.39 [degF] Sabrina Verduzco MD Work Phone: [facility] 08-27-2023 11:38-0500 Body weight 77.56 kg Sabrina Verduzco MD Work Phone: [facility] 08-27-2023 11:38-0500 Diastolic blood pressure 76 mm[Hg] Sabrina Verduzco MD Work Phone: [facility] 08-27-2023 11:38-0500 Heart rate 84 /min Sabrina Verduzco MD Work Phone: [facility] 08-27-2023 11:38-0500 SaO2% (BldA) [Mass fraction] 96 % Sabrina Verduzco MD Work Phone: [facility] 08-27-2023 11:38-0500 Systolic blood pressure 131 mm[Hg] Sabrina Verduzco MD Work Phone: [facility] 07-27-2022 10:45-0500 Diastolic blood pressure 84 mm[Hg] Sabrina Verduzco MD Work Phone: [facility] 07-27-2022 10:45-0500 Systolic blood pressure 146 mm[Hg] Sabrina Verduzco MD Work Phone: [facility] 07-27-2022 10:28-0500 Body mass index (BMI) [Ratio] 27.1 kg/m2 Sabrina Verduzco MD Work Phone: [facility] 07-27-2022 10:28-0500 Body weight 78.47 kg Sabrina Verduzco MD Work Phone: [facility] 07-27-2022 10:28-0500 Heart rate 97 /min Sabrina Verduzco MD Work Phone: [facility] 05-07-2022 10:12-0400 Body height 171.5 cm Alfred Chandler PA-C Work Phone: [facility] 05-07-2022 10:12-0400 Body weight 77.22 kg Alfred Chandler PA-C Work Phone: [facility] 12-15-2021 11:59-0400 Body height 171.[address] Claudette Lima Work Phone: [facility] Work Phone: 12-15-2021 11:59-0400 Body mass index (BMI) [Ratio] 25.2 kg/m2 Dr. Claudette Lima Work Phone: [facility] Work Phone: 12-15-2021 11:59-0400 Body weight 74.[address] Claudette Lima Work Phone: [facility] Work Phone: 12-15-2021 11:59-0400 Diastolic blood pressure 62 mm[Hg] Dr. Claudette Lima Work Phone: [facility] Work Phone: 12-15-2021 11:59-0400 Systolic blood pressure 112 mm[Hg] Dr. Claudette Lima Work Phone: [facility] Work Phone: 11-25-2020 08:39-0400 Body temperature 98.01 [degF] Mari Rodriguez DO Work Phone: [facility] Work Phone: 11-25-2020 08:39-0400 Diastolic blood pressure 71 mm[Hg] Mari Rodriguez DO Work Phone: [facility] Work Phone: 11-25-2020 08:39-0400 Heart rate 100 /min Mari Rodriguez DO Work Phone: [facility] Work Phone: 11-25-2020 08:39-0400 Respiratory rate 18 /min Mari Rodriguez DO Work Phone: [facility] Work Phone: 11-25-2020 08:39-0400 SaO2% (BldA) [Mass fraction] 97 % Mari Rodriguez DO Work Phone: [facility] Work Phone: 11-25-2020 08:39-0400 Systolic blood pressure 120 mm[Hg] Mari Rodriguez DO Work Phone: [facility] Work Phone: 11-22-2020 20:23-0400 Body height 170.2 cm Mari Rodriguez DO Work Phone: [facility] Work Phone: 11-22-2020 20:23-0400 Body mass index (BMI) [Ratio] 27.41 kg/m2 Mari Rodriguez DO Work Phone: [facility] Work Phone: 11-22-2020 20:23-0400 Body weight 79.38 kg Mari Rodriguez DO Work Phone: [facility] Work Phone: Encounters Encounter Date Encounter Type Care Provider Facility Start: 02-24-2025 ambulatory Thania Stephens lity:[facility] Start: 01-07-2025 End: 01-11-2025 Follow-up encounter Sultana Cohen DO Work Phone: [facility] Comment on above: Lipid panel, CBC, Co mprehensive metabolic panel Start: 01-06-2025 End: 01-06-2025 Patient encounter procedure Sultana Cohen DO Work Phone: [facility] Comment on above: Annual physical exam (Primary Dx); Hyperlipidemia, unspecified hyperlipidemia type; History of pulmonary embolus (PE); IFG (impaired fasting glucose); Osteopenia, unspecified location; Palmar erythema Start: 01-06-2025 End: 01-06-2025 ambulatory SULTANA COHEN [facility] Start: 01-06-2025 End: 01-06-2025 Encounter for general adult medical examination without abnormal findings SULTANA GODINEZNAUGH [facility] Start: 07-29-2024 End: 07-29-2024 Office outpatient visit 15 minutes Sultana Cohen DO Work Phone: [facility] Comment on above: Fracture Risk Assess ment Score (FRAX) indicating greater than 20% risk for major osteoporosis-related fracture (Primary Dx) Start: 07-29-2024 End: 07-29-2024 ambulatory SULTANA COHEN [facility] Start: 06-19-2024 End: 06-19-2024 ambulatory ROMANA CHI Facility:[facility] Start: 06-19-2024 End: 06-19-2024 Patient encounter procedure Romana Chi MD Work Phone: Orthopaedics Comment on above: Aftercare following right knee joint replacement surgery (Primary Dx) Start: 06-03-2024 End: 06-03-2024 ambulatory Thania Brito Facility:[facility] Start: 05-06-2024 End: 05-06-2024 ambulatory ROMANA CHI Facility:[facility] Start: 05-06-2024 End: 05-06-2024 Patient encounter procedure Romana Chi MD Work Phone: Orthopaedics Comment on above: Aftercare following right knee joint replacement surgery (Primary Dx) Start: 04-13-2024 End: 04-13-2024 Home visit Alexis Jorgensen PT Work Phone: [facility] Comment on above: PT AGENCY DC W VISIT Start: 04-10-2024 End: 04-10-2024 Home visit Nathan Magana COMMUNICATION TECHNICIAN Work Phone: [facility] Comment on above: COMMUNICATION TECHNICIAN ROUTINE Start: 04-08-2024 End: 04-08-2024 Home visit Sebastian Tory COMMUNICATION TECHNICIAN Work Phone: [facility] Comment on above: COMMUNICATION TECHNICIAN ROUTINE Start: 04-06-2024 End: 04-06-2024 Patient encounter procedure Rohith Willis PA-C Work Phone: Orthopaedics Comment on above: S/P total knee arthr oplasty, right (Primary Dx) Start: 04-06-2024 End: 04-06-2024 ambulatory CLAUDETTE LIMA Facility:[facility] Start: 04-06-2024 End: 04-06-2024 Subsequent hospital visit by physician Radio Gonzales [facility] Work Phone: Radiology Comment on above: Right knee pain, uns pecified chronicity [M25.561] Start: 04-05-2024 End: 04-05-2024 Home visit Nathan Magana COMMUNICATION TECHNICIAN Work Phone: [facility] Comment on above: COMMUNICATION TECHNICIAN ROUTINE Start: 04-03-2024 End: 04-03-2024 Home visit Nathan Magana COMMUNICATION TECHNICIAN Work Phone: [facility] Comment on above: COMMUNICATION TECHNICIAN ROUTINE Start: 04-01-2024 End: 04-01-2024 Home visit Nathan Magana COMMUNICATION TECHNICIAN Work Phone: [facility] Comment on above: COMMUNICATION TECHNICIAN ROUTINE Start: 03-30-2024 End: 03-30-2024 Home visit Harish Manzanares COMMUNICATION TECHNICIAN Work Phone: [facility] Comment on above: COMMUNICATION TECHNICIAN ROUTINE Start: 03-28-2024 End: 03-28-2024 Home visit Tita Sam COMMUNICATION TECHNICIAN Work Phone: [facility] Comment on above: COMMUNICATION TECHNICIAN ROUTINE Start: 03-27-2024 End: 03-27-2024 Home visit Afua Rodriguez RN Work Phone: [facility] Comment on above: CARE COORDINATION Start: 03-26-2024 End: 03-26-2024 Telephone encounter Romana Chi MD Work Phone: Orthopaedics Comment on above: Patient Question Start: 03-26-2024 End: 03-26-2024 Home visit Sarwat Brian PT Work Phone: [facility] Comment on above: PT SOC Start: 03-25-2024 End: 03-25-2024 Telephone encounter Allan Polo PSS [facility] Comment on above: Home Care (Confirmat ion Call ) Start: 03-24-2024 End: 03-25-2024 ambulatory [facility] Facility:[facility] Start: 03-10-2024 ambulatory [facility] Facili ty:[facility] Start: 03-10-2024 Encounter for other preprocedural examination [facility] Start: 03-10-2024 End: 03-10-2024 Patient encounter status [facility] Start: 03-10-2024 End: 03-10-2024 Subsequent hospital visit by physician [facility] Comment on above: Primary osteoarthrit is of right knee [M17.11] Start: 03-09-2024 Encounter for other preprocedural examination [facility] Start: 03-09-2024 End: 03-09-2024 Admission to establishment [place] [id number] Work Phone: Pre Anesthesia Start: 03-09-2024 End: 03-09-2024 Anesthesia consultation [place] [id number] Work Phone: Pre Anesthesia Comment on above: Pre-op evaluation (P rimary Dx); Essential hypertension; PE (pulmonary thromboembolism) (HCC); PONV (postoperative nausea and vomiting) Start: 03-09-2024 End: 03-09-2024 Preprocedural examination done [place] [id number] Work Phone: [facility] Work Phone: Start: 03-09-2024 End: 03-09-2024 [facility] Facility:[facility] Start: 03-04-2024 End: 03-04-2024 Telephone encounter Romana Chi MD Work Phone: [address] Comment on above: Pre-Op Teaching Start: 02-25-2024 Patient encounter status Leatha Chi MD Work Phone: [facility] Start: 02-25-2024 Telephone encounter Romana hCi MD Work Phone: Orthopaedics Comment on above: Appointment Start: 02-24-2024 Encounter for gynecological examination (general) (routine) without abnormal findings Thania Brito [facility] Start: 02-24-2024 End: 02-24-2024 ambulatory Thania Leival[facility] Facility:[facility] Start: 02-24-2024 End: 02-24-2024 ambulatory [facility] Facility:[facility] Start: 01-06-2024 End: 01-06-2024 Assay of hemosiderin, quant Sabrina Verduzco MD Work Phone: [facility] Work Phone: Start: 01-06-2024 End: 01-06-2024 Patient encounter procedure Sabrina Verduzco MD Work Phone: [facility] Medical [facility] Comment on above: Routine general [facility] examination at health care facility (Primary Dx); Hyperlipidemia, unspecified hyperlipidemia type; IFG (impaired fasting glucose) Start: 12-25-2023 End: 12-25-2023 Patient encounter procedure Romana Chi MD Work Phone: Orthopaedics Comment on above: Primary osteoarthrit is of both knees (Primary Dx) Start: 12-25-2023 End: 12-25-2023 ambulatory CLAUDETTE Kimberley [place] Facility:[facility] Start: 12-25-2023 End: 12-25-2023 Subsequent hospital visit by physician Radio Gonzales [facility] Work Phone: Radiology Comment on above: Pain [R52] Start: 11-13-2023 Orders Only Romana hernandez MD Work Phone: Orthopaedics Comment on above: Primary osteoarthrit is of both knees (Primary Dx) Start: 11-12-2023 Telephone encounter Romana Chi MD Work Phone: Orthopaedics Comment on above: Patient Question Start: 09-25-2023 End: 09-25-2023 ambulatory ROMANA CHI Facility:[facility] Start: 09-25-2023 End: 09-25-2023 Patient encounter procedure Romana Chi MD Work Phone: Orthopaedics Comment on above: Primary osteoarthrit is of both knees (Primary Dx) Start: 08-27-2023 ambulatory Maalthi Sutton RN [facility] Start: 08-27-2023 Patient encounter procedure Malathi Sutton [facility] Start: 08-27-2023 End: 08-27-2023 Office outpatient visit 15 minutes Sabrina Verduzco MD Work Phone: [facility] Comment on above: Impacted cerumen, ri ght ear (Primary Dx) Start: 05-20-2023 End: 05-20-2023 Patient encounter procedure Romana Chi MD Work Phone: Orthopaedics Comment on above: Aftercare following right hip joint replacement surgery (Primary Dx); Sacroiliitis (HCC); Primary osteoarthritis of both knees Start: 05-20-2023 ambulatory ROMANA Morgan ity:[facility] Start: 05-20-2023 End: 05-20-2023 Subsequent hospital visit by physician [facility] Isaac Work Phone: Radiology Comment on above: Aftercare following right hip joint replacement surgery [Z47.1, Z96.641] Start: 01-16-2023 End: 01-16-2023 Patient encounter procedure Romana Chi MD Work Phone: Orthopaedics Comment on above: Primary osteoarthrit is of both knees (Primary Dx) Start: 01-03-2023 End: 01-03-2023 Subsequent hospital visit by physician [facility] Ct Exam Room 1 [facility] Comment on above: Solitary pulmonary n odule Start: 01-01-2023 End: 01-01-2023 ambulatory [facility] Work Phone: Start: 01-01-2023 End: 01-01-2023 Patient encounter procedure [facility]-Outpatient Breast [facility] Start: 09-12-2022 End: 09-12-2022 Patient encounter procedure Romana Chi MD Work Phone: Orthopaedics Comment on above: Primary osteoarthrit is of both knees (Primary Dx) Start: 07-27-2022 End: 07-27-2022 Office outpatient visit 15 minutes Sabrina Verduzco MD Work Phone: [facility] Comment on above: Essential hypertensi on (Primary Dx); White coat syndrome with diagnosis of hypertension; Impacted cerumen of right ear Start: 07-11-2022 ambulatory Malathi Hopson RN [facility] Start: 07-11-2022 Patient encounter procedure Malathi Hopson RN [facility] Start: 06-13-2022 End: 06-13-2022 Patient encounter procedure Romana Chi MD Work Phone: Orthopaedics Comment on above: Primary osteoarthrit is of right knee; Primary osteoarthritis of left knee Start: 05-16-2022 Telephone encounter Romana Chi MD Work Phone: Orthopaedics Comment on above: Patient Update Start: 05-07-2022 End: 05-07-2022 Patient encounter procedure Alfred Chandler PA-C Work Phone: Orthopaedics Comment on above: Primary osteoarthrit is of right knee (Primary Dx); Primary osteoarthritis of left knee Start: 05-07-2022 End: 05-07-2022 Subsequent hospital visit by physician [facility] Ginger Gray Work Phone: Radiology Comment on above: Primary osteoarthrit is of knees, bilateral [M17.0] Start: 05-04-2022 Orders Only Alfred Chandler PA-C Work Phone: Orthopaedics Comment on above: Primary osteoarthrit is of knees, bilateral (Primary Dx) Start: 03-27-2022 Telephone encounter Romana Chi MD Work Phone: Orthopaedics Comment on above: Appointment Start: 12-15-2021 End: 12-15-[address] Claudette Lima Work Phone: [facility] Start: 12-15-2021 End: 12-15-[address] Claudette Lima Work Phone: [facility]Outpatient Breast [facility] Start: 11-21-2021 End: 11-21-2021 Subsequent hospital visit by physician Abelino Harper MD Work Phone: [facility] Comment on above: Other nonspecific ab normal finding of lung field; Liver disease, unspecified; Pulmonary nodules; Liver lesion Start: 08-09-2021 End: 08-09-2021 Subsequent hospital visit by physician Claudette Lima MD Work Phone: [facility] Comment on above: Nontoxic single thyr oid nodule Start: 11-23-2020 End: 12-23-2020 Preoperative state Mari Rodriguez DO Work Phone: [facility] Work Phone: Start: 11-22-2020 End: 11-25-2020 Evaluation and management of inpatient Mari Michael DO Work Phone: [facility] Comment on above: Closed displaced fra cture of surgical neck of left humerus, unspecified fracture morphology, initial encounter (Primary Dx); Dislocation of left shoulder joint, initial encounter Start: 11-22-2020 End: 11-25-2020 Preoperative state Mari Rodriguez DO Work Phone: [facility] Start: 09-15-2013 Conversion Encounter Sebastian muse MD Work Phone: [facility] Start: 09-15-2013 Legacy Encounter Sebastian hewitt MD [facility] Phone: [facility] Procedures Date Procedure Procedure Detail Performing Clinician Start: 01-06-2025 Comprehensive metabo lic panel Sultana Cohen DO Work Phone: Start: 01-06-2025 Lipid panel Sultana chambers DO Work Phone: Start: 01-06-2025 Lipid 1996 panel - S michael or Plasma Sultana Cohen DO Work Phone: Start: 01-05-2025 Adult depression scr eening assessment Sultana Cohen DO Work Phone: Start: 04-06-2024 Radiologic examinati on knee 3 views Rohith Willis PA-C Work Phone: Start: 03-10-2024 Ct lower extremity w /o contrast material Rohith Willis PA-C Work Phone: Start: 03-09-2024 Ecg routine ecg w/le ast 12 lds i&r only Chel Harrison PA-C Work Phone: Start: 02-25-2024 Mammography Sultana chambers DO Work Phone: Start: 01-06-2024 Adult depression scr eening assessment Sabrina Verduzco MD Work Phone: Start: 01-06-2024 Lipid 1996 panel - S michael or Plasma Pacc 1 Work Phone: Start: 12-25-2023 Arthrocentesis aspir &/inj major jt/bursa w/o us Romana Chi MD Work Phone: Start: 12-25-2023 Radiologic exam knee complete 4/more views Rohith Willis PA-C Work Phone: Start: 09-25-2023 Arthrocentesis aspir &/inj major jt/bursa w/o us Romana Chi MD Work Phone: Start: 05-20-2023 Arthrocentesis aspir &/inj major jt/bursa w/o us Romana Chi MD Work Phone: Start: 05-20-2023 Radex hip unilateral with pelvis 2-3 views Romana Chi MD Work Phone: Start: 01-16-2023 Arthrocentesis aspir &/inj major jt/bursa w/o us Romana Chi MD Work Phone: Start: 01-04-2023 Lipid 1996 panel - S michael or Plasma Sebastian Daniel MD Work Phone: Start: 01-03-2023 Adult depression scr eening assessment [facility] Start: 01-01-2023 End: 01-01-2023 Screening mammography Start: 09-12-2022 Arthrocentesis aspir &/inj major jt/bursa w/o us Romana Chi MD Work Phone: Start: 05-07-2022 Radiologic exam knee complete 4/more views Alfred Chandler PA-C Work Phone: Start: 05-03-2022 Colonoscopy Sabrina cordova MD Work Phone: Start: 12-28-2021 Lipid 1996 panel - S michael or Plasma Sabrina Verduzco MD Work Phone: Start: 12-15-2021 End: 12-15-[address] Claudette Lima Work Phone: Start: 11-25-2020 BASIC METABOLIC PANE L W/ REFLEX TO MG FOR LOW K Taz Bautista MD Work Phone: Start: 11-25-2020 Blood count complete automated Taz Bautista MD Work Phone: Start: 11-24-2020 OPERATIVE REPORT 3m Sca nning Start: 11-24-2020 Radex shoulder 1 view C madelyn Bautista MD Work Phone: Start: 11-24-2020 BASIC METABOLIC PANE L W/ REFLEX TO MG FOR LOW K Taz Bautista MD Work Phone: Start: 11-24-2020 Blood count complete automated Taz Bautista MD Work Phone: Start: 11-23-2020 ADD ON LAB TEST Marcos schaefer MD Work Phone: Start: 11-23-2020 Procalcitonin (pct) Mathew Crawford MD Work Phone: Start: 11-23-2020 Ecg routine ecg w/le ast 12 lds w/i&r Marcos Minler MD Work Phone: Start: 11-23-2020 BASIC METABOLIC PANE L W/ REFLEX TO MG FOR LOW K Taz Bautista MD Work Phone: Start: 11-23-2020 Blood count complete automated Taz Bautista MD Work Phone: Start: 11-23-2020 Ct upper extremity w /o contrast material Karan Crawford MD Work Phone: Start: 11-23-2020 Radiologic exam ches t single view Karan Crawford MD Work Phone: Start: 11-23-2020 ADD ON LAB TEST Karan Crawford MD Work Phone: Start: 11-23-2020 Ecg routine ecg w/le ast 12 lds w/i&r Karan Crawford MD Work Phone: Start: 11-23-2020 Radex shoulder compl ete minimum 2 views Bella Wisdom MD Work Phone: Start: 11-22-2020 Radex shoulder compl ete minimum 2 views Bella Wisdom MD Work Phone: Start: 11-22-2020 Antibody screen Mari Rodriguez DO Work Phone: Start: 11-22-2020 Basic metabolic pane l calcium total Last Cunha PA-C Work Phone: Start: 11-22-2020 Blood typing serologic abo Last Cunha PA-C Work Phone: Start: 11-22-2020 Radex shoulder compl ete minimum 2 views Bella Wisdom MD Work Phone: Start: 11-22-2020 PROCEDURAL SEDATION Bessy nava Rodriguez DO Work Phone: Start: 11-14-2020 Mammography Alfred Shirley is PA-C Work Phone: Start: 02-19-2017 Colonoscopy Abelino hewitt MD Work Phone: Start: 09-15-2013 COLONOSCOPY W/ OR W/ O BIOPSY Sebastian Daniel MD Work Phone: Start: 09-14-2008 Colonoscopy Alfred Shirley is PA-C Work Phone: Plan of Treatment Date Care Activity Detail Author Start: 05-03-2032 Screening for malign ant neoplasm of colon [facility] Start: 01-06-2030 Lipid panel Lipid Panel [facility] Start: 01-05-2029 Lipid panel [facility] Start: 01-05-2028 Lipid 1996 panel - S michael or Plasma Lipid Screening [facility] Start: 01-05-2028 Lipid panel [facility] Start: 01-05-2028 LIPID SCREEN LIPID SCREEN [facility] Start: 03-25-2027 Diabetes Screening Diabetes Screenin [facility] Start: 03-09-2027 Diabetes Screening Diabetes Screenin [facility] Start: 02-19-2027 Screening for malign ant neoplasm of colon [facility] Start: 01-05-2027 Diabetes mellitus screening Diabetes Screening [facility] Start: 12-28-2026 Lipid panel [facility] Start: 02-05-2026 Medicare Annual Well ness (AWV) Medicare Annual Wellness (AWV) [facility] Start: 01-17-2026 End: 01-17-2026 Patient encounter procedure 01/17/2026 10:00 AM EDT Office Visit [facility] [address] [place] [phone] Sultana Cohen DO [address] [place] [address] [facility] Start: 01-05-2026 Depression Screening Depression Scre ening [facility] Start: 01-04-2026 Diabetes mellitus screening Diabetes Screening [facility] Start: 01-04-2026 DIABETES SCREEN DIABETES SCREEN [facility] Start: 01-04-2026 Diabetes Screening Diabetes Screenin g [facility] Start: 07-29-2025 COVID-19 Vaccine () COVID-19 Vaccine () [facility] Comment on above: Postponed from 03/15 (Patient Refused) Start: 04-13-2025 BP Controlled (<130/80) BP Controlle d (<130/80) [facility] Start: 04-10-2025 BP Controlled (<130/80) BP Controlle d (<130/80) [facility] Start: 04-08-2025 BP Controlled (<130/80) BP Controlle d (<130/80) [facility] Start: 04-02-2025 End: 04-02-2025 Patient encounter procedure 04/02/2025 10:15 AM EDT Office Visit Orthopaedics [address] [address] Romana Chi MD [address] [address] 1 year from surgery f/u Orthopaedics Comment on above: 1 year from surgery f/u Start: 04-01-2025 BP Controlled (<130/80) BP Controlle d (<130/80) [facility] Start: 03-28-2025 BP Controlled (<130/80) BP Controlle d (<130/80) [facility] Start: 03-15-2025 Influenza vaccination Influenz a Vaccine (Season Ended) [facility] Start: 02-24-2025 Screening for malign ant neoplasm of breast Mammogram [facility] Start: 02-04-2025 Medicare Annual Well ness (AWV) Medicare Annual Wellness (AWV) [facility] Start: 01-11-2025 Influenza vaccination Influenza Vacc ine (#1) [facility] Comment on above: Postponed from 03/15 (Patient Refused) Start: 01-06-2025 End: 01-06-2025 Patient encounter procedure [facility] Start: 01-05-2025 Depression Screening Depression Scre ening [facility] Start: 09-16-2024 DTaP/Tdap/Td vaccine (2 - Td or Tdap) DTaP/Tdap/Td vaccine (2 - Td or Tdap) [facility] Start: 09-16-2024 DTaP/Tdap/Td vaccine (2 - Td) DTaP/Tdap/Td vaccine (2 - Td) [facility] Work Phone: Start: 09-16-2024 DTaP/Tdap/Td Vaccine s (2 - Td or Tdap) DTaP/Tdap/Td Vaccines (2 - Td or Tdap) [facility] Start: 09-16-2024 Urine microalbumin profile DTaP,Tdap,Td Vaccine (2 - Td or Tdap) [facility] Start: 08-27-2024 COVID-19 Vaccine ( season) COVID-19 Vaccine ( season) [facility] Comment on above: Postponed from 03/15 (Patient Refused) Start: 07-15-2024 Advance Directive Discussion Advance Directive Discussion [facility] Start: 06-19-2024 End: 06-19-2024 Patient encounter procedure 06/19/2024 1:45 PM EST Office Visit Orthopaedics [address] [id number] Romana Chi MD [address] [address] 3rd post op Rt tka chau 03/24/24 Orthopaedics Comment on above: 3rd post op Rt tka van costello 03/24/24 Start: 05-06-2024 End: 05-06-2024 Patient encounter procedure 05/06/2024 9:00 AM EDT Office Visit Orthopaedics [address] [address] Romana Chi MD [address] [address] 2nd post op Rt tka chau 03/24/24 Orthopaedics Comment on above: 2nd post op Rt tka van costello 03/24/24 Start: 04-06-2024 End: 04-06-2024 Patient encounter procedure Orthopaedics Comment on above: 1st post op Rt tka van hijani 03/24/24 R knee Start: 03-24-2024 End: 03-24-2024 Admission to same day surgery center 03/24/2024 7:30 AM EDT - 03/24/2024 10:15 AM EDT Surgery [facility] Surgery [address] [place] [address] Romana Chi MD [address] [address] ROBOTIC ASSISTED TOTAL KNEE ARTHROPLASTY [facility] Comment on above: ROBOTIC ASSISTED TOT AL KNEE ARTHROPLASTY Start: 03-24-2024 End: 03-24-2024 Arthrp kne condyle&platu medial&lat compartments ROBOTIC ASSISTED TOTAL KNEE ARTHROPLASTY Primary osteoarthritis of both knees 03/24/2024 7:30 AM EDT ME OR Start: 03-24-2024 Subsequent hospital visit by physician 03/24/2024 7:30 AM EDT Hospital Encounter [facility] Surgery [address] [place] [address] Romana Chi MD [address] [address] Primary osteoarthritis of both knees [M17.0] [facility] Surgery Comment on above: Primary osteoarthrit is of both knees [M17.0] Start: 03-21-2024 DIABETES SCREEN DIABETES SCREEN [facility] Start: 03-15-2024 Covid-19 Vaccine ( season) Covid-19 Vaccine () [facility] Start: 03-15-2024 Covid-19 Vaccine () Covid-19 Vaccine () [facility] Start: 03-15-2024 Influenza vaccination [facility] Start: 03-10-2024 End: 03-10-2024 Patient encounter procedure 03/10/2024 9:00 AM EDT Appointment Radiology [address] [place] [address] R KNEE Radiology Comment on above: [facility] CT R KNEE Start: 03-09-2024 End: 03-09-2024 Anesthesia consultation 03/09/2024 10:40 AM EDT PAT Pre Anesthesia [address] [place] [address] 1, Pacc [address] [place] [address] ROBOTIC ASSISTED TOTAL KNEE ARTHROPLASTY [04769] - Knee - Right Pre Anesthesia Comment on above: ROBOTIC ASSISTED TOT AL KNEE ARTHROPLASTY [70514] - Knee - Right Start: 02-03-2024 Medicare Annual Well ness (AWV) Medicare Annual Wellness (AWV) [facility] Start: 01-12-2024 Influenza vaccination Influenza Vacc ine (#1) [facility] Comment on above: Postponed from 03/15 (Patient Refused) Start: 01-06-2024 End: 01-05-2025 CBC panel - Blood by Automated count CBC Lab Routine Hyperlipidemia, unspecified hyperlipidemia type Expected: 01/06/2024 (Approximate), Expires: 01/05/2025 [facility] Work Phone: Comment on above: Expected: 01/06/2024 (Approximate), Expires: 01/05/2025 Start: 01-06-2024 End: 01-05-2025 Comprehensive metabolic 1998 panel - Serum or Plasma Comprehensive metabolic panel Lab Routine Hyperlipidemia, unspecified hyperlipidemia type Expected: 01/06/2024 (Approximate), Expires: 01/05/2025 [facility] Comment on above: Expected: 01/06/2024 (Approximate), Expires: 01/05/2025 Start: 01-06-2024 End: 01-05-2025 Hemoglobin A1c measurement Hemoglobin A1c Lab Routine IFG (impaired fasting glucose) Expected: 01/06/2024 (Approximate), Expires: 01/05/2025 [facility] Comment on above: Expected: 01/06/2024 (Approximate), Expires: 01/05/2025 Start: 01-06-2024 End: 01-05-2025 Lipid 1996 panel - Serum or Plasma Lipid panel Lab Routine Hyperlipidemia, unspecified hyperlipidemia type Expected: 01/06/2024 (Approximate), Expires: 01/05/2025 [facility] Comment on above: Expected: 01/06/2024 (Approximate), Expires: 01/05/2025 Start: 01-06-2024 End: 01-06-2024 Patient encounter procedure 01/06/2024 10:40 AM EDT Office Visit [facility] [address] [place] [phone] Sabrina Verduzco MD [address] [place] [address] [facility] Start: 01-05-2024 Diabetes mellitus screening Diabetes Screening [facility] Start: 01-04-2024 Depression Screening Depression Scre ening [facility] Start: 01-04-2024 Pneumococcal Vaccine : 65+ Years (3 - PPSV23 if available, else PCV20) Pneumococcal Vaccine: 65+ Years (3 - PPSV23 if available, else PCV20) [facility] Comment on above: Postponed from 09/16 (Patient Refused) Start: 01-04-2024 Pneumococcal Vaccine : 65+ Years (3 of 3 - PPSV23 or PCV20) Pneumococcal Vaccine: 65+ Years (3 of 3 - PPSV23 or PCV20) [facility] Comment on above: Postponed from 12/27 (Patient Refused) Start: 01-04-2024 Zoster Vaccines (2 of 3) Zoste r Vaccines (2 of 3) [facility] Comment on above: Postponed from 11/23 (Patient Refused) Start: 01-02-2024 Screening for malign ant neoplasm of breast Mammogram [facility] Start: 12-25-2023 End: 12-25-2023 Patient encounter procedure 12/25/2023 11:00 AM EDT Office Visit Orthopaedics [address] [address] Romana Chi MD [address] [address] bi lat knee inj cortisone Orthopaedics Comment on above: bi lat knee inj gayla isone Start: 08-27-2023 End: 08-27-2024 EAR CERUMEN REMOVAL EAR CERUMEN REMOVAL Procedures Routine Impacted cerumen, right ear Expected: 08/27/2023 (Approximate), Expires: 08/27/2024 [facility] Work Phone: Comment on above: Expected: 08/27/2023 (Approximate), Expires: 08/27/2024 Start: 07-15-2023 Advance Directive Discussion Advance Directive Discussion [facility] Start: 07-15-2023 Behavioral Health Screening Behavioral Health Screening [facility] Start: 07-12-2023 COVID-19 Vaccine (3 - Booster for Pfizer series) COVID-19 Vaccine (3 - Booster for Pfizer series) [facility] Comment on above: Postponed from 11/29 (Patient Refused) Start: 03-15-2023 Covid-19 Vaccine ( season) Covid-19 Vaccine ( season) [facility] Start: 03-15-2023 Influenza vaccination [facility] Start: 01-11-2023 Influenza vaccination Influenza Vacc ine (#1) [facility] Comment on above: Postponed from 03/15 (Patient Refused) Start: 01-11-2023 End: 01-11-2023 Patient encounter procedure 01/11/2023 1:20 PM EDT Office Visit [facility] Pulmonary and Sleep Medicine [address] [place] [phone] Ibis Caldwell, YON - RITA [address] [place] [address] [facility] Start: 01-03-2023 End: 01-03-2023 Patient encounter procedure 01/03/2023 Office Visit Family Medicine Claudette Lima MD [address] [facility], [address] [place] [address] [facility] Start: 12-28-2022 Diabetes mellitus screening Diabetes Screening [facility] Start: 12-15-2022 Screening for malign ant neoplasm of breast Mammogram [facility] Start: 11-14-2022 Screening for malign ant neoplasm of breast Breast cancer screen [facility] Start: 08-01-2022 Creatinine measurement Creatinine [facility] Start: 07-15-2022 ADVANCE DIRECTIVE DISCUSSION ADVANCE DIRECTIVE DISCUSSION [facility] Start: 07-15-2022 DEPRESSION ASSESSMENT DEPRESSION ASS ESSMENT [facility] Start: 03-15-2022 Influenza vaccination S [facility] Start: 01-03-2022 Potassium [Moles/vol ume] in Serum or Plasma Potassium [facility] Start: 12-28-2021 End: 12-28-2021 Patient encounter procedure 12/28/2021 Office Visit Family Medicine Claudette Lima MD [address] [facility] [place] [address] [facility] Start: 12-27-2021 Pneumococcal Vaccine : 50+ (3 of 3 - PCV20 or PCV21) Pneumococcal Vaccine: 50+ (3 of 3 - PCV20 or PCV21) [facility] Start: 12-27-2021 Pneumococcal Vaccine : 50+ Years (3 of 3 - PCV20 or PCV21) Pneumococcal Vaccine: 50+ Years (3 of 3 - PCV20 or PCV21) [facility] Start: 12-27-2021 Pneumococcal Vaccine : 65+ (3 - PPSV23 or PCV20) Pneumococcal Vaccine: 65+ (3 - PPSV23 or PCV20) [facility] Start: 12-27-2021 Pneumococcal Vaccine : 65+ (3 of 3 - PPSV23 or PCV20) Pneumococcal Vaccine: 65+ (3 of 3 - PPSV23 or PCV20) [facility] Start: 12-27-2021 Pneumococcal Vaccine : 65+ Years (3 of 3 - PPSV23 or PCV20) Pneumococcal Vaccine: 65+ Years (3 of 3 - PPSV23 or PCV20) [facility] Start: 12-12-2021 End: 12-12-2021 Patient encounter procedure 12/12/2021 Office Visit Family Medicine Claudette Lima MD [address], [address] [place] [address] [facility] Start: 12-08-2021 Lipid panel [facility] Start: 11-25-2021 Creatinine measurement Creatinine mo nitoring [facility] Start: 11-25-2021 Potassium monitoring Potassium monit oring [facility] Start: 11-24-2021 End: 11-24-2021 Patient encounter procedure 11/24/2021 Office Visit Pulmonology Ibis Caldwell APRN - CELLULAR BIOLOGIST [address] [place], [place] [id number] [facility] Start: 11-14-2021 Mammography [facility] Start: 11-14-2021 Screening for malign ant neoplasm of breast Mammogram Screening [facility] Start: 09-23-2021 Depression Screen Depression Screen [facility] Start: 08-18-2021 End: 08-18-2021 Patient encounter procedure 08/18/2021 Office Visit Pulmonology Romaine Bernardo MD [address] [place] [address] [facility] Start: 07-15-2021 ADVANCE DIRECTIVE DISCUSSION ADVANCE DIRECTIVE DISCUSSION [facility] Start: 07-15-2021 DEPRESSION ASSESSMENT DEPRESSION ASS ESSMENT [facility] Start: 03-15-2021 Influenza vaccination Flu vaccine (# 1) [facility] Start: 03-06-2021 COVID-19 Vaccine (3 - Booster for Pfizer series) COVID-19 Vaccine (3 - Booster for Pfizer series) [facility] Start: 12-22-2020 End: 12-22-2020 Patient encounter procedure 12/22/2020 Office Visit Family Medicine Claudette Lima MD [address], [address] [place] [address] [phone] [facility] Start: 12-21-2020 Annual Wellness Visi t (AWV) Annual Wellness Visit (AWV) [facility] Start: 12-20-2020 Lipid panel Lipid screen [facility] Work Phone: Start: 12-08-2020 End: 12-08-2020 Evaluation and management of inpatient 12/08/2020 Office Visit Family Medicine Claudette Lima MD [address] [facility] [place], [place] [phone] [facility] Start: 11-29-2020 COVID-19 VACCINE (3 - Booster for Pfizer series) COVID-19 VACCINE (3 - Booster for Pfizer series) [facility] Start: 11-29-2020 COVID-19 VACCINE (3 - Pfizer series) COVID-19 VACCINE (3 - Pfizer series) [facility] Start: 10-04-2020 COVID-19 Vaccine (2 - Pfizer 2-dose series) COVID-19 Vaccine (2 - Pfizer 2-dose series) [facility] Work Phone: Start: 09-17-2019 Pneumococcal 65+ yea rs Vaccine (2 - PPSV23 or PCV20) Pneumococcal 65+ years Vaccine (2 - PPSV23 or PCV20) [facility] Start: 09-17-2019 Pneumococcal 65+ yea rs Vaccine (2 of 2 - PPSV23) Pneumococcal 65+ years Vaccine (2 of 2 - PPSV23) [facility] Start: 09-17-2019 Pneumococcal Vaccine : 65+ Years (#3) Pneumococcal Vaccine: 65+ Years (#3) [facility] Start: 2016 PNEUMOCOCCAL: 65+ (1 - PCV) PNEUMOCOCCAL: 65+ (1 - PCV) [facility] Start: 05-31-2016 LIPID SCREEN LIPID SCREEN [facility] Start: 11-24-2015 Shingles Vaccine (2 of 3) Shingles Vaccine (2 of 3) [facility] Start: 11-24-2015 Shingrix Vaccine (2 of 3) Shingrix Vaccine (2 of 3) [facility] Start: 11-24-2015 Zoster Vaccines (2 of 3) Zoste r Vaccines (2 of 3) [facility] Start: 09-14-2013 Colonoscopy COLONOSCOPY [facility] Start: 09-14-2013 COLORECTAL CANCER SCREENING COLORECTAL CANCER SCREENING [facility] Start: 09-14-2013 Screening for malign ant neoplasm of colon [facility] Start: 2011 Hepatitis B Vaccines (1 of 3 - Risk 3-dose series) Hepatitis B Vaccines (1 of 3 - Risk 3-dose series) [facility] Start: 2011 RSV Immunization age d 60 or older (1 - 1-dose 60+ series) RSV Immunization aged 60 or older (1 - 1-dose 60+ series) [facility] Start: 2011 RSV Immunization for Adults (1 - Risk 60-74 years 1-dose series) RSV Immunization for Adults (1 - Risk 60-74 years 1-dose series) [facility] Start: 2011 RSV Vaccine (1 - 1-d ose 60+ series) RSV Vaccine (1 - 1-dose 60+ series) [facility] Start: 2011 RSV Vaccine (1 - Ris k 60-74 years 1-dose series) RSV Vaccine (1 - Risk 60-74 years 1-dose series) [facility] Start: 2001 SHINGRIX VACCINE (1 of 2) SHINGRIX VACCINE (1 of 2) [facility] Start: 1996 COLOGUARD (FIT-DNA) COLOGUARD (FIT-D NA) [facility] Start: [address] COLONOGRAPHY [facility] Start: 1996 FECAL OCCULT BLOOD FECAL OCCULT BLOO D [facility] Start: 1996 Screening for malign ant neoplasm of colon [facility] Start: 1996 SIGMOIDOSCOPY SIGMOIDOSCOPY [facility] Start: 1991 Diabetes screen Diabetes screen [facility] Work Phone: Start: 1986 Diabetes screen Diabetes screen [facility] Start: 1970 Hepatitis A Vaccines (1 of 2 - Risk 2-dose series) Hepatitis A Vaccines (1 of 2 - Risk 2-dose series) [facility] Start: 1970 Urine microalbumin profile DTAP,TDAP,TD (1 - Tdap) [facility] Start: 1969 ANNUAL PCP TEAM RUBBER WASHER EMILE DISEASE VISIT ANNUAL PCP TEAM CHRONIC DISEASE VISIT [facility] Start: 1969 Anxiety Screening Anxiety Screening [facility] Start: 1969 BP CONTROLLED (<130/80) BP CONTROLLE D (<130/80) [facility] Start: 1969 Depression Screening Depression Scre ening [facility] Start: 1969 HEPATITIS C SCREENING HEPATITIS C SC REENING [facility] Start: 1969 Hepatitis C screening Hepatitis C Sc reening [facility] Start: 1952 Hepatitis A Vaccines (1 of 2 - Risk 2-dose series) Hepatitis A Vaccines (1 of 2 - Risk 2-dose series) [facility] Start: 1951 Medicare Annual Well ness (AWV) Medicare Annual Wellness (AWV) [facility] Start: 1951 Screening for malign ant neoplasm of colon [facility] Start: 1951 Screening for osteoporosis Bone Density Scan [facility] Start: 1951 Thyroid Nodule Ultrasound Thyroid Nodule Ultrasound [facility] Basic Metabolic Pane l w/ Reflex to MG Basic Metabolic Panel w/ Reflex to MG Lab Routine Daily until discontinued starting 11/23/2020, 3 completed [facility] Work Phone: Comment on above: Daily until disconti nued starting 11/23/2020, 3 completed CBC panel - Blood by Automated count CBC Lab Routine Daily until discontinued starting 11/23/2020, 3 completed [facility] Work Phone: Comment on above: Daily until disconti nued starting 11/23/2020, 3 completed End: 11-21-2021 CT Chest Abdomen Pelvis WO Contrast [facility] Work Phone: Comment on above: 1 Occurrences starti ng 11/21/2021 until 11/21/2021 End: 01-03-2023 CT Chest WO contrast [facility] Work Phone: Comment on above: Once for 1 Occurrenc es starting 01/03/2023 until 01/03/2023 End: 03-26-2025 CT Knee - right WO contrast CT KNEE WO IVCON RIGHT Radiology Routine Primary osteoarthritis of right knee Preoperative testing 1 Occurrences starting 02/25/2024 until 03/26/2025 [facility] Work Phone: Comment on above: 1 Occurrences starti ng 02/25/2024 until 03/26/2025 End: 11-24-2020 FL Greater Than 1 Hour FL Greater Than 1 Hour Imaging Routine Once for 1 Occurrences starting 11/24/2020 until 11/24/2020 [facility] Work Phone: Comment on above: Once for 1 Occurrenc es starting 11/24/2020 until 11/24/2020 FL Greater Than 1 Hour FL Greate r Than 1 Hour Imaging Routine 11/24/2020 2:37 PM EDT [facility] Work Phone: Oxygen therapy [[facility] Data Set] Initiate Oxygen Therapy Protocol Respiratory Care Routine Daily until discontinued starting 11/23/2020 [facility] Work Phone: Comment on above: Daily until disconti nued starting 11/23/2020 Spirometry panel Incentive mary jane metry RT Respiratory Care Routine Every 2hr while awake until discontinued starting 11/23/2020 [facility] Work Phone: Comment on above: Every 2hr while awak e until discontinued starting 11/23/2020 End: 08-09-2021 US HEAD NECK SOFT TISSUE THYROID [facility] Work Phone: Comment on above: Once for 1 Occurrenc es starting 08/09/2021 until 08/09/2021 End: 06-03-2023 XR KNEE GENERAL 4V AP BOTH/PA BOTH/LAT/MERC BILATERAL XR KNEE GENERAL 4V AP BOTH/PA BOTH/LAT/MERC BILATERAL Radiology Routine Primary osteoarthritis of knees, bilateral 1 Occurrences starting 05/04/2022 until 06/03/2023 [facility] Work Phone: Comment on above: 1 Occurrences starti ng 05/04/2022 until 06/03/2023 [facility] Immunizations Immunization Date Immunization Notes Care Provider Tj goldberg 10-04-2020 COVID-19, Pfizer Pur ple top, DILUTE for use, 12+ yrs, 30mcg/0.3mL dose Claudette Lima MD Work Phone: [facility] Work Phone: 09-13-2020 COVID-19, Pfizer Pur ple top, DILUTE for use, 12+ yrs, 30mcg/0.3mL dose Claudette Lima MD Work Phone: [facility] Work Phone: 05-04-2020 influenza, injectabl e, quadrivalent, preservative free [facility] 1 [facility] 05-04-2020 Influenza, Quadv, adjuvanted, 65 yrs +, IM, PF (Fluad) Claudette Lima MD Work Phone: [facility] Work Phone: 05-04-2020 influenza virus vacc ine, unspecified formulation [facility] 1 [facility] 05-06-2019 influenza virus vacc ine, unspecified formulation Mari Rodriguez DO Work Phone: [facility] Work Phone: 05-06-2019 influenza, injectabl e, quadrivalent, contains preservative Sabrina Verduzco MD Work Phone: [facility] 12-27-2016 pneumococcal conjuga te vaccine, 13 valent Mari Rodriguez DO Work Phone: [facility] 06-28-2016 influenza, injectabl e, quadrivalent, contains preservative Mari Rodriguez DO Work Phone: [facility] 09-29-2015 zoster vaccine, live Mari Rodriguez DO Work Phone: [facility] 09-16-2014 pneumococcal polysaccharide vaccine, 23 valent Mari Rodriguez DO Work Phone: [facility] Work Phone: 09-16-2014 tetanus toxoid, redu adonay diphtheria toxoid, and acellular pertussis vaccine, adsorbed Mari Rodriguez DO Work Phone: [facility] Work Phone: 06-30-2013 influenza virus vacc ine, unspecified formulation Mari Rodriguez DO Work Phone: [facility] Work Phone: 06-30-2013 influenza virus vacc ine, whole virus Sabrina Verduzco MD Work Phone: [facility] 05-10-2010 Influenza Vaccine, unspecified formulation Mari Rodriguez DO Work Phone: [facility] Work Phone: 05-10-2010 influenza, seasonal, injectable Sabrina Verduzco MD Work Phone: [facility] 05-10-2010 influenza, seasonal, injectable, preservative free Sabrina Verduzco MD Work Phone: [facility] Payers Date Payer Category Payer Self-pay [id number] 2021 Medicare supplementa l policy (as second payer) AARP [id number] 2021 Unknown AARP AARP [id number] 2021-Present [address] [place] [address] Supplement [id number] 2016 Private Health Insurance [facility] AARP SUPPLEMENT [id number] 2016-Present [phone] [address] [place] [address] Indemnity [id number] 2016 Private Health Insurance [id number] 2016 Medicare [id number] 2016 Medicare [id number] Unknown [id number] Unknown [id number] Unknown [id number] Unknown [id number] Unknown [id number] Social History Date Type Detail Facility Start: 11-25-2020 End: 07-12-2022 Tobacco smoking status HIIS Never smoker [facility] Work Phone: Start: 11-25-2020 End: 07-12-2022 Tobacco use and exposure Never used [facility] Start: 11-25-2020 End: 06-19-2024 Alcohol intake Current drinker of alcohol (finding) [facility] Work Phone: Start: 09-23-2020 History SDOH Alcohol Frequency 2 [facility] Work Phone: Start: 09-23-2020 History SDOH Alcohol Std Drinks 1 [facility] Work Phone: Start: 09-23-2020 History SDOH Social Connections Phone 5 [facility] Work Phone: Start: 09-23-2020 History SDOH Social Connections Living 3 [facility] Work Phone: Start: 09-23-2020 History SDOH Physica l Activity DPW 7 [facility] Work Phone: Start: 1950 Sex Assigned At Not on file [facility] Work Phone: Start: 04-27-2022 End: 07-27-2022 Exposure to SARS-CoV-2 (event) Not sure [facility] Start: 02-03-2021 End: 01-06-2025 Alcohol intake Ex-drinker (finding) [facility] Work Phone: Start: 12-08-2020 History SDOH Alcohol Comment very rare occasion [facility] Work Phone: Start: 12-15-2021 End: 10-29-2022 Tobacco smoking status NHIS Unknown if ever smoked [facility] Start: 1950 Sex Assigned At Female C [facility] Start: 03-31-2012 Alcohol Comment rarely 6 per year Cl [facility] Start: 01-03-2023 End: 01-06-2024 History of Social function [facility] Start: 01-03-2023 End: 01-06-2024 Humiliation, Afraid, Rape, and Kick questionnaire [HARK] [facility] Within the last year , have you been afraid of your partner or ex-partner? Patient refused [facility] Do you belong to any clubs or organizations such as [employer] groups, [email or web address], [employer] or athletic groups, or school groups? No [facility] Are you now , , , , never or living with a partner? [facility] How often to you hav e a drink containing alcohol? Monthly or less [facility] How many standard dr inks containing alcohol do you have on a typical day? 1 or 2 [facility] How often do you hav e 6 or more drinks on 1 occasion? Never [facility] Do you feel stress - tense, restless, nervous, or anxious, or unable to sleep at night because your mind is troubled all the time - these days [OSQ] Not at all [facility] (I/We) worried wheth er (my/our) food would run out before (I/we) got money to buy more. Never true [facility] Do you belong to any clubs or organizations such as [employer] groups, [email or web address], [employer] or athletic groups, or school groups? Yes [facility] Start: 02-12-2022 Sex Female (finding) [facility] NEGATED: Highlighted rowStart: NINF History of tobacco use Passive smoker [facility] Medical Equipment Procedure Code Equipment Code Equipment Origin al Text Equipment Identifier Dates Head V40 36mm +2 .5mm Offset Taper Biolox Delta Femoral Hip - [id number] Start: 08-30-2016 Stem Accolade Ii 7 127d Femoral - [id number] Start: 08-30-2016 Shell 56mm E Hemispherical Tritanium Acetabular Primary Rim Cluster Hole - [id number] Start: 08-30-2016 Liner 36mm 0d E X3 5.9mm Acetabular Hip - [id number] Start: 08-30-2016 Baseplate Triath margie 4 Tritanium Tibial Coated Sterile Knee - [id number] Start: 03-24-2024 Component Triath isacc 4 Pa Femoral Cruciate Retain Bead Knee Right - [id number] Start: 03-24-2024 Insert Triathlon 4 9mm Tibial Bearing Condylar Stabilize Sterile Knee - [id number] Start: 03-24-2024 Component 32mm Tritanium 10mm Patellar Asymmetric - [id number] Start: 03-24-2024 Goals Date Patient Goal Desired Activity /State Functional Status Date Assessment Result Facility 01-06-2025 Total score [AUDIT-C] 0 01/07/20 9:47 AM EDT Maria De Jesus Mccollum MA [facility] Clinical Notes 03-31-2012 to 01-06-2025 Assessment & Plan Note - Sultana Cohen DO - 01/06/2025 9:40 AM EDTAssessment & Plan Note - Sultana Cohen DO - 01/06/2025 9:40 AM EDTBbhaskar Cohen DO - 01/06/2025 9:40 AM EDT Note Date & Type Note Facility 01-06-2025 Evaluation + Plan note Associated Problem(s): History of pulmonary embolus (PE) Provoked. Completed treatment. [facility] 01-06-2025 Evaluation + Plan note Associated Problem(s): IFG (impaired fasting glucose) Monitor glucose yearly. [facility] 01-06-2025 Evaluation + Plan note Associated Problem(s): Osteopenia Declined fosamax at this time. Will review the supplements she discussed at her visit and determine next steps. [facility] 01-06-2025 History of Present illness Narrative Images from the original note were not included. [facility] [address] [facility] [address] Dept: [phone] Dept Visit Type: .Medicare Annual Wellness PCP: Sultana Cohen DO Reason for Visit: Medicare Annual Wellness Visit Subsequent ASSESSMENT AND PLAN Assessment & Plan Annual physical exam Up to date on vaccinations. Declined further shingles vaccine d/t cost. Orders: Comprehensive metabolic panel; Future CBC; Future Lipid panel; Future Hyperlipidemia, unspecified hyperlipidemia type Chronic. Monitor. Continue lipitor and adjust as needed. Orders: Lipid panel; Future History of pulmonary embolus (PE) Provoked. Completed treatment. IFG (impaired fasting glucose) Monitor glucose yearly. Osteopenia, unspecified location Declined fosamax at this time. Will review the supplements she discussed at her visit and determine next steps. Palmar erythema With pruritus. Histamine response to alcohol? Evaluate bilirubin on CMP to r/o cholestasis, but doesn't have any abdominal symptoms or jaundice. Follow up in about 1 year (around 01/06/2026) for AWV. There are no Patient Instructions on file for this visit. SUBJECTIVE HPI Zeenat Mejia presents for an annual exam. She has the following concerns today: Follows with specialists: Dermatology Podiatry Chiropractic Ophthalmology Orthopedics - Dr. Chi (knee replacement) Gynecology - Dr. Brito Never started the fosamax d/t risk of SE. Instead took collagen peptides with a probiotic but caused diarrhea. Fosteum - supplement? Small amount of etoh is causing hand and feet itching erythema. Happened with wine, vodka, and tequila. Doesn't drink often. Never had this issue in the past. No association with abdominal pain and yellow of skin. Review of Systems Pertinent ROS noted in the HPI and all other systems are negative. I have reviewed and reconciled the medication list with the patient today. Current Medications[1] Also reviewed during this visit: The following health maintenance schedule was reviewed with the patient and provided in printed form in the after visit summary: Health Maintenance Topic Date Due RSV Immunization for Adults (1 - Risk 60-74 years 1-dose series) Never done Pneumococcal Vaccine: 50+ Years (3 of 3 - PCV20 or PCV21) 12/27/2021 DTaP/Tdap/Td Vaccines (2 - Td or Tdap) 09/16/2024 Medicare Annual Wellness (AWV) 02/04/2025 Mammogram 02/24/2025 COVID-19 Vaccine (3 - 2023- season) 2025 (Originally 03/15/2024) Influenza Vaccine (Season Ended) 2025 Depression Screening 01/05/2026 Diabetes Screening 01/05/2027 Lipid Panel 01/05/2029 Colorectal Cancer Screening 05/03/2032 Hepatitis C Screening Completed Bone Density Scan Completed RSV Immunization under 20 Months Aged Out HIB Vaccines Aged Out Hepatitis B Vaccines Aged Out IPV Vaccines Aged Out Hepatitis A Vaccines Aged Out Meningococcal Vaccine Aged Out Rotavirus Vaccines Aged Out HPV Vaccines Aged Out Meningococcal B Vaccine Aged Out Zoster Vaccines Discontinued Health Risk Assessment General: General In general, how would you say your health is?: Very good In the past 7 days, have you experienced any of the following: New or Increased Pain, New or Increased Fatigue, Loneliness, Social Isolation, Stress or Anger?: No Do you get the social and emotional suppport you need?: Yes Health Habits/Nutrition: Health Habits / Nutrition On average, how many days per week do you engage in moderate to strenous exercise (like a brisk walk)?: 2 days On average, how man minutes do you engage in exercise at this level?: 60 min Have you lost any weight without trying in the past 3 months? : No Have you seen the dentist within the past year?: Yes Hearing/ Vision: Hearing / Vision Do you or your family notice any trouble with your hearing that hasn't been managed with hearing aids?: No Do you have difficulty driving, watching TV, or doing any of your daily activities because of your eyesight?: No Have you had an eye exam within the past year?: Yes No results found. Interventions: Safety: Safety Do you have a working smoke detector?: Yes Do you have any tripping hazards - loose or unsecured carpets or rugs?: No Do you have any tripping hazards - clutter in doorways, halls, or stairs?: (!) Yes Do you have either shower bars, grab bars, non-slip mats or non-slip surfaces in your shower or bathtub? : Yes Do all your stairways have a railing or banister? : (!) No Do you fasten your seatbelt when you are in a car?: Yes ADL: ADL In the past 7 days, did you need help from others to perform any of the following everyday activities: Eating, dressing, grooming,bathing, toileting, or walking / balance? : No In the past 7 days, did you need help from others to take care of any of the following: laundry, housekeeping, banking / finances,shopping, telephone use, food preparation, transportation, or taking medications? : No Living Will: Living Will Do you have a living will?: Yes Cognitive: Cognitive Screening: Mini-Cog Words Recalled: 3 Total Score Interpretation: Normal Mini-Cog Fall Risk: Fall Risk One or more falls in the last year:: No Advised to use a cane or walker to get around safely:: No Feels unsteady when walking:: No Steadies self on furniture while walking at home:: No Worried about falling:: Yes Depression Screening: Over the past 2 weeks, how often have you been bothered by any of the following problems? Little interest or pleasure in doing things: (Patient-Rptd) Not at all Feeling down, depressed, or hopeless: (Patient-Rptd) Not at all Patient Health Questionnaire-2 Score: (Patient-Rptd) 0 Interventions: Tobacco Use: Tobacco Use History[2] Alcohol Use: Audit Alcohol Screening Q1: How often do you have a drink containing alcohol?: Never Q2: How many drinks containing alcohol do you have on a typical day when you are drinking?: Patient does not drink Q3: How often do you have six or more drinks on one occasion?: Never Audit-C Score: 0 Skip to questions 9-10?: 1 OBJECTIVE Objective : BP (!) 141/89 Pulse 83 Ht 5' 6 (1.676 m) Wt 167 lb (75.8 kg) SpO2 97% BMI 26.95 kg/m No results found. Physical Exam Constitutional: General: She is not in acute distress. Appearance: Normal appearance. HENT: Head: Normocephalic and atraumatic. Right Ear: Tympanic membrane, ear canal and external ear normal. Left Ear: Tympanic membrane, ear canal and external ear normal. Mouth/Throat: Mouth: Mucous membranes are moist. Pharynx: Oropharynx is clear. No posterior oropharyngeal erythema. Eyes: General: No scleral icterus. Extraocular Movements: Extraocular movements intact. Conjunctiva/sclera: Conjunctivae normal. Pupils: Pupils are equal, round, and reactive to light. Neck: Thyroid: No thyroid mass or thyromegaly. Vascular: No carotid bruit. Cardiovascular: Rate and Rhythm: Normal rate and regular rhythm. Heart sounds: No murmur heard. Pulmonary: Effort: Pulmonary effort is normal. No respiratory distress. Breath sounds: Normal breath sounds. No wheezing, rhonchi or rales. Abdominal: General: Abdomen is flat. Bowel sounds are normal. There is no distension. Palpations: Abdomen is soft. There is no hepatomegaly, splenomegaly or mass. Tenderness: There is no abdominal tenderness. There is no guarding. Musculoskeletal: Cervical back: Normal range of motion. No tenderness. Lymphadenopathy: Cervical: No cervical adenopathy. Neurological: Mental Status: She is alert. Psychiatric: Attention and Perception: Attention normal. Mood and Affect: Mood normal. Behavior: Behavior normal. [1] Current Outpatient Medications Medication Sig Dispense Refill Calcium Carbonate-Vitamin D 500-5 MG-MCG tablet Take by mouth. clindamycin (Cleocin) 300 MG capsule Prior to dentist appointment Multiple Vitamin (MULTI-VITAMIN DAILY PO) Take 1 tablet by mouth in the morning. Ubiquinol 100 MG capsule Take by mouth daily. atorvastatin (Lipitor) 10 MG tablet Take 1 tablet (10 mg) by mouth daily. 90 tablet 3 lisinopril-hydroCHLOROthiazide 20-12.5 MG tablet Take 1 tablet by mouth daily. 90 tablet 3 potassium chloride CR (Klor-Con) 10 MEQ ER tablet Take 2 tablets (20 mEq) by mouth daily. 180 tablet 3 No current facility-administered medications for this visit. [2] Social History Tobacco Use Smoking Status Never Passive exposure: Never Smokeless Tobacco Never documented in this encounter [facility] 01-06-2025 Instructions Sultana Cohen DO - 01/06/2025 9:40 AM EDT Checking your blood pressure at home: 1. Rest for approx 5 min before checking your blood pressure 2. Sit with your feet flat on the floor and back supported by a chair. 3. Rest your arm on a table at about chest height. 4. Start machine. Check blood pressure 2-3 times to obtain an average reading. 5. Goal blood pressure is less than 140/90. If your blood pressure is consistently running higher than that you should talk to your doctor. documented in this encounter [facility] 01-06-2025 Miscellaneous Notes Associated Problem(s): History of pulmonary embolus (PE) Provoked. Completed treatment. Associated Problem(s): IFG (impaired fasting glucose) Monitor glucose yearly. Associated Problem(s): Osteopenia Declined fosamax at this time. Will review the supplements she discussed at her visit and determine next steps. documented in this encounter [facility] 07-29-2024 History of Present illness Narrative During rooming, patient was asked if they would like a flu shot. She declined. Images from the original note were not included. [facility] [place] [id number] [facility] [id number] Visit Type: Office Visit PCP: Sultana Cohen DO Reason for Visit: Results (Discuss DEXA scan results) Assessment and Plan Assessment & Plan Fracture Risk Assessment Score (FRAX) indicating greater than 20% risk for major osteoporosis-related fracture Based on Frax score and her worsening spine bone density she was advised to start medication mgmt to lower her risk of fracture. Reviewed option of starting bisphosphonate. She does not have any contraindications to use of bisphosphonates. Advised to speak to dentist to ensure appropriate monitoring. Will initiate Rx for fosamax 70mg weekly. Intention to continue 5 yrs with dexa in 2 yrs to monitor. Continue adequate calcium and vitamin d replacement. Advised on SE of medication. Orders: alendronate (Fosamax) 70 MG tablet; Take 1 tablet (70 mg) by mouth every 7 days. Take in the morning with a full glass of water, on an empty stomach, and do not take anything else by mouth or lie down for the next 30 min. Follow up if symptoms worsen or fail to improve. Patient Instructions Vitamin D 800iu at least And calcium 1200mg at least. Subjective HPI Osteopenia - notes a h/o being on a medication for bones in the past - doesn't recall the name - gynecology referred her to us for a osteopenia evaluation since DEXA showed T scores worsening Pt notes a h/o broken L shoulder. And L hand fracture. Her mother had a broken leg x3 different locations (all in large bones). She does not have increased risk factors otherwise - no chronic steroid use, no inflammatory arthritis, non-smoker, no etoh use. Per DEXA scan: Spine T 0.6, Z 2.9 Left femur total T -1.8 Left femoral neck T -1.8 Frax score of 26, indicating a 28% risk of major osteoporotic fracture in 10yrs. She is currently taking citracal generic. Review of Systems Pertinent ROS noted in the HPI and all other systems are negative. Current Outpatient Medications Medication Sig Dispense Refill atorvastatin (Lipitor) 10 MG tablet Take 1 tablet (10 mg) by mouth daily. 90 tablet 3 cholecalciferol (Vitamin D-3) 75 MCG (3000 UT) tablet Take by mouth. clindamycin (Cleocin) 300 MG capsule Prior to dentist appointment lisinopril-hydroCHLOROthiazide 20-12.5 MG tablet Take 1 tablet by mouth daily. 90 tablet 3 meloxicam (Mobic) 7.5 MG tablet Take 15 mg by mouth daily. Multiple Vitamin (MULTI-VITAMIN DAILY PO) Take 1 tablet by mouth in the morning. potassium chloride CR (Klor-Con) 10 MEQ ER tablet Take 2 tablets (20 mEq) by mouth in the morning. 180 tablet 3 Ubiquinol 100 MG capsule Take by mouth daily. alendronate (Fosamax) 70 MG tablet Take 1 tablet (70 mg) by mouth every 7 days. Take in the morning with a full glass of water, on an empty stomach, and do not take anything else by mouth or lie down for the next 30 min. 4 tablet 11 No current facility-administered medications for this visit. Patient Active Problem List Diagnosis Date Noted IFG (impaired fasting glucose) 12/28/2021 PE (pulmonary thromboembolism) (HCC) 01/02/2021 Essential hypertension, benign 11/23/2020 Postmenopausal atrophic vaginitis 12/17/2018 Osteoarthritis of knee 12/17/2018 Primary osteoarthritis of right hip 12/17/2018 Hypercholesterolemia 04/11/2015 Osteopenia 01/24/2015 Anxiety state 01/24/2015 Recurrent cystitis 01/24/2015 Objective BP 110/80 (BP Location: Left arm, Patient Position: Sitting, BP Cuff Size: Adult) Pulse 84 Temp 37 C (98.6 F) (Temporal) Ht 5' 7 (1.702 m) Wt 166 lb (75.3 kg) SpO2 98% BMI 26.00 kg/m Physical Exam Vitals reviewed. Constitutional: Appearance: Normal appearance. HENT: Head: Normocephalic and atraumatic. Mouth/Throat: Mouth: Mucous membranes are moist. Pharynx: Oropharynx is clear. Eyes: Extraocular Movements: Extraocular movements intact. Conjunctiva/sclera: Conjunctivae normal. Cardiovascular: Rate and Rhythm: Normal rate. Pulmonary: Effort: Pulmonary effort is normal. Musculoskeletal: Cervical back: Normal range of motion. Neurological: Mental Status: She is alert. Psychiatric: Mood and Affect: Mood normal. Thought Content: Thought content normal. Medications Discontinued During This Encounter Medication Reason enoxaparin (Lovenox) 40 MG/0.4ML solution prefilled syringe Med list cleanup ondansetron (Zofran) 4 MG tablet Med list cleanup acetaminophen (Tylenol) 500 MG tablet Med list cleanup ascorbic acid (Vitamin C) 500 MG tablet Med list cleanup Sultana Cohen DO 07/29/2024 7:01 PM documented in this encounter [facility] 07-29-2024 Instructions Sultana Cohen DO - 07/29/2024 11:20 AM EST Vitamin D 800iu at least And calcium 1200mg at least. documented in this encounter [facility] 06-19-2024 Note HNO ID: [id number] Author: ROMANA CHI MD Service: ? Author Type: Physician Type: Progress Notes Filed: 2024 21:48 Note Text: DR. CHI- POST-OP KNEE Post-Op F/U Office Visit Zeenat Mejia presents today for a 12 weeks status post Right TKA. Post-operative recovery was uneventful. Patient's rating of condition: improving Comments: None Does the Pt. still experience pain? PAIN EVALUATION 06/19/2024 1350 Pain Level: 0 Pain Location: Knee-Right Functional difficulties: Stair climbing Physical Therapy: Yes Pain Medication: None Ambulating without assistance. Medications and Allergies reviewed and verified. EXAM: GEN: AANDO x3, NAD SKIN:Appropriate postop appearance Incision intact Incision well healed RightKnee: ROM: Flexion/Extension:0 degrees to 110 degrees Pain with ROM:No Mal-alignment: No Effusion: None Non Tender to palpation of the medial , lateral , and patellofemoral joint line(s). Stability:Anterior/Posterior- Yes, stable and Varus/Valgus- Yes, stable Quad strength: normal HIP: range of motion no loss ROM NV: intact and Joyce's negative IMAGING: Xrays: No x-rays today IMPRESSION/PLAN: 74 year old female s/p Right TKA At normal post-operative stage of recovery. Plan: 1. Continue physical therapy exercises for range of motion/strengthening 2. Continue total knee precautions 3. Follow-up for repeat clinical evaluation Romana Chi MD Electronic Signature [facility] 06-19-2024 History of Present illness Narrative DR. CHI- POST-OP KNEE Post-Op F/U Office Visit Zeenat Mejia presents today for a 12 weeks status post Right TKA. Post-operative recovery was uneventful. Patient's rating of condition: improving Comments: None Does the Pt. still experience pain? PAIN EVALUATION 06/19/2024 8253 Pain Level: 0 Pain Location: Knee-Right Functional difficulties: Stair climbing Physical Therapy: Yes Pain Medication: None Ambulating without assistance. Medications and Allergies reviewed and verified. EXAM: GEN: A&O x3, NAD SKIN:Appropriate postop appearance Incision intact Incision well healed RightKnee: ROM: Flexion/Extension:0 degrees to 110 degrees Pain with ROM:No Mal-alignment: No Effusion: None Non Tender to palpation of the medial , lateral , and patellofemoral joint line(s). Stability:Anterior/Posterior- Yes, stable and Varus/Valgus- Yes, stable Quad strength: normal HIP: range of motion no loss ROM NV: intact and Joyce's negative IMAGING: Xrays: No x-rays today IMPRESSION/PLAN: 74 year old female s/p Right TKA At normal post-operative stage of recovery. Plan: 1. Continue physical therapy exercises for range of motion/strengthening 2. Continue total knee precautions 3. Follow-up for repeat clinical evaluation Romana Chi MD Electronic Signature documented in this encounter [facility] 05-06-2024 Note HNO ID: [id number] Author: ROMANA CHI MD Service: ? Author Type: Physician Type: Progress Notes Filed: 06/01/2024 10:13 Note Text: DR. CHI- POST-OP KNEE Post-Op F/U Office Visit Zeenat Mejia presents today for a 6 weeks status post Right TKA. Post-operative recovery was uneventful. Patient's rating of condition: improving Comments: None Does the Pt. still experience pain? PAIN EVALUATION 05/06/2024 0923 Pain Level: 0 Pain Location: Knee-Right Functional difficulties: Stair climbing Physical Therapy: Yes Pain Medication: Non-narcotic Ambulating with assistance. Medications and Allergies reviewed and verified. EXAM: GEN: AANDO x3, NAD SKIN:Appropriate postop appearance Incision intact Incision well healed RightKnee: ROM: Flexion/Extension:0 degrees to 110 degrees Pain with ROM:No Mal-alignment: No Effusion: None Tender to palpation of the medial joint line(s). Stability:Anterior/Posterior- Yes, stable and Varus/Valgus- Yes, stable Quad strength: normal HIP: range of motion no loss ROM NV: intact and Joyce's negative IMAGING: Xrays: No x-rays today IMPRESSION/PLAN: 73 year old female s/p Right TKA At normal post-operative stage of recovery. Plan: 1. Continue range of motion/strengthening exercises 2. We reviewed total knee precautions 3. Follow-up for repeat clinical evaluation Romana Chi MD Electronic Signature [facility] 05-06-2024 History of Present illness Narrative DR. CHI- POST-OP KNEE Post-Op F/U Office Visit Zeenat Mejia presents today for a 6 weeks status post Right TKA. Post-operative recovery was uneventful. Patient's rating of condition: improving Comments: None Does the Pt. still experience pain? PAIN EVALUATION 05/06/2024 0923 Pain Level: 0 Pain Location: Knee-Right Functional difficulties: Stair climbing Physical Therapy: Yes Pain Medication: Non-narcotic Ambulating with assistance. Medications and Allergies reviewed and verified. EXAM: GEN: A&O x3, NAD SKIN:Appropriate postop appearance Incision intact Incision well healed RightKnee: ROM: Flexion/Extension:0 degrees to 110 degrees Pain with ROM:No Mal-alignment: No Effusion: None Tender to palpation of the medial joint line(s). Stability:Anterior/Posterior- Yes, stable and Varus/Valgus- Yes, stable Quad strength: normal HIP: range of motion no loss ROM NV: intact and Joyce's negative IMAGING: Xrays: No x-rays today IMPRESSION/PLAN: 73 year old female s/p Right TKA At normal post-operative stage of recovery. Plan: 1. Continue range of motion/strengthening exercises 2. We reviewed total knee precautions 3. Follow-up for repeat clinical evaluation Romana Chi MD Electronic Signature documented in this encounter [facility] 04-13-2024 Miscellaneous Notes SITUATION: only patient present during today's visit. patient reports the following since the last homecare visit: medications/allergies--no changes, no fall. patient reports compliance with HEP and states she is doing really well and is ready for OP PT. BACKGROUND: Diagnoses (reason for Home Care): R TKA Weight Bearing/Precaution Changes: no changes ASSESSMENT: Focus of visit: HEP review, functional mobility, PT Agency DC. R knee ROM 0-107 degrees AROM Physical therapy discharged: goals achieved. Functional performance at discharge - bed mobility independent, transfers independent, ambulation independent and stairs independent. Plan of care, goals, and discharge reviewed and agreed upon with patient and/or caregiver. RECOMMENDATION: Patient discharged from home health services. Instructions to include:home exercise program as directed, follow the recommended ambulation program, begin outpatient therapy and follow up with provider as scheduled See intervention summary for intervention/education details. documented in this encounter [facility] 04-13-2024 Patient's home Note SITUATION: only patient present during today's visit. patient reports the following since the last homecare visit: medications/allergies--no changes, no fall. patient reports compliance with HEP and states she is doing really well and is ready for OP PT. BACKGROUND: Diagnoses (reason for Home Care): R TKA Weight Bearing/Precaution Changes: no changes ASSESSMENT: Focus of visit: HEP review, functional mobility, PT Agency DC. R knee ROM 0-107 degrees AROM Physical therapy discharged: goals achieved. Functional performance at discharge - bed mobility independent, transfers independent, ambulation independent and stairs independent. Plan of care, goals, and discharge reviewed and agreed upon with patient and/or caregiver. RECOMMENDATION: Patient discharged from home health services. Instructions to include:home exercise program as directed, follow the recommended ambulation program, begin outpatient therapy and follow up with provider as scheduled See intervention summary for intervention/education details. [facility] Work Phone: 04-10-2024 Miscellaneous Notes SITUATION: COMMUNICATION TECHNICIAN routine visit. only patient present during today's visit. patient reports the following since the last homecare visit: medications/allergies--no changes, no fall. patient reports R hip pain and that started a couple of days ago. BACKGROUND: Diagnoses (reason for Home Care): R TKA Weight Bearing/Precaution Changes: no changes ASSESSMENT: Pt reports no increased pain during today's PT tx. Pt's incision appears clean, dry, and intact, R Knee ROM: 0 to 116 degrees ( Chair ). Focus of visit: Improve knee strength and ROM. Plan of care, goals, and visit frequency reviewed and agreed upon with patient and/or caregiver. Current Discharge Plan: outpatient rehab Anticipate discharge by 04/13/24 RECOMMENDATION: Pt is scheduled for PT re-eval on 04/07/24. Pt status and D/C plans discussed with pt and PT ( Jameel ). See intervention summary for intervention/education details. documented in this encounter [facility] 04-10-2024 Patient's home Note SITUATION: COMMUNICATION TECHNICIAN routine visit. only patient present during today's visit. patient reports the following since the last homecare visit: medications/allergies--no changes, no fall. patient reports R hip pain and that started a couple of days ago. BACKGROUND: Diagnoses (reason for Home Care): R TKA Weight Bearing/Precaution Changes: no changes ASSESSMENT: Pt reports no increased pain during today's PT tx. Pt's incision appears clean, dry, and intact, R Knee ROM: 0 to 116 degrees ( Chair ). Focus of visit: Improve knee strength and ROM. Plan of care, goals, and visit frequency reviewed and agreed upon with patient and/or caregiver. Current Discharge Plan: outpatient rehab Anticipate discharge by 04/13/24 RECOMMENDATION: Pt is scheduled for PT re-eval on 04/07/24. Pt status and D/C plans discussed with pt and PT ( Jameel ). See intervention summary for intervention/education details. [facility] Work Phone: 04-08-2024 Miscellaneous Notes SITUATION: only patient present during today's visit. patient reports the following since the last homecare visit: medications/allergies--no changes, no fall. patient reports feeling ok. BACKGROUND: Diagnoses (reason for Home Care): Primary osteoarthritis of both knees [M17.0] S/P ROBOTIC ASSISTED TOTAL KNEE ARTHROPLASTY (Right) 03/24/2024 Past Medical History: Osteopenia Primary Osteoarthritis of Left Knee Primary Osteoarthritis of Right Hip Essential Hypertension Hyperlipidemia Pe (Pulmonary Thromboembolism) ([facility]) Ponv (Postoperative Nausea and Vomiting) S/P Total Knee Arthroplasty, Right Weight Bearing or Surgical Precautions: Weight bearing as tolerated on operative leg ASSESSMENT: 15 days post op. ROM 2-105 degrees Focus of visit: HEP review, std cane gait training Plan of care, goals, and visit frequency reviewed and agreed upon with patient and/or caregiver. Current Discharge Plan: outpatient rehab. Anticipate discharge by 04/18/24. RECOMMENDATION: Next visit to focus on (R) LE ROM and strengthening See intervention summary for intervention/education details. documented in this encounter [facility] 04-08-2024 Patient's home Note SITUATION: only patient present during today's visit. patient reports the following since the last homecare visit: medications/allergies--no changes, no fall. patient reports feeling ok. BACKGROUND: Diagnoses (reason for Home Care): Primary osteoarthritis of both knees [M17.0] S/P ROBOTIC ASSISTED TOTAL KNEE ARTHROPLASTY (Right) 03/24/2024 Past Medical History: Osteopenia Primary Osteoarthritis of Left Knee Primary Osteoarthritis of Right Hip Essential Hypertension Hyperlipidemia Pe (Pulmonary Thromboembolism) (Hcc) Ponv (Postoperative Nausea and Vomiting) S/P Total Knee Arthroplasty, Right Weight Bearing or Surgical Precautions: Weight bearing as tolerated on operative leg ASSESSMENT: 15 days post op. ROM 2-105 degrees Focus of visit: HEP review, std cane gait training Plan of care, goals, and visit frequency reviewed and agreed upon with patient and/or caregiver. Current Discharge Plan: outpatient rehab. Anticipate discharge by 04/18/24. RECOMMENDATION: Next visit to focus on (R) LE ROM and strengthening See intervention summary for intervention/education details. [facility] Work Phone: 04-06-2024 Note HNO ID: [id number] Author: ROHITH WILLIS PA-C Service: ? Author Type: Physician Boilermaker'S Assistant Type: Progress Notes Filed: 04/06/2024 12:03 Note Text: Post-op Office Visit Zeenat Mejia 73 year old April 06, 2024 11:29 AM Surgery Date: 03/24/2024 History: Zeenat Mejia is now 2 weeks out from robotic assisted right TKA. Post-operative course has been without complication. No readmissions. The patient was discharged from [facility] to home with home health care on 03/25/2024. Subjective: Patient reports minimal knee pain. Overall is doing well. She is using walker ambulatory aid She is not taking any opioid pain medication Patients rates her condition as improving. Reports compliance with DVT ppx (Lovenox). Participating in home PT. Objective: Right knee: Ambulates with walker Incision well-approximated, no drainage, well-healing. Suture tails trimmed today. Knee ROM 2 - 90 degrees Distally DP/PT palpable Distally SILT S/S/SP/DP/T intact at baseline Distally DF/PF motor intact at baseline Negative joyce/calf tenderness Xrays: Well-positioned total knee replacement in appropriate alignment with no evidence of loosening Assessment and Plan: 73 year old female 2 weeks status post robotic assisted right total knee arthroplasty - continue ice, rest, and use of non-narcotic analgesia as needed - reviewed antibiotic prophylactic protocols - discussed home exercises and therapy - complete Lovenox DVT prophylaxis x 2 weeks; discussed with patient who states she would like to begin taking ASA 81 BID after Lovenox is completed until she is 4 weeks post-op due to hx of PE - WBAT on operative extremity - discussed driving requirement: 4 weeks post-op, off narcotic pain medication, adequate brake time - follow up in 4 weeks for repeat clinical evaluation with Dr. Chi Normal post-operative course discussed with patient. Patient reassured and supported. All questions answered. Buzz Willis PA-C Orthopaedic Surgery [facility] 04-06-2024 History of Present illness Narrative Post-op Office Visit Zeenat Mejia 73 year old April 06, 2024 11:29 AM Surgery Date: 03/24/2024 History: Zeenat Mejia is now 2 weeks out from robotic assisted right TKA. Post-operative course has been without complication. No readmissions. The patient was discharged from [facility] to home with home health care on 03/25/2024. Subjective: Patient reports minimal knee pain. Overall is doing well. She is using walker ambulatory aid She is not taking any opioid pain medication Patients rates her condition as improving. Reports compliance with DVT ppx (Lovenox). Participating in home PT. Objective: Right knee: Ambulates with walker Incision well-approximated, no drainage, well-healing. Suture tails trimmed today. Knee ROM 2 - 90 degrees Distally DP/PT palpable Distally SILT S/S/SP/DP/T intact at baseline Distally DF/PF motor intact at baseline Negative joyce/calf tenderness Xrays: Well-positioned total knee replacement in appropriate alignment with no evidence of loosening Assessment and Plan: 73 year old female 2 weeks status post robotic assisted right total knee arthroplasty - continue ice, rest, and use of non-narcotic analgesia as needed - reviewed antibiotic prophylactic protocols - discussed home exercises and therapy - complete Lovenox DVT prophylaxis x 2 weeks; discussed with patient who states she would like to begin taking ASA 81 BID after Lovenox is completed until she is 4 weeks post-op due to hx of PE - WBAT on operative extremity - discussed driving requirement: 4 weeks post-op, off narcotic pain medication, adequate brake time - follow up in 4 weeks for repeat clinical evaluation with Dr. Chi Normal post-operative course discussed with patient. Patient reassured and supported. All questions answered. Buzz Willis PA-C Orthopaedic Surgery documented in this encounter [facility] 04-06-2024 History of Present illness Narrative Radiology Service Progress Note PATIENT NAME: Zeenat Mejia DATE OF SERVICE: April 06, 2024 TIME: 11:12 AM PATIENT IDENTITY VERIFICATION COMPLETED USING TWO (2) IDENTIFIERS: Name and Date of confirmed by patient verbally. FALL SCREENING: Has the patient had 2 falls in the last year or 1 fall with injury or currently using an Ambulatory Assistive Device (Walker, Cane, Wheelchair, Crutches, etc.)? No PATIENT GENDER DATA: Female. status: : No status: NO. PATIENT RELEVANT IMPLANT DATA REVIEWED: Not Applicable PATIENT PRESENTS WITH AN IMPLANTABLE OR ATTACHED METAL PATTERN MAKER: No RADIOLOGY DEPARTMENT: General X-ray: Exam(s) Completed: Lower Extremity X-Ray(s): Knee, AP / Lat / Merchant Right and Wt. Bearing PERIPHERAL IV DATA: Not applicable SIGNED BY: Blanka Jasso April 06, 2024 11:12 AM documented in this encounter [facility] 04-06-2024 Note HNO ID: [id number] Author: KALE WILLIS Tech Service: ? Author Type: Dental Therapist Type: Progress Notes Filed: 04/06/2024 11:12 Note Text: Radiology Service Progress Note PATIENT NAME: Zeenat Mejia DATE OF SERVICE: April 06, 2024 TIME: 11:12 AM PATIENT IDENTITY VERIFICATION COMPLETED USING TWO (2) IDENTIFIERS: Name and Date of confirmed by patient verbally. FALL SCREENING: Has the patient had 2 falls in the last year or 1 fall with injury or currently using an Ambulatory Assistive Device (Walker, Cane, Wheelchair, Crutches, etc.)? No PATIENT GENDER DATA: Female. status: : No status: NO. PATIENT RELEVANT IMPLANT DATA REVIEWED: Not Applicable PATIENT PRESENTS WITH AN IMPLANTABLE OR ATTACHED METAL PATTERN MAKER: No RADIOLOGY DEPARTMENT: General X-ray: Exam(s) Completed: Lower Extremity X-Ray(s): Knee, AP / Lat / Merchant Right and Wt. Bearing PERIPHERAL IV DATA: Not applicable SIGNED BY: Blanka Jasso April 06, 2024 11:12 AM [facility] 04-05-2024 Miscellaneous Notes SITUATION: COMMUNICATION TECHNICIAN routine visit. only patient present during today's visit. patient reports the following since the last homecare visit: medications/allergies--no changes, no fall. patient reports decreased R knee pain BACKGROUND: Diagnoses (reason for Home Care): R TKA Weight Bearing/Precaution Changes: no changes ASSESSMENT: Pt reports no increased pain during today's PT tx. Pt's incision appears clean, dry, and intact, R Knee ROM: 2 to 104 degrees ( Chair scoot ). Focus of visit: Plan of care, goals, and visit frequency reviewed and agreed upon with patient and/or caregiver. Current Discharge Plan: outpatient rehab Anticipate discharge by 04/13/24 RECOMMENDATION: Pt would cont to benefit from further PT tx to improve knee strength/ ROM and balance in order to improve mobility/ stability so pt can safely ambulate through out her home and in the community. Next visit to focus on: Add standing LE ex's. See intervention summary for intervention/education details. documented in this encounter [facility] 04-05-2024 Patient's home Note SITUATION: COMMUNICATION TECHNICIAN routine visit. only patient present during today's visit. patient reports the following since the last homecare visit: medications/allergies--no changes, no fall. patient reports decreased R knee pain BACKGROUND: Diagnoses (reason for Home Care): R TKA Weight Bearing/Precaution Changes: no changes ASSESSMENT: Pt reports no increased pain during today's PT tx. Pt's incision appears clean, dry, and intact, R Knee ROM: 2 to 104 degrees ( Chair scoot ). Focus of visit: Plan of care, goals, and visit frequency reviewed and agreed upon with patient and/or caregiver. Current Discharge Plan: outpatient rehab Anticipate discharge by 04/13/24 RECOMMENDATION: Pt would cont to benefit from further PT tx to improve knee strength/ ROM and balance in order to improve mobility/ stability so pt can safely ambulate through out her home and in the community. Next visit to focus on: Add standing LE ex's. See intervention summary for intervention/education details. [facility] Work Phone: 04-03-2024 Miscellaneous Notes SITUATION: COMMUNICATION TECHNICIAN routine visit. spouse present during today's visit. patient reports the following since the last homecare visit: medications/allergies--no changes, no fall. patient reports decreased pain. BACKGROUND: Diagnoses (reason for Home Care): R TKA Weight Bearing/Precaution Changes: no changes ASSESSMENT: Pt reports no increased pain during today's PT tx. Pt's incision appears clean, dry, and intact, R Knee ROM: 2 to 100 degrees ( Chair scoot ). Focus of visit: Improve knee strength/ ROM and stair training. Plan of care, goals, and visit frequency reviewed and agreed upon with patient and/or caregiver. Current Discharge Plan: outpatient rehab Anticipate discharge by 04/13/24 RECOMMENDATION: Pt would cont to benefit from further PT tx to improve knee strength/ ROM and balance in order to improve mobility/ stability so pt can safely ambulate through out her home and in the community. Next visit to focus on: Improve knee strength and ROM. See intervention summary for intervention/education details. 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 spouse present during today's visit. patient reports the following since the last homecare visit: medications/allergies--no changes, no fall. patient reports decreased pain. BACKGROUND: Diagnoses (reason for Home Care): R TKA Weight Bearing/Precaution Changes: no changes ASSESSMENT: Pt reports no increased pain during today's PT tx. Pt's incision appears clean, dry, and intact, R Knee ROM: 2 to 100 degrees ( Chair scoot ). Focus of visit: Improve knee strength/ ROM and stair training. Plan of care, goals, and visit frequency reviewed and agreed upon with patient and/or caregiver. Current Discharge Plan: outpatient rehab Anticipate discharge by 04/13/24 RECOMMENDATION: Pt would cont to benefit from further PT tx to improve knee strength/ ROM and balance in order to improve mobility/ stability so pt can safely ambulate through out her home and in the community. Next visit to focus on: Improve knee strength and ROM. See intervention summary for intervention/education details. [facility] Work Phone: 04-01-2024 Miscellaneous Notes SITUATION: COMMUNICATION TECHNICIAN routine visit. spouse present during today's visit. patient and caregiver reports the following since the last homecare visit: medications/allergies--no changes, no fall. patient reports decreased R knee pain.. BACKGROUND: Diagnoses (reason for Home Care): R TKA Weight Bearing/Precaution Changes: no changes ASSESSMENT: Patients incisional dressing removed today. Pt's incision appears dry and intact with no S/S of infection. Pt reports no increased pain during today's PT treatment. With pt's permision a photograph was taken of pt's incision and uploaded to pt's chart using the [employer]. R Knee ROM: 4 to 75 degrees Focus of visit: Incisional dressing removal and incisional care education Plan of care, goals, and visit frequency reviewed and agreed upon with patient and/or caregiver. Current Discharge Plan: outpatient rehab Anticipate discharge by 04/13/24 RECOMMENDATION: Pt would cont to benefit from further PT tx to improve knee strength/ ROM and balance in order to improve mobility/ stability so pt can safely ambulate through out her home and in the community. Next visit to focus on: Improve knee strength and ROM. See intervention summary for intervention/education details. documented in this encounter [facility] 04-01-2024 Patient's home Note SITUATION: COMMUNICATION TECHNICIAN routine visit. spouse present during today's visit. patient and caregiver reports the following since the last homecare visit: medications/allergies--no changes, no fall. patient reports decreased R knee pain.. BACKGROUND: Diagnoses (reason for Home Care): R TKA Weight Bearing/Precaution Changes: no changes ASSESSMENT: Patients incisional dressing removed today. Pt's incision appears dry and intact with no S/S of infection. Pt reports no increased pain during today's PT treatment. With pt's permision a photograph was taken of pt's incision and uploaded to pt's chart using the [employer]. R Knee ROM: 4 to 75 degrees Focus of visit: Incisional dressing removal and incisional care education Plan of care, goals, and visit frequency reviewed and agreed upon with patient and/or caregiver. Current Discharge Plan: outpatient rehab Anticipate discharge by 04/13/24 RECOMMENDATION: Pt would cont to benefit from further PT tx to improve knee strength/ ROM and balance in order to improve mobility/ stability so pt can safely ambulate through out her home and in the community. Next visit to focus on: Improve knee strength and ROM. See intervention summary for intervention/education details. [facility] Work Phone: 03-30-2024 Miscellaneous Notes SITUATION: friend present during today's visit. patient reports the following since the last homecare visit: medications/allergies--no changes, no fall. patient reports she has been elevating, is scheduling herself at [facility] PT. agreeable to PT. BACKGROUND: Diagnoses (reason for Home Care): rtka Weight Bearing/Precaution Changes: no changes ASSESSMENT: Focus of visit hep review, education on proper elevation that allows for tke of RLE. gait training. Review of s/s of infection and DVT. No complaints of SOB/chest pain; patient does not appear to be in acute distress. Patient reported comfort with the visit. Plan of care, goals, and visit frequency reviewed and agreed upon with patient and/or caregiver. Current Discharge Plan: outpatient rehab Anticipate discharge by 04/13 RECOMMENDATION: Next visit to focus on bandage revomal per plan See intervention summary for intervention/education details. documented in this encounter [facility] 03-30-2024 Patient's home Note SITUATION: friend present during today's visit. patient reports the following since the last homecare visit: medications/allergies--no changes, no fall. patient reports she has been elevating, is scheduling herself at [facility] PT. agreeable to PT. BACKGROUND: Diagnoses (reason for Home Care): rtka Weight Bearing/Precaution Changes: no changes ASSESSMENT: Focus of visit hep review, education on proper elevation that allows for tke of RLE. gait training. Review of s/s of infection and DVT. No complaints of SOB/chest pain; patient does not appear to be in acute distress. Patient reported comfort with the visit. Plan of care, goals, and visit frequency reviewed and agreed upon with patient and/or caregiver. Current Discharge Plan: outpatient rehab Anticipate discharge by 04/13 RECOMMENDATION: Next visit to focus on bandage revomal per plan See intervention summary for intervention/education details. [facility] Work Phone: 03-28-2024 Miscellaneous Notes SITUATION: friend present during today's visit. patient reports the following since the last homecare visit: medications/allergies--no changes, no fall. patient reports she is doing ok but has lots of questions today. BACKGROUND: Diagnoses (reason for Home Care): RTKR Weight Bearing/Precaution Changes: no changes ASSESSMENT: Focus of visit patient w/ multiple questions on proper ways to elevate, icing and HEP. voiced better understanding to all after todays visit. Perfoemd and progressed ROM and strength ex for HEP. AAROM 0-74. Demonstrated to patient and friend in elevation using 1 large bed pillow. Gait training w/ww, stair training Plan of care, goals, and visit frequency reviewed and agreed upon with patient and/or caregiver. Current Discharge Plan: outpatient rehab Anticipate discharge by 04/13/24 RECOMMENDATION: Next visit to focus on schedule OP PT See intervention summary for intervention/education details. documented in this encounter [facility] 03-28-2024 Patient's home Note SITUATION: friend present during today's visit. patient reports the following since the last homecare visit: medications/allergies--no changes, no fall. patient reports she is doing ok but has lots of questions today. BACKGROUND: Diagnoses (reason for Home Care): RTKR Weight Bearing/Precaution Changes: no changes ASSESSMENT: Focus of visit patient w/ multiple questions on proper ways to elevate, icing and HEP. voiced better understanding to all after todays visit. Perfoemd and progressed ROM and strength ex for HEP. AAROM 0-74. Demonstrated to patient and friend in elevation using 1 large bed pillow. Gait training w/ww, stair training Plan of care, goals, and visit frequency reviewed and agreed upon with patient and/or caregiver. Current Discharge Plan: outpatient rehab Anticipate discharge by 04/13/24 RECOMMENDATION: Next visit to focus on schedule OP PT See intervention summary for intervention/education details. [facility] Work Phone: 03-27-2024 Miscellaneous Notes Medication review completed. No ineffective drug therapy, significant side effects, significant drug interactions, duplicate drug therapy, or noncompliance with drug therapy noted. Message to PT to report supplements Afua Rodriguez RN documented in this encounter [facility] 03-27-2024 Patient's home Note Medication review completed. No ineffective drug therapy, significant side effects, significant drug interactions, duplicate drug therapy, or noncompliance with drug therapy noted. Message to PT to report supplements Afua Rodriguez RN [facility] Work Phone: 03-26-2024 Telephone encounter Note I talked with Zeenat. Overall she is doing well. She feels she took her pain medicine on an empty stomach and that led to the nausea. I will send in a prescription for Zofran to her pharmacy to make sure she is ok from a nausea standpoint. There are no other concerns at this time. Alfred Chandler PA-C [facility] 03-26-2024 Miscellaneous Notes I talked with Zeenat. Overall she is doing well. She feels she took her pain medicine on an empty stomach and that led to the nausea. I will send in a prescription for Zofran to her pharmacy to make sure she is ok from a nausea standpoint. There are no other concerns at this time. Alfred Chandler PA-C Patient is vomiting quite a bit and asking for an anti-nausea medication. Please advise. Tka was 03/24/24. documented in this encounter [facility] 03-26-2024 Telephone encounter Note Patient is vomiting quite a bit and asking for an anti-nausea medication. Please advise. Tka was 03/24/24. [facility] 03-26-2024 Miscellaneous Notes SITUATION: spouse present during today's visit. patient reports she has elevated pain and limited mobility following R TKA. BACKGROUND: Diagnoses (reason for Home Care): Primary osteoarthritis of both knees [M17.0] S/P ROBOTIC ASSISTED TOTAL KNEE ARTHROPLASTY (Right) 03/24/2024 Past Medical History: Osteopenia Primary Osteoarthritis of Left Knee Primary Osteoarthritis of Right Hip Essential Hypertension Hyperlipidemia Pe (Pulmonary Thromboembolism) (Hcc) Ponv (Postoperative Nausea and Vomiting) S/P Total Knee Arthroplasty, Right Weight Bearing or Surgical Precautions: Weight bearing as tolerated on operative leg ASSESSMENT: Patient evaluated by [facility] physical therapy. Reviewed and explained homecare services. Plan of care, goals, and visit frequency developed, reviewed, and agreed upon with patient and/or caregiver. Patient planning to go to [facility] outpatient P.T. Patient to obtain a script at her follow up. Patient Goal: improve mobility Patient will benefit from continued physical therapy to address the following deficits: strength, balance, gait, endurance, transfers, stair negotiation, aerobic capacity and bed mobility. Current Discharge Plan: outpatient rehab. Anticipate discharge by 04/18/24. RECOMMENDATION: Next visit to focus on transfers, ambulation, knee rom, TKA protocol Agreeable to PT See intervention summary for intervention/education details. documented in this encounter [facility] 03-26-2024 Patient's home Note SITUATION: spouse present during today's visit. patient reports she has elevated pain and limited mobility following R TKA. BACKGROUND: Diagnoses (reason for Home Care): Primary osteoarthritis of both knees [M17.0] S/P ROBOTIC ASSISTED TOTAL KNEE ARTHROPLASTY (Right) 03/24/2024 Past Medical History: Osteopenia Primary Osteoarthritis of Left Knee Primary Osteoarthritis of Right Hip Essential Hypertension Hyperlipidemia Pe (Pulmonary Thromboembolism) (Hcc) Ponv (Postoperative Nausea and Vomiting) S/P Total Knee Arthroplasty, Right Weight Bearing or Surgical Precautions: Weight bearing as tolerated on operative leg ASSESSMENT: Patient evaluated by [facility] physical therapy. Reviewed and explained homecare services. Plan of care, goals, and visit frequency developed, reviewed, and agreed upon with patient and/or caregiver. Patient planning to go to [facility] outpatient P.T. Patient to obtain a script at her follow up. Patient Goal: improve mobility Patient will benefit from continued physical therapy to address the following deficits: strength, balance, gait, endurance, transfers, stair negotiation, aerobic capacity and bed mobility. Current Discharge Plan: outpatient rehab. Anticipate discharge by 04/18/24. RECOMMENDATION: Next visit to focus on transfers, ambulation, knee rom, TKA protocol Agreeable to PT See intervention summary for intervention/education details. [facility] Work Phone: 03-25-2024 Telephone encounter Note Date/Time: 03/25/2024 10:31 AM Spoke with Patient @ phone #: - Preferred # for contact: Have you received help from a home care company in the last 60 days? No Are you agreeable to [facility] services? Yes What address will we be seeing you at? [address] [address] Do you have any upcoming appointments or things we need to schedule around? No Do you have a teachable CG or can you manage your care independently? Spouse can provide minimal help patients friend and daughter will help [facility] 03-25-2024 Miscellaneous Notes Date/Time: 03/25/2024 10:31 AM Spoke with Patient @ phone #: - Preferred # for contact: Have you received help from a home care company in the last 60 days? No Are you agreeable to [facility] services? Yes What address will we be seeing you at? [address] [address] Do you have any upcoming appointments or things we need to schedule around? No Do you have a teachable CG or can you manage your care independently? Spouse can provide minimal help patients friend and daughter will help documented in this encounter [facility] 03-25-2024 Note HNO ID: [id number] Author: SYLVAIN CORDERO MD Service: General Internal Medicine Author Type: Physician Type: Progress Notes Filed: 03/25/2024 09:16 Note Text: INPATIENT PROGRESS NOTES Patient Name: Zeenat Mejia DATE of SERVICE: 03/25/2024 TIME of SERVICE: 7:32 AM PRIMARY SERVICE: medicine INTERVAL HPI: Uneventful night, no nausea or vomiting. No lightheadedness or dizziness. Pain is well-controlled ASSESSMENT AND PLAN: Osteoarthritis status post right total knee arthroplasty, DVT prophylaxis with Eliquis 2.5 mg twice a day Hypertension continue lisinopril/hydrochlorothiazide Hyperlipidemia continue statins History of provoked DVTs Possible discharge. Home-going meds reviewed Plan of care discussed with: Provider, RN, Patient. PERTINENT ROS: All other reviewed and negative other than HPI. MEDICATIONS: Current Facility-Administered Medications Medication Dose Route Frequency scopolamine - VERIFY patch OTHER q 8 H scopolamine - REMOVE PATCH OTHER ONCE atorvastatin 10 mg tab(s) (LIPITOR) 10 mg ORAL AT BEDTIME potassium chloride 20 mEq tablet (K-TAB) 20 mEq ORAL DAILY oxyCODONE IR 5-10 mg tab(s) (ROXICODONE) 5-10 mg ORAL q 3 H PRN acetaminophen 1,000 mg tab(s) (TYLENOL) 1,000 mg ORAL q 8 H ondansetron orally disintegrating 4 mg tab(s) (ZOFRAN ODT) 4 mg ORAL q 6 H PRN Or ondansetron (PF) 4 mg injection (ZOFRAN) 4 mg INTRAVENOUS q 6 H PRN magnesium hydroxide 400 mg/5 mL 30 mL (MOM) 30 mL ORAL DAILY PRN [START ON 03/26/2024] bisacodyl EC 10 mg tab(s) (DULCOLAX) 10 mg ORAL DAILY aluminum-magnesium hydroxide-simethicone 200-200-20 mg/5 mL 30 mL 30 mL ORAL q 2 H PRN ascorbic acid (vitamin C) 500 mg tab(s) (VITAMIN C) 500 mg ORAL BID w MEALS docusate sodium 100 mg cap(s) (COLACE) 100 mg ORAL BID senna 17.2 mg tab(s) (SENOKOT) 17.2 mg ORAL AT BEDTIME apixaban 2.5 mg tab(s) (ELIQUIS) 2.5 mg ORAL BID lactated ringers iv infusion 100 mL/hr INTRAVENOUS CONTINUOUS HYDROmorphone 0.4 mg injection (DILAUDID) 0.4 mg INTRAVENOUS q 3 H PRN keTORolac 15 mg injection (Toradol) 15 mg INTRAVENOUS q 6 H PRN lisinopril 20 mg tab(s) (ZESTRIL) 20 mg ORAL DAILY And hydroCHLOROthiazide 12.5 mg tab(s) 12.5 mg ORAL DAILY PHYSICAL EXAM: Patient Vitals for the past 24 hrs: BP Temp Temp src Pulse Resp SpO2 Height Weight 03/25/24 0911 141/56 37.1 ?C (98.8 ?F) Oral 74 16 98 % -- -- 03/25/24 0243 158/82 36.7 ?C (98.1 ?F) Oral 80 18 96 % -- -- 03/24/24 2252 128/66 36.8 ?C (98.2 ?F) Oral 72 18 95 % -- -- 03/24/24 2018 130/61 36.7 ?C (98.1 ?F) Oral 75 18 96 % -- -- 03/24/24 1512 116/57 36.7 ?C (98.1 ?F) Oral 70 16 97 % -- -- 03/24/24 1209 145/72 36.8 ?C (98.2 ?F) Oral 76 16 95 % -- -- 03/24/24 1140 140/75 36.8 ?C (98.2 ?F) Oral 67 12 96 % -- -- 03/24/24 1112 -- -- -- -- -- -- 171.5 cm (5' 7.5) 75.8 kg (167 lb 1.7 oz) 03/24/24 1109 142/85 36.8 ?C (98.2 ?F) Oral 65 12 94 % -- -- 03/24/24 1045 144/77 -- -- 70 25 97 % -- -- 03/24/24 1030 153/78 -- -- 71 15 95 % -- -- 03/24/24 1015 162/75 -- -- 72 10 94 % -- -- 03/24/24 1000 145/93 -- -- 77 13 95 % -- -- 03/24/24 0958 113/91 36.4 ?C (97.5 ?F) Temporal 77 13 99 % -- -- Body mass index is 25.79 kg/m?. GENERAL: Alert, no distress, cooperative NECK: No jugulovenous distention LUNGS: Lungs clear to auscultation, CARDIAC: Normal S1 and S2; no rubs, murmurs, or gallops ABDOMEN: Abdomen soft, non-tender, BS normal, No masses or organomegaly EXTREMITIES: No edema, no calf tenderness CBC: Recent Labs 03/25/24 0540 WBC 12.08* RBC 3.71* HB 11.1* HCT 34.1* PLT 219 MCV 91.9 MCH 29.9 MPV 9.7 Coags: CMP: Recent Labs 03/25/24 0540 NA 140 K 3.7 CHLOR 105 CO2 26 BUN 14 CREAT 0.78 GLUC 96 CA 8.7 ANION 9 SIGNATURE: Sylvain Cordero MD [facility] 03-25-2024 Note HNO ID: [id number] Author: ROHITH WILLIS PA-C Service: Orthopaedic Surgery Author Type: Physician Boilermaker'S Assistant Type: Progress Notes Filed: 03/25/2024 09:37 Note Text: POSTOP NOTE ORTHOPAEDIC SURGERY SERVICE DATE: 03/25/2024 SERVICE TIME: 8:05 AM IMPRESSION/PLAN: S/P Procedure(s) (LRB): ROBOTIC ASSISTED TOTAL KNEE ARTHROPLASTY (Right) on 03/24/2024 Physical Therapy evaluation WBAT RLE DVT prophylaxis: Intermittent pneumatic compression device (IPCD) and Eliquis Pain control Case Management for discharge planning Plan of care discussed with: Provider, RN, Patient. Patient Active Hospital Problem List: No active hospital problems. POST OPERATIVE COMPLICATIONS: Complicated by uneventful/none SUBJECTIVE: Patient states that they are comfortable. Well Controlled knee pain. Denies incisional pain. OBJECTIVE: VITAL SIGNS: BP 141/56 Pulse 74 Temp 37.1 ?C (98.8 ?F) (Oral) Resp 16 Ht 171.5 cm (5' 7.5) Wt 75.8 kg (167 lb 1.7 oz) SpO2 98% BMI 25.79 kg/m? INTAKE AND OUTPUT: Intake/Output Summary (Last 24 hours) at 03/25/2024 0934 Last data filed at 03/25/2024 0636 Gross per 24 hour Intake 3081.41 ml Output 1600 ml Net 1481.41 ml LABS: Hemoglobin Date Value Ref Range Status 03/25/2024 11.1 (L) 11.5 - 15.5 g/dL Final 03/24/2024 11.8 11.5 - 15.5 g/dL Final Hematocrit Date Value Ref Range Status 03/25/2024 34.1 (L) 36.0 - 46.0 % Final 03/24/2024 36.5 36.0 - 46.0 % Final Platelet Count Date Value Ref Range Status 03/25/2024 219 150 - 400 k/uL Final 03/09/2024 265 150 - 400 k/uL Final WBC Date Value Ref Range Status 03/25/2024 12.08 (H) 3.70 - 11.00 k/uL Final 03/09/2024 6.62 3.70 - 11.00 k/uL Final Creatinine Date Value Ref Range Status 03/25/2024 0.78 0.58 - 0.96 mg/dL Final 03/09/2024 0.74 0.58 - 0.96 mg/dL Final Potassium Date Value Ref Range Status 03/25/2024 3.7 3.7 - 5.1 mmol/L Final 03/09/2024 3.9 3.7 - 5.1 mmol/L Final VTE Prophylaxis: Active VTE Risk Category Order: 03/24/24 1115 VTE RISK CATEGORY: SURGICAL HIGH RISK ([place], [place]) Active VTE Medication Orders: Anticoagulant AND Antiplatelet Medications (From admission, onward) Start Dose Route Frequency Last Action Ordered Stop 03/25/24 09 apixaban 2.5 mg tab(s) (ELIQUIS) (Surgical Risk Categories) 2.5 mg ORAL 2 TIMES DAILY Given, 03/25 0803/24/24 1111 -- Active VTE Prophylaxis Orders: 03/24/24 1115 PNEUMATIC COMPRESSION STOCKINGS ([place], [place]) PHYSICAL EXAMINATION: Right Lower Extremity: Dorsalis pedis pulses palpable. Posterior tibial pulses palpable. Dorsi flexion 5/5. Plantar flexion 5/5. Extensor hallucis extension: 5/5. Sensory intact to light touch L4-S1. Dressing clean, dry, and intact. Surgical site no drainage and Silverlon intact. Problem Review and Assessment: Skin and Abdominal Wall: Patient monitored, no new events overnight Cardiovascular and Vascular: Patient monitored, no new events overnight Respiratory: Patient monitored, no new events overnight Endocrine and Metabolic: Patient monitored, no new events overnight Gastrointestinal: Patient monitored, no new events overnight Genitourinary and Nephrology: Patient monitored, no new events overnight Behavioral, Cerebrovascular and Nervous: Patient monitored, no new events overnight Infectious: Patient monitored, no new events overnight DATA: Diagnostic tests reviewed for today's visit: Most recent labs and imaging results. SIGNATURE: Rohith Willis PA-C PATIENT NAME: Zeenat Mejia DATE: March 25, 2024 TIME: 9:34 AM The patient has undergone major orthopedic surgery and participating in therapy. Pain cannot be managed within an average of 30 MED per day. Patient requiring average of higher than 30 MED per day in order to control pain and allow patient to actively and safely participate in therapy and this is the lowest dose consistent with patient's medical condition. Non-narcotic medication options have been discussed. In addition, the patient has been advised of the benefits and risks of the opioid (including the potential for addiction). Patient demonstrated understanding of risks versus benefits. [facility] 03-24-2024 Note HNO ID: [id number] Author: EVELYN VÁSQUEZ APRN.EMR IMPLEMENTATION SPECIALIST Service: Anesthesiology Author Type: Nurse Skull Splitter Type: Anesthesia Procedure Notes Filed: 03/24/2024 08:27 Note Text: ANESTHESIOLOGY PROCEDURE NOTE Airway General Information Procedure Start Time/Medication Administration: 03/24/2024 7:54 AM Procedure End Time: 03/24/2024 7:54 AM Patient location during procedure: OR Timeout Performed Pre-procedure:, emergent Consent Obtained: Yes Patient identity confirmed: patient Staffing EMR IMPLEMENTATION SPECIALIST: Evelyn Vásquez APRN.EMR IMPLEMENTATION SPECIALIST Performed by: EMR IMPLEMENTATION SPECIALIST Indications and Patient Condition Indications for airway management: airway protection Preoxygenated: yes non-rebreather Patient position: sniffing Method: asleep Final Airway Details Final airway type: supraglottic airway Number of attempts at approach: 1 Final Supraglottic Airway: i-gel Size 3 Seal Adequate: yes SIGNATURE: Evelyn Vásquez APRN.CRNA PATIENT NAME: Zeenat Mejia DATE: March 24, 2024 TIME: 8:26 AM CSN: [id number] [facility] 03-24-2024 Note HNO ID: [id number] Author: EVELYN VÁSQUEZ APRN.EMR IMPLEMENTATION SPECIALIST Service: Anesthesiology Author Type: Nurse Skull Splitter Type: Anesthesia Procedure Notes Filed: 03/24/2024 08:26 Note Text: ANESTHESIOLOGY PROCEDURE NOTE Spinal Block General Information Procedure Start Time/Medication Administration: 03/24/2024 7:35 AM Procedure End time: 03/24/2024 7:45 AM Patient location during procedure: OR Timeout Performed Pre-procedure: timeout performed Reason for Block: primary surgical anesthetic Staffing EMR IMPLEMENTATION SPECIALIST: Evelyn Vásquez APRN.EMR IMPLEMENTATION SPECIALIST Performed by: EMR IMPLEMENTATION SPECIALIST Preparation Sterility Preparation: hand hygiene performed prior to procedure, sterile gloves, drapes, and procedure tray, surgical cap used, mask used, sterile drape used during line insertion, skin prep agent completely dried prior to procedure Site Prep: Betadine Procedure Details Patient Position: sitting Ultrasound Guided: No Monitoring: Pulse Ox, EKG and NIBP Approach: Midline Location: L4-5 Injection Technique: single-shot Needle Needle Type: pencil-tip Needle Gauge: 24 G Needle Length: 4 in CSF: CSF clear Assessment Sensory Level: T10 Events: tolerated well Comments 1 attempt L3-4, 1 attempt L4-5. SIGNATURE: Evelyn Vásquez APRN.EMR IMPLEMENTATION SPECIALIST PATIENT NAME: Zeenat Mejia DATE: March 24, 2024 TIME: 8:24 AM CSN: [id number] [facility] 03-24-2024 Note HNO ID: [id number] Author: LIZ RUSSELL MD Service: Anesthesiology Author Type: Anesthesiologist Type: Anesthesia Procedure Notes Filed: 03/24/2024 07:11 Note Text: ANESTHESIOLOGY PROCEDURE NOTE Peripheral Nerve Block General Information Procedure Start Time/Medication Administration: 03/24/2024 7:07 AM Procedure End time: 03/24/2024 7:08 AM Patient location during procedure: induction room Timeout Performed Pre-procedure: timeout performed Consent Obtained: Yes Patient identity confirmed: arm band and patient Reason for block: post-op pain management/at surgeon's request Staffing Anesthesiologist: Liz Russell MD Performed by: anesthesiologist Preparation Sterility Preparation: hand hygiene performed prior to procedure, sterile gloves, drapes, and procedure tray, surgical cap used, mask used, sterile drape used during line insertion, skin prep agent completely dried prior to procedure Site Prep: Chloraprep Pre-Procedure Neuro Exam Location: RLE Sensory: intact Motor: intact Procedure Details Patient Position: supine Monitoring: Pulse OX, EKG and NIBP Block Type Lower Extremity: distal femoral (adductor canal) Laterality: right Injection Technique: single-shot Ultrasound Guided: Yes Image in Chart: yes Local Infiltration: Yes Needle Needle Type: echogenic Needle Gauge: 22 G Needle Length: 100 mm Needle Localization: ultrasound Assessment Injection assessment: negative aspiration, no paresthesia on injection, incremental injection and local visualized surrounding nerve on ultrasound Post-Procedure Neuro Exam Expected Regional Anesthesia: Yes Medications Administered bupivacaine liposome (PF) 1.3 % (13.3 mg/mL) injection (EXPAREL) - INFILTRATION 133 mg - 03/24/2024 7:07:00 AM bupivacaine (PF) 0.5 % (5 mg/mL) injection - peripheral nerve block 10 mL - 03/24/2024 7:07:00 AM SIGNATURE: Liz Russell MD PATIENT NAME: Zeenat Mejia DATE: March 24, 2024 TIME: 7:11 AM CSN: [id number] [facility] 03-10-2024 Miscellaneous Notes Radiology Service Progress Note PATIENT NAME: Zeenat Mejia DATE OF SERVICE: March 10, 2024 TIME: 9:07 AM PATIENT IDENTITY VERIFICATION COMPLETED USING TWO (2) IDENTIFIERS: Name and Date of confirmed by patient verbally and Name and Date of confirmed by identification band. FALL SCREENING: Has the patient had 2 falls in the last year or 1 fall with injury or currently using an Ambulatory Assistive Device (Walker, Cane, Wheelchair, Crutches, etc.)? No PATIENT GENDER DATA: Female. status: : No status: NO. PATIENT RELEVANT IMPLANT DATA REVIEWED: Not Applicable PATIENT PRESENTS WITH AN IMPLANTABLE OR ATTACHED METAL PATTERN MAKER: No RADIOLOGY DEPARTMENT: CT; Exam(s) Completed: RT CHAU KNEE PERIPHERAL IV DATA: Not applicable SIGNED BY: JAE Powell March 10, 2024 9:07 AM documented in this encounter [facility] 03-10-2024 Progress note Formatting of t his note might be different from the original. Radiology Service Progress Note PATIENT NAME: Zeenat Mejia DATE OF SERVICE: March 10, 2024 TIME: 9:07 AM PATIENT IDENTITY VERIFICATION COMPLETED USING TWO (2) IDENTIFIERS: Name and Date of confirmed by patient verbally and Name and Date of confirmed by identification band. FALL SCREENING: Has the patient had 2 falls in the last year or 1 fall with injury or currently using an Ambulatory Assistive Device (Walker, Cane, Wheelchair, Crutches, etc.)? No PATIENT GENDER DATA: Female. status: : No status: NO. PATIENT RELEVANT IMPLANT DATA REVIEWED: Not Applicable PATIENT PRESENTS WITH AN IMPLANTABLE OR ATTACHED METAL PATTERN MAKER: No RADIOLOGY DEPARTMENT: CT; Exam(s) Completed: RT CHAU KNEE PERIPHERAL IV DATA: Not applicable SIGNED BY: JAE Powell March 10, 2024 9:07 AM [facility] 03-09-2024 Instructions Chel Harrison PA-C - 03/09/2024 10:45 AM EDT PATIENT PREOPERATIVE INSTRUCTIONS Romana Chi MD has scheduled you for your procedure at this surgery center: [facility]: [phone] -- [address] [address]. Please read below carefully for your personalized instructions. Arrival Time for Surgery: - The Surgery Center or hospital where you are having surgery will call the afternoon before surgery (or Saturday for Saturday surgery) with a scheduled arrival time. - If you have not heard by 4 pm, please contact the surgery center above. Please be aware that emergency situations arise, which may delay or change your surgical time. If this happens, we will notify you as soon as possible and regret any inconvenience. Dietary Restrictions: - No solid food after midnight. - You may have 12 ounces of clear liquids (water, clear juices such as apple juice or gatorade, carbonated beverages, clear tea, black coffee, jello) until 2 hours before scheduled arrival at facility. - Do not drink any alcohol after midnight the night before your surgery. Medications: Unless instructed differently below, stay on all of your medications until your surgery. Approved medications to take the morning of surgery with a sip of water: None DO NOT TAKE YOUR lisinopril - hydroCHLOROthiazide THE MORNING OF SURGERY. If you start any new medications after today's visit, please contact the surgeon's office. Blood Thinning Medications: - Stop NSAIDS (Ibuprofen, Advil, Aleve, Motrin, Celebrex, Mobic, etc.) 7 days before surgery, as directed by your surgeon. - Stop Aspirin 7 days before surgery, as directed by your surgeon. - Stop Vitamin E, ALL multi-vitamins, herbals and dietary supplements 14 days before surgery. - You may take Tylenol (Acetaminophen) or any of your pain medications that do not contain aspirin or NSAIDS as needed. Important Reminders: - If you use CPAP/BIPAP, bring the machine with you to the surgery center. - If you are prescribed inhalers for breathing, continue using them. - Candy, mints, and tobacco products are NOT permitted the morning of surgery. - Hearing aids, dentures and glasses may be worn the morning of surgery. - NO jewelry, body piercings, makeup, hairpins or contacts are to be worn the day of surgery. If you develop symptoms such as a fever, cold, or flu, or have other changes to your health within TWO DAYS of scheduled surgery or the morning of surgery, please contact the surgery center above. Personal Belongings: -Please have photo ID and insurance cards. -If you do not have a copy of advance directives on file with us, please bring a copy with you on the day of surgery. - Leave ALL valuables and money at home or with family members. For Outpatient Procedures: - YOU MUST HAVE A RESPONSIBLE ANTENNA SPECIALIST TAKE YOU HOME. A FORENSIC MEDICAL EXAMINER OR TOOL MAINTENANCE TECHNICIAN CANNOT BE MADE A RESPONSIBLE ANTENNA SPECIALIST. - We recommend that a responsible person stays with you overnight to take care of you. - You cannot stay in a hotel alone after outpatient surgery. You will not be permitted to have your surgery, if you do not have someone to take care of you. If you already have an Advance Directive, please fax a copy to [phone] or email to for it to be added to your chart. If you do not have an Advance Directive, you can find the appropriate form and more information at [email or web address]. We recommend that you complete the Advance Directive form found on the website and bring it with you the day of your surgery. It can be witnessed and scanned into your chart that day. Chel Harrison PA-C documented in this encounter [facility] 03-09-2024 History and physical note HISTORY AND PHYSICAL EXAMINATION SERVICE DATE: 03/09/2024 SERVICE TIME: 11:14 AM PRIMARY CARE PHYSICIAN: Claudette Lima MD Assessment Patient has the following medical conditions which may affect nazia-operative course: Essential hypertension Assessment: BP today in clinic 154/86. Stable on RX. Hyperlipidemia Assessment: Stable on RX PE (pulmonary thromboembolism) (HCC) Assessment: after shoulder surgery in 2020, no longer takes AC PONV (postoperative nausea and vomiting) Assessment: reports vomiting after hysterectomy Gomze Activity Status Index: METS: Climb a flight of stairs or walk up a hill (5.50 METs) DASI Score: 5.5 Patient denies any chest pain or undue shortness of breath with the above physical activity. Clinical Frailty Scale: 3. Well, with treated comorbid disease STOP-Bang Score: Snores loudly Has or is being treated for high blood pressure Patient over 50 years old Denies feeling tired, fatigued, or sleepy during the daytime Has not been observed to stop breathing or choking/gasping during sleep BMI less than or equal to 35 kg/m^2 Does not have a large neck Non-male patient STOP-Bang Score: 3 [id number] Score: Age: 65-74 Sex: female CHF history: No Hypertension history: Yes Stroke/TIA/thromboembolism history: No Vascular disease history: No Diabetes history: No [id number] Score: 3 ARISCAT Score: Age: 51-80 Preoperative SpO2: >=96% Respiratory infection in the last month: No Preoperative anemia: Yes Surgical incision: peripheral Duration of surgery: 2-3 hrs Emergency procedure: No ARISCAT Score: 30 ANESTHESIA FINDINGS: Intubation History: No history of difficult intubation. No abnormal airway history Significant Anesthesia Considerations: reports vomitting after hyster potential postop nausea/vomiting Airway History: No history of difficult airway No abnormal airway history I - PHYSICAL EVALUATION AIRWAY Patient intubated: No. Tracheostomy tube not present Mallampati: IV. TM distance: >3 FB. Neck ROM: full ROM without neurological symptoms. Mouth opening: adequate. Short neck: no. Thick neck: no Marie present: no Lip Bite Test: I DENTAL Dental findings: broken tooth. Additional comments: + crowns, permanent bridge. II - ANESTHESIA PLAN Anesthetic Plan: other Anesthetic plan additional comments: *PACC/TCI - anesthesia choice. Beta Bj Monitoring Plan Post Procedure Analgesic Plan Prepared for Surgery: optimally prepared for surgery, pending [see comment]. Labs, EKG CONSULTS: Patient does not require consults for optimization at this time Planned Anesthetic: other anesthesia choice REASON FOR VISIT: Zeenat Mejia is a 73 year old female who is scheduled for Procedure(s): ROBOTIC ASSISTED TOTAL KNEE ARTHROPLASTY (Right) at the request of Romana Cortes MD for consultation. My final recommendation will be communicated back to the requesting physician by way of shared medical record or letter. Subjective The patient has the following: ACTIVE PROBLEM LIST POSTMENOPAUSAL ATROPHIC VAGINITIS Osteopenia Primary Osteoarthritis of Left Knee Primary Osteoarthritis of Right Hip Essential Hypertension Hyperlipidemia Pe (Pulmonary Thromboembolism) (Hcc) Ponv (Postoperative Nausea and Vomiting) COVID-19 Immunization Status Overdue - Covid-19 Vaccine () Overdue since 03/15/2023 10/04/2020 Imm Admin: COVID-19 original vaccine, age 12+ yr, monovalent (PFIZER-BIONTECH - PURPLE TOP) 09/13/2020 Imm Admin: COVID-19 original vaccine, age 12+ yr, monovalent (PFIZER-BIONTECH - PURPLE TOP) CHIEF COMPLAINT: Pre-anesthesia optimization HPI: Zeenat Mejia is a 73 year old female presenting for pre-anesthesia consultation. Pt has history of bilateral knee OA, reports stairs or stepping off curb causes a lot of difficulty. Affecting ambulation and activities. Above procedure recommended to manage symptoms. Procedure scheduled on 03/24/2024 at [place]. REVIEW OF SYSTEMS: General: No weight loss, malaise or fevers. Neurological: No history of TIA's, stroke, TABULATING MACHINE MECHANIC tumor, impaired sensorium, hemiplegia, paraplegia or quadraplegia. No neurological symptoms or problems. Respiratory: + lung nodule. No history of current cough or dyspnea, or pneumonia in the past 6 weeks. No history of respiratory/pulmonary symptoms or problems. Cardiovascular: Positive for: DVT/PE (provoked from shoulder surgery, 2020), hyperlipidemia and hypertension Negative for: arrhythmia, atrial fibrillation, CAD, chest pain and murmur/valvular heart disease. GI: Positive for: history of polyps Negative for: dysphagia, GERD, heartburn, irritable bowel syndrome, inflammatory bowel disease, liver disease and ETOH >2 drinks/day. : No history of dysuria, frequency or incontinence, stones or chronic kidney disease. No difficulty urinating, nocturia > 1 time per night or hematuria. GRINDER BRAKE LINING: + hysterectomy. Negative for abnormal vaginal bleeding, abnormal vaginal discharge. Endocrine: No history of diabetes. Has not taken steroids within the past 30 days. No history of endocrinological symptoms or problems. Hematology: No history of bleeding or clotting disorder. Patient is not taking anti-coagulation or platelet medications. No history of hematological symptoms or problems. Oncology: + SCC. No history of CA metastasis, chemo within 30 days, or radiotherapy within 90 days. No history of oncological symptoms or problems. Psych: No history of psychiatric symptoms or problems. Musculoskeletal: See HPI. Positive for: joint pain. Negative for: back pain. Skin: Negative for lesions, rash and itching. PAST MEDICAL HISTORY 1992: Abnormal Pap smear of cervix Comment: mild- cryo, normal since, hysterectomy No date: Disorder of bone and cartilage, unspecified No date: Elevated cholesterol No date: HTN (hypertension) No date: Mitral valve disorders(424.0) 04/08/2014: Osteopenia PAST SURGICAL HISTORY No date: ADENOIDECTOMY PRIMARY Comment: Adenoidectomy 08/30/2016: ARTHRP ACETBLR/PROX FEM PROSTC AGRFT/ALGRFT; Right Comment: Hip replacement, total 1992: CAUTERY CERVIX CRYOCAUTERY INITIAL/REPEAT Comment: for abn cells and paps since were normal 01/16; 09/20: COLONOSCOPY FLX DX W/COLLJ SPEC WHEN PFRMD Comment: Colonoscopy x 2: DILATION & CURETTAGE DX&/THER NONOBSTETRIC Comment: Dilation & curettage 07/2015: PAST SURGICAL HISTORY OF; Right Comment: macular hole No date: TONSILLECTOMY PRIMARY/SECONDARY Comment: Tonsillectomy 2004: VAGINAL HYSTERECTOMY UTERUS 250 GM/< Comment: Hysterectomy, vaginal for menorrhagia FAMILY HISTORY Problem Relation Age of Onset COPD Mother Osteoporosis Mother Colon Cancer Mother age 84 on diagnosis other (allergic to the sun) Father other (Pancreatic Cancer) Maternal Uncle Social History Tobacco Use Smoking status: Never Smokeless tobacco: Never Substance Use Topics Alcohol use: Yes Comment: rarely 6 per year Drug use: No Prior to Admission medications as of 03/09/24 1044 Medication Sig Last Dose Taking meloxicam (MOBIC) 15 mg tablet Take 1 tablet by mouth once daily. Taking Yes calcium carbonate/vitamin D3 (CALCIUM 500 + D ORAL) Take by mouth. Taking Yes MULTI-VITAMIN ORAL Take 1 tablet by mouth once daily. Taking Yes acetaminophen (TYLENOL ARTHRITIS ORAL) Take 1 tablet by mouth as needed. Taking Yes potassium chloride (K-TAB) 10 mEq tablet Take 20 mEq by mouth once daily. Taking Yes atorvastatin (LIPITOR) 10 mg tablet Take 10 mg by mouth daily at bedtime. Taking Yes coQ10, ubiquinol, 100 mg cap Take by mouth once daily. Taking Yes lisinopril/hydrochlorothiazide(SHARONDA NZIDE 20 MG-12.5 MG TAB) one tablet daily Taking Yes mupirocin (BACTROBAN) 2 % ointment two times a day for 5 days. Apply 0.5 inch with cotton swab (Q-tip) to each nostril in the morning and evening for 5 days prior to and including day of surgery. No medication comments found. ALLERGIES Allergen Reactions Penicillins Rash Sulfa (Sulfonamide * Rash Tetracycline Rash Objective PHYSICAL EXAM: General: alert and oriented and healthy appearance. Pertinent negatives noted - not distressed. Skin: normal color, no rash or lesions. HEENT: EOM intact and pupils equal round. Pertinent negatives noted - no carotid bruit. Cardiovascular: regular rate and rhythm, normal S1 and S2, no rub, murmurs, or gallop. + click. Respiratory: normal breath sounds, no wheezes or crackles. No chest wall deformity or tenderness. Abdomen: soft. Pertinent negatives noted - not tender. Extremities: Positive for joint swelling and joint tenderness. Pertinent negatives noted - no edema. Neurological: normal cognition and motor skills. Positive for abnormal gait. PAIN ASSESSMENT: VITALS: BP 154/86 Pulse 82 Temp (Src) 97.8 (Temporal) Resp 16 Ht 5' 7.5 (1.72m) Wt 166 lb 14.2 oz (75.7kg) SpO2 99% BMI 25.74 kg/(m^2). Diagnostic tests reviewed for today's visit: Lab Value Units Date High Low HB No results within date range. HCT No results within date range. WBC No results within date range. PLT No results within date range. NA No results within date range. K No results within date range. GLUC No results within date range. BUN No results within date range. CREAT No results within date range. PTSEC No results within date range. INR No results within date range. APTT No results within date range. ALT No results within date range. AST No results within date range. TBILI No results within date range. TSH No results within date range. Lab Value Units Date High Low HCGQT No results within date range. UHCG No results within date range. HCG, BODY* No results within date range. Lab Value Units Date High Low ABORHD No results within date range. ABSCREEN No results within date range. No results found for: HBA1C No results found for this or any previous visit (from the past 8760 hour(s)). No results found for this or any previous visit (from the past 98191 hour(s)). The Following Tests/Procedures Have Been Initiated: Orders Placed This Encounter Complete Blood Count and Differential Standing Status: Future Standing Expiration Date: 06/08/2024 BMP Standing Status: Future Standing Expiration Date: 06/08/2024 mupirocin (BACTROBAN) 2 % ointment Sig: two times a day for 5 days. Apply 0.5 inch with cotton swab (Q-tip) to each nostril in the morning and evening for 5 days prior to and including day of surgery. Dispense: 22 g Refill: 0 ECG (IN OFFICE) Instructions Given to Patient: Instructions located in the after visit summary. Patient given verbal and written preop instructions and voices comprehension and compliance. SIGNATURE: Chel Harrison PA-C PATIENT NAME: Zeenat Mejia DATE: 03/09/2024 TIME: 2:22 PM PAGER/CONTACT #: [facility] 03-09-2024 History and physical note HISTORY AND PHYSICAL EXAMINATION SERVICE DATE: 03/09/2024 SERVICE TIME: 11:14 AM PRIMARY CARE PHYSICIAN: Claudette Lima MD Assessment Patient has the following medical conditions which may affect nazia-operative course: Essential hypertension Assessment: BP today in clinic 154/86. Stable on RX. Hyperlipidemia Assessment: Stable on RX PE (pulmonary thromboembolism) (HCC) Assessment: after shoulder surgery in 2020, no longer takes AC PONV (postoperative nausea and vomiting) Assessment: reports vomiting after hysterectomy Gomez Activity Status Index: METS: Climb a flight of stairs or walk up a hill (5.50 METs) DASI Score: 5.5 Patient denies any chest pain or undue shortness of breath with the above physical activity. Clinical Frailty Scale: 3. Well, with treated comorbid disease STOP-Bang Score: Snores loudly Has or is being treated for high blood pressure Patient over 50 years old Denies feeling tired, fatigued, or sleepy during the daytime Has not been observed to stop breathing or choking/gasping during sleep BMI less than or equal to 35 kg/m^2 Does not have a large neck Non-male patient STOP-Bang Score: 3 [id number] Score: Age: 65-74 Sex: female CHF history: No Hypertension history: Yes Stroke/TIA/thromboembolism history: No Vascular disease history: No Diabetes history: No [id number] Score: 3 ARISCAT Score: Age: 51-80 Preoperative SpO2: >=96% Respiratory infection in the last month: No Preoperative anemia: Yes Surgical incision: peripheral Duration of surgery: 2-3 hrs Emergency procedure: No ARISCAT Score: 30 ANESTHESIA FINDINGS: Intubation History: No history of difficult intubation. No abnormal airway history Significant Anesthesia Considerations: reports vomitting after hyster potential postop nausea/vomiting Airway History: No history of difficult airway No abnormal airway history I - PHYSICAL EVALUATION AIRWAY Patient intubated: No. Tracheostomy tube not present Mallampati: IV. TM distance: >3 FB. Neck ROM: full ROM without neurological symptoms. Mouth opening: adequate. Short neck: no. Thick neck: no Marie present: no Lip Bite Test: I DENTAL Dental findings: broken tooth. Additional comments: + crowns, permanent bridge. II - ANESTHESIA PLAN Anesthetic Plan: other Anesthetic plan additional comments: *PACC/TCI - anesthesia choice. Beta Bj Monitoring Plan Post Procedure Analgesic Plan Prepared for Surgery: optimally prepared for surgery, pending [see comment]. Labs, EKG CONSULTS: Patient does not require consults for optimization at this time Planned Anesthetic: other anesthesia choice REASON FOR VISIT: Zeenat Mejia is a 73 year old female who is scheduled for Procedure(s): ROBOTIC ASSISTED TOTAL KNEE ARTHROPLASTY (Right) at the request of Romana Cortes MD for consultation. My final recommendation will be communicated back to the requesting physician by way of shared medical record or letter. Subjective The patient has the following: ACTIVE PROBLEM LIST POSTMENOPAUSAL ATROPHIC VAGINITIS Osteopenia Primary Osteoarthritis of Left Knee Primary Osteoarthritis of Right Hip Essential Hypertension Hyperlipidemia Pe (Pulmonary Thromboembolism) (Hcc) Ponv (Postoperative Nausea and Vomiting) COVID-19 Immunization Status Overdue - Covid-19 Vaccine ( season) Overdue since 03/15/2023 10/04/2020 Imm Admin: COVID-19 original vaccine, age 12+ yr, monovalent (PFIZER-BIONTECH - PURPLE TOP) 09/13/2020 Imm Admin: COVID-19 original vaccine, age 12+ yr, monovalent (PFIZER-BIONTECH - PURPLE TOP) CHIEF COMPLAINT: Pre-anesthesia optimization HPI: Zeenat Mejia is a 73 year old female presenting for pre-anesthesia consultation. Pt has history of bilateral knee OA, reports stairs or stepping off curb causes a lot of difficulty. Affecting ambulation and activities. Above procedure recommended to manage symptoms. Procedure scheduled on 03/24/2024 at [place]. REVIEW OF SYSTEMS: General: No weight loss, malaise or fevers. Neurological: No history of TIA's, stroke, TABULATING MACHINE MECHANIC tumor, impaired sensorium, hemiplegia, paraplegia or quadraplegia. No neurological symptoms or problems. Respiratory: + lung nodule. No history of current cough or dyspnea, or pneumonia in the past 6 weeks. No history of respiratory/pulmonary symptoms or problems. Cardiovascular: Positive for: DVT/PE (provoked from shoulder surgery, 2020), hyperlipidemia and hypertension Negative for: arrhythmia, atrial fibrillation, CAD, chest pain and murmur/valvular heart disease. GI: Positive for: history of polyps Negative for: dysphagia, GERD, heartburn, irritable bowel syndrome, inflammatory bowel disease, liver disease and ETOH >2 drinks/day. : No history of dysuria, frequency or incontinence, stones or chronic kidney disease. No difficulty urinating, nocturia > 1 time per night or hematuria. GRINDER BRAKE LINING: + hysterectomy. Negative for abnormal vaginal bleeding, abnormal vaginal discharge. Endocrine: No history of diabetes. Has not taken steroids within the past 30 days. No history of endocrinological symptoms or problems. Hematology: No history of bleeding or clotting disorder. Patient is not taking anti-coagulation or platelet medications. No history of hematological symptoms or problems. Oncology: + SCC. No history of CA metastasis, chemo within 30 days, or radiotherapy within 90 days. No history of oncological symptoms or problems. Psych: No history of psychiatric symptoms or problems. Musculoskeletal: See HPI. Positive for: joint pain. Negative for: back pain. Skin: Negative for lesions, rash and itching. PAST MEDICAL HISTORY 1992: Abnormal Pap smear of cervix Comment: mild- cryo, normal since, hysterectomy No date: Disorder of bone and cartilage, unspecified No date: Elevated cholesterol No date: HTN (hypertension) No date: Mitral valve disorders(424.0) 04/08/2014: Osteopenia PAST SURGICAL HISTORY No date: ADENOIDECTOMY PRIMARY <AGE 13 Comment: Adenoidectomy 08/30/2016: ARTHRP ACETBLR/PROX FEM PROSTC AGRFT/ALGRFT; Right Comment: Hip replacement, total 1992: CAUTERY CERVIX CRYOCAUTERY INITIAL/REPEAT Comment: for abn cells and paps since were normal 01/16; 09/20: COLONOSCOPY FLX DX W/COLLJ SPEC WHEN PFRMD Comment: Colonoscopy x 2: DILATION & CURETTAGE DX&/THER NONOBSTETRIC Comment: Dilation & curettage 07/2015: PAST SURGICAL HISTORY OF; Right Comment: macular hole No date: TONSILLECTOMY PRIMARY/SECONDARY <AGE 13 Comment: Tonsillectomy 2004: VAGINAL HYSTERECTOMY UTERUS 250 GM/< Comment: Hysterectomy, vaginal for menorrhagia FAMILY HISTORY Problem Relation Age of Onset COPD Mother Osteoporosis Mother Colon Cancer Mother age 84 on diagnosis other (allergic to the sun) Father other (Pancreatic Cancer) Maternal Uncle Social History Tobacco Use Smoking status: Never Smokeless tobacco: Never Substance Use Topics Alcohol use: Yes Comment: rarely 6 per year Drug use: No Prior to Admission medications as of 03/09/24 1044 Medication Sig Last Dose Taking meloxicam (MOBIC) 15 mg tablet Take 1 tablet by mouth once daily. Taking Yes calcium carbonate/vitamin D3 (CALCIUM 500 + D ORAL) Take by mouth. Taking Yes MULTI-VITAMIN ORAL Take 1 tablet by mouth once daily. Taking Yes acetaminophen (TYLENOL ARTHRITIS ORAL) Take 1 tablet by mouth as needed. Taking Yes potassium chloride (K-TAB) 10 mEq tablet Take 20 mEq by mouth once daily. Taking Yes atorvastatin (LIPITOR) 10 mg tablet Take 10 mg by mouth daily at bedtime. Taking Yes coQ10, ubiquinol, 100 mg cap Take by mouth once daily. Taking Yes lisinopril/hydrochlorothiazide(SHARONDA NZIDE 20 MG-12.5 MG TAB) one tablet daily Taking Yes mupirocin (BACTROBAN) 2 % ointment two times a day for 5 days. Apply 0.5 inch with cotton swab (Q-tip) to each nostril in the morning and evening for 5 days prior to and including day of surgery. No medication comments found. ALLERGIES Allergen Reactions Penicillins Rash Sulfa (Sulfonamide * Rash Tetracycline Rash Objective PHYSICAL EXAM: General: alert and oriented and healthy appearance. Pertinent negatives noted - not distressed. Skin: normal color, no rash or lesions. HEENT: EOM intact and pupils equal round. Pertinent negatives noted - no carotid bruit. Cardiovascular: regular rate and rhythm, normal S1 and S2, no rub, murmurs, or gallop. + click. Respiratory: normal breath sounds, no wheezes or crackles. No chest wall deformity or tenderness. Abdomen: soft. Pertinent negatives noted - not tender. Extremities: Positive for joint swelling and joint tenderness. Pertinent negatives noted - no edema. Neurological: normal cognition and motor skills. Positive for abnormal gait. PAIN ASSESSMENT: VITALS: BP 154/86 Pulse 82 Temp (Src) 97.8 (Temporal) Resp 16 Ht 5' 7.5 (1.72m) Wt 166 lb 14.2 oz (75.7kg) SpO2 99% BMI 25.74 kg/(m^2). Diagnostic tests reviewed for today's visit: Lab Value Units Date High Low HB No results within date range. HCT No results within date range. WBC No results within date range. PLT No results within date range. NA No results within date range. K No results within date range. GLUC No results within date range. BUN No results within date range. CREAT No results within date range. PTSEC No results within date range. INR No results within date range. APTT No results within date range. ALT No results within date range. AST No results within date range. TBILI No results within date range. TSH No results within date range. Lab Value Units Date High Low HCGQT No results within date range. UHCG No results within date range. HCG, BODY* No results within date range. Lab Value Units Date High Low ABORHD No results within date range. ABSCREEN No results within date range. No results found for: HBA1C No results found for this or any previous visit (from the past 8760 hour(s)). No results found for this or any previous visit (from the past 73945 hour(s)). The Following Tests/Procedures Have Been Initiated: Orders Placed This Encounter Complete Blood Count and Differential Standing Status: Future Standing Expiration Date: 06/08/2024 BMP Standing Status: Future Standing Expiration Date: 06/08/2024 mupirocin (BACTROBAN) 2 % ointment Sig: two times a day for 5 days. Apply 0.5 inch with cotton swab (Q-tip) to each nostril in the morning and evening for 5 days prior to and including day of surgery. Dispense: 22 g Refill: 0 ECG (IN OFFICE) Instructions Given to Patient: Instructions located in the after visit summary. Patient given verbal and written preop instructions and voices comprehension and compliance. SIGNATURE: Chel Harrison PA-C PATIENT NAME: Zeenat Mejia DATE: 03/09/2024 TIME: 2:22 PM PAGER/CONTACT #: documented in this encounter [facility] 03-04-2024 Telephone encounter Note TOTAL JOINT COMPLETE CARE PROGRAM PRE-OPERATIVE TEACHING Service Date: 03/03/2024 Service Time: 3:50PM Date of : 1950 Gender: female Date of Surgery: 03/24/24 Procedure: Right Total Knee Replacement Complete Care Program was discussed with the patient: Metal Reed Tuner Identification: Patient identified a intensive care anaesthetist to help when discharged to home: spouse, neighbors Home Environment: Home Layout: Ranch, Entry Steps: 3 with rail, Bedroom Location: 1st floor, Bathroom Location: 1st floor, and tub shower. Pt owns walker, cane, tall toilets. Discussed with patient importance of attending joint education class and provided date and times of class: YES declined. Patient received Joint Education Binder: Yes Patient plans discharge home with [facility]> SIGNATURE: JESIKA Harrell PATIENT NAME: Zeenat Mejia DATE: March 04, 2024 TIME: 6:47 AM [facility] 08-21-2024 Miscellaneous Notes TOTAL JOINT COMPLETE CARE PROGRAM PRE-OPERATIVE TEACHING Service Date: 03/03/2024 Service Time: 3:50PM Date of : 1950 Gender: female Date of Surgery: 03/24/24 Procedure: Right Total Knee Replacement Complete Care Program was discussed with the patient: Metal Reed Tuner Identification: Patient identified a intensive care anaesthetist to help when discharged to home: spouse, neighbors Home Environment: Home Layout: [place], Entry Steps: 3 with rail, Bedroom Location: 1st floor, Bathroom Location: 1st floor, and tub shower. Pt owns walker, cane, tall toilets. Discussed with patient importance of attending joint education class and provided date and times of class: YES declined. Patient received Joint Education Binder: Yes Patient plans discharge home with [facility] SIGNATURE: JESIKA Harrell PATIENT NAME: Zeenat Mejia DATE: March 04, 2024 TIME: 6:47 AM documented in this encounter [facility] 02-25-2024 Miscellaneous Notes Patient scheduled for CT on 03/10/2024 Janae Garland Patient called stating she received a call but accidentally refused the call and she did not get a voice mail. If someone called her today, can you please call her back. CT order entered. Please place order and schedule ct scan for 03/24/24 Rt tka chau. documented in this encounter [facility] 02-25-2024 Telephone encounter Note Patient scheduled for CT on 03/10/2024 Janae Garland [facility] 02-25-2024 Telephone encounter Note Patient called stating she received a call but accidentally refused the call and she did not get a voice mail. If someone called her today, can you please call her back. [facility] 02-25-[address] order entered. [facility] 02-25-2024 Telephone encounter Note Please place order and schedule ct scan for 03/24/24 Rt priti quick. [facility] 01-06-2024 History of Present illness Narrative Images from the original note were not included. [facility] [id number] [facility] [address] Dept: [phone] Dept Chief Complaint: Zeenat Mejia is an 73 y.o. female here for an annual wellness visit. Assessment/Plan : Problem List Items Addressed This Visit Endocrine/Metabolic IFG (impaired fasting glucose) Relevant Orders Hemoglobin A1c Other Visit Diagnoses Routine general medical examination at health care facility - Primary Hyperlipidemia, unspecified hyperlipidemia type Relevant Orders CBC Comprehensive metabolic panel Lipid panel I have reviewed and reconciled the medication list with the patient today. Current Outpatient Medications Medication Sig Dispense Refill cholecalciferol (Vitamin D-3) 75 MCG (3000 UT) tablet Take by mouth. clindamycin (Cleocin) 300 MG capsule Prior to dentist appointment meloxicam (Mobic) 7.5 MG tablet Take 15 mg by mouth daily. Multiple Vitamin (MULTI-VITAMIN DAILY PO) Take 1 tablet by mouth in the morning. Ubiquinol 100 MG capsule Take by mouth daily. atorvastatin (Lipitor) 10 MG tablet Take 1 tablet (10 mg) by mouth daily. 90 tablet 3 lisinopril-hydroCHLOROthiazide 20-12.5 MG tablet Take 1 tablet by mouth daily. 90 tablet 3 potassium chloride CR (Klor-Con) 10 MEQ ER tablet Take 2 tablets (20 mEq) by mouth in the morning. 180 tablet 3 No current facility-administered medications for this visit. Also reviewed during this visit: The following health maintenance schedule was reviewed with the patient and provided in printed form in the after visit summary: Health Maintenance Topic Date Due Hepatitis A Vaccines (1 of 2 - Risk 2-dose series) Never done RSV Immunization aged 60 or older (1 - 1-dose 60+ series) Never done Hepatitis B Vaccines (1 of 3 - Risk 3-dose series) Never done Zoster Vaccines (2 of 3) 11/24/2015 Pneumococcal Vaccine: 65+ Years (3 of 3 - PPSV23 or PCV20) 12/27/2021 Mammogram 01/02/2024 Depression Screening 01/04/2024 COVID-19 Vaccine (3 - 2022- season) 2024 (Originally 03/15/2023) Influenza Vaccine (Season Ended) 2024 DTaP/Tdap/Td Vaccines (2 - Td or Tdap) 09/16/2024 Medicare Annual Wellness (AWV) 02/04/2025 Diabetes Screening 01/04/2026 Lipid Panel 01/05/2028 Colorectal Cancer Screening 05/03/2032 Hepatitis C Screening Completed Bone Density Scan Completed RSV Immunization under 20 Months Aged Out HIB Vaccines Aged Out IPV Vaccines Aged Out Meningococcal Vaccine Aged Out Rotavirus Vaccines Aged Out HPV Vaccines Aged Out List of current healthcare providers: Patient Care Team: Sabrina Verduzco MD as PCP - General (Internal Medicine) Orders Placed This Encounter Procedures CBC Standing Status: Future Number of Occurrences: 1 Standing Expiration Date: 01/05/2025 Hemoglobin A1c Standing Status: Future Number of Occurrences: 1 Standing Expiration Date: 01/05/2025 Comprehensive metabolic panel Standing Status: Future Number of Occurrences: 1 Standing Expiration Date: 01/05/2025 Lipid panel Standing Status: Future Number of Occurrences: 1 Standing Expiration Date: 01/05/2025 She had one series of vaccine of zostavax, will consider getting shingrix at pharmacy. Patient did have moderate amount of cerumen in R ear, patient gave consent for manual removal. Moderate amount of cerumen removed without complication. Review of Systems Constitutional: Negative for chills, fatigue and fever. HENT: Negative for congestion and rhinorrhea. Eyes: Negative for visual disturbance. Respiratory: Negative for cough and shortness of breath. Cardiovascular: Negative for chest pain, palpitations and leg swelling. Gastrointestinal: Negative for abdominal pain, blood in stool, constipation, diarrhea, nausea and vomiting. Genitourinary: Negative for difficulty urinating, dysuria and hematuria. Musculoskeletal: Positive for arthralgias. Negative for back pain, gait problem and myalgias. Skin: Negative for color change, pallor and rash. Neurological: Negative for dizziness, weakness, light-headedness, numbness and headaches. Psychiatric/Behavioral: Negative for agitation, behavioral problems, confusion and dysphoric mood. The patient is not nervous/anxious. Physical Exam Vitals and nursing note reviewed. Constitutional: General: She is not in acute distress. Appearance: Normal appearance. She is not ill-appearing. HENT: Head: Normocephalic and atraumatic. Right Ear: Tympanic membrane, ear canal and external ear normal. Left Ear: Tympanic membrane, ear canal and external ear normal. Mouth/Throat: Mouth: Mucous membranes are moist. Pharynx: Oropharynx is clear. Eyes: General: Right eye: No discharge. Left eye: No discharge. Extraocular Movements: Extraocular movements intact. Conjunctiva/sclera: Conjunctivae normal. Pupils: Pupils are equal, round, and reactive to light. Cardiovascular: Rate and Rhythm: Normal rate and regular rhythm. Pulses: Normal pulses. Heart sounds: Normal heart sounds. Pulmonary: Effort: Pulmonary effort is normal. No respiratory distress. Breath sounds: Normal breath sounds. No stridor. No wheezing, rhonchi or rales. Musculoskeletal: Right lower leg: No edema. Left lower leg: No edema. Skin: General: Skin is warm and dry. Capillary Refill: Capillary refill takes less than 2 seconds. Neurological: General: No focal deficit present. Mental Status: She is alert and oriented to person, place, and time. Psychiatric: Mood and Affect: Mood normal. Behavior: Behavior normal. Thought Content: Thought content normal. Judgment: Judgment normal. Objective : BP 127/78 (BP Location: Left arm, Patient Position: Sitting, BP Cuff Size: Adult) Pulse 67 Temp 36 C (96.8 F) (Temporal) Ht 5' 7 (1.702 m) Wt 168 lb (76.2 kg) SpO2 97% BMI 26.31 kg/m No results found. Subjective : Health Risk Assessment: General: General In general, how would you say your health is?: (P) Excellent In the past 7 days, have you experienced any of the following: New or Increased Pain, New or Increased Fatigue, Loneliness, Social Isolation, Stress or Anger?: (P) No Do you get the social and emotional suppport you need?: (P) Yes Health Habits/Nutrition: Health Habits / Nutrition On average, how many days per week do you engage in moderate to strenous exercise (like a brisk walk)?: (!) (P) 0 days On average, how man minutes do you engage in exercise at this level?: (!) (P) 0 min Have you lost any weight without trying in the past 3 months? : (P) No Have you seen the dentist within the past year?: (P) Yes Interventions: Patient is limited due to knee pain. Will increase physical activity Hearing/ Vision: Hearing / Vision Do you or your family notice any trouble with your hearing that hasn't been managed with hearing aids?: (P) No Do you have difficulty driving, watching TV, or doing any of your daily activities because of your eyesight?: (P) No Have you had an eye exam within the past year?: (P) Appointment is scheduled No results found. Safety: Safety Do you have a working smoke detector?: (P) Yes Do you have any tripping hazards - loose or unsecured carpets or rugs?: (P) No Do you have any tripping hazards - clutter in doorways, halls, or stairs?: (P) No Do you have either shower bars, grab bars, non-slip mats or non-slip surfaces in your shower or bathtub? : (P) Yes Do all your stairways have a railing or banister? : (P) Yes Do you fasten your seatbelt when you are in a car?: (P) Yes ADL: ADL In the past 7 days, did you need help from others to perform any of the following everyday activities: Eating, dressing, grooming,bathing, toileting, or walking / balance? : (P) No In the past 7 days, did you need help from others to take care of any of the following: laundry, housekeeping, banking / finances,shopping, telephone use, food preparation, transportation, or taking medications? : (P) No Living Will: Living Will Do you have a living will?: (P) Yes Cognitive: Interventions: Fall Risk: Fall Risk One or more falls in the last year:: (P) No Advised to use a cane or walker to get around safely:: (P) No Feels unsteady when walking:: (P) No Steadies self on furniture while walking at home:: (P) No Worried about falling:: (P) Yes Depression Screening: Over the past 2 weeks, how often have you been bothered by any of the following problems? Little interest or pleasure in doing things: Not at all Feeling down, depressed, or hopeless: Not at all Patient Health Questionnaire-2 Score: 0 Interventions: Tobacco Use: Social History Tobacco Use Smoking Status Never Passive exposure: Never Smokeless Tobacco Never Alcohol Use: Audit Alcohol Screening Q1: How often do you have a drink containing alcohol?: (P) Monthly or less Q2: How many drinks containing alcohol do you have on a typical day when you are drinking?: (P) 1 or 2 Q3: How often do you have six or more drinks on one occasion?: (P) Never Audit-C Score: (P) 1 Skip to questions 9-10?: (P) 1 documented in this encounter [facility] 01-06-2024 Instructions Sabrina Verduzco MD - 01/06/2024 10:40 AM EDT PCV 20 Personalized Preventative Plan for Zeenat Mejia - 01/06/2024 Medicare offers a range of preventative health benefits. Some of the tests and screenings are paid in full while others may be subject to a deductible, co-insurance, and / or copay. Some of these benefits include a comprehensive review of your medical history including lifestyle, illnesses that may run in your family, and various assessments and screenings as appropriate. After reviewing your medical record and screening and assessments performed today, your provider may have ordered immunizations, labs, imaging, and / or referrals for you. A list of these orders (if applicable) as well as your Preventative Care list are included within your After Visit Summary for your review. Other Preventative Recommendations: A preventive eye exam by an recruitment specialist is recommended every 1-2 years to screen for glaucoma, cataracts, macular degeneration, and other eye disorders. A preventive dental visit is recommended every 6 months. Try to get at least 150 minutes of exercise per week or 10,000 steps per day on a pedometer. You need 1200-1500mg of calcium and [id number] international units of vitamin D per day. It is possible to meet your calcium requirement with diet alone, but a vitamin D supplement is usually necessary to meet this goal. When exposed to the sun, use a sunscreen that protects against both UVA and UVB radiation with an SPF of 30 or greater. Reapply every 2-3 hours or after sweating, drying off with a towel, or swimming. Always wear a seat belt when traveling in a car. 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 Author Type: Physician Type: Progress Notes Filed: 01/22/2024 07:24 Note Text: CONSULT ORTHOPAEDIC: KNEE PRIMARY CARE PHYSICIAN: Claudette Lima MD REFERRING PROVIDER: No referring provider defined for this encounter. ASSESSMENT AND PLAN Impression: Right Knee Severe Degenerative Osteoarthritis, Primary Left knee osteoarthritis Diagnoses: Osteoarthritis both knees Based upon the evaluation today and after discussions with Zeenat Mejia, Zeenat Mejia has significant, worsening pain at the knee. This pain is increased with activity and weight bearing, and interferes with activities of daily living. These symptoms have continued despite a number of non-surgical measures, including a trial of oral pain medication and attempted physical therapy/ structured exercise program and/or use of an assistive device/ bracing (for at least 12 weeks unless the patient was unable to tolerate these measures as discussed above). At this point, the patient will not benefit from further PT due to the severity of their condition. The patient's physical examination is consistent with limitations in range of motion, pain with passive range of motion, crepitus, and effusion/ synovitis. These examination findings are corroborated by imaging findings of joint space narrowing, periarticular osteophyte formation, and subchondral sclerosis. The patient has been treated by the practice and all reasonable treatments have failed to control the disease, which causes significant pain and limits activities of daily living. The patient has failed conservative treatment and joint replacement surgery was discussed and agreed upon by both provider and patient. We will proceed with surgical management to improve function and relieve pain refractory to non-surgical measures. Right Primary Total Knee Arthroplasty as evidenced by progressive symptoms. Progressive Symptoms Include: Pain impacting sleep or causing fatigue Pain worsened by weight bearing Pain effecting living situation Pain limiting ability to stay fit and healthy Unable to ambulate 2 blocks without significant pain and dysfunction . Surgery Details Date and Location: At [facility] on date to be determined. Implants: [place] Robotic: Yes Predicted LOS: 2 days (Inpatient candidate) Informed consent obtained in the office today. The risks and benefits of surgery were discussed at length including but not limited to the risks of infection, bleeding, nerve or blood vessel injury, deep venous thrombosis, pulmonary embolism, arthrofibrosis, reflex sympathetic dystrophy, , paralysis, knee or patellar dislocation, extensor mechanism injury, bone fracture, component loosening or failure requiring re-operation or amputation. Informed consent was obtained and the patient was scheduled for surgery. We also discussed fixation strategies including cement and cementless fixation and advantages and disadvantages of each. We discussed the details of the surgery as well as rehabilitation. All questions were answered, and the patient wishes to proceed with surgery.. The patient has been ordered: No orders found for this visit on 12/25/23. CONSULTS: Patient does not require consults for optimization at this time. Total Joint Arthroplasty: Risk Calculator Zeenat Mejia has a 10.18% chance of NOT returning home at discharge for a Primary total Knee replacement. Zeenat's estimated Length of Stay is 2 days (Inpatient candidate). Zeenat's 30 day chance of readmission is . Estimated LOS 2 days Discharge Disposition Probability D/C to Home 89.82 % D/C to SNF 10.18 % These calculations are based on the following factors: - 73 years of age - sex is not male - BMI of 26.24 kg/m2 - 0 hospitalizations in the last 12 months - no history of heart disease - no history of diabetes - no history of COPD - no history of anemia - preoperative ambulation: impaired community distances - 3 step(s) to enter home - bed location is on the first floor - bath location is on the first floor - caregiver is consistent - home is not more than 150 miles away - PROMIS-10 Mental Health T score 50+ - Marital status: Risk Factors for Total Knee Arthroplasty (TKA) Major Risk Factors Obesity normal High: BMI > 40 Moderate: BMI 30-40 Normal: BMI < 30 Diabetes normal High: A1C > 8 Moderate: A1C 7-8 Normal: A1C < 7 Hx of DVT / PE High Risk High: dx of DVT / PE Normal: no dx of DVT / PE Smoking normal High: Current smoker Normal: Non smoker Narcotics Use normal High:NarxCare >=300 Moderate: 100-299 Normal: 0-99 Depression Unknown Risk High: PHQ-9 >14 Moderate: PHQ-9 5-14 Normal: PHQ-9 < 5 Area Deprivation Index (SUSAN) Moderate Risk High: SUSAN Score > 75 Moderate: SUSAN 50-75 Normal: SUSAN < 50 Area Deprivation Index (SUSAN) 05/07/2022 01/16/2023 SUSAN Score National Score 69 73 Pat (more content not included)... [facility] 12-25-2023 History of Present illness Narrative Associated Order(s): Large Joint Arthro/Inj: bilateral knee joints Post-Procedure Diagnose(s): Primary osteoarthritis of both knees Images from the original note were not included. CONSULT ORTHOPAEDIC: KNEE PRIMARY CARE PHYSICIAN: Claudette Lima MD REFERRING PROVIDER: No referring provider defined for this encounter. ASSESSMENT & PLAN Impression: Right Knee Severe Degenerative Osteoarthritis, Primary Left knee osteoarthritis Diagnoses: Osteoarthritis both knees Based upon the evaluation today and after discussions with Zeenat Mejia, Zeenatnessa Mejia has significant, worsening pain at the knee. This pain is increased with activity and weight bearing, and interferes with activities of daily living. These symptoms have continued despite a number of non-surgical measures, including a trial of oral pain medication and attempted physical therapy/ structured exercise program and/or use of an assistive device/ bracing (for at least 12 weeks unless the patient was unable to tolerate these measures as discussed above). At this point, the patient will not benefit from further PT due to the severity of their condition. The patient's physical examination is consistent with limitations in range of motion, pain with passive range of motion, crepitus, and effusion/ synovitis. These examination findings are corroborated by imaging findings of joint space narrowing, periarticular osteophyte formation, and subchondral sclerosis. The patient has been treated by the practice and all reasonable treatments have failed to control the disease, which causes significant pain and limits activities of daily living. The patient has failed conservative treatment and joint replacement surgery was discussed and agreed upon by both provider and patient. We will proceed with surgical management to improve function and relieve pain refractory to non-surgical measures. Right Primary Total Knee Arthroplasty as evidenced by progressive symptoms. Progressive Symptoms Include: Pain impacting sleep or causing fatigue Pain worsened by weight bearing Pain effecting living situation Pain limiting ability to stay fit and healthy Unable to ambulate 2 blocks without significant pain and dysfunction . Surgery Details Date and Location: At [facility] on date to be determined. Implants: [place] Robotic: Yes Predicted LOS: 2 days (Inpatient candidate) Informed consent obtained in the office today. The risks and benefits of surgery were discussed at length including but not limited to the risks of infection, bleeding, nerve or blood vessel injury, deep venous thrombosis, pulmonary embolism, arthrofibrosis, reflex sympathetic dystrophy, , paralysis, knee or patellar dislocation, extensor mechanism injury, bone fracture, component loosening or failure requiring re-operation or amputation. Informed consent was obtained and the patient was scheduled for surgery. We also discussed fixation strategies including cement and cementless fixation and advantages and disadvantages of each. We discussed the details of the surgery as well as rehabilitation. All questions were answered, and the patient wishes to proceed with surgery.. The patient has been ordered: No orders found for this visit on 12/25/23. CONSULTS: Patient does not require consults for optimization at this time. Total Joint Arthroplasty: Risk Calculator Zeenat Mejia has a 10.18% chance of NOT returning home at discharge for a Primary total Knee replacement. Zeenat's estimated Length of Stay is 2 days (Inpatient candidate). Zeenat's 30 day chance of readmission is . Estimated LOS 2 days Discharge Disposition Probability D/C to Home 89.82 % D/C to SNF 10.18 % These calculations are based on the following factors: - 73 years of age - sex is not male - BMI of 26.24 kg/m2 - 0 hospitalizations in the last 12 months - no history of heart disease - no history of diabetes - no history of COPD - no history of anemia - preoperative ambulation: impaired community distances - 3 step(s) to enter home - bed location is on the first floor - bath location is on the first floor - caregiver is consistent - home is not more than 150 miles away - PROMIS-10 Mental Health T score 50+ - Marital status: Risk Factors for Total Knee Arthroplasty (TKA) Major Risk Factors Obesity normal High: BMI > 40 Moderate: BMI 30-40 Normal: BMI < 30 Diabetes normal High: A1C > 8 Moderate: A1C 7-8 Normal: A1C < 7 Hx of DVT / PE High Risk High: dx of DVT / PE Normal: no dx of DVT / PE Smoking normal High: Current smoker Normal: Non smoker Narcotics Use normal High:NarxCare >=300 Moderate: 100-299 Normal: 0-99 Depression Unknown Risk High: PHQ-9 >14 Moderate: PHQ-9 5-14 Normal: PHQ-9 < 5 Area Deprivation Index (SUSAN) Moderate Risk High: SUSAN Score > 75 Moderate: SUSAN 50-75 Normal: SUSAN < 50 Area Deprivation Index (SUSAN) 05/07/2022 01/16/2023 SUSAN Score National Score 69 73 Patient Health Questionnaire (PHQ-9) No data to display (0-4) minimal depression, (5-9) mild depression, (10-14) moderate depression, (15-19) moderately severe depression, (20-27) severe depression Bone Density Risk Screen Zeenat Mejia is at risk for bone loss and has not had a bone densitometry scan in the last 2 years (date of last scan: 06/27/2016). Recommend a bone densitometry scan and if indicated on the bone density results, a consult to a bone health specialist (Rheumatology, Endocrinology, or Women's Health) for bone assessment. Risk Factors: Dx of Osteopenia Family hx of Osteoporosis Prednisone or use of systemic steroids Additional Risk Factors Coagulation Latest Ref Rng & Units 01/02/2021 01/02/2021 01/03/2021 Coag/Hyper Coag Labs APTT 23.0 - 32.4 sec 73.2 65.3 73.7 PT INR 0.9 - 1.3 1.0 PT Sec 9.7 - 13.0 sec 10.9 Latest Ref Rng & Units 01/02/2021 01/03/2021 03/21/2021 Hemoglobin and Platelets Hemoglobin 11.5 - 15.5 g/dL 12.0 11.4 12.4 Platelet Count 150 - 400 k/uL 219 244 300 ACTIVE PROBLEM LIST POSTMENOPAUSAL ATROPHIC VAGINITIS Osteopenia Primary Osteoarthritis of Left Knee Primary Osteoarthritis of Right Hip Essential Hypertension Hyperlipidemia Pe (Pulmonary Thromboembolism) (Hcc) SUBJECTIVE CHIEF COMPLAINT: Knee Pain HPI: Zeenat Mejia is a 73 year old patient with the presenting complaint of Follow Up and Pre-Op Visit of the Right Knee and Follow Up of the Left Knee. 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 The problem began limiting activities 1-3 years ago. Zeenat reports a current pain level of 1 . She describes the pain as Stiffness, Aching. The pain is Intermittent, and has lasted for 5 Years. Interventions tried include Medication. FALL RISK: Zeenat is not currently at risk for falls. PROMIS Physical Function Score No data to display FUNCTIONAL STATUS: Climb a flight of stairs or walk up a hill (5.50 METs) PREVIOUS TREATMENTS: Most recent knee injection: Large Joint Arthro/Inj: bilateral knee joints (injected on 09/25/2023 by Romana Chi) Current Anti-Inflammatory medications: meloxicam Past anti-inflammatory medications (not necessarily for this reason for visit): betamethasone acetate,sod phos, celecoxib, ketorolac tromethamine, meloxicam, methylprednisolone acetate Medical Treatments: RX NSAIDS for 3 Months or Greater (meloxicam (Mobic)), Steroid Injections Left Knee, Steroid Injections Right Knee Physical Therapy: Shoe Wear, Braces, Orthotics, etc. and Activities Modified REVIEW OF SYSTEMS: PAIN ASSESSMENT: See HPI. MUSCULOSKELETAL: See HPI. 12/25/2023 Malnutrition Screening Tool (MST) Lost Weight Recently Without Trying? If Yes, Amount of Weight Loss(lbs) 0:No Eating Poorly Because of a Decreased Appetite 0:No Weight Loss Score (Calculated) 0 Appetite Score (Calculated) 0 Total MST Score (Calculated) 0 PAST MEDICAL HISTORY Diagnosis Date Abnormal Pap smear of cervix 1992 mild- cryo, normal since, hysterectomy Disorder of bone and cartilage, unspecified Elevated cholesterol HTN (hypertension) Mitral valve disorders(424.0) Osteopenia 04/08/2014 PAST SURGICAL HISTORY Procedure Laterality Date ADENOIDECTOMY PRIMARY <AGE 13 Adenoidectomy ARTHRP ACETBLR/PROX FEM PROSTC AGRFT/ALGRFT Right 08/30/2016 Hip replacement, total CAUTERY CERVIX CRYOCAUTERY INITIAL/REPEAT 1992 for abn cells and paps since were normal COLONOSCOPY FLX DX W/COLLJ SPEC WHEN PFRMD 01/16; 09/20 Colonoscopy DILATION & CURETTAGE DX&/THER NONOBSTETRIC x 2 Dilation & curettage PAST SURGICAL HISTORY OF Right 07/2015 macular hole TONSILLECTOMY PRIMARY/SECONDARY <AGE 13 Tonsillectomy VAGINAL HYSTERECTOMY UTERUS 250 GM/< 2004 Hysterectomy, vaginal for menorrhagia FAMILY HISTORY Problem Relation Age of Onset COPD Mother Osteoporosis Mother Colon Cancer Mother age 84 on diagnosis other (allergic to the sun) Father other (Pancreatic Cancer) Maternal Uncle Social History Tobacco Use Smoking status: Never Smokeless tobacco: Never Substance Use Topics Alcohol use: Yes Comment: rarely 6 per year Drug use: No ALLERGIES: Penicillins, Sulfa (Sulfonamide Antibiotics), and Tetracycline MEDICATIONS: calcium carbonate/vitamin D3 (CALCIUM 500 + D ORAL) Take by mouth. meloxicam (MOBIC) 15 mg tablet Take 1 tablet by mouth once daily. MULTI-VITAMIN ORAL Take 1 tablet by mouth once daily. acetaminophen (TYLENOL ARTHRITIS ORAL) Take 1 tablet by mouth as needed. metoprolol tartrate, short acting, (LOPRESSOR) 25 mg tablet Take 1 tablet by mouth every 12 hours. potassium chloride (K-TAB) 10 mEq tablet Take 20 mEq by mouth once daily. CALCIUM CARB,GLUC/MAG OX,GLUC (CALCIUM MAGNESIUM ORAL) Take 2 tablets by mouth twice daily. (Patient not taking: Reported on 09/12/2022) atorvastatin (LIPITOR) 10 mg tablet Take 10 mg by mouth daily at bedtime. coQ10, ubiquinol, 100 mg cap Take by mouth once daily. lisinopril/hydrochlorothiazide(SHARONDA NZIDE 20 MG-12.5 MG TAB) one tablet daily OBJECTIVE PHYSICAL EXAM: Ht 170.2 cm (5' 7) Wt 76 kg (167 lb 8.8 oz) BMI 26.24 kg/m All other systems deferred. GENERAL: Appears healthy, well-nourished, no deformities. HABITUS: Normal GAIT: Antalgic to the right KNEE EXAM: Left: Alignment: Varus deformity, Correctable Range of motion is lacking a few degrees secondary to tight hamstrings degrees in extension and 110 degrees of flexion. Extension Lag: < 10 degrees Pain with ROM: Yes Effusion: Mild Tender to the palpation of Medial joint line Pain with patellar compression: Yes Stability: Anterior/Posterior stable and Varus/Valgus not stable Hip Exam: flexion to 100+ degrees, full extension, internal/external rotation adequate, and no pain with log roll Neurovascular Status: Sensation Intact, Moves foot and ankle up & down, Moves toes up and down, 2+ dorsalis pedis, and negative homans sign Right: Alignment: Valgus deformity, Correctable Range of motion is 5 degrees in extension and 100 degrees of flexion. Extension Lag: < 10 degrees Pain with ROM: Yes Effusion: Mild Tender to the palpation of Lateral joint line Pain with patellar compression: Yes Stability: Anterior/Posterior stable and Varus/Valgus not stable Hip Exam: flexion to 100+ degrees, full extension, internal/external rotation adequate, and no pain with log roll Neurovascular Status: Sensation Intact, Moves foot and ankle up & down, Moves toes up and down, and 2+ dorsalis pedis DATA: She was last seen in orthopaedic clinic for her knee/leg on 09/25/2023 with Romana Chi. Most recent knee imaging was completed on 12/25/2023 (XR KNEE GENERAL 4V AP BOTH/PA BOTH/LAT/MERC BILATERAL) . Attached is imaging for the order.The most recent knee injection was Large Joint Arthro/Inj: bilateral knee joints, injected on 09/25/2023 by Romana Chi. Diagnostic tests reviewed for today's visit: Right knee X-Ray: Lateral joint space noted to have severe degenerative changes, Patellofemoral joint noted to have severe degenerative changes, and Bone on bone contact of the lateral joint space(s) Left knee X-Ray: Medial joint space noted to have severe degenerative changes, Patellofemoral joint noted to have severe degenerative changes, and Bone on bone contact of the medial joint space(s) The patient is not interested in proceeding with surgery until later on in this calendar year she is requesting a corticosteroid injection for temporary relief of her knee pain. I feel this is reasonable. I have explained to her that we would need to wait at least 3 months after the injection before proceeding with any surgical intervention. She understands. Large Joint Arthro/Inj: bilateral knee joints Informed Consent Consent Obtained: Verbal [place] Protocol A moment to CARE was completed. SIGN IN Personnel directly involved with the procedure wore the appropriate PPE. Special Equipment: N/A Patient/Surrogate Stated/Verified: Patient name, Date of , Relevant allergies and Intended procedure TIME OUT Intended patient and procedure match the source document(s). Consent documented and matches the intended procedure. Relevant labs, photos, and/or imaging studies have been reviewed. Correct side/site marked and visible. Medications required for procedure verified. No fire risk assessment and interventions applicable. No implant(s) inserted. 12/25/2023 11:53 AM The procedure site was prepped in the usual sterile fashion. Site: bilateral knee joints Medications (Right): 12 mg betamethasone acetate-betamethasone sodium phosphate 6 mg/mL Medications (Left): 12 mg betamethasone acetate-betamethasone sodium phosphate 6 mg/mL Anesthetics (Right): 4 mL lidocaine (PF) 10 mg/mL (1 %) Anesthetics (Left): 4 mL lidocaine (PF) 10 mg/mL (1 %) Outcome: Tolerated well, no immediate complications Post-injection instructions were reviewed with the patient and the patient voiced understanding of these instructions. SIGN OUT No specimen collected. No instruments, equipment or retained foreign bodies applicable. Post-procedure follow-up management communicated and Plan of Care Visit completed when applicable The following conditions were addressed during the office visit today: We discussed the need for a CT scan as part of the preoperative planning protocol for [place] robotic total knee arthroplasty SIGNATURE: Romana Chi MD PATIENT NAME: Zeenat Mejia DATE: December 25, 2023 TIME: 11:24 AM documented in this encounter [facility] 12-25-2023 History of Present illness Narrative Radiology Service Progress Note PATIENT NAME: Zeenat Mejia DATE OF SERVICE: December 25, 2023 TIME: 11:12 AM PATIENT IDENTITY VERIFICATION COMPLETED USING TWO (2) IDENTIFIERS: Name and Date of confirmed by patient verbally. FALL SCREENING: Has the patient had 2 falls in the last year or 1 fall with injury or currently using an Ambulatory Assistive Device (Walker, Cane, Wheelchair, Crutches, etc.)? No PATIENT GENDER DATA: Female. status: : No status: NO. PATIENT RELEVANT IMPLANT DATA REVIEWED: Not Applicable PATIENT PRESENTS WITH AN IMPLANTABLE OR ATTACHED METAL PATTERN MAKER: No RADIOLOGY DEPARTMENT: General X-ray: Exam(s) Completed: Lower Extremity X-Ray(s): Knee, AP / Lat / Tunne / Merchant Bilateral and Wt. Bearing PERIPHERAL IV DATA: Not applicable SIGNED BY: Blanka Jasso December 25, 2023 11:12 AM documented in this encounter [facility] 12-25-2023 Note HNO ID: [id number] Author: KALE WILLIS Tech Service: ? Author Type: Dental Therapist Type: Progress Notes Filed: 12/25/2023 11:12 Note Text: Radiology Service Progress Note PATIENT NAME: Zeenat Mejia DATE OF SERVICE: December 25, 2023 TIME: 11:12 AM PATIENT IDENTITY VERIFICATION COMPLETED USING TWO (2) IDENTIFIERS: Name and Date of confirmed by patient verbally. FALL SCREENING: Has the patient had 2 falls in the last year or 1 fall with injury or currently using an Ambulatory Assistive Device (Walker, Cane, Wheelchair, Crutches, etc.)? No PATIENT GENDER DATA: Female. status: : No status: NO. PATIENT RELEVANT IMPLANT DATA REVIEWED: Not Applicable PATIENT PRESENTS WITH AN IMPLANTABLE OR ATTACHED METAL PATTERN MAKER: No RADIOLOGY DEPARTMENT: General X-ray: Exam(s) Completed: Lower Extremity X-Ray(s): Knee, AP / Lat / Tunne / Merchant Bilateral and Wt. Bearing PERIPHERAL IV DATA: Not applicable SIGNED BY: Blanka Jasso December 25, 2023 11:12 AM [facility] 11-13-2023 Telephone encounter Note I spoke to the patient. She will be scheduled 03/24/24. [facility] 11-13-2023 Miscellaneous Notes I spoke to the patient. She will be scheduled 03/24/24. Zeenat saw Dr. Chi 09/24/23 and had bilateral knee injections. I believe they did discuss surgery but she was not ready to commit to surgery at the time. She is appropriate surgical candidate for either knee. Depending on which one hurts the most but will need to be scheduled after 12/26/23 because of the recent injections. Alfred Chandler PA-C Patient called to schedule a tka. Please advise if she needs seen first. documented in this encounter [facility] 11-13-2023 Telephone encounter Note Zeenat saw Dr. Chi 09/24/23 and had bilateral knee injections. I believe they did discuss surgery but she was not ready to commit to surgery at the time. She is appropriate surgical candidate for either knee. Depending on which one hurts the most but will need to be scheduled after 12/26/23 because of the recent injections. Alfred Chandler PA-C [facility] Work Phone: 11-12-2023 Telephone encounter Note Patient called to schedule a tka. Please advise if she needs seen first. [facility] 09-25-2023 Note HNO ID: [id number] Author: ROMANA CHI MD Service: ? Author Type: Physician Type: Progress Notes Filed: 10/21/2023 20:05 Note Text: [id number] Ms. Mejia was last seen for bilateral knee pain secondary to osteoarthritis four months. had the following plan implemented corticosteroid injection She presents today for Follow Up of the Left Knee and Follow Up of the Right Knee. Review of Systems Constitutional: Negative for fever. Respiratory: Negative for cough and shortness of breath. Cardiovascular: Negative for chest pain. History: PAIN EVALUATION 09/25/2023 1515 Pain Level: 0 Pain Location: -- knees Frequency: Intermittent The patient denies swelling, warmth, discharge, drainage, fevers, chills, sweats. She reports compliance with therapy, sling/splint/ambulatory device/dressing/wound care, and the use of medications. Previous treatments have included steroid injections. She reports no change in past medical AND surgical history, medications, allergies, social history, family history and review of systems since last visit, with the exception of the following: None Radiographs: Last XR Knee - Impression Only XR KNEE GENERAL 4V AP BOTH/PA BOTH/LAT/MERC BILATERAL Exam End: 05/07/2022 10:05 AM (Final result) Impression: IMPRESSION: Progressive bilateral osteoarthrosis Group Insurance Special Agent: MITCH Transcribe Date/Time: May 07 2022 11:02A Dictated by : JOSE FISHER MD ... Physical Examination: Unchanged from previous. Grossly NVI. Right Knee with valgus alignment left knee with varus alignment Both knees with with palpable effusion Both knees palpable crepitance at the patellofemoral joint Procedure: Large Joint Arthro/Inj: bilateral knee joints Informed Consent Consent Obtained: Verbal [place] Protocol A moment to CARE was completed. SIGN IN Personnel directly involved with the procedure wore the appropriate PPE. Special Equipment: N/A Patient/Surrogate Stated/Verified: Patient name, Date of , Relevant allergies and Intended procedure TIME OUT Intended patient and procedure match the source document(s). Consent documented and matches the intended procedure. Relevant labs, photos, and/or imaging studies have been reviewed. Correct side/site marked and visible. Medications required for procedure verified. No fire risk assessment and interventions applicable. No implant(s) inserted. 09/25/2023 3:42 PM The procedure site was prepped in the usual sterile fashion. Site: bilateral knee joints Medications (Right): 12 mg betamethasone acetate-betamethasone sodium phosphate 6 mg/mL Medications (Left): 12 mg betamethasone acetate-betamethasone sodium phosphate 6 mg/mL Anesthetics (Right): 4 mL lidocaine (PF) 10 mg/mL (1 %) Anesthetics (Left): 4 mL lidocaine (PF) 10 mg/mL (1 %) Outcome: Tolerated well, no immediate complications Post-injection instructions were reviewed with the patient and the patient voiced understanding of these instructions. SIGN OUT No instruments, equipment or retained foreign bodies applicable. Assessment: Bilateral knee pain secondary to osteoarthritis patient is not at the point that she would like to commit to surgical but is considering it. She has concerns given the fact that her has Parkinson's disease and does require assistance Plan: 1. Injection corticosteroid both knees as noted above 2. Continue independent exercise program 3. Follow-up for repeat clinical evaluation [facility] 09-25-2023 History of Present illness Narrative Associated Order(s): Large Joint Arthro/Inj: bilateral knee joints Post-Procedure Diagnose(s): Primary osteoarthritis of both knees Images from the original note were not included. [id number] Ms. Mejia was last seen for bilateral knee pain secondary to osteoarthritis four months. had the following plan implemented corticosteroid injection She presents today for Follow Up of the Left Knee and Follow Up of the Right Knee. Review of Systems Constitutional: Negative for fever. Respiratory: Negative for cough and shortness of breath. Cardiovascular: Negative for chest pain. History: PAIN EVALUATION 09/25/2023 1515 Pain Level: 0 Pain Location: -- knees Frequency: Intermittent The patient denies swelling, warmth, discharge, drainage, fevers, chills, sweats. She reports compliance with therapy, sling/splint/ambulatory device/dressing/wound care, and the use of medications. Previous treatments have included steroid injections. She reports no change in past medical & surgical history, medications, allergies, social history, family history and review of systems since last visit, with the exception of the following: None Radiographs: Last XR Knee - Impression Only XR KNEE GENERAL 4V AP BOTH/PA BOTH/LAT/MERC BILATERAL Exam End: 05/07/2022 10:05 AM (Final result) Impression: IMPRESSION: Progressive bilateral osteoarthrosis Group Insurance Special Agent: MITCH Transcribe Date/Time: May 07 2022 11:02A Dictated by : JOSE FISHER MD ... Physical Examination: Unchanged from previous. Grossly NVI. Right Knee with valgus alignment left knee with varus alignment Both knees with with palpable effusion Both knees palpable crepitance at the patellofemoral joint Procedure: Large Joint Arthro/Inj: bilateral knee joints Informed Consent Consent Obtained: Verbal [place] Protocol A moment to CARE was completed. SIGN IN Personnel directly involved with the procedure wore the appropriate PPE. Special Equipment: N/A Patient/Surrogate Stated/Verified: Patient name, Date of , Relevant allergies and Intended procedure TIME OUT Intended patient and procedure match the source document(s). Consent documented and matches the intended procedure. Relevant labs, photos, and/or imaging studies have been reviewed. Correct side/site marked and visible. Medications required for procedure verified. No fire risk assessment and interventions applicable. No implant(s) inserted. 09/25/2023 3:42 PM The procedure site was prepped in the usual sterile fashion. Site: bilateral knee joints Medications (Right): 12 mg betamethasone acetate-betamethasone sodium phosphate 6 mg/mL Medications (Left): 12 mg betamethasone acetate-betamethasone sodium phosphate 6 mg/mL Anesthetics (Right): 4 mL lidocaine (PF) 10 mg/mL (1 %) Anesthetics (Left): 4 mL lidocaine (PF) 10 mg/mL (1 %) Outcome: Tolerated well, no immediate complications Post-injection instructions were reviewed with the patient and the patient voiced understanding of these instructions. SIGN OUT No instruments, equipment or retained foreign bodies applicable. Assessment: Bilateral knee pain secondary to osteoarthritis patient is not at the point that she would like to commit to surgical but is considering it. She has concerns given the fact that her has Parkinson's disease and does require assistance Plan: 1. Injection corticosteroid both knees as noted above 2. Continue independent exercise program 3. Follow-up for repeat clinical evaluation documented in this encounter [facility] 08-27-2023 History of Present illness Narrative Images from the original note were not included. [facility] [id number] [facility] [address] Dept: [phone] Dept Loc: [phone] 08/27/2023 Visit type: established patient Reason for Visit: Ear Fullness (Right ear clogged. Reports using debrox x4 days, feels fine today.) ASSESSMENT/PLAN 1. Impacted cerumen, right ear - EAR CERUMEN REMOVAL Follow up in about 6 months (around 02/25/2024) for ear check. Subjective Patient: Zeenat Mejia is a 73 y.o. female Ear Fullness Associated symptoms include hearing loss. Pertinent negatives include no abdominal pain, coughing, diarrhea, headaches, rhinorrhea or vomiting. Patient has been using debrox for past 4 days due to feeling of R ear fullness and muffled hearing. Has had issues with impacted cerumen in past. Upon exam patient does have R impacted cerumen, will attempt to irrigate today. Review of Systems Constitutional: Negative for chills, fatigue and fever. HENT: Positive for ear pain and hearing loss. Negative for congestion and rhinorrhea. Respiratory: Negative for cough and shortness of breath. Cardiovascular: Negative for chest pain, palpitations and leg swelling. Gastrointestinal: Negative for abdominal pain, diarrhea, nausea and vomiting. Neurological: Negative for dizziness, light-headedness and headaches. Allergies Allergen Reactions Penicillins Rash Sulfa Antibiotics Rash Tetracycline Rash Outpatient Medications Prior to Visit Medication Sig Dispense Refill atorvastatin (Lipitor) 10 MG tablet Take 1 tablet (10 mg) by mouth daily. 90 tablet 3 cholecalciferol (Vitamin D-3) 75 MCG (3000 UT) tablet Take by mouth. clindamycin (Cleocin) 300 MG capsule TAKE 2 CAPSULES BY MOUTH 30 minutes prior to appt. lisinopril-hydroCHLOROthiazide 20-12.5 MG tablet Take 1 tablet by mouth daily. 90 tablet 3 meloxicam (Mobic) 7.5 MG tablet Take 15 mg by mouth daily. Multiple Vitamin (MULTI-VITAMIN DAILY PO) Take 1 tablet by mouth in the morning. potassium chloride CR (Klor-Con) 10 MEQ ER tablet Take 2 tablets (20 mEq) by mouth in the morning. 180 tablet 3 Ubiquinol 100 MG capsule Take by mouth daily. Acetaminophen (TYLENOL ARTHRITIS PAIN PO) Take 1 tablet by mouth if needed. ketoconazole (NIZOral) 2 % shampoo wash the full scalp once a day NEEDED for flares. lather and let sit for 3-5 MINUTES before rinsing off. NON FORMULARY Nightly. MAG RNR for muscle cramping. B-6, magnesium No facility-administered medications prior to visit. Past Medical History: Diagnosis Date Adenomatous polyp of colon [address] Raman polyp at 40 cm Essential hypertension, benign Hypercholesterolemia aunt at 82 with sudden cardiac Influenza due to influenza A virus 12/08/2020 MVP (mitral valve prolapse) Pulmonary embolism (HCC) 12/2020 Past Surgical History: Procedure Laterality Date COLONOSCOPY 09 15 2013 polyp at 40 cm, few sigmoid diverticula, small internal hemorrhoids, suboptimal bowel prep COLONOSCOPY 2016 HIP SURGERY SHOULDER SURGERY 11/2020 reverse shoulder replacement--left TONSILLECTOMY (HISTORICAL) 1956 approx TOTAL ABDOMINAL HYSTERECTOMY 07 21 2003 approx VITRECTOMY Right 08/05/15 Family History Problem Relation Name Age of Onset No Known Problems Maternal Grandmother No Known Problems Son Arthritis Mother No Known Problems Paternal Grandmother Hyperlipidemia Other family No Known Problems Son No Known Problems Maternal Grandfather No Known Problems Daughter Osteoporosis Mother Hypertension Mother No Known Problems Paternal Grandfather Other ([id number]) Father skin disorder COPD Mother Cancer Mother colon cancer Cancer Son malignant melanoma back COPD Other aunt at aage 82--sudden cardiac Lupus Sister no siblings Social History Tobacco Use Smoking status: Never Passive exposure: Never Smokeless tobacco: Never Substance Use Topics Alcohol use: Not Currently Objective BP 131/76 (BP Location: Right arm, Patient Position: Sitting, BP Cuff Size: Adult) Pulse 84 Temp 36.3 C (97.4 F) (Temporal) Ht 5' 7 (1.702 m) Wt 171 lb (77.6 kg) SpO2 96% BMI 26.78 kg/m Physical Exam Constitutional: General: She is not in acute distress. Appearance: Normal appearance. She is not ill-appearing. HENT: Head: Normocephalic and atraumatic. Right Ear: There is impacted cerumen. Left Ear: Tympanic membrane, ear canal and external ear normal. There is no impacted cerumen. Eyes: Extraocular Movements: Extraocular movements intact. Conjunctiva/sclera: Conjunctivae normal. Neurological: Mental Status: She is alert. Psychiatric: Mood and Affect: Mood normal. Behavior: Behavior normal. Thought Content: Thought content normal. Judgment: Judgment normal. Data Reviewed and Summarized: Medical decision making including: See assessment an plan. Goals None [facility] Sabrina Verduzco MD documented in this encounter [facility] 08-27-2023 Telephone encounter Note S: Patient spoke with [facility] nurse regarding right ear clogged. B: Onset of symptoms started a few weeks ago. A: Patient has been having right ear fullness and congestion for a couple of weeks. She has had occasional decreased hearing in the ear. She has tried peroxide as well as Debrox, but has not had any drainage or discharge from the ear. She hears a crack and the ear will pop open at times. She said she will go to be and wake up and the ear will be congested again. She has a history of cerumen impaction. She does have postnasal drip and a cough occasionally. She denies any ear pain. R: Insurance verified. Appointment was scheduled for 08/27/23 at [address] Verduzco. Instructed to bring insurance card and ID. Discussed using antihistamine, such as Zyrtec, to help with the congestion feeling. Discussed if the ear is impacted with was, the Zyrtec will not work. Patient understands care advice. No further needs at this time. Patient instructed to call back with new or worsening symptoms. Reason for Disposition Ear congestion present > 48 hours Protocols used: Ear - [id number] [facility] 08-27-2023 Miscellaneous Notes S: Patient spoke with [facility] nurse regarding right ear clogged. B: Onset of symptoms started a few weeks ago. A: Patient has been having right ear fullness and congestion for a couple of weeks. She has had occasional decreased hearing in the ear. She has tried peroxide as well as Debrox, but has not had any drainage or discharge from the ear. She hears a crack and the ear will pop open at times. She said she will go to be and wake up and the ear will be congested again. She has a history of cerumen impaction. She does have postnasal drip and a cough occasionally. She denies any ear pain. R: Insurance verified. Appointment was scheduled for 08/27/23 at [address] Verduzco. Instructed to bring insurance card and ID. Discussed using antihistamine, such as Zyrtec, to help with the congestion feeling. Discussed if the ear is impacted with was, the Zyrtec will not work. Patient understands care advice. No further needs at this time. Patient instructed to call back with new or worsening symptoms. Reason for Disposition Ear congestion present > 48 hours Protocols used: Ear - [id number] documented in this encounter [facility] 05-20-2023 History of Present illness Narrative Associated Order(s): Large Joint Arthro/Inj: bilateral knee joints Post-Procedure Diagnose(s): Primary osteoarthritis of both knees Images from the original note were not included. [id number] Ms. Mejia was last seen for bilateral knee pain secondary to osteoarthritis four months. had the following plan implemented bilateral corticosteroid injection She presents today for Follow Up of the Left Knee and Follow Up of the Right Knee. In addition to her recurring knee pain she is complaining of some right posterior hip pain that is worse with activity including prolonged standing and walking Review of Systems Constitutional: Negative for fever. Respiratory: Negative for cough and shortness of breath. Cardiovascular: Negative for chest pain. History: PAIN EVALUATION 05/20/2023 1338 Pain Level: 3 Pain Location: -- knees Description: Tightness;Stiffness;Sore Duration Amount of Time: -- ongoing Frequency: Intermittent Intervention/Comfort measure: Medication The patient denies swelling, warmth, discharge, drainage, fevers, chills, sweats. She reports compliance with therapy, sling/splint/ambulatory device/dressing/wound care, and the use of medications. Previous treatments have included steroid injections. She reports no change in past medical & surgical history, medications, allergies, social history, family history and review of systems since last visit, with the exception of the following: None Radiographs: XR HIP GENERAL 3V PELV/AP/LAT RIGHT Narrative: * * *Final Report* * * DATE OF EXAM: May 20 2023 2:28PM ANDRÉS [id number] - XR HIP 3V PELV+ AP/LAT RT / PROCEDURE REASON: multiple diagnoses * * * * Physician Interpretation * * * * EXAMINATION / TECHNIQUE: XR HIP 3V PELV+ AP/LAT RT PATIENT/TECHNOLOGIST PROVIDED HISTORY: F/U RIGHT HIP REPLACEMENT CLINICAL INFORMATION ( PROVIDED BY ORDERING CLINICIAN) : Aftercare following right hip joint replacement surgery COMPARISON: 05/25/2020 RESULT: Right total hip arthroplasty with satisfactory alignment. No evidence of loosening. No acute fracture or dislocation. Stable/mature cortical remodeling along the lateral right femur adjacent to stem. Left hip joint space, pubic symphysis, and sacroiliac joints are relatively preserved. Impression: IMPRESSION: Right total hip arthroplasty without hardware-related complication. Group Insurance Special Agent: [employer] Transcribe Date/Time: May 20 2023 3:58P Dictated by : TAD HENDRICKS MD This examination was interpreted and the report reviewed and electronically signed by: TAD HENDRICKS MD on May 20 2023 3:59PM EST Physical Examination: Inspection Skin Positive: Right knee mild valgus alignment, left knee mild varus alignment. Incision No evidence of surgical incisions. Atrophy No evidence of muscular atrophy. Range of Motion Knee 5-5-120 degrees Patella Decreased patellar mobility Palpation Effusion 1+ effusion Tenderness medial joint line and lateral joint line Crepitance Positive palpable patellofemoral crepitance Meniscus Negative medial and lateral Easton's test Stability Positive varus instability and valgus instability, remainder of stability exam is normal Inspection Skin No evidence of eythema, warmth, bruising, abrasions, scars, swelling, atrophy,masses or deformity about bilateral lower extremities. Incision No evidence of surgical incisions. Range of Motion Flexion/Extension 120 /Neutral Internal Rotation/External Rotation 25 /25 ABduction/ADduction 30 /10 Motor Strength 5/5 hip flexor, extensor, abductor, adductor and rotator strength Palpation Tenderness Positive tenderness to palpation: SI joint Crepitance Negative palpable/audible click or crepitance Impingement Negative anterior impingement test, restisted SLR, Pacheco extension sign, Posterior impingement test, Hip MARTA test, Grab sign Stability Axial Distraction Test Negative pain with firm end point Provocative Tests Negative Evelyn test, MARTA test, Obers test Procedure: Large Joint Arthro/Inj: bilateral knee joints Informed Consent Consent Obtained: Verbal [place] Protocol A moment to CARE was completed. SIGN IN Personnel directly involved with the procedure wore the appropriate PPE. Special Equipment: N/A Patient/Surrogate Stated/Verified: Patient name, Date of , Relevant allergies and Intended procedure TIME OUT Intended patient and procedure match the source document(s). Consent documented and matches the intended procedure. Relevant labs, photos, and/or imaging studies have been reviewed. Correct side/site marked and visible. Medications required for procedure verified. No fire risk assessment and interventions applicable. No implant(s) inserted. 05/20/2023 2:36 PM The procedure site was prepped in the usual sterile fashion. Site: bilateral knee joints Medications (Right): 80 mg methylPREDNISolone acetate 40 mg/mL Medications (Left): 80 mg methylPREDNISolone acetate 40 mg/mL Anesthetics (Right): 4 mL lidocaine (PF) 10 mg/mL (1 %) Anesthetics (Left): 4 mL lidocaine (PF) 10 mg/mL (1 %) Outcome: Tolerated well, no immediate complications Post-injection instructions were reviewed with the patient and the patient voiced understanding of these instructions. SIGN OUT No instruments, equipment or retained foreign bodies applicable. Assessment: Bilateral knee osteoarthritis. She is requesting another injection. We did discuss the possibility of viscosupplementation and ultimately if symptoms persist despite conservative care, arthroplasty can be considered. 2. Right hip sacroiliitis. I have recommended physical therapy Plan: 1. Injection both knees as noted above 2 refer to physical therapy 3. Follow-up for repeat clinical evaluation documented in this encounter [facility] 05-20-2023 History of Present illness Narrative Radiology Service Progress Note PATIENT NAME: Zeenat Mejia DATE OF SERVICE: May 20, 2023 TIME: 2:31 PM PATIENT IDENTITY VERIFICATION COMPLETED USING TWO (2) IDENTIFIERS: Name and Date of confirmed by patient verbally. FALL SCREENING: Has the patient had 2 falls in the last year or 1 fall with injury or currently using an Ambulatory Assistive Device (Walker, Cane, Wheelchair, Crutches, etc.)? No PATIENT GENDER DATA: Female. status: : No status: NO. PATIENT RELEVANT IMPLANT DATA REVIEWED: Not Applicable RADIOLOGY DEPARTMENT: General X-ray: Exam(s) Completed: Pelvis X-Ray: Pelvis with Hip Right and Wt. Bearing PERIPHERAL IV DATA: Not applicable SIGNED BY: Blanka Jasso May 20, 2023 2:31 PM documented in this encounter [facility] 05-20-2023 Note HNO ID: [id number] Author: Kale Willis Tech Service: ? Author Type: Dental Therapist Type: Progress Notes Filed: 05/20/2023 2:32 PM Note Text: Radiology Service Progress Note PATIENT NAME: Zeenat Mejia DATE OF SERVICE: May 20, 2023 TIME: 2:31 PM PATIENT IDENTITY VERIFICATION COMPLETED USING TWO (2) IDENTIFIERS: Name and Date of confirmed by patient verbally. FALL SCREENING: Has the patient had 2 falls in the last year or 1 fall with injury or currently using an Ambulatory Assistive Device (Walker, Cane, Wheelchair, Crutches, etc.)? No PATIENT GENDER DATA: Female. status: : No status: NO. PATIENT RELEVANT IMPLANT DATA REVIEWED: Not Applicable RADIOLOGY DEPARTMENT: General X-ray: Exam(s) Completed: Pelvis X-Ray: Pelvis with Hip Right and Wt. Bearing PERIPHERAL IV DATA: Not applicable SIGNED BY: Blanka Jasso May 20, 2023 2:31 PM [facility] 01-16-2023 History of Present illness Narrative Associated Order(s): Large Joint Arthro/Inj: bilateral knee joints Post-Procedure Diagnose(s): Primary osteoarthritis of both knees Images from the original note were not included. [id number] Ms. Mejia was last seen for bilateral knee pain secondary to osteoarthritis four months. had the following plan implemented corticosteroid injection She presents today for Follow Up of the Left Knee and Follow Up of the Right Knee. She reports that the injections did provide her with some relief however the little relief has worn off. Review of Systems Constitutional: Negative for fever. Respiratory: Negative for cough and shortness of breath. Cardiovascular: Negative for chest pain. History: PAIN EVALUATION 01/16/2023 0943 Pain Level: 1 Pain Location: -- knees Description: Stiffness;Aching Duration Amount of Time: -- ongoing Frequency: Intermittent Intervention/Comfort measure: Positioning;Medication The patient denies swelling, warmth, discharge, drainage, fevers, chills, sweats. She reports compliance with therapy, sling/splint/ambulatory device/dressing/wound care, and the use of medications. Previous treatments have included Rx NSAIDs, home rehabilitation, and steroid injections. She reports no change in past medical & surgical history, medications, allergies, social history, family history and review of systems since last visit, with the exception of the following: None Radiographs: XR KNEE GENERAL 4V AP BOTH/PA BOTH/LAT/MERC BILATERAL Narrative: * * *Final Report* * * DATE OF EXAM: May 07 2022 10:05AM ANDRÉS [id number] - XR KNEE 4V AP/PA/LAT/MERCH KENDALL / PROCEDURE REASON: M17.0-Primary osteoarthritis of knees, bilateral * * * * Physician Interpretation * * * * PROCEDURE: Bilateral knees INDICATION: Primary osteoarthritis of knees, bilateral .BILATERAL KNEE PAIN TECHNIQUE: XR KNEE 4V AP/PA/LAT/MERCH KENDALL COMPARISON: 05/02/2016 FINDINGS: Severe lateral joint compartment narrowing on the right and medial joint compartment narrowing on the left with bilateral tricompartment spur formation. Left-sided lateral tibial translation. Mild bilateral patellofemoral joint compartment narrowing, left greater than right. No acute fracture. Small bilateral joint effusions. Impression: IMPRESSION: Progressive bilateral osteoarthrosis Group Insurance Special Agent[facility] Transcribe Date/Time: May 07 2022 11:02A Dictated by : JOSE FISHER MD This examination was interpreted and the report reviewed and electronically signed by: JOSE FISHER MD on May 07 2022 11:03AM EST Physical Examination: Bilateral knees Inspection Skin Positive: Mild varus alignment. Incision No evidence of surgical incisions. Atrophy No evidence of muscular atrophy. Range of Motion Knee 5-110 degrees Patella Decreased patellar mobility Palpation Effusion 1+ effusion Tenderness medial joint line, medial patellar facet, and lateral patellar facet Crepitance Positive palpable patellofemoral crepitance Meniscus Negative medial and lateral Easton's test Stability Positive valgus instability, remainder of stability exam is normal Procedure: Large Joint Arthro/Inj: bilateral knee joints Informed Consent Consent Obtained: Verbal [place] Protocol A moment to CARE was completed. SIGN IN Personnel directly involved with the procedure wore the appropriate PPE. Special Equipment: N/A Patient/Surrogate Stated/Verified: Patient name, Date of , Relevant allergies and Intended procedure TIME OUT Intended patient and procedure match the source document(s). Consent documented and matches the intended procedure. Relevant labs, photos, and/or imaging studies have been reviewed. Correct side/site marked and visible. Medications required for procedure verified. No fire risk assessment and interventions applicable. No implant(s) inserted. 01/16/2023 10:11 AM The procedure site was prepped in the usual sterile fashion. Site: bilateral knee joints Medications (Right): 12 mg betamethasone acetate-betamethasone sodium phosphate 6 mg/mL Medications (Left): 12 mg betamethasone acetate-betamethasone sodium phosphate 6 mg/mL Anesthetics (Right): 4 mL lidocaine (PF) 10 mg/mL (1 %) Anesthetics (Left): 4 mL lidocaine (PF) 10 mg/mL (1 %) Outcome: Tolerated well, no immediate complications Post-injection instructions were reviewed with the patient and the patient voiced understanding of these instructions. SIGN OUT No instruments, equipment or retained foreign bodies applicable. Assessment: Bilateral knee pain secondary to osteoarthritis. We have discussed the various treatment options including repeat corticosteroid injections. She would like to proceed with those as they had given her some relief in the past. Plan: 1. Injection corticosteroid both knees as noted above 2. Continue independent range of motion/strengthening exercises 3. Follow-up for repeat clinical evaluation documented in this encounter [facility] 09-12-2022 History of Present illness Narrative Associated Order(s): Large Joint Arthro/Inj: bilateral knee joints Post-Procedure Diagnose(s): Primary osteoarthritis of both knees Images from the original note were not included. [id number] Ms. Mejia was last seen for evaluation of bilateral knee pain secondary to severe osteoarthritis three months. had the following plan implemented given a prescription for meloxicam and an independent exercise program. She reports only minimal improvement with the NSAID. She continues to have difficulty with certain daily activities such as lifting her right leg to get into her car She presents today for Follow Up of the Left Knee and Follow Up of the Right Knee. Review of Systems Constitutional: Negative for fever. Respiratory: Negative for cough and shortness of breath. Cardiovascular: Negative for chest pain. History: PAIN EVALUATION 09/12/2022 1056 Pain Level: 1 Pain Location: -- knees Description: Sore;Stiffness Duration Amount of Time: -- ongoing Frequency: Intermittent Intervention/Comfort measure: Medication;Reposition;Relaxation The patient denies swelling, warmth, discharge, drainage, fevers, chills, sweats. She reports compliance with therapy, sling/splint/ambulatory device/dressing/wound care, and the use of medications. Previous treatments have included Rx NSAIDs, ice/heat, and home rehabilitation. She reports no change in past medical & surgical history, medications, allergies, social history, family history and review of systems since last visit, with the exception of the following: None Radiographs: XR KNEE GENERAL 4V AP BOTH/PA BOTH/LAT/MERC BILATERAL Narrative: * * *Final Report* * * DATE OF EXAM: May 07 2022 10:05AM ANDRÉS 5618 - XR KNEE 4V AP/PA/LAT/MERCH KENDALL / PROCEDURE REASON: M17.0-Primary osteoarthritis of knees, bilateral * * * * Physician Interpretation * * * * PROCEDURE: Bilateral knees INDICATION: Primary osteoarthritis of knees, bilateral .BILATERAL KNEE PAIN TECHNIQUE: XR KNEE 4V AP/PA/LAT/MERCH KENDALL COMPARISON: 05/02/2016 FINDINGS: Severe lateral joint compartment narrowing on the right and medial joint compartment narrowing on the left with bilateral tricompartment spur formation. Left-sided lateral tibial translation. Mild bilateral patellofemoral joint compartment narrowing, left greater than right. No acute fracture. Small bilateral joint effusions. Impression: IMPRESSION: Progressive bilateral osteoarthrosis Group Insurance Special Agent: [facility] Transcribe Date/Time: May 07 2022 11:02A Dictated by : JOSE FISHER MD This examination was interpreted and the report reviewed and electronically signed by: JOSE FISHER MD on May 07 2022 11:03AM EST Physical Examination: Unchanged from previous. Grossly NVI. Right knee demonstrates a valgus alignment left knee demonstrates a varus alignment Decreased range of motion to flexion. Positive laxity to varus valgus stress Procedure: Large Joint Arthro/Inj: bilateral knee joints Informed Consent Consent Obtained: Verbal [place] Protocol A moment to CARE was completed. SIGN IN Personnel directly involved with the procedure wore the appropriate PPE. Special Equipment: N/A Patient/Surrogate Stated/Verified: Patient name, Date of , Relevant allergies and Intended procedure TIME OUT Intended patient and procedure match the source document(s). Consent documented and matches the intended procedure. Relevant labs, photos, and/or imaging studies have been reviewed. Correct side/site marked and visible. Medications required for procedure verified. No fire risk assessment and interventions applicable. No implant(s) inserted. 09/12/2022 11:38 AM The procedure site was prepped in the usual sterile fashion. Site: bilateral knee joints Medications (Right): 12 mg betamethasone acetate-betamethasone sodium phosphate 6 mg/mL Medications (Left): 12 mg betamethasone acetate-betamethasone sodium phosphate 6 mg/mL Anesthetics (Right): 4 mL lidocaine (PF) 10 mg/mL (1 %) Anesthetics (Left): 4 mL lidocaine (PF) 10 mg/mL (1 %) Outcome: Tolerated well, no immediate complications Post-injection instructions were reviewed with the patient and the patient voiced understanding of these instructions. SIGN OUT No specimen collected. No instruments, equipment or retained foreign bodies applicable. Post-procedure follow-up management communicated and Plan of Care Visit completed when applicable Assessment: 1. Severe bilateral knee osteoarthritis of the patellofemoral joint and the lateral compartment of the right knee in the medial compartment of the left knee. We have discussed the various treatment options including injection therapy and the possibility of arthroplasty if all conservative measures fail. She does not wish to proceed with surgical intervention at this time. She is requesting a corticosteroid injection as well as a refill of her Mobic for future use. Plan: 1. Injection both knees as noted above 2. Prescription for Mobic given 3. Follow-up for repeat clinical evaluation documented in this encounter [facility] 07-27-2022 History of Present illness Narrative Images from the original note were not included. [facility] [id number] [facility] [address] Dept: [phone] Dept Loc: [phone] 07/27/2022 Visit type: established patient Reason for Visit: Follow-up (BP check / Rt ear wax) ASSESSMENT/PLAN 1. Essential hypertension -Continue lisinopril-hydrochlorothiazide 20-12.5 mg every day. Reviewed home BP. Compared home BP cuff to office cuff, appears accurate. Likely elevated BP this OV due to white coat syndrome 2. White coat syndrome with diagnosis of hypertension -Plan as above 3. Impacted cerumen of right ear -Irrigation performed, successful Follow up if symptoms worsen or fail to improve. Subjective Patient: Zeenat Mejia is a 72 y.o. female who presents this OV as follow up for HTN and discuss R ear impacted cerumen. HPI She states BP at home has been well controlled. Log as below. Blood pressure elevated this OV on re-check. Compared home BP cuff to office, appeared accurate. Instructed to continue regularly checking BP. Impacted cerumen R ear -Patient saw concierge last week for assessment of hearing aids, however R ear had impacted cerumen.. Was told to see pcp first so she can have hearing aids fitted after irrigation. She would like her ear irrigated today. Review of Systems Constitutional: Negative for chills, fatigue and fever. HENT: Negative for congestion and rhinorrhea. Eyes: Negative for visual disturbance. Respiratory: Negative for cough and shortness of breath. Cardiovascular: Negative for chest pain, palpitations and leg swelling. Gastrointestinal: Negative for abdominal pain, blood in stool, constipation, diarrhea, nausea and vomiting. Genitourinary: Negative for difficulty urinating and dysuria. Musculoskeletal: Negative for arthralgias, back pain, gait problem and myalgias. Skin: Negative for color change, pallor and rash. Neurological: Negative for dizziness, weakness, light-headedness, numbness and headaches. Psychiatric/Behavioral: Negative for agitation, behavioral problems, confusion and dysphoric mood. The patient is not nervous/anxious. Allergies Allergen Reactions Penicillins Rash Sulfa Antibiotics Rash Other reaction(s): Other (See Comments) Tetracycline Rash Other reaction(s): Other (See Comments) Outpatient Medications Prior to Visit Medication Sig Dispense Refill Acetaminophen (TYLENOL ARTHRITIS PAIN PO) Take 1 tablet by mouth if needed. atorvastatin (Lipitor) 10 MG tablet calcium 500 MG tablet Take 500 mg by mouth daily. cholecalciferol (Vitamin D-3) 75 MCG (3000 UT) tablet Take by mouth. lisinopril-hydroCHLOROthiazide 20-12.5 MG tablet meloxicam (Mobic) 7.5 MG tablet Take 15 mg by mouth daily. Multiple Vitamin (MULTI-VITAMIN DAILY PO) Take 1 tablet by mouth in the morning. potassium chloride CR (Klor-Con) 10 MEQ ER tablet Take 20 mEq by mouth in the morning. Ubiquinol 100 MG capsule Take by mouth daily. No facility-administered medications prior to visit. Past Medical History: Diagnosis Date Adenomatous polyp of colon [address] Raman polyp at 40 cm Essential hypertension, benign Hypercholesterolemia aunt at 82 with sudden cardiac Influenza due to influenza A virus 12/08/2020 MVP (mitral valve prolapse) Pulmonary embolism (HCC) 12/2020 Past Surgical History: Procedure Laterality Date COLONOSCOPY 09 15 2013 polyp at 40 cm, few sigmoid diverticula, small internal hemorrhoids, suboptimal bowel prep COLONOSCOPY 2016 HIP SURGERY SHOULDER SURGERY 11/2020 reverse shoulder replacement--left TONSILLECTOMY (HISTORICAL) 1956 approx TOTAL ABDOMINAL HYSTERECTOMY 07 21 2003 approx VITRECTOMY Right 08/05/15 Family History Problem Relation Name Age of Onset No Known Problems Maternal Grandmother No Known Problems Son Arthritis Mother No Known Problems Paternal Grandmother Hyperlipidemia Other family No Known Problems Son No Known Problems Maternal Grandfather No Known Problems Daughter Osteoporosis Mother Hypertension Mother No Known Problems Paternal Grandfather Other ([address]) Father skin disorder COPD Mother Cancer Mother colon cancer Cancer Son malignant melanoma back COPD Other aunt at aage 82--sudden cardiac Lupus Sister no siblings Social History Tobacco Use Smoking status: Never Passive exposure: Never Smokeless tobacco: Never Substance Use Topics Alcohol use: Not Currently Objective BP (!) 146/84 (BP Location: Left arm, Patient Position: Sitting, BP Cuff Size: Adult) Pulse 97 Wt 173 lb (78.5 kg) BMI 27.10 kg/m Physical Exam Vitals and nursing note reviewed. Constitutional: General: She is not in acute distress. Appearance: Normal appearance. She is not ill-appearing. HENT: Head: Normocephalic and atraumatic. Right Ear: There is impacted cerumen. Left Ear: There is no impacted cerumen. Eyes: General: Right eye: No discharge. Left eye: No discharge. Extraocular Movements: Extraocular movements intact. Conjunctiva/sclera: Conjunctivae normal. Pupils: Pupils are equal, round, and reactive to light. Cardiovascular: Rate and Rhythm: Normal rate and regular rhythm. Pulses: Normal pulses. Heart sounds: Normal heart sounds. Pulmonary: Effort: Pulmonary effort is normal. No respiratory distress. Breath sounds: Normal breath sounds. No stridor. No wheezing, rhonchi or rales. Musculoskeletal: Right lower leg: No edema. Left lower leg: No edema. Skin: General: Skin is warm and dry. Capillary Refill: Capillary refill takes less than 2 seconds. Neurological: General: No focal deficit present. Mental Status: She is alert and oriented to person, place, and time. Psychiatric: Mood and Affect: Mood normal. Behavior: Behavior normal. Thought Content: Thought content normal. Judgment: Judgment normal. Data Reviewed and Summarized: Medical decision making including: See assessment an plan. Goals None [facility] On this date, 07/27/2022 I have spent 24 minutes reviewing previous notes, test results and face to face with the patient discussing the diagnosis and importance of compliance with the treatment plan as well as documenting on the day of the visit. documented in this encounter [facility] 07-11-2022 Telephone encounter Note S: Patient spoke with [facility] nurse regarding urinary tract symptoms B: Onset of symptoms/concern onset on Jul 07 evening, A: urinary frequency, took an old (5 years) Macrobid took twice a day. Reporting burning, and symptoms continuing. Denies fever, hematuria. R: Scheduled for an Office visit Jul [address] Verduzco at 11:00 a.m. Patient understands care advice. Discussed Cranberry juice, and tylenol for pain, and to force water, No further needs at this time. Patient instructed to call back with new or worsening symptoms. Reason for Disposition Patient wants to be seen Protocols used: Urinary [id number] [facility] 07-11-2022 Miscellaneous Notes S: Patient spoke with [facility] nurse regarding urinary tract symptoms B: Onset of symptoms/concern onset on Jul 07 evening, A: urinary frequency, took an old (5 years) Macrobid took twice a day. Reporting burning, and symptoms continuing. Denies fever, hematuria. R: Scheduled for an Office visit Jul [address] Verduzco at 11:00 a.m. Patient understands care advice. Discussed Cranberry juice, and tylenol for pain, and to force water, No further needs at this time. Patient instructed to call back with new or worsening symptoms. Reason for Disposition Patient wants to be seen Protocols used: Urinary [id number] documented in this encounter [facility] 06-23-2022 History of Present illness Narrative Images from the original note were not included. DEPARTMENT OF ORTHOPAEDICS HISTORY OF PRESENT ILLNESS: This is a pleasant 71 year old female, who presents today with a chief complaint of bilateral knee pain. She complains of dull and aching pain about the anterior and medial aspect of approximately many months duration. This pain is intermittent. She denies trauma. She complains that the pain is 1/10. She reports nocturnal pain. The pain is exacerbated by walking, managing stairs, prolonged standing, and prolonged sitting. Previous treatments have included Rx NSAIDs. She denies proximal radiation. She denies distal radiation. She denies numbness, tingling, or electric shocks. She reports clicking. She reports swelling and/or warmth. PAIN EVALUATION 06/13/2022 1317 Pain Level: 1 Pain Location: -- knees Description: Sore Duration Amount of Time: -- ongoing Frequency: Intermittent Intervention/Comfort measure: Medication PAST MEDICAL HISTORY Diagnosis Date Abnormal Pap smear of cervix 1992 mild- cryo, normal since, hysterectomy Disorder of bone and cartilage, unspecified Elevated cholesterol HTN (hypertension) Mitral valve disorders(424.0) Osteopenia 04/08/2014 PAST SURGICAL HISTORY Procedure Laterality Date ADENOIDECTOMY PRIMARY <AGE 13 Adenoidectomy ARTHRP ACETBLR/PROX FEM PROSTC AGRFT/ALGRFT Right 08/30/2016 Hip replacement, total CAUTERY CERVIX CRYOCAUTERY INITIAL/REPEAT 1992 for abn cells and paps since were normal COLONOSCOPY FLX DX W/COLLJ SPEC WHEN PFRMD 01/16; 09/20 Colonoscopy DILATION & CURETTAGE DX&/THER NONOBSTETRIC x 2 Dilation & curettage PAST SURGICAL HISTORY OF Right 07/2015 macular hole TONSILLECTOMY PRIMARY/SECONDARY <AGE 13 Tonsillectomy VAGINAL HYSTERECTOMY UTERUS 250 GM/< 2003 Hysterectomy, vaginal for menorrhagia Current Outpatient Medications Medication Sig Dispense Refill meloxicam (MOBIC) 15 mg tablet Take 1 tablet by mouth once daily. 30 tablet 2 MULTI-VITAMIN ORAL Take 1 tablet by mouth once daily. acetaminophen (TYLENOL ARTHRITIS ORAL) Take 1 tablet by mouth as needed. metoprolol tartrate, short acting, (LOPRESSOR) 25 mg tablet Take 1 tablet by mouth every 12 hours. 60 tablet 0 potassium chloride (K-TAB) 10 mEq tablet Take 20 mEq by mouth once daily. CALCIUM CARB,GLUC/MAG OX,GLUC (CALCIUM MAGNESIUM ORAL) Take 2 tablets by mouth twice daily. atorvastatin (LIPITOR) 10 mg tablet Take 10 mg by mouth daily at bedtime. coQ10, ubiquinol, 100 mg cap Take by mouth once daily. lisinopril/hydrochlorothiazide(SHARONDA NZIDE 20 MG-12.5 MG TAB) one tablet daily 0 No current facility-administered medications for this visit. ALLERGIES Allergen Reactions Penicillins Rash Sulfa (Sulfonamide * Rash Tetracycline Rash FAMILY HISTORY Problem Relation Age of Onset COPD Mother Osteoporosis Mother Colon Cancer Mother age 84 on diagnosis other (allergic to the sun) Father other (Pancreatic Cancer) Maternal Uncle Social History Tobacco Use Smoking status: Never Smokeless tobacco: Never Substance Use Topics Alcohol use: Yes Comment: rarely 6 per year Drug use: No Occupation: retired Activity level: recreational, sport/activity: none REVIEW OF SYSTEMS: GENERAL: negative for malaise, significant weight loss, night sweats and fever HEENT: No changes in hearing or vision, no nose bleeds or other nasal problems., No trouble swallowing RESPIRATORY: Negative for cough, wheezing and shortness of breath CARDIOVASCULAR: Negative for chest pain, leg swelling, palpitations, orthopnea GI: Negative for abdominal discomfort, hematochezia, melena, hematemesis, change in bowel habits, diarrhea, constipation, nausea or vomiting. MUSCULOSKELETAL: See HPI. PSYCH: Negative for sleep disturbance, mood disorder and recent psychosocial stressors. HEMATOLOGY Negative for prolonged bleeding, bruising easily, and swollen nodes. ENDOCRINE: Negative for cold or heat intolerance, polyuria, polydipsia and goiter. NEURO: negative for lightheadedness, dizziness, tremor, gait imbalance, syncope and seizures. 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 OTHER STUDIES: Last MRI Knee - Impression Only MRI KNEE WO CONTRAST LT Collected: 02/27/2008 2:06 PM (Final result) PHYSICAL EXAM: There were no vitals taken for this visit. General: Appears stated age, well built, in no apparent distress. Psychiatric: Mood and affect appropriate. Alert and oriented x3. Musculoskeletal Exam: Gait and Station mild limp referrable to left knee. BILATERAL KNEE EXAM: Inspection Skin Positive: Mild varus alignment left knee. Incision No evidence of surgical incisions. Atrophy No evidence of muscular atrophy. Range of Motion Knee 5-120 degrees Patella Decreased patellar mobility Palpation Effusion No effusion Tenderness medial joint line Crepitance Positive palpable patellofemoral crepitance Meniscus Negative medial and lateral Easton's test Stability Positive valgus instability, remainder of stability exam is normal Lumbar Spine: Lumbar spine normal to inspection, palpation and motion. Negative straight leg raise and nerve root tension signs. Negative Joyce's, calf tenderness or palpable cords. Bilateral lower extremities show equal motion of the hips and ankles. Normal strength, tone, and stability of both lower extremities distally. Neurologic Exam: Intact medial leg and foot(L4), lateral leg and 1st web space(L5), lateral foot(S1) sensation in both lower extremities. Intact patellar tendon(L4), and Achilles(S1) reflexes in both lower extremities. Vascular: 2+ pedal pulses of both lower extremities. PROCEDURE: Not applicable IMPRESSION: 1. bilateral knee severe degenerative joint disease. We have discussed the various treatment options. Patient does not feel that she has reached a point where she is ready to commit to arthroplasty. She is requesting a refill on the meloxicam. We will reevaluate in the knee clinically based on her symptoms. PLAN: 1. Medication: Mobic 7.5mg - 15mg PO q Day with meals. 2. Test(s)/Imaging/Referral(s): None. 3. Intervention: Continue conservative treatment, Knee rehabilitation protocol instructed and given to patient, and WBAT. 4. Follow-up: Three months . Romana Chi MD I would like to thank you for the kind referral of . I appreciate the opportunity to be involved in her care. Please do not hesitate to call upon me if I may be of further assistance. documented in this encounter [facility] 05-16-2022 Miscellaneous Notes Spoke with patient and relayed message. Patient verbalized understanding. We started Zeenat on an initial dose of 7.5 and can take two tablets. I will send a prescription for the 15mg strength to her pharmacy. If the 15mg strength still does not seem sufficient then please have Zeenat let us know and we will try another medicine. 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: [employer] Transcribe Date/Time: May 07 2022 11:02A Dictated by : JOES FISHER MD This examination was interpreted and the report reviewed and electronically signed by: JOSE FISHER MD on May 07 2022 11:03AM EST [facility] 05-07-2022 History of Present illness Narrative CONSULT ORTHOPAEDIC: KNEE PRIMARY CARE PHYSICIAN: Claudette Lima MD REFERRING PROVIDER: Claudette Lima [address] [place] [address] ASSESSMENT & PLAN Impression: Bilateral Knee Severe Degenerative Osteoarthritis, Primary After discussion with Zeenat Mejia, continued non-operative management of physical therapy, NSAIDS, and injection(s) was chosen. Zeenat will start mobic and follow up with Dr. Chi for possible knee injections. The patient currently has had progressive symptoms. Progressive Symptoms Include: Pain worsened by weight bearing Pain limiting ability to stay fit and healthy. The patient has been ordered: mobic CONSULTS: Patient does not require consults for optimization at this time. ACTIVE PROBLEM LIST POSTMENOPAUSAL ATROPHIC VAGINITIS Osteopenia Primary Osteoarthritis of Left Knee Primary Osteoarthritis of Right Hip Essential Hypertension Hyperlipidemia Pe (Pulmonary Thromboembolism) (Hcc) SUBJECTIVE CHIEF COMPLAINT: Knee Pain HPI: Zeenat Mejia is a 71 year old patient here for evaluation and management of bilateral right > left knee pain. 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 The problem began limiting activities 1-6 months ago. Currently the pain in the joint is rated at 3 out of 10 with minimal activity. The pain is constant and is located on the inside of the left knee and the outside of the right knee. The pain is described as aching and stiffness. Relieving factors include rest and over the counter medication. There is no specific incident that brought about this pain. Zeenat Mejia also complains of low back pain. FUNCTIONAL STATUS: Climb a flight of stairs or walk up a hill (5.50 METs) Total Joint Arthroplasty: Risk Calculator Zeenat Mejia has a 8.52% chance of NOT returning home at discharge for a Primary total Knee replacement. Zeenat's estimated Length of Stay is 1 day. Zeenat's 30 day chance of readmission is 1.17%. Readmission Probability 1.17 % (within 30 days following surgery) Estimated LOS 1 day Discharge Disposition Probability D/C to Home 91.48 % D/C to SNF 8.52 % These calculations are based on the following factors: - 71 years of age - sex is not male - BMI of 26.27 kg/m2 - NarxCare score of 20 - 0 hospitalizations in the last 12 months - no history of heart disease - no history of diabetes - no history of COPD - no history of anemia - preoperative ambulation: impaired community distances - 3 step(s) to enter home - bed location is on the first floor - bath location is on the first floor - caregiver is consistent - home is not more than 150 miles away - PROMIS-10 Mental Health T score 50+ - Marital status: PREVIOUS TREATMENTS: Medical Treatments: OTC NSAIDS for 3 Months or Greater (Ibuprofen and Aleve), Steroid Injections Left Knee Physical Therapy: Activities Modified Previous Surgery: None REVIEW OF SYSTEMS: PAIN ASSESSMENT: See HPI. MUSCULOSKELETAL: See HPI. Risk Factors for Total Joint Arthroplasty (TJA) Obesity normal High: BMI > 40 Moderate: BMI 30-40 Normal: BMI < 30 Diabetes normal High: A1C > 8 Moderate: A1C 7-8 Normal: A1C < 7 Smoking normal High: Current smoker Normal: Non smoker Anemia normal High: Hgb < 11.5 (women) N/A: Hgb >= 11.5 (women) Nutritional Status normal High: Alb<3.4, or prealb<15, or serum transferrin<200, or total lymphocyte count<1500 Normal: normal labs COPD normal High: dx of COPD Normal: no dx of COPD MRSA normal High: dx of MRSA or positive lab test Normal: no MRSA CKD normal High: eGFR<60 Moderate: eGFR 60-89 Normal: eGFR>90 Hx of DVT / PE High Risk High: dx of DVT / PE Normal: no dx of DVT / PE Narcotics Use normal High:NarxCare >=300 Moderate: 100-299 Normal: 0-99 MALENA normal High: dx of MALENA N/A: no dx of MALENA Coagulation Moderate Risk High:PT Sec>13, or PT INR>1.3, or APTT>32.4, or Plt ct<150k Moderate: on anticoag but none of the above Normal: none History of DVT/PE Coagulation PT Sec (sec) Date Value 01/02/2021 10.9 01/02/2021 9.9 PT INR (no units) Date Value 01/02/2021 1.0 INR (no units) Date Value 01/02/2021 1.0 APTT (sec) Date Value 01/03/2021 73.7 01/02/2021 65.3 Platelet Count (k/uL) Date Value 03/21/2021 300 01/03/2021 244 Other Risk Factors H/O PE 01/02/21 PAST MEDICAL HISTORY Diagnosis Date Abnormal Pap smear of cervix 1992 mild- cryo, normal since, hysterectomy Disorder of bone and cartilage, unspecified Elevated cholesterol HTN (hypertension) Mitral valve disorders(424.0) Osteopenia 04/08/2014 PAST SURGICAL HISTORY Procedure Laterality Date ADENOIDECTOMY PRIMARY <AGE 13 Adenoidectomy ARTHRP ACETBLR/PROX FEM PROSTC AGRFT/ALGRFT Right 08/30/2016 Hip replacement, total CAUTERY CERVIX CRYOCAUTERY INITIAL/REPEAT 1993 for abn cells and paps since were normal COLONOSCOPY FLX DX W/COLLJ SPEC WHEN PFRMD 01/16; 09/20 Colonoscopy DILATION & CURETTAGE DX&/THER NONOBSTETRIC x 2 Dilation & curettage PAST SURGICAL HISTORY OF Right 07/2015 macular hole TONSILLECTOMY PRIMARY/SECONDARY <AGE 13 Tonsillectomy VAGINAL HYSTERECTOMY UTERUS 250 GM/< 2004 Hysterectomy, vaginal for menorrhagia FAMILY HISTORY Problem Relation Age of Onset COPD Mother Osteoporosis Mother Colon Cancer Mother age 84 on diagnosis other (allergic to the sun) Father other (Pancreatic Cancer) Maternal Uncle Social History Tobacco Use Smoking status: Never Smokeless tobacco: Never Substance Use Topics Alcohol use: Yes Comment: rarely 6 per year Drug use: No ALLERGIES: Penicillins, Sulfa (Sulfonamide Antibiotics), and Tetracycline MEDICATIONS: MULTI-VITAMIN ORAL Take 1 tablet by mouth once daily. diclofenac (VOLTAREN) 1 % topical gel Apply 2 g to affected area twice daily. acetaminophen (TYLENOL ARTHRITIS ORAL) Take 1 tablet by mouth as needed. ibuprofen (MOTRIN) 200 mg tablet Take 200 mg by mouth every 6 hours as needed for pain. potassium chloride (K-TAB) 10 mEq tablet Take 20 mEq by mouth once daily. CALCIUM CARB,GLUC/MAG OX,GLUC (CALCIUM MAGNESIUM ORAL) Take 2 tablets by mouth twice daily. atorvastatin (LIPITOR) 10 mg tablet Take 10 mg by mouth daily at bedtime. coQ10, ubiquinol, 100 mg cap Take by mouth once daily. lisinopril/hydrochlorothiazide(SHARONDA NZIDE 20 MG-12.5 MG TAB) one tablet daily apixaban (ELIQUIS) 5 mg tab(s) 2 tabs bid for 7 days, then 1 po bid (Patient not taking: Reported on 05/07/2022) metoprolol tartrate, short acting, (LOPRESSOR) 25 mg tablet Take 1 tablet by mouth every 12 hours. PHYSICAL EXAM: Ht 171.5 cm (5' 7.5) Wt 77.2 kg (170 lb 4 oz) BMI 26.27 kg/m All other systems deferred. GENERAL: Appears healthy, well-nourished, no deformities. HABITUS: Normal GAIT: Antalgic bilaterally KNEE EXAM: Left: Alignment: Varus deformity, Partially Correctable Range of motion is 0 degrees in extension and 115 degrees of flexion. Extension La degrees Pain with ROM: Yes Effusion: Moderate Tender to the palpation of Medial femoral condyle and Medial joint line Pain with patellar compression: No Stability: Anterior/Posterior stable and Varus/Valgus stable Hip Exam: flexion to 100+ degrees, full extension, internal/external rotation adequate, and no pain with log roll Neurovascular Status: Sensation Intact, Moves foot and ankle up & down, Moves toes up and down, and 2+ dorsalis pedis Right: Alignment: Valgus deformity, Correctable Range of motion is 5 degrees in extension and 120 degrees of flexion. Extension Lag: < 10 degrees Pain with ROM: Yes Effusion: Mild Tender to the palpation of Lateral joint line Pain with patellar compression: No Stability: Anterior/Posterior stable and Varus/Valgus stable Hip Exam: flexion to 100+ degrees, full extension, internal/external rotation adequate, and no pain with log roll Neurovascular Status: Sensation Intact, Moves foot and ankle up & down, Moves toes up and down, and 2+ dorsalis pedis DATA: Diagnostic tests reviewed for today's visit: Right knee X-Ray: Lateral joint space noted to have severe degenerative changes and Patellofemoral joint noted to have moderate degenerative changes Left knee X-Ray: Medial joint space noted to have severe degenerative changes and Patellofemoral joint noted to have moderate degenerative changes The following conditions were addressed during the office visit today: SIGNATURE: Alfred Chandler PA-C PATIENT NAME: Zeenat Mejia DATE: May 07, 2022 TIME: 10:41 AM documented in this encounter [facility] 05-07-2022 History of Present illness Narrative Radiology Service Progress Note PATIENT NAME: Zeenat Mejia DATE OF SERVICE: May 07, 2022 TIME: 10:05 AM PATIENT IDENTITY VERIFICATION COMPLETED USING TWO (2) IDENTIFIERS: Name and Date of confirmed by patient verbally. FALL SCREENING: Has the patient had 2 falls in the last year or 1 fall with injury or currently using an Ambulatory Assistive Device (Walker, Cane, Wheelchair, Crutches, etc.)? No PATIENT GENDER DATA: Female. status: : No status: NO. PATIENT RELEVANT IMPLANT DATA REVIEWED: Not Applicable RADIOLOGY DEPARTMENT: General X-ray: Exam(s) Completed: Lower Extremity X-Ray(s): Knee, AP / Lat / Tunne / Merchant Bilateral and Wt. Bearing PERIPHERAL IV DATA: Not applicable SIGNED BY: JAE Crowe May 07, 2022 10:05 AM documented in this encounter [facility] 03-29-2022 Miscellaneous Notes Patient has been scheduled Left VM for patient to call back and schedule per message below. Please assist in scheduling when Zeenat calls back ,thank you Please contact the patient for an appt with Dr. Chi or Chau. documented in this encounter [facility] 11-25-2020 Note [facility] Discharge Summary and Transition Note Zeenat Camarenaier : 1950 ADMIT DATE: 11/22/2020 DISCHARGE DATE: 11/25/2020 PRIMARY CARE PHYSICIAN: Claudette Lima MD VISIT STATUS: Admission CODE STATUS: Prior DISCHARGE DIAGNOSES: Principal Problem: Shoulder dislocation, left, initial encounter Active Problems: Essential hypertension, benign Hypokalemia Preoperative clearance Resolved Problems: * No resolved hospital problems. * HOSPITAL COURSE: Ms. Mejia is a 70 y/o F with a h/o HTN admitted following a fall during which she injured her L shoulder. She was found to have a L proximal humeral fracture. She underwent surgery (left rTSA) on 11/24). She was discharged to home following physical therapy evaluation. She is to follow up with orthopedic surgery as directed. PROCEDURES: Left R TSA 11/24 CONSULTANTS: Orthopedic surgery DISCHARGE MEDICATIONS: Significant Medication Changes: Zeenat Mejia Home Medication Instructions AFIA:[id number] Printed on:11/28/20 1002 Medication Information atorvastatin (LIPITOR) 10 MG tablet 1 PO qhs cetirizine (ZYRTEC) 10 MG tablet Take 10 mg by mouth daily as needed Cholecalciferol (VITAMIN D3) 3000 UNITS TABS Take by mouth daily docusate sodium (COLACE) 100 MG capsule Take 1 capsule by mouth daily as needed for Constipation HYDROcodone-acetaminophen (NORCO) 5-325 MG per tablet Take 1 tablet by mouth every 6 hours as needed for Pain for up to 3 days. lisinopril-hydroCHLOROthiazide (PRINZIDE;ZESTORETIC) 20-12.5 MG per tablet TAKE 1 TABLET DAILY potassium chloride (KLOR-CON M10) 10 MEQ extended release tablet TAKE 1 TABLET TWICE A DAY DIET: regular ACTIVITY: as tolerated SIGNIFICANT DIAGNOSTIC STUDIES: XR shoulder L 11/22, 11/23, 11/24 CXR 11/23 CT upper extremity L 11/23 COMPLEXITY OF FOLLOW UP: [x] Moderate Complexity: follow up within 7-14 calendar days (87631) [] Severe Complexity: follow up within 7 calendar days (49868) FOLLOW UP TESTING, PENDING RESULTS OR REFERRALS AT TRANSITIONAL CARE VISIT: [x] Yes -f/u with orthopedic surgery -outpt physical therapy [] No DISPOSITION: home Follow up with Claudette Lima MD scheduled Notification (telephone encounter) to PCP initiated: [x] Yes [] No INSTRUCTIONS TO MA/SW: Please call patient on day after discharge (must document patient contacted within 2 business days of discharge). FOLLOW UP QUESTIONS FOR MA/SW: 1. Did you get medications filled and taking them as instructed from discharge? 2. Are you following your discharge instructions from your hospital stay? 3. Please confirm patient is scheduled for a follow up appointment within the above time frame. DISCHARGE TIME: > 30 minutes [facility] 11-25-2020 History of Present illness Narrative Physical Therapy Facility/Department: [facility] Initial Assessment NAME: Zeenat Mejia : 1950 Date of Service: 11/25/2020 *N95 mask, goggles and gloves worn by this PT throughout pt encounter* Discharge Recommendations: Home with assist PRN, Outpatient PT PT Equipment Recommendations Equipment Needed: No Assessment Body structures, Functions, Activity limitations: Decreased functional mobility ;Decreased sensation;Decreased ADL status;Decreased balance;Decreased ROM;Decreased strength Assessment: pt w/ above deficits. pt educated on LUE NWB and sling as well as Phase I shoulder exercises per physician orders. Handout provided. All questions answered. pts instructed in PROM of shoulder FF. pt also advised to use cane for incr support. Rec home w/ assist and outpt PT. Treatment Diagnosis: L shoulder dislocation, humerus fx from fall; s/p rTSA 11/24 Prognosis: Good Decision Making: Medium Complexity REQUIRES PT FOLLOW UP: Yes Activity Tolerance Activity Tolerance: Patient Tolerated treatment well Patient Diagnosis(es): The primary encounter diagnosis was Closed displaced fracture of surgical neck of left humerus, unspecified fracture morphology, initial encounter. A diagnosis of Dislocation of left shoulder joint, initial encounter was also pertinent to this visit. has a past medical history of Adenomatous polyp of colon, Essential hypertension, benign, Hypercholesterolemia, and MVP (mitral valve prolapse). has a past surgical history that includes Tonsillectomy (1956 approx); Colonoscopy (09 15 2013); vitrectomy (Right, 08/05/15); Hysterectomy, total abdominal (07 21 2003 approx); hip surgery; and Colonoscopy (2016). Restrictions Restrictions/Precautions Restrictions/Precautions: Weight Bearing, ROM Restrictions, Fall Risk Required Braces or Orthoses?: Yes Upper Extremity Weight Bearing Restrictions Left Upper Extremity Weight Bearing: Non Weight Bearing Other: ok for A/PROM hand/wrist/elbow 4x/day - Phase I PT w/ passive FF to 90 deg, no rotation or AROM of shoulder Required Braces or Orthoses Left Upper Extremity Brace/Splint: Sling(at all times except to ROM hand/wrist/elbow) Subjective General Chart Reviewed: Yes Patient assessed for rehabilitation services?: Yes Family / Caregiver Present: Yes(spouse) Diagnosis: L shoulder dislocation, humerus fx from fall; s/p rTSA 11/24 Follows Commands: Within Functional Limits Subjective Subjective: pt seated in chair wearing LUE sling. Agrees to PT. Pain Screening Patient Currently in Pain: No(reports she receive a nerve block) Social/Functional History Social/Functional History Lives With: Spouse Type of Home: House Home Layout: One level, Laundry in basement Home Access: Stairs to enter with rails Entrance Stairs - Number of Steps: 3 Entrance Stairs - Rails: Both Bathroom Toilet: Standard Bathroom Accessibility: Accessible Home Equipment: Cane, Rolling walker Receives Help From: Family ADL Assistance: Independent Homemaking Assistance: Independent Ambulation Assistance: Independent Transfer Assistance: Independent Active Adjuster Piano Action: Yes Occupation: Retired Leisure & Hobbies: sewing Additional Comments: NA Cognition Cognition Overall Cognitive Status: WFL Objective AROM RLE (degrees) RLE AROM: WFL AROM LLE (degrees) LLE AROM : WFL PROM LUE (degrees) LUE General PROM: shoulder PROM forward flexion 45 deg, elbow WFL AROM LUE (degrees) LUE General AROM: AROM shoulder NT, unable to lift elbow active against gravity (? 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 0/5, shoulder NT Sensation Overall Sensation Status: Impaired(LUE numb, intact to light touch) Bed mobility Supine to Sit: Supervision Sit to Supine: Supervision Transfers Sit to Stand: Stand by assistance Stand to sit: Stand by assistance Comment: x2 trials Ambulation Ambulation?: Yes WB Status: LUE NWB/sling More Ambulation?: No Ambulation 1 Surface: level tile Device: No Device Assistance: Stand by assistance;Contact guard assistance Quality of Gait: 1 LOB, able to self recover Gait Deviations: Slow Samantha Distance: 100' x2 Stairs/Curb Stairs?: Yes Stairs # Steps : 3 Stairs Height: 6 Rails: Right ascending(and descending) Device: No Device Assistance: Stand by assistance Balance Posture: Good Sitting - Static: Good Sitting - Dynamic: Good Standing - Static: Fair;+ Standing - Dynamic: Fair;+ Exercises Upper Extremity: LUE AROM finger/hand/wrist x10, AAROM forearm x10, PROM elbow flex/ext x10 Shoulder Passive Range of Motion: LUE PROM shoulder FF 0-45 deg x5 reps (spouse performed 3 of the reps) Plan Plan Times per week: 5-7x Plan weeks: 2 Current Treatment Recommendations: Strengthening, ROM, Balance Training, Functional Mobility Training, Transfer Training, Stair training, Gait Training, Home Exercise Program, Safety Education & Training, Equipment Evaluation, Education, & procurement, Patient/Caregiver Education & Training, Positioning Plan Comment: phase I shoulder protocol (see ortho orders) Safety Devices Type of devices: All fall risk precautions in place, Left in chair, Call light within reach, Gait belt, Patient at risk for falls AM-PAC Score AM-PAC Inpatient Mobility Raw Score : 18 (11/25/20 1354) AM-PAC Inpatient T-Scale Score : 43.63 (11/25/20 1354) Mobility Inpatient CMS 0-100% Score: 46.58 (11/25/20 1354) Mobility Inpatient CMS G-Code Modifier : CK (11/25/20 1354) Goals Short term goals Time Frame for Short term goals: 2 wks Short term goal 1: bed mobility mod indep Short term goal 2: transfers mod indep Short term goal 3: amb 150' w/ least restrictive device mod indep Short term goal 4: negotiate 3 stairs w/ rail mod indep Short term goal 5: indep w/ Phase I HEP Patient Goals Patient goals : to finish sewing a baby blanket Therapy Time Individual Concurrent Group Co-treatment Time In 1304 Time Out 1340 Minutes 36 Timed Code Treatment Minutes: 15 Minutes(TP) Patient s Physical Therapy Plan of Care supervision is transferred to [facility] Physical Therapist. Goals and/or treatment plan was established in collaboration with patient/family/other representatives. Mila Hodges, PT Images from the original note were not included. [facility] Progress Note Zeenat Mejia : 1950(70 y.o.) Date: 11/25/20 Subjective: The patient complains of L shoulder pain. Doing well this morning. Underwent surgery yesterday afternoon. Denies pain. Eager to go home soon. PT is pending. Scheduled Meds: potassium chloride 20 mEq Oral Daily sodium chloride flush 5-40 mL Intravenous 2 times per day [Held by provider] lisinopril 20 mg Oral Daily And [Held by provider] hydroCHLOROthiazide 12.5 mg Oral Daily polyethylene glycol 17 g Oral Daily sodium chloride flush 3 mL Intravenous Q8H Continuous Infusions: sodium chloride PRN Meds:sodium chloride flush, sodium chloride, acetaminophen OR acetaminophen, melatonin, morphine, prochlorperazine, labetalol, HYDROcodone 5 mg - acetaminophen Review of Systems Constitutional: Negative for chills and fever. Respiratory: Negative for choking. Cardiovascular: Negative for chest pain. Neurological: Negative for dizziness. Psychiatric/Behavioral: Negative for confusion. Interval Pertinent History: Social History Tobacco Use Smoking status: Never Smoker Smokeless tobacco: Never Used Substance Use Topics Alcohol use: Yes Frequency: Monthly or less Drinks per session: 1 or 2 Binge frequency: Never Comment: on occasion Objective: Patient Vitals for the past 24 hrs: BP Temp Temp src Pulse Resp SpO2 11/25/20 0421 119/80 97.1 F (36.2 C) Temporal 89 18 99 % 11/24/20 2309 100/75 98.3 F (36.8 C) Temporal 97 18 100 % 11/24/20 2038 117/75 98.9 F (37.2 C) Temporal 95 18 100 % 11/24/20 1803 132/79 98.7 F (37.1 C) Temporal 87 16 98 % 11/24/20 1730 (!) 145/82 89 15 97 % 11/24/20 1715 (!) 156/93 97.7 F (36.5 C) Temporal 100 14 100 % 11/24/20 1700 (!) 152/80 88 14 94 % 11/24/20 1653 (!) 147/86 97.4 F (36.3 C) Temporal 86 16 100 % 11/24/20 1039 123/78 97.5 F (36.4 C) Temporal 97 18 96 % Average, Min, and Max for last 24 hours Vitals: TEMPERATURE: Temp Av.9 F (36.6 C) Min: 97.1 F (36.2 C) Max: 98.9 F (37.2 C) RESPIRATIONS RANGE: Resp Av.3 Min: 14 Max: 18 PULSE RANGE: Pulse Av Min: 86 Max: 100 BLOOD PRESSURE RANGE: Systolic (24hrs), Av , Min:100 , Max:156 ; Diastolic (24hrs), Av, Min:75, Max:93 PULSE OXIMETRY RANGE: SpO2 Av.2 % Min: 94 % Max: 100 % No intake/output data recorded. Physical Exam General: seated in bed, in no acute distress. HEENT: normocephalic, eom in tact. CV: regular rhythm, no murmur appreciated. Lungs: non-labored respirations, ctab. Abdomen: soft, non-tender to palpation. Extremities: L arm sling Neuro: alert, oriented x 3, no gross motor deficits. Psych: pleasant, appropriate affect. Lab Results Component Value Date WBC 10.8 (H) 11/25/2020 HGB 10.7 (L) 11/25/2020 HCT 31.2 (L) 11/25/2020 MCV 90.6 11/25/2020 PLT 259 11/25/2020 Lab Results Component Value Date NA 136 11/25/2020 K 4.1 11/25/2020 CL 103 11/25/2020 CO2 26 11/25/2020 BUN 22 11/25/2020 CREATININE 0.67 11/25/2020 GLUCOSE 121 11/25/2020 CALCIUM 8.8 11/25/2020 No results found for: LABA1C Additional results of the last 24 hours have been reviewed. Assessment and Plan: Principal Problem: Shoulder dislocation, left, initial encounter Active Problems: Essential hypertension, benign Hypokalemia Preoperative clearance Resolved Problems: * No resolved hospital problems. * #L proximal humeral fracture -POD 1 -Activity recs per ortho- PT is pending -Pain mgmt, bowel regimen, IS -Ok for chemical dvt ppx per ortho recs. #HTN -resume outpt antihypertensives -prn in meantime #Hypokalemia -Continue outpt supplement #Leukocytosis: -resolved. -likely reactive. procal negative, infectious ROS negative. #prolonged qt: -avoid qt prolonging meds -monitor electrolytes DVTProphylaxis: lovenox Disposition: pending PT. Possible d/c this afternoon or tomorrow am. I spent over 51% of total time providing counseling or in coordination of care: > 25 minutes Ipersonally examined the patient and I personally reviewed chart, data, labs radiology reports Addendum: Pt seen by pt this afternoon. D/w pt at bedside- ok for outpt PT. She has a printed script in her chart from ortho service for oxycodone however she prefers the hydrocodone d/t episode of nausea she had yesterday. I have shredded the oxycodone script and written a new hydrocodone script for dc. 6PM-6AM please page: [facility] [place] Internal Medicine Department of Orthopedic Surgery Resident Progress Note SUBJECTIVE Patient is comfortable this AM. Had many questions regarding post op plan OBJECTIVE Physical VITALS: BP 119/80 Pulse 89 Temp 97.1 F (36.2 C) (Temporal) Resp 18 Ht 5' 7 (1.702 m) Wt 175 lb (79.4 kg) SpO2 99% BMI 27.41 kg/m LUE Dressing C/D/I Motor + AIN/PIN/UN SILT AxN/MN/RN/UN Radial pulse 2+ Data CBC: Lab Results Component Value Date WBC 10.8 11/25/2020 WBC 5.9 09/22/2015 RBC 3.44 11/25/2020 HGB 10.7 11/25/2020 HCT 31.2 11/25/2020 MCV 90.6 11/25/2020 MCH 31.2 11/25/2020 MCHC 34.5 11/25/2020 RDW 13.5 11/25/2020 PLT 259 11/25/2020 MPV 7.5 11/25/2020 Current Inpatient Medications Current Facility-Administered Medications: potassium chloride (KLOR-CON M) extended release tablet 20 mEq, 20 mEq, Oral, Daily sodium chloride flush 0.9 % injection 5-40 mL, 5-40 mL, Intravenous, 2 times per day sodium chloride flush 0.9 % injection 5-40 mL, 5-40 mL, Intravenous, PRN 0.9 % sodium chloride infusion, 25 mL, Intravenous, PRN acetaminophen (TYLENOL) tablet 650 mg, 650 mg, Oral, Q6H PRN OR acetaminophen (TYLENOL) suppository 650 mg, 650 mg, Rectal, Q6H PRN melatonin tablet 5 mg, 5 mg, Oral, Nightly PRN morphine sulfate (PF) injection 2 mg, 2 mg, Intravenous, Q4H PRN prochlorperazine (COMPAZINE) injection 10 mg, 10 mg, Intravenous, Q6H PRN [Held by provider] lisinopril (PRINIVIL;ZESTRIL) tablet 20 mg, 20 mg, Oral, Daily AND [Held by provider] hydroCHLOROthiazide (HYDRODIURIL) tablet 12.5 mg, 12.5 mg, Oral, Daily labetalol (NORMODYNE;TRANDATE) injection 10 mg, 10 mg, Intravenous, Q4H PRN polyethylene glycol (GLYCOLAX) packet 17 g, 17 g, Oral, Daily HYDROcodone-acetaminophen (NORCO) 5-325 MG per tablet 1 tablet, 1 tablet, Oral, Q4H PRN [COMPLETED] Saline lock IV, , , Continuous AND sodium chloride flush 0.9 % injection 3 mL, 3 mL, Intravenous, Q8H ASSESSMENT AND PLAN 70 yo F s/p left rTSA for fracture on 11/24 Nonweight bearing left upper extremity in sling Wear sling at all times except to perform range of motion at elbow/wrist/hand four times daily (OK for passive and active range of motion at elbow/wrist/hand) Initiate PT (Phase 1 with passive forward flexion to 90 only - no rotation at shoulder, no active range of motion to left shoulder) Ice Antibiotics x 24 hours Pain management as per 1 DVT ppx and medical management as per 1 - OK to begin chemoprophylaxis POD1 Monitor Hgb Dressing: Silverlon x1 week Neurovascular and skin checks F/u with Dr. Wagner in 2 weeks. Discharge instructions and follow up information provided OK to DC today if comfortable and passes PT Report called to [facility]6 HELDER Mattson. updated. Physical Therapy Hold PT. Plans for L shoulder rTSA today. Will evaluate post-operatively. Nutrition rescreen completed. Chart reviewed. Patient to be monitored and followed by the diet geotechnicial properties technician. Images from the original note were not included. [facility] Progress Note Zeenat Mejia : 1950(70 y.o.) Date: 11/24/20 Subjective: The patient complains of L shoulder pain. No issues overnight. Surgery planned for today instead. Yesterday felt nauseated with pain meds- now resolved. Scheduled Meds: potassium chloride 20 mEq Oral Daily sodium chloride flush 5-40 mL Intravenous 2 times per day [Held by provider] lisinopril 20 mg Oral Daily And [Held by provider] hydroCHLOROthiazide 12.5 mg Oral Daily polyethylene glycol 17 g Oral Daily sodium chloride flush 3 mL Intravenous Q8H Continuous Infusions: sodium chloride PRN Meds:sodium chloride flush, sodium chloride, acetaminophen OR acetaminophen, melatonin, morphine, prochlorperazine, labetalol, HYDROcodone 5 mg - acetaminophen Review of Systems Constitutional: Negative for chills and fever. Respiratory: Negative for choking. Cardiovascular: Negative for chest pain. Neurological: Negative for dizziness. Psychiatric/Behavioral: Negative for confusion. Interval Pertinent History: Social History Tobacco Use Smoking status: Never Smoker Smokeless tobacco: Never Used Substance Use Topics Alcohol use: Yes Frequency: Monthly or less Drinks per session: 1 or 2 Binge frequency: Never Comment: on occasion Objective: Patient Vitals for the past 24 hrs: BP Temp Temp src Pulse Resp SpO2 11/24/20 1039 123/78 97.5 F (36.4 C) Temporal 97 18 96 % 11/24/20 0431 (!) 148/91 97 F (36.1 C) Temporal 99 18 96 % 11/23/20 2306 128/79 98 F (36.7 C) Temporal 92 18 94 % 11/23/20 2016 (!) 171/97 98.6 F (37 C) Temporal 93 18 97 % 11/23/20 1728 (!) 150/87 97.7 F (36.5 C) Temporal 96 17 97 % Average, Min, and Max for last 24 hours Vitals: TEMPERATURE: Temp Av.8 F (36.6 C) Min: 97 F (36.1 C) Max: 98.6 F (37 C) RESPIRATIONS RANGE: Resp Av.8 Min: 17 Max: 18 PULSE RANGE: Pulse Av.4 Min: 92 Max: 99 BLOOD PRESSURE RANGE: Systolic (24hrs), Av , Min:123 , Max:171 ; Diastolic (24hrs), Av, Min:78, Max:97 PULSE OXIMETRY RANGE: SpO2 Av % Min: 94 % Max: 97 % I/O last 3 completed shifts: In: 240 [P.O.:240] Out: 200 [Urine:200] Physical Exam General: seated in bed, in no acute distress. HEENT: normocephalic, eom in tact. CV: regular rhythm, no murmur appreciated. Lungs: non-labored respirations, ctab. Abdomen: soft, non-tender to palpation. Extremities: L arm sling Neuro: alert, oriented x 3, no gross motor deficits. Psych: pleasant, appropriate affect. Lab Results Component Value Date WBC 10.1 11/24/2020 HGB 11.4 (L) 11/24/2020 HCT 33.4 (L) 11/24/2020 MCV 91.0 11/24/2020 PLT 259 11/24/2020 Lab Results Component Value Date NA 133 11/24/2020 K 3.7 11/24/2020 CL 100 11/24/2020 CO2 30 11/24/2020 BUN 14 11/24/2020 CREATININE 0.64 11/24/2020 GLUCOSE 113 11/24/2020 CALCIUM 9.0 11/24/2020 No results found for: LABA1C Additional results of the last 24 hours have been reviewed. Assessment and Plan: Principal Problem: Shoulder dislocation, left, initial encounter Active Problems: Essential hypertension, benign Hypokalemia Preoperative clearance Resolved Problems: * No resolved hospital problems. * #L proximal humeral fracture -Ortho planning for OR today -Pain mgmt, bowel regimen, IS #HTN -Hold lisinopril pre op-resume tomorrow -prn in meantime #Hypokalemia -Continue outpt supplement #Leukocytosis: -resolved. -likely reactive. procal negative, infectious ROS negative. #prolonged qt: -avoid qt prolonging meds -monitor electrolytes DVTProphylaxis: scd's for now- lovenox when ok post op from surgery perspective Disposition: pending OR I spent over 51% of total time providing counseling or in coordination of care: > 25 minutes Ipersonally examined the patient and I personally reviewed chart, data, labs radiology reports 6PM-6AM please page: [facility] [place] Internal Medicine Images from the original note were not included. Department of Orthopedic Surgery Progress Note SUBJECTIVE: No acute events overnight. Resting comfortably in bed. Pain well controlled controlled with medication. No paresthesias. No CP/SOB. N fevers or chills. Understands plan of care for OR today. Discussed procedure in detail with patient. All questions answered. NPO OBJECTIVE: General: alert and oriented to person, place and time, well-developed and well-nourished, in no acute distress VITALS: BP (!) 148/91 Pulse 99 Temp 97 F (36.1 C) (Temporal) Resp 18 Ht 5' 7 (1.702 m) Wt 175 lb (79.4 kg) SpO2 96% BMI 27.41 kg/m MSK exam: LUE Sling intact Small amount of ecchymosis anterior shoulder. No open wounds or lesions SILT A/R/U/M AIN/PIN/Ulnar intact Radial pulse palpable; brisk capillary refill to fingers Labs: CBC with Differential: Lab Results Component Value Date WBC 10.1 11/24/2020 WBC 5.9 09/22/2015 RBC 3.67 11/24/2020 HGB 11.4 11/24/2020 HCT 33.4 11/24/2020 PLT 259 11/24/2020 MCV 91.0 11/24/2020 MCH 31.2 11/24/2020 MCHC 34.3 11/24/2020 RDW 13.2 11/24/2020 SEGSPCT 56.1% 09/22/2015 LYMPHOPCT 6.3 11/22/2020 MONOPCT 4.3 11/22/2020 MONOPCT 10.8% 09/22/2015 BASOPCT 0.3 11/22/2020 BASOPCT 0.4% 09/22/2015 MONOSABS 0.8 11/22/2020 MONOSABS 0.6 09/22/2015 LYMPHSABS 1.2 11/22/2020 LYMPHSABS 1.8 09/22/2015 EOSABS 0.0 11/22/2020 EOSABS 0.1 09/22/2015 BASOSABS 0.1 11/22/2020 BASOSABS <0.1 09/22/2015 BMP: Lab Results Component Value Date NA 133 11/24/2020 K 3.7 11/24/2020 CL 100 11/24/2020 CO2 30 11/24/2020 BUN 14 11/24/2020 LABALBU 4.4 12/21/2019 CREATININE 0.64 11/24/2020 CALCIUM 9.0 11/24/2020 GFRAA >60 09/22/2015 LABGLOM >60 08/31/2016 LABGLOM >60 09/22/2015 GLUCOSE 113 11/24/2020 Type and Screen: Lab Results Component Value Date LABABO A 11/22/2020 RH POS 11/22/2020 LABANTI NEG 11/22/2020 INR: Lab Results Component Value Date INR 1.0 11/22/2020 CRP: No results found for: CRP ESR: No results found for: SEDRATE ASSESSMENT AND PLAN: This is a 70 y.o. female with LEFT proximal humerus fracture dislocation Plan for rTSA today NPO Consented Preop labs completed NWB LUE in sling Ice Neurovascular checks Neurovascular and skin checks Medical and pain management per medicine physician Please page [phone] with any questions or concerns Taz Bautista MD PGY-3, Orthopaedic Surgery [phone] 11/24/2020 .6:24 AM OR tomorrow, ok for diet today Images from the original note were not included. [facility] Progress Note Zeenat Mejia : 1950(70 y.o.) Date: 11/23/20 NON BILLABLE NOTE Subjective: HPI The patient complains of L shoulder pain. Pt seen and examined this morning. She reports she feels better, pain currently controlled. Denies any other complaints. Scheduled Meds: potassium chloride 20 mEq Oral Daily sodium chloride flush 5-40 mL Intravenous 2 times per day [Held by provider] lisinopril 20 mg Oral Daily And [Held by provider] hydroCHLOROthiazide 12.5 mg Oral Daily sodium chloride flush 3 mL Intravenous Q8H Continuous Infusions: sodium chloride PRN Meds:sodium chloride flush, sodium chloride, polyethylene glycol, acetaminophen OR acetaminophen, melatonin, oxyCODONE-acetaminophen, morphine, prochlorperazine, labetalol Review of Systems Constitutional: Negative for chills and fever. Respiratory: Negative for choking. Cardiovascular: Negative for chest pain. Neurological: Negative for dizziness. Psychiatric/Behavioral: Negative for confusion. Interval Pertinent History: Social History Tobacco Use Smoking status: Never Smoker Smokeless tobacco: Never Used Substance Use Topics Alcohol use: Yes Frequency: Monthly or less Drinks per session: 1 or 2 Binge frequency: Never Comment: on occasion Objective: Patient Vitals for the past 24 hrs: BP Temp Temp src Pulse Resp SpO2 Height Weight 11/23/20 0435 126/78 98.6 F (37 C) Temporal 93 16 96 % 11/23/20 0315 (!) 163/88 97.3 F (36.3 C) Temporal 96 17 98 % 11/23/20 0240 (!) 147/92 98.3 F (36.8 C) Oral 97 15 99 % 11/23/20 0217 (!) 146/96 96 16 96 % 11/23/20 0052 (!) 146/93 93 14 100 % 11/23/20 0044 (!) 166/118 100 12 100 % 11/23/20 0040 (!) 162/116 95 12 100 % 11/23/20 0037 (!) 166/96 98 14 100 % 11/23/20 0030 (!) 159/94 96 16 99 % 11/23/20 0021 (!) 171/94 95 18 100 % 11/23/20 0017 (!) 161/87 96 20 100 % 11/23/20 0009 (!) 163/97 94 18 100 % 11/22/20 2359 (!) 157/84 94 14 99 % 11/22/20 2354 92 16 100 % 11/22/20 2353 (!) 167/91 94 18 99 % 11/22/20 2350 (!) 172/95 102 20 100 % 11/22/20 2343 (!) 172/95 100 22 98 % 11/22/20 2224 (!) 179/99 91 20 94 % 11/22/202022 (!) 183/106 97.8 F (36.6 C) Oral 101 16 97 % 5' 7 (1.702 m) 175 lb (79.4 kg) Average, Min, and Max for last 24 hours Vitals: TEMPERATURE: Temp Av F (36.7 C) Min: 97.3 F (36.3 C) Max: 98.6 F (37 C) RESPIRATIONS RANGE: Resp Av.5 Min: 12 Max: 22 PULSE RANGE: Pulse Av.9 Min: 91 Max: 102 BLOOD PRESSURE RANGE: Systolic (24hrs), Av , Min:126 , Max:183 ; Diastolic (24hrs), Av, Min:78, Max:118 PULSE OXIMETRY RANGE: SpO2 Av.7 % Min: 94 % Max: 100 % No intake/output data recorded. Physical Exam General: seated in bed, in no acute distress. HEENT: normocephalic, eom in tact. CV: regular rhythm, no murmur appreciated. Lungs: non-labored respirations, ctab. Abdomen: soft, non-tender to palpation. Extremities: L arm sling Neuro: alert, oriented x 3, no gross motor deficits. Psych: pleasant, appropriate affect. Lab Results Component Value Date WBC 13.5 (H) 11/23/2020 HGB 11.4 (L) 11/23/2020 HCT 34.1 (L) 11/23/2020 MCV 89.8 11/23/2020 PLT 273 11/23/2020 Lab Results Component Value Date NA 133 11/23/2020 K 3.7 11/23/2020 CL 101 11/23/2020 CO2 24 11/23/2020 BUN 17 11/23/2020 CREATININE 0.52 11/23/2020 GLUCOSE 111 11/23/2020 CALCIUM 8.8 11/23/2020 No results found for: LABA1C Additional results of the last 24 hours have been reviewed. Assessment and Plan: Principal Problem: Shoulder dislocation, left, initial encounter Active Problems: Essential hypertension, benign Hypokalemia Preoperative clearance Resolved Problems: * No resolved hospital problems. * #L proximal humeral fracture -Ortho planning for OR today -Pain mgmt, bowel regimen, IS #HTN -Hold lisinopril pre op-resume tomorrow -prn in meantime #Hypokalemia -Continue outpt supplement #Leukocytosis: -Likely reactive as infectious ROS negative -Monitor, check procal #prolonged qt: -avoid qt prolonging meds -monitor electrolytes DVTProphylaxis: scd's for now- lovenox when ok post op from surgery perspective Disposition: pending above I spent over 51% of total time providing counseling or incoordination of care: n/a- non billable 6AM-6PM please page: 6PM-6AM please page: [facility] [place] Internal Medicine documented in this encounter [facility] Work Phone: 11-22-2020 Hospital Discharge instructions Taz Bautista MD - 11/22/2020 General Orthopedic Discharge Instructions The following instructions have been prepared to help you when you leave the hospital. These guidelines are for the post-surgery period. Activity: Ease into activity. Nonweight bearing left upper extremity in sling Wear sling at all times except to perform range of motion at elbow/wrist/hand four times daily (OK for passive and active range of motion at elbow/wrist/hand) Initiate PT (Phase 1 with passive forward flexion to 90 only - no rotation at shoulder, no active range of motion to left shoulder) Medications: see medication instructions. Please be sure to read and understand the information provided by your pharmacy. Ask your Pharmacist if any questions. Wound Care and Hygiene: -Remove silverlon dressing post-operative day 7 and replace with clean, dry dressing. If no drainage is present, OK to leave open to air -OK to shower with silverlon dressing but no bathing or submerging -Gently pat dressing dry after showering Call Your Doctor for: -Excessive bleeding/swelling of incision -Fever with temperature above 100 F Anesthesia Precautions: -Do Not operate any vehicle (automobile, bicycle, motorcycle) or power tools for 24 hours -Do Not drink alcoholic beverages for 24 hours -As precaution to prevent post-operative nausea and vomiting, start your diet with liquids, then progress to light foods. If tolerated, resume normal diet. Additional Instructions: Continue physical therapy Blood clot prevention: Ambulate, medications as prescribed by medicine physician Pain control as prescribed Contact your surgeon's office (Dr. Wagner), to set up an appointment in 2 weeks, or if you have any problems or questions. documented in this encounter [facility] Work Phone: 03-31-2012 History of Past i llness Narrative Problem Noted Date Resolved Date Recurrent cystitis 03/31/2012 06/21/2016 Symptomatic menopausal or female climacteric sta chong 03/01/2010 03/02/2011 Depressive disorder, not elsewhere classified 03/02/2011 Disorder of bone and cartilage, unspecified 02/1406/21/2016 documented as of this encounter (statuses as of 05/04/2022) [facility] History of Past illness Narrative* Problem Noted Date Resolved Date Recurrent cystitis 03/31/2012 06/21/2016 Symptomatic menopausal or female climacteric sta chong 03/01/2010 03/02/2011 Depressive disorder, not elsewhere classified 03/02/2011 Disorder of bone and cartilage, unspecified 02/1406/21/2016 documented as of this encounter (statuses as of 05/07/2022) [facility] History of Past illness Narrative* Problem Noted Date Resolved Date Recurrent cystitis 03/31/2012 06/21/2016 Symptomatic menopausal or female climacteric sta chong 03/01/2010 03/02/2011 Depressive disorder, not elsewhere classified 03/02/2011 Disorder of bone and cartilage, unspecified 02/1406/21/2016 documented as of this encounter (statuses as of 05/16/2022) [facility] History of Past illness Narrative* Problem Noted Date Resolved Date Recurrent cystitis 03/31/2012 06/21/2016 Symptomatic menopausal or female climacteric sta chong 03/01/2010 03/02/2011 Depressive disorder, not elsewhere classified 03/02/2011 Disorder of bone and cartilage, unspecified 02/1406/21/2016 documented as of this encounter (statuses as of 06/24/2022) [facility] History of Past illness Narrative* Problem Noted Date Resolved Date Recurrent cystitis 03/31/2012 06/21/2016 Symptomatic menopausal or female climacteric sta chong 03/01/2010 03/02/2011 Depressive disorder, not elsewhere classified 03/02/2011 Disorder of bone and cartilage, unspecified 02/1406/21/2016 documented as of this encounter (statuses as of 09/23/2022) [facility] History of Past illness Narrative* Problem Noted Date Resolved Date Recurrent cystitis 03/31/2012 06/21/2016 Symptomatic menopausal or female climacteric sta chong 03/01/2010 03/02/2011 Depressive disorder, not elsewhere classified 03/02/2011 Disorder of bone and cartilage, unspecified 02/1406/21/2016 documented as of this encounter (statuses as of 01/11/2023) [facility] History of Past illness Narrative* Problem Noted Date Diagnosed Date Resolved Date Recurrent cystitis 03/31/2012 6 Symptomatic menopausal or fe male climacteric states 03/01/2010 03/02/2011 Depressive disorder, not elsewhere classified 03/01/20 10 03/02/2011 Disorder of bone and cartilage, unspecified 03/14/2006 06/21/2016 documented as of this encounter (statuses as of 02/08/2023) [facility] History of Past illness Narrative* Problem Noted Date Diagnosed Date Resolved Date Recurrent cystitis 03/31/2012 6 Symptomatic menopausal or fe male climacteric states 03/01/2010 03/02/2011 Depressive disorder, not elsewhere classified 03/01/20 10 03/02/2011 Disorder of bone and cartilage, unspecified 03/14/2006 06/21/2016 documented as of this encounter (statuses as of 06/15/2023) [facility] History of Past illness Narrative* Problem Noted Date Diagnosed Date Resolved Date Recurrent cystitis 03/31/2012 6 Symptomatic menopausal or fe male climacteric states 03/01/2010 03/02/2011 Depressive disorder, not elsewhere classified 03/01/20 10 03/02/2011 Disorder of bone and cartilage, unspecified 03/14/2006 06/21/2016 documented as of this encounter (statuses as of 10/22/2023) [facility] note* Diagnosis Closed displaced fracture of surgical neck of left humerus, unspecified fracture morphology, initial encounter Dislocation of left shoulder joint, initial encounter Hypokalemia Hypopotassemia Essential hypertension, benign Preoperative clearance Preoperative examination, unspecified documented in this encounter [facility] Work Phone: Evaluation note* Diagnosis Nontoxic single thyroid nodule Nontoxic uninodular goiter documented in this encounter [facility] Work Phone: Evaluation note* Diagnosis Other nonspecific abnormal finding of lung field Liver disease, unspecified Pulmonary nodules Other nonspecific abnormal finding of lung field Liver lesion Other specified disorders of liver documented in this encounter [facility] Work Phone: Evaluation noteNo assessment information available [facility] Work Phone: Evaluation note* Diagnosis Primary osteoarthritis of knees, bilateral- Primary documented in this encounter [facility] note* Diagnosis Primary osteoarthritis of right knee- Primary Primary localized osteoarthrosis, lower leg Primary osteoarthritis of left knee Primary localized osteoarthrosis, lower leg documented in this encounter [facility] note* Diagnosis Primary osteoarthritis of right knee- Primary Primary localized osteoarthrosis, lower leg Primary osteoarthritis of left knee Primary localized osteoarthrosis, lower leg documented in this encounter [facility] note* Diagnosis Primary osteoarthritis of right knee Primary localized osteoarthrosis, lower leg Primary osteoarthritis of left knee Primary localized osteoarthrosis, lower leg documented in this encounter [facility] note* Diagnosis Primary osteoarthritis of both knees- Primary Primary localized osteoarthrosis, lower leg documented in this encounter [facility] note* Diagnosis Solitary pulmonary nodule documented in this encounter [facility] note* Diagnosis Primary osteoarthritis of both knees- Primary Primary localized osteoarthrosis, lower leg documented in this encounter [facility] note* Diagnosis Aftercare following right hip joint replacement surgery- Primary Sacroiliitis (HCC) Sacroiliitis, not elsewhere classified Primary osteoarthritis of both knees Primary localized osteoarthrosis, lower leg documented in this encounter [facility] note* Diagnosis Impacted cerumen, right ear- Primary documented in this encounter [facility] note* Diagnosis Primary osteoarthritis of both knees- Primary Primary localized osteoarthrosis, lower leg documented in this encounter [facility] note* Diagnosis Primary osteoarthritis of both knees- Primary Primary localized osteoarthrosis, lower leg Primary osteoarthritis of both knees Primary localized osteoarthrosis, lower leg documented in this encounter [facility] note* Diagnosis Routine general medical examination at health care facility- Primary Routine general medical examination at a health care facility Hyperlipidemia, unspecified hyperlipidemia type IFG (impaired fasting glucose) documented in this encounter [facility] note* Diagnosis Primary osteoarthritis of both knees- Primary Primary localized osteoarthrosis, lower leg Primary osteoarthritis of both knees Primary localized osteoarthrosis, lower leg documented in this encounter [facility] note* Diagnosis Primary osteoarthritis of right knee- Primary Primary localized osteoarthrosis, lower leg Preoperative testing Preoperative examination, unspecified Primary osteoarthritis of both knees Primary localized osteoarthrosis, lower leg documented in this encounter [facility] note* Diagnosis Pre-op evaluation- Primary Preoperative examination, unspecified Essential hypertension Unspecified essential hypertension PE (pulmonary thromboembolism) (HCC) Other pulmonary embolism and infarction PONV (postoperative nausea and vomiting) Nausea with vomiting Primary osteoarthritis of both knees Primary localized osteoarthrosis, lower leg * Assessment & Plan Note - Chel Harrison PA-C - 03/09/2024 11:14 AM EDT Associated Problem(s): PONV (postoperative nausea and vomiting) Assessment: reports vomiting after hysterectomy * Assessment & Plan Note - Chel Harrison PA-C - 03/09/2024 11:10 AM EDT Associated Problem(s): PE (pulmonary thromboembolism) (HCC) Assessment: after shoulder surgery in 2020, no longer takes AC * Assessment & Plan Note - Chel Harrison PA-C - 03/09/2024 11:10 AM EDT Associated Problem(s): Hyperlipidemia Assessment: Stable on RX * Assessment & Plan Note - Chel Harrison PA-C - 03/09/2024 11:10 AM EDT Associated Problem(s): Essential hypertension Assessment: BP today in clinic 154/86. Stable on RX. [facility] Pre-op evaluation- Primary Preoperative examination, unspecified Essential hypertension Unspecified essential hypertension PE (pulmonary thromboembolism) (HCC) Other pulmonary embolism and infarction PONV (postoperative nausea and vomiting) Nausea with vomiting Primary osteoarthritis of right knee Primary localized osteoarthrosis, lower leg Preoperative testing Preoperative examination, unspecified Primary osteoarthritis of both knees Primary localized osteoarthrosis, lower leg [facility] Pain Generalized pain Pre-op evaluation- Primary Preoperative examination, unspecified Essential hypertension Unspecified essential hypertension PE (pulmonary thromboembolism) (HCC) Other pulmonary embolism and infarction PONV (postoperative nausea and vomiting) Nausea with vomiting Primary osteoarthritis of both knees Primary localized osteoarthrosis, lower leg [facility] Pre-op evaluation- Primary Preoperative examination, unspecified Essential hypertension Unspecified essential hypertension PE (pulmonary thromboembolism) (HCC) Other pulmonary embolism and infarction PONV (postoperative nausea and vomiting) Nausea with vomiting Aftercare following right knee joint replacement surgery- Primary Postoperative nausea Nausea alone documented in this encounter [facility] note* Diagnosis Aftercare following right hip joint replacement surgery Pre-op evaluation- Primary Preoperative examination, unspecified Essential hypertension Unspecified essential hypertension PE (pulmonary thromboembolism) (HCC) Other pulmonary embolism and infarction PONV (postoperative nausea and vomiting) Nausea with vomiting documented in this encounter [facility] note* Diagnosis Pre-op evaluation- Primary Preoperative examination, unspecified Essential hypertension Unspecified essential hypertension PE (pulmonary thromboembolism) (HCC) Other pulmonary embolism and infarction PONV (postoperative nausea and vomiting) Nausea with vomiting S/P total knee arthroplasty, right- Primary documented in this encounter [facility] note* Diagnosis Pre-op evaluation- Primary Preoperative examination, unspecified Essential hypertension Unspecified essential hypertension PE (pulmonary thromboembolism) (HCC) Other pulmonary embolism and infarction PONV (postoperative nausea and vomiting) Nausea with vomiting Right knee pain, unspecified chronicity documented in this encounter [facility] note* Diagnosis Primary osteoarthritis of knees, bilateral Pre-op evaluation- Primary Preoperative examination, unspecified Essential hypertension Unspecified essential hypertension PE (pulmonary thromboembolism) (HCC) Other pulmonary embolism and infarction PONV (postoperative nausea and vomiting) Nausea with vomiting documented in this encounter [facility] note* Diagnosis Pre-op evaluation- Primary Preoperative examination, unspecified Essential hypertension Unspecified essential hypertension PE (pulmonary thromboembolism) (HCC) Other pulmonary embolism and infarction PONV (postoperative nausea and vomiting) Nausea with vomiting Aftercare following right knee joint replacement surgery- Primary documented in this encounter [facility] note* Diagnosis Essential hypertension- Primary Unspecified essential hypertension White coat syndrome with diagnosis of hypertension Impacted cerumen of right ear Impacted cerumen documented in this encounter [facility] note* Diagnosis Pre-op evaluation- Primary Preoperative examination, unspecified Essential hypertension Unspecified essential hypertension PE (pulmonary thromboembolism) (HCC) Other pulmonary embolism and infarction PONV (postoperative nausea and vomiting) Nausea with vomiting Aftercare following right knee joint replacement surgery- Primary documented in this encounter [facility] note* Diagnosis Fracture Risk Assessment Score (FRAX) indicating greater than 20% risk for major osteoporosis-related fracture- Primary [facility] Annual physical exam- Primary Routine general medical examination at a health care facility Hyperlipidemia, unspecified hyperlipidemia type History of pulmonary embolus (PE) IFG (impaired fasting glucose) Osteopenia, unspecified location Palmar erythema Toxic erythema documented in this encounter [facility] home Plan of care note* Visit Details Visit Type -PT SOC Discipline -Physical Therapy Problems Problem Description Start Date Status Goals Interve ntions Medication Education Disciplines: Skilled Services 03/26/2024 Active 1 goal linked to scheduled/document ed intervention 1 goal intervention scheduled/document ed in this visit Sepsis Disciplines: Skilled Services 03/26/2024 Active 1 goal linked to scheduled/document ed intervention 1 goal intervention scheduled/document ed in this visit Physician Specific Parameters Disciplines: Skilled Services 03/26/2024 Active 1 goal linked to scheduled/document ed intervention 1 goal intervention scheduled/document ed in this visit Risk for Falls Disciplines: Skilled Services 03/26/2024 Active 1 goal linked to scheduled/document ed intervention 1 goal intervention scheduled/document ed in this visit Pain Disciplines: Skilled Services 03/26/2024 Active 1 goal linked to scheduled/document ed intervention 1 goal intervention scheduled/document ed in this visit Discharge Disciplines: Skilled Services 03/26/2024 Active 1 goal linked to scheduled/document ed intervention 1 goal intervention scheduled/document ed in this visit Advance Directives Disciplines: Skilled Services 03/26/2024 Resolved on 03/26/2024 1 goal linked to scheduled/document ed intervention 1 goal intervention scheduled/document ed in this visit PT Impaired muscle performance and/or ROM Disciplines: PT 03/26/2024 Active 1 goal linked to scheduled/document ed intervention 1 goal intervention scheduled/document ed in this visit PT Impaired mobility Disciplines: PT 03/26/2024 Active 2 goals linked to scheduled/document ed interventions 2 goal interventions scheduled/document ed in this visit PT Impaired gait Disciplines: PT 03/26/2024 Active 2 goals linked to scheduled/document ed interventions 2 goal interventions scheduled/document ed in this visit PT Impaired balance Disciplines: PT 03/26/2024 Active 1 goal linked to scheduled/document ed intervention 1 goal intervention scheduled/document ed in this visit PT Orthopedic Condition Disciplines: PT 03/26/2024 Active 1 goal linked to scheduled/document ed intervention 4 goal interventions scheduled/document ed in this visit PT Learning Assessment Disciplines: PT 03/26/2024 Active 1 goal linked to scheduled/document ed intervention 1 goal intervention scheduled/document ed in this visit Goals Goal Associated Problem Outcome Goal Met? Visit Notes Patient/caregiver will demonstrate ability to obtain, store, identify and administer ordered medications, keep accurate medication list in home, and adhere to medication schedule Description: Patient/caregiver will demonstrate ability to obtain, store, identify and administer ordered medications, keep accurate medication list in home, and adhere to medication schedule by 05/24/24. Medication Education No Patient/caregiver will be able to identify and report symptoms of sepsis Description: Patient/caregiver will be able to identify signs/symptoms of sepsis infection and will verbalize actions to take if suspected by 05/24/24. Sepsis No Patient to maintain parameters within physician-specified ranges throughout certification period Physician Specific Parameters No Manage Risk for falls Description: Patient/caregiver will verbalize knowledge of individualized fall prevention strategies by 05/24/24. Risk for Falls No Manage Pain Description: Patient/caregiver will verbalize knowledge and understanding of appropriate techniques to control pain, including non-pharmacological techniques. Patient will verbalize or demonstrate an acceptable level of pain as evidenced by a pain score of 0-2/10 and improvement in ability to perform activities of daily living to be achieved by 05/24/24. Pain No Manage discharge planning Description: Patient/caregiver will verbalize understanding of ongoing discharge plan provided related to disease management, arrangements for outpatient and/or community services, obtaining medications, supplies, and DME, as needed throughout certification period. Discharge No Patient/caregiver will make healthcare providers aware of and any changes to Advance Directives throughout certification period Advance Directives Completed Yes Goal Met Improved Muscle Performance and/or ROM Description: LTG: Patient will demonstrate improved muscle performance to meet functional goals as evidenced by ability to tolerate 8 mins of standing activity, to be achieved by 04/18/24. LTG: Patient and/or caregiver will verbalize/demonstrate independence with home exercise program, to improve functional mobility, to be achieved by 04/18/24. LTG: Patient will demonstrate improved right knee passive range of motion to 0-100 degrees, to meet functional goals, to be achieved by 04/18/24. PT Impaired muscle performance and/or ROM No Improved Transfers Description: LTG: Patient will demonstrate safe transfers to/from bed, chair and toilet independently with AD, to be achieved by 04/18/24. PT Impaired mobility No Improved Bed Mobility Description: STG: Patient will demonstrate improved ability to position self independently to be achieved by 04/11/24. PT Impaired mobility No Improved Stair Climbing Description: LTG: Patient will demonstrate improved stair negotiation as evidenced by ascend/descend 14 steps with railing independently, to safely access all areas of the home, to be achieved by 04/18/24. PT Impaired gait No Improved Gait Description: LTG: Patient will demonstrate improved gait ability as evidenced by ambulation 200 feet with front wheeled walker independently with AD, to return to safe household ambulation, in order to reach car in the driveway, to be achieved by 04/18/24. PT Impaired gait No Improved Balance Description: LTG: Patient will demonstrate improved standing balance to meet functional goals as evidenced by TUG score of 30 to be achieved by 04/18/24. PT Impaired balance No Manage Orthopedic Condition Description: Improve patient and/or caregiver understanding of post surgical and/or non-surgical orthopedic intervention management as evidenced by patient and/or caregiver able to verbalize, demonstrate, and teach back instruction, to be achieved by 04/18/24. PT Orthopedic Condition No Demonstrate understanding of education Description: Patient and/or caregiver will understand educational instruction to be achieved by 04/18/24. PT Learning Assessment No Interventions Intervention Associated Problem/Goal Status Variance Visit Notes Medication Education Description: Evaluate/instruct patient/caregiver on obtaining, storing, identifying and administering ordered medications as well as keeping accurate medication list in the home and adhereing to medication schedule Problem:Medication Education Goal:Patient/caregive r will demonstrate ability to obtain, store, identify and administer ordered medications, keep accurate medication list in home, and adhere to medication schedule Completed Patient instructed on importance of keeping accurate medication list in home. Risk of Sepsis Description: Patient is at risk for sepsis. Monitor closely for s/s of sepsis. Problem:Sepsis Goal:Patient/caregive r will be able to identify and report symptoms of sepsis Completed SPO2 Description: Notify Dr. Chi if pulse ox is <92% at rest. Problem:Physician Specific Parameters Goal:Patient to maintain parameters within physician-specified ranges throughout certification period Completed Instruct on individual fall risk factors and strategies to prevent falls and injuries caused by falls. Problem:Risk for Falls Goal:Manage Risk for falls Completed PT: Patient instructed on Managing Impaired Functional Mobility: Use assistive device(s): front wheeled walker Managing Pain Instruct on pain and instruct on strategies to control pain Problem:Pain Goal:Manage Pain Completed patient instructed on techniques to control pain including Non-Pharmacological measures; rest, positioning/elevation and mobility/therapeutic exercise. Instruct on ongoing discharge plan Problem:Discharge Goal:Manage discharge planning Completed Ongoing Discharge plan: Discharge plan discussed with patient including frequency and duration for home PT and plan for transition to: outpatient therapy. Determine patient's Advance Directive Status Description: Patient does have advance directives. Patient's Advance Directives determined to be available in Home Healthcare DPOA and Living Will. Problem:Advance Directives Goal:Patient/caregive r will make healthcare providers aware of and any changes to Advance Directives throughout certification period Completed Discussed Advance Directives with Patient and/or Caregiver. Referred patient to Home Care handbook for further information on Healthcare DPOA & Living Will. Physical Therapy Therapeutic Exercises Problem:PT Impaired muscle performance and/or ROM Goal:Improved Muscle Performance and/or ROM Completed patient instructed on strengthening and range of motion exercises including ankle pumps, quad sets, glut sets, heel slides with verbal cues for sequence. patient instructed to perform home exercise program twice a day. Physical Therapy Transfer Training Problem:PT Impaired mobility Goal:Improved Transfers Completed Transfer training and instruction to patient on safe transfers to and from bed, chair and toilet with stand by assist and verbal cues for sequence. Physical Therapy Bed Mobility Training Problem:PT Impaired mobility Goal:Improved Bed Mobility Completed Bed mobility training and instruction to patient, including supine<>sit with supervision and verbal cues for sequence. Physical Therapy Stair Training Problem:PT Impaired gait Goal:Improved Stair Climbing Completed Stair training and instruction to patient on safe stair climbing, ascend/descend 1 step, without railing with contact guard assist and verbal cues for sequence. Physical Therapy Gait Training Problem:PT Impaired gait Goal:Improved Gait Completed Gait training and instruction to patient on safe ambulation with front wheeled walker for 50 feet with supervision, with verbal cues for corrections of gait deviations including sequence. Physical Therapy Balance Training Problem:PT Impaired balance Goal:Improved Balance Completed Developed, implemented, and instructed patient on standing balance exercises including ambulation with fww. Instruct on orthopedic precautions and weight bearing restrictions Description: Orthopedic precautions including right total knee: no crossing legs, no knee flexed over pillow at rest, no kneeling, no squatting and no twisting. Weight bearing restrictions include: WBAT of involved extremity. Problem:PT Orthopedic Condition Goal:Manage Orthopedic Condition Completed patient instructed on orthopedic precautions and weight bearing restrictions. Instruct on management of edema Problem:PT Orthopedic Condition Goal:Manage Orthopedic Condition Completed Instruct patient on management of edema including elevation of bilat LE above the level of the heart. Physical therapy to perform surgical incision/wound management Description: Removal of post-op dressing on 03/31/24-04/03/24. If no drainage is present, leave open to air; if drainage is present, cover with clean dressing and contact provider and PT residential case manager. Problem:PT Orthopedic Condition Goal:Manage Orthopedic Condition Completed Intervention completed this date. Instruct on self-management of post surgical and/or non-surgical orthopedic intervention Problem:PT Orthopedic Condition Goal:Manage Orthopedic Condition Completed patient instructed on managagement of orthopedic condition. Instruct and educate on knowledge deficits Problem:PT Learning Assessment Goal:Demonstrate understanding of education Completed patient verbalize and/or demonstrate understanding of physical therapy education including fall prevention strategies, home safety, functional activity and home exercise program. Education methods include: verbal cues. Further education required to improve knowledge and compliance with fall prevention strategies, home safety, functional activity and home exercise program. documented in this encounter [facility] home Plan of care note* Visit Details Visit Type -COMMUNICATION TECHNICIAN ROUTINE Discipline -Physical Therapy Problems Problem Description Start Date Status Goals Interve ntions Medication Education Disciplines: Skilled Services 03/26/2024 Active 1 goal linked to scheduled/document ed intervention 1 goal intervention scheduled/document ed in this visit Sepsis Disciplines: Skilled Services 03/26/2024 Active 1 goal linked to scheduled/document ed intervention 1 goal intervention scheduled/document ed in this visit Physician Specific Parameters Disciplines: Skilled Services 03/26/2024 Active 1 goal linked to scheduled/document ed intervention 1 goal intervention scheduled/document ed in this visit Risk for Falls Disciplines: Skilled Services 03/26/2024 Active 1 goal linked to scheduled/document ed intervention 1 goal intervention scheduled/document ed in this visit Pain Disciplines: Skilled Services 03/26/2024 Active 1 goal linked to scheduled/document ed intervention 1 goal intervention scheduled/document ed in this visit High Risk Medications Disciplines: Skilled Services 03/26/2024 Active 1 goal linked to scheduled/document ed intervention 1 goal intervention scheduled/document ed in this visit Discharge Disciplines: Skilled Services 03/26/2024 Active 1 goal linked to scheduled/document ed intervention 1 goal intervention scheduled/document ed in this visit PT Impaired muscle performance and/or ROM Disciplines: PT 03/26/2024 Active 1 goal linked to scheduled/document ed intervention 1 goal intervention scheduled/document ed in this visit PT Impaired gait Disciplines: PT 03/26/2024 Active 2 goals linked to scheduled/document ed interventions 2 goal interventions scheduled/document ed in this visit PT Orthopedic Condition Disciplines: PT 03/26/2024 Active 1 goal linked to scheduled/document ed intervention 3 goal interventions scheduled/document ed in this visit PT Learning Assessment Disciplines: PT 03/26/2024 Active 1 goal linked to scheduled/document ed intervention 1 goal intervention scheduled/document ed in this visit Goals Goal Associated Problem Outcome Goal Met? Visit Notes Patient/caregiver will demonstrate ability to obtain, store, identify and administer ordered medications, keep accurate medication list in home, and adhere to medication schedule Description: Patient/caregiver will demonstrate ability to obtain, store, identify and administer ordered medications, keep accurate medication list in home, and adhere to medication schedule by 05/24/24. Medication Education No Patient/caregiver will be able to identify and report symptoms of sepsis Description: Patient/caregiver will be able to identify signs/symptoms of sepsis infection and will verbalize actions to take if suspected by 05/24/24. Sepsis No Patient to maintain parameters within physician-specified ranges throughout certification period Physician Specific Parameters No Manage Risk for falls Description: Patient/caregiver will verbalize knowledge of individualized fall prevention strategies by 05/24/24. Risk for Falls No Manage Pain Description: Patient/caregiver will verbalize knowledge and understanding of appropriate techniques to control pain, including non-pharmacological techniques. Patient will verbalize or demonstrate an acceptable level of pain as evidenced by a pain score of 0-2/10 and improvement in ability to perform activities of daily living to be achieved by 05/24/24. Pain No Patient/caregiver will teach back high risk medication side effect and precaution education Description: LTG Patient/caregiver will continue to verbalize understanding of high risk medication side effects and precautions throughout certification period. High Risk Medications No Manage discharge planning Description: Patient/caregiver will verbalize understanding of ongoing discharge plan provided related to disease management, arrangements for outpatient and/or community services, obtaining medications, supplies, and DME, as needed throughout certification period. Discharge No Improved Muscle Performance and/or ROM Description: LTG: Patient will demonstrate improved muscle performance to meet functional goals as evidenced by ability to tolerate 8 mins of standing activity, to be achieved by 04/18/24. LTG: Patient and/or caregiver will verbalize/demonstrate independence with home exercise program, to improve functional mobility, to be achieved by 04/18/24. LTG: Patient will demonstrate improved right knee passive range of motion to 0-100 degrees, to meet functional goals, to be achieved by 04/18/24. PT Impaired muscle performance and/or ROM No Improved Stair Climbing Description: LTG: Patient will demonstrate improved stair negotiation as evidenced by ascend/descend 14 steps with railing independently, to safely access all areas of the home, to be achieved by 04/18/24. PT Impaired gait No Improved Gait Description: LTG: Patient will demonstrate improved gait ability as evidenced by ambulation 200 feet with front wheeled walker independently with AD, to return to safe household ambulation, in order to reach car in the driveway, to be achieved by 04/18/24. PT Impaired gait No Manage Orthopedic Condition Description: Improve patient and/or caregiver understanding of post surgical and/or non-surgical orthopedic intervention management as evidenced by patient and/or caregiver able to verbalize, demonstrate, and teach back instruction, to be achieved by 04/18/24. PT Orthopedic Condition No Demonstrate understanding of education Description: Patient and/or caregiver will understand educational instruction to be achieved by 04/18/24. PT Learning Assessment No Interventions Intervention Associated Problem/Goal Status Variance Visit Notes Medication Education Description: Evaluate/instruct patient/caregiver on obtaining, storing, identifying and administering ordered medications as well as keeping accurate medication list in the home and adhereing to medication schedule Problem:Medication Education Goal:Patient/caregive r will demonstrate ability to obtain, store, identify and administer ordered medications, keep accurate medication list in home, and adhere to medication schedule Completed Patient instructed on importance of keeping accurate medication list in home and adhering to medication schedule. Risk of Sepsis Description: Patient is at risk for sepsis. Monitor closely for s/s of sepsis. Problem:Sepsis Goal:Patient/caregive r will be able to identify and report symptoms of sepsis Completed SPO2 Description: Notify Dr. Chi if pulse ox is <92% at rest. Problem:Physician Specific Parameters Goal:Patient to maintain parameters within physician-specified ranges throughout certification period Completed Instruct on individual fall risk factors and strategies to prevent falls and injuries caused by falls. Problem:Risk for Falls Goal:Manage Risk for falls Completed PT: Patient instructed on Managing Impaired Functional Mobility: Use assistive device(s): front wheeled walker Managing Pain Instruct on pain and instruct on strategies to control pain Problem:Pain Goal:Manage Pain Completed patient and caregiver instructed on techniques to control pain including Pharmacological measures and Non-Pharmacological measures; positioning/elevation and use of thermal modalities, apply ice to affected area for the following prescribed frequency: prn. Opioids- educated on high risk medication Problem:High Risk Medications Goal:Patient/caregive r will teach back high risk medication side effect and precaution education Completed patient and caregiver educated on taking medication(s) as prescribed by provider. Do not stop medication or alter doses without speaking with your provider. Discuss medication effectiveness or side effect concerns with your provider and home care team. Only take opioids as prescribed, do not share your medications, and take proper precautions in storing and properly disposing of opioids once no longer needed. Possible side effects of opioid medication including sedation, decreased rate of breathing, and constipation. Report over sedation to prescribing provider and practice deep breathing techniques every hour while awake. Prevent constipation by increasing water and fiber intake, increasing activity as tolerated, and use stool softener(s) as prescribed. Instruct on ongoing discharge plan Problem:Discharge Goal:Manage discharge planning Completed Ongoing Discharge plan: Discharge plan discussed with patient and caregiver including frequency and duration for home PT and plan for transition to: outpatient therapy. Physical Therapy Therapeutic Exercises Problem:PT Impaired muscle performance and/or ROM Goal:Improved Muscle Performance and/or ROM Completed patient and caregiver instructed on strengthening and range of motion exercises including ankle pumps, quad and glut sets, hip abd and add, saq and heel slides x's 10 each. seated heel slides x's 10 with verbal, visual and written cues for form and hold times. patient instructed to perform home exercise program twice a day which included above ex. Physical Therapy Stair Training Problem:PT Impaired gait Goal:Improved Stair Climbing Completed Stair training and instruction to patient and caregiver on safe stair climbing, ascend/descend 2 steps, without railing and with ww with stand by assist and verbal cues for correct step pattern and ww [placement. Physical Therapy Gait Training Problem:PT Impaired gait Goal:Improved Gait Completed Gait training and instruction to patient on safe ambulation with front wheeled walker for 2x's 30 and x's 50 feet with stand by assist, with verbal cues for corrections of gait deviations including heel to toe. Instruct on orthopedic precautions and weight bearing restrictions Description: Orthopedic precautions including right total knee: no crossing legs, no knee flexed over pillow at rest, no kneeling, no squatting and no twisting. Weight bearing restrictions include: WBAT of involved extremity. Problem:PT Orthopedic Condition Goal:Manage Orthopedic Condition Completed patient instructed on orthopedic precautions. Instruct on management of edema Problem:PT Orthopedic Condition Goal:Manage Orthopedic Condition Completed Instruct patient and caregiver on management of edema including elevation of RLE above the level of the heart and ice. Instruct on self-management of post surgical and/or non-surgical orthopedic intervention Problem:PT Orthopedic Condition Goal:Manage Orthopedic Condition Completed patient and caregiver instructed on staying well hydrated, signs and symptoms of infection, signs and symptoms of DVT/PE, follow provider guidance for showering , instructed on when to call provider and instructed on when to call 911. Instruct and educate on knowledge deficits Problem:PT Learning Assessment Goal:Demonstrate understanding of education Completed patient verbalize and/or demonstrate understanding of physical therapy education including home exercise program. Education methods include: verbal cues, written instructions and visual cues. Further education required to improve knowledge and compliance with home exercise program. documented in this encounter [facility]'s home Plan of care note* Visit Details Visit Type -COMMUNICATION TECHNICIAN ROUTINE Discipline -Physical Therapy Problems Problem Description Start Date Status Goals Interve ntions Medication Education Disciplines: Skilled Services 03/26/2024 Active 1 goal linked to scheduled/document ed intervention 1 goal intervention scheduled/document ed in this visit Sepsis Disciplines: Skilled Services 03/26/2024 Active 1 goal linked to scheduled/document ed intervention 1 goal intervention scheduled/document ed in this visit Physician Specific Parameters Disciplines: Skilled Services 03/26/2024 Active 1 goal linked to scheduled/document ed intervention 1 goal intervention scheduled/document ed in this visit Risk for Falls Disciplines: Skilled Services 03/26/2024 Active 1 goal linked to scheduled/document ed intervention 1 goal intervention scheduled/document ed in this visit Pain Disciplines: Skilled Services 03/26/2024 Active 1 goal linked to scheduled/document ed intervention 1 goal intervention scheduled/document ed in this visit Discharge Disciplines: Skilled Services 03/26/2024 Active 1 goal linked to scheduled/document ed intervention 1 goal intervention scheduled/document ed in this visit PT Impaired muscle performance and/or ROM Disciplines: PT 03/26/2024 Active 1 goal linked to scheduled/document ed intervention 1 goal intervention scheduled/document ed in this visit PT Impaired mobility Disciplines: PT 03/26/2024 Active 1 goal linked to scheduled/document ed intervention 1 goal intervention scheduled/document ed in this visit PT Impaired gait Disciplines: PT 03/26/2024 Active 1 goal linked to scheduled/document ed intervention 1 goal intervention scheduled/document ed in this visit PT Orthopedic Condition Disciplines: PT 03/26/2024 Active 1 goal linked to scheduled/document ed intervention 3 goal interventions scheduled/document ed in this visit PT Learning Assessment Disciplines: PT 03/26/2024 Active 1 goal linked to scheduled/document ed intervention 1 goal intervention scheduled/document ed in this visit Goals Goal Associated Problem Outcome Goal Met? Visit Notes Patient/caregiver will demonstrate ability to obtain, store, identify and administer ordered medications, keep accurate medication list in home, and adhere to medication schedule Description: Patient/caregiver will demonstrate ability to obtain, store, identify and administer ordered medications, keep accurate medication list in home, and adhere to medication schedule by 05/24/24. Medication Education No Patient/caregiver will be able to identify and report symptoms of sepsis Description: Patient/caregiver will be able to identify signs/symptoms of sepsis infection and will verbalize actions to take if suspected by 05/24/24. Sepsis No Patient to maintain parameters within physician-specified ranges throughout certification period Physician Specific Parameters No Manage Risk for falls Description: Patient/caregiver will verbalize knowledge of individualized fall prevention strategies by 05/24/24. Risk for Falls No Manage Pain Description: Patient/caregiver will verbalize knowledge and understanding of appropriate techniques to control pain, including non-pharmacological techniques. Patient will verbalize or demonstrate an acceptable level of pain as evidenced by a pain score of 0-2/10 and improvement in ability to perform activities of daily living to be achieved by 05/24/24. Pain No Manage discharge planning Description: Patient/caregiver will verbalize understanding of ongoing discharge plan provided related to disease management, arrangements for outpatient and/or community services, obtaining medications, supplies, and DME, as needed throughout certification period. Discharge No Improved Muscle Performance and/or ROM Description: LTG: Patient will demonstrate improved muscle performance to meet functional goals as evidenced by ability to tolerate 8 mins of standing activity, to be achieved by 04/18/24. LTG: Patient and/or caregiver will verbalize/demonstrate independence with home exercise program, to improve functional mobility, to be achieved by 04/18/24. LTG: Patient will demonstrate improved right knee passive range of motion to 0-100 degrees, to meet functional goals, to be achieved by 04/18/24. PT Impaired muscle performance and/or ROM No Improved Transfers Description: LTG: Patient will demonstrate safe transfers to/from bed, chair and toilet independently with AD, to be achieved by 04/18/24. PT Impaired mobility No Improved Gait Description: LTG: Patient will demonstrate improved gait ability as evidenced by ambulation 200 feet with front wheeled walker independently with AD, to return to safe household ambulation, in order to reach car in the driveway, to be achieved by 04/18/24. PT Impaired gait No Manage Orthopedic Condition Description: Improve patient and/or caregiver understanding of post surgical and/or non-surgical orthopedic intervention management as evidenced by patient and/or caregiver able to verbalize, demonstrate, and teach back instruction, to be achieved by 04/18/24. PT Orthopedic Condition No Demonstrate understanding of education Description: Patient and/or caregiver will understand educational instruction to be achieved by 04/18/24. PT Learning Assessment No Interventions Intervention Associated Problem/Goal Status Variance Visit Notes Medication Education Description: Evaluate/instruct patient/caregiver on obtaining, storing, identifying and administering ordered medications as well as keeping accurate medication list in the home and adhereing to medication schedule Problem:Medication Education Goal:Patient/caregive r will demonstrate ability to obtain, store, identify and administer ordered medications, keep accurate medication list in home, and adhere to medication schedule Completed Patient instructed on adhering to medication schedule. Risk of Sepsis Description: Patient is at risk for sepsis. Monitor closely for s/s of sepsis. Problem:Sepsis Goal:Patient/caregive r will be able to identify and report symptoms of sepsis Completed SPO2 Description: Notify Dr. Chi if pulse ox is <92% at rest. Problem:Physician Specific Parameters Goal:Patient to maintain parameters within physician-specified ranges throughout certification period Completed Instruct on individual fall risk factors and strategies to prevent falls and injuries caused by falls. Problem:Risk for Falls Goal:Manage Risk for falls Completed PT: Patient instructed on Managing Impaired Functional Mobility: Use assistive device(s): front wheeled walker and Caregiver to provide assist with: Ambulation, Steps, Transfers and ADL/IADLs Managing Pain Instruct on pain and instruct on strategies to control pain Problem:Pain Goal:Manage Pain Completed patient instructed on techniques to control pain including Pharmacological measures and Non-Pharmacological measures; rest, positioning/elevation, mobility/therapeutic exercise and use of DME/assistive devices. Instruct on ongoing discharge plan Problem:Discharge Goal:Manage discharge planning Completed Ongoing Discharge plan: Discharge plan discussed with patient including frequency and duration for home PT and plan for transition to: outpatient therapy. Physical Therapy Therapeutic Exercises Problem:PT Impaired muscle performance and/or ROM Goal:Improved Muscle Performance and/or ROM Completed patient instructed on strengthening and range of motion exercises including ap ,qs with heel prop, gs, saq, hip abd x 10, heel slides x 10, standing ham curls x 10, calf raises x 10 with verbal, tactile, visual and written cues for slow pace / proper hold times, breatging mgmt. patient instructed to perform home exercise program three times a day which included the aboce as tolerated, stop if sob/chest pain and report to provider. Physical Therapy Transfer Training Problem:PT Impaired mobility Goal:Improved Transfers Completed Transfer training and instruction to patient on safe transfers to and from chair with stand by assist and verbal and visual cues for hand placement, sequencing Physical Therapy Gait Training Problem:PT Impaired gait Goal:Improved Gait Completed Gait training and instruction to patient on safe ambulation with front wheeled walker for 60 feet x 2 with supervision, with verbal and visual cues for corrections of gait deviations including decr step through, limited toe off rle. Instruct on orthopedic precautions and weight bearing restrictions Description: Orthopedic precautions including right total knee: no crossing legs, no knee flexed over pillow at rest, no kneeling, no squatting and no twisting. Weight bearing restrictions include: WBAT of involved extremity. Problem:PT Orthopedic Condition Goal:Manage Orthopedic Condition Completed patient instructed on orthopedic precautions and weight bearing restrictions. Instruct on management of edema Problem:PT Orthopedic Condition Goal:Manage Orthopedic Condition Completed Instruct patient on management of edema including elevation of rle above the level of the heart, ice and medication adherence strategies. Instruct on self-management of post surgical and/or non-surgical orthopedic intervention Problem:PT Orthopedic Condition Goal:Manage Orthopedic Condition Completed patient instructed on managagement of orthopedic condition, signs and symptoms of infection and signs and symptoms of DVT/PE. Instruct and educate on knowledge deficits Problem:PT Learning Assessment Goal:Demonstrate understanding of education Completed patient verbalize and/or demonstrate understanding of physical therapy education including orthopedic condition management, weight bearing precautions, surgical precautions, pain management, fall prevention strategies, functional activity and home exercise program. s/s of dvt and infection Education methods include: verbal cues, tactile cues, written instructions and visual cues. Further education required to improve knowledge and compliance with orthopedic condition management. documented in this encounter [facility]'s home Plan of care note* Visit Details Visit Type -COMMUNICATION TECHNICIAN ROUTINE Discipline -Physical Therapy Problems Problem Description Start Date Status Goals Interve ntions Physician Specific Parameters Disciplines: Skilled Services 03/26/2024 Active 1 goal linked to scheduled/document ed intervention 1 goal intervention scheduled/document ed in this visit Risk for Falls Disciplines: Skilled Services 03/26/2024 Active 1 goal linked to scheduled/document ed intervention 1 goal intervention scheduled/document ed in this visit Pain Disciplines: Skilled Services 03/26/2024 Active 1 goal linked to scheduled/document ed intervention 1 goal intervention scheduled/document ed in this visit PT Impaired muscle performance and/or ROM Disciplines: PT 03/26/2024 Active 1 goal linked to scheduled/document ed intervention 1 goal intervention scheduled/document ed in this visit PT Impaired mobility Disciplines: PT 03/26/2024 Active 2 goals linked to scheduled/document ed interventions 2 goal interventions scheduled/document ed in this visit PT Impaired gait Disciplines: PT 03/26/2024 Active 1 goal linked to scheduled/document ed intervention 1 goal intervention scheduled/document ed in this visit PT Orthopedic Condition Disciplines: PT 03/26/2024 Active 1 goal linked to scheduled/document ed intervention 3 goal interventions scheduled/document ed in this visit PT Learning Assessment Disciplines: PT 03/26/2024 Active 1 goal linked to scheduled/document ed intervention 1 goal intervention scheduled/document ed in this visit Goals Goal Associated Problem Outcome Goal Met? Visit Notes Patient to maintain parameters within physician-specified ranges throughout certification period Physician Specific Parameters No Manage Risk for falls Description: Patient/caregiver will verbalize knowledge of individualized fall prevention strategies by 05/24/24. Risk for Falls No Manage Pain Description: Patient/caregiver will verbalize knowledge and understanding of appropriate techniques to control pain, including non-pharmacological techniques. Patient will verbalize or demonstrate an acceptable level of pain as evidenced by a pain score of 0-2/10 and improvement in ability to perform activities of daily living to be achieved by 05/24/24. Pain No Improved Muscle Performance and/or ROM Description: LTG: Patient will demonstrate improved muscle performance to meet functional goals as evidenced by ability to tolerate 8 mins of standing activity, to be achieved by 04/18/24. LTG: Patient and/or caregiver will verbalize/demonstrate independence with home exercise program, to improve functional mobility, to be achieved by 04/18/24. LTG: Patient will demonstrate improved right knee passive range of motion to 0-100 degrees, to meet functional goals, to be achieved by 04/18/24. PT Impaired muscle performance and/or ROM No Improved Transfers Description: LTG: Patient will demonstrate safe transfers to/from bed, chair and toilet independently with AD, to be achieved by 04/18/24. PT Impaired mobility No Improved Bed Mobility Description: STG: Patient will demonstrate improved ability to position self independently to be achieved by 04/11/24. PT Impaired mobility No Improved Gait Description: LTG: Patient will demonstrate improved gait ability as evidenced by ambulation 200 feet with front wheeled walker independently with AD, to return to safe household ambulation, in order to reach car in the driveway, to be achieved by 04/18/24. PT Impaired gait No Manage Orthopedic Condition Description: Improve patient and/or caregiver understanding of post surgical and/or non-surgical orthopedic intervention management as evidenced by patient and/or caregiver able to verbalize, demonstrate, and teach back instruction, to be achieved by 04/18/24. PT Orthopedic Condition No Demonstrate understanding of education Description: Patient and/or caregiver will understand educational instruction to be achieved by 04/18/24. PT Learning Assessment No Interventions Intervention Associated Problem/Goal Status Variance Visit Notes SPO2 Description: Notify Dr. Chi if pulse ox is <92% at rest. Problem:Physician Specific Parameters Goal:Patient to maintain parameters within physician-specified ranges throughout certification period Completed Instruct on individual fall risk factors and strategies to prevent falls and injuries caused by falls. Problem:Risk for Falls Goal:Manage Risk for falls Completed PT: Patient instructed on Managing Impaired Functional Mobility: Use assistive device(s): front wheeled walker and Caregiver to provide assist with: Ambulation, Steps, Transfers and ADL/IADLs Managing Pain Instruct on pain and instruct on strategies to control pain Problem:Pain Goal:Manage Pain Completed patient instructed on techniques to control pain including Pharmacological measures and Non-Pharmacological measures; positioning/elevation, mobility/therapeutic exercise, distraction, use of DME/assistive devices and use of thermal modalities, apply ice to affected area. Physical Therapy Therapeutic Exercises Problem:PT Impaired muscle performance and/or ROM Goal:Improved Muscle Performance and/or ROM Completed patient instructed on strengthening and range of motion exercises including: R LE ex's ( heel slides, hip abd/ add, gluet sets, quad sets, SAQ, Stair knee flexion, and seated knee flexion ) x 10/ 1 set. Vc's to slow down and to facilitate full ROM. patient instructed to perform home exercise program twice a day which included: Above exercises. Physical Therapy Transfer Training Problem:PT Impaired mobility Goal:Improved Transfers Completed Transfer training and instruction to patient on safe transfers to and from bed and chair with supervision and verbal and visual cues for proper hand and foot placement. Physical Therapy Bed Mobility Training Problem:PT Impaired mobility Goal:Improved Bed Mobility Completed Bed mobility training and instruction to patient, including supine<>sit with minimal assist for R LE. Vc's on the use of a leg ocean biologist. Physical Therapy Gait Training Problem:PT Impaired gait Goal:Improved Gait Completed Gait training and instruction to patient on safe ambulation with front wheeled walker for 100 feet with supervision, with verbal and visual cues to facilitate continues step through Gt pattern. Instruct on orthopedic precautions and weight bearing restrictions Description: Orthopedic precautions including right total knee: no crossing legs, no knee flexed over pillow at rest, no kneeling, no squatting and no twisting. Weight bearing restrictions include: WBAT of involved extremity. Problem:PT Orthopedic Condition Goal:Manage Orthopedic Condition Completed patient instructed on orthopedic precautions and weight bearing restrictions. Physical therapy to perform surgical incision/wound management Description: Removal of post-op dressing on 03/31/24-04/03/24. If no drainage is present, leave open to air; if drainage is present, cover with clean dressing and contact provider and PT residential case manager. Problem:PT Orthopedic Condition Goal:Manage Orthopedic Condition Completed Intervention completed this date. Instruct on self-management of post surgical and/or non-surgical orthopedic intervention Problem:PT Orthopedic Condition Goal:Manage Orthopedic Condition Completed patient instructed on staying well hydrated, eating foods with high protein, signs and symptoms of infection, signs and symptoms of DVT/PE, instructed on when to call provider and instructed on when to call 911. Instruct and educate on knowledge deficits Problem:PT Learning Assessment Goal:Demonstrate understanding of education Completed patient verbalize and/or demonstrate understanding of physical therapy education including orthopedic condition management, weight bearing precautions, surgical precautions, fall prevention strategies, home safety, infection control precautions, functional activity and home exercise program. Education methods include: verbal cues and visual cues. Further education required to improve knowledge and compliance with orthopedic condition management, weight bearing precautions, surgical precautions, pain management, fall prevention strategies, home safety, functional activity and home exercise program. documented in this encounter [facility]'s home Plan of care note* Visit Details Visit Type -COMMUNICATION TECHNICIAN ROUTINE Discipline -Physical Therapy Problems Problem Description Start Date Status Goals Interve ntions Physician Specific Parameters Disciplines: Skilled Services 03/26/2024 Active 1 goal linked to scheduled/document ed intervention 1 goal intervention scheduled/document ed in this visit Risk for Falls Disciplines: Skilled Services 03/26/2024 Active 1 goal linked to scheduled/document ed intervention 1 goal intervention scheduled/document ed in this visit Pain Disciplines: Skilled Services 03/26/2024 Active 1 goal linked to scheduled/document ed intervention 1 goal intervention scheduled/document ed in this visit PT Impaired muscle performance and/or ROM Disciplines: PT 03/26/2024 Active 1 goal linked to scheduled/document ed intervention 1 goal intervention scheduled/document ed in this visit PT Impaired mobility Disciplines: PT 03/26/2024 Active 1 goal linked to scheduled/document ed intervention 1 goal intervention scheduled/document ed in this visit PT Impaired gait Disciplines: PT 03/26/2024 Active 2 goals linked to scheduled/document ed interventions 2 goal interventions scheduled/document ed in this visit PT Orthopedic Condition Disciplines: PT 03/26/2024 Active 1 goal linked to scheduled/document ed intervention 2 goal interventions scheduled/document ed in this visit PT Learning Assessment Disciplines: PT 03/26/2024 Active 1 goal linked to scheduled/document ed intervention 1 goal intervention scheduled/document ed in this visit Goals Goal Associated Problem Outcome Goal Met? Visit Notes Patient to maintain parameters within physician-specified ranges throughout certification period Physician Specific Parameters No Manage Risk for falls Description: Patient/caregiver will verbalize knowledge of individualized fall prevention strategies by 05/24/24. Risk for Falls No Manage Pain Description: Patient/caregiver will verbalize knowledge and understanding of appropriate techniques to control pain, including non-pharmacological techniques. Patient will verbalize or demonstrate an acceptable level of pain as evidenced by a pain score of 0-2/10 and improvement in ability to perform activities of daily living to be achieved by 05/24/24. Pain No Improved Muscle Performance and/or ROM Description: LTG: Patient will demonstrate improved muscle performance to meet functional goals as evidenced by ability to tolerate 8 mins of standing activity, to be achieved by 04/18/24. LTG: Patient and/or caregiver will verbalize/demonstrate independence with home exercise program, to improve functional mobility, to be achieved by 04/18/24. LTG: Patient will demonstrate improved right knee passive range of motion to 0-100 degrees, to meet functional goals, to be achieved by 04/18/24. PT Impaired muscle performance and/or ROM No Improved Transfers Description: LTG: Patient will demonstrate safe transfers to/from bed, chair and toilet independently with AD, to be achieved by 04/18/24. PT Impaired mobility No Improved Stair Climbing Description: LTG: Patient will demonstrate improved stair negotiation as evidenced by ascend/descend 14 steps with railing independently, to safely access all areas of the home, to be achieved by 04/18/24. PT Impaired gait No Improved Gait Description: LTG: Patient will demonstrate improved gait ability as evidenced by ambulation 200 feet with front wheeled walker independently with AD, to return to safe household ambulation, in order to reach car in the driveway, to be achieved by 04/18/24. PT Impaired gait No Manage Orthopedic Condition Description: Improve patient and/or caregiver understanding of post surgical and/or non-surgical orthopedic intervention management as evidenced by patient and/or caregiver able to verbalize, demonstrate, and teach back instruction, to be achieved by 04/18/24. PT Orthopedic Condition No Demonstrate understanding of education Description: Patient and/or caregiver will understand educational instruction to be achieved by 04/18/24. PT Learning Assessment No Interventions Intervention Associated Problem/Goal Status Variance Visit Notes SPO2 Description: Notify Dr. Chi if pulse ox is <92% at rest. Problem:Physician Specific Parameters Goal:Patient to maintain parameters within physician-specified ranges throughout certification period Completed Instruct on individual fall risk factors and strategies to prevent falls and injuries caused by falls. Problem:Risk for Falls Goal:Manage Risk for falls Completed PT: Patient instructed on Managing Impaired Functional Mobility: Use assistive device(s): front wheeled walker and single point cane and Caregiver to provide assist with: Ambulation, Steps, Transfers and ADL/IADLs Managing Pain Instruct on pain and instruct on strategies to control pain Problem:Pain Goal:Manage Pain Completed patient instructed on techniques to control pain including Pharmacological measures and Non-Pharmacological measures; positioning/elevation, mobility/therapeutic exercise, distraction, use of DME/assistive devices and use of thermal modalities, apply ice to affected area. Physical Therapy Therapeutic Exercises Problem:PT Impaired muscle performance and/or ROM Goal:Improved Muscle Performance and/or ROM Completed patient instructed on strengthening and range of motion exercises including: R LE ex's ( Stair knee flexion, hip abd/ add, gluet sets, quad sets, SAQ, and seated knee flexion ) x 10/ 1 set. Vc's to slow down and to facilitate full ROM. patient instructed to perform home exercise program twice a day which included: Above exercises. Physical Therapy Transfer Training Problem:PT Impaired mobility Goal:Improved Transfers Completed Transfer training and instruction to patient on safe transfers to and from bed and chair independent. Physical Therapy Stair Training Problem:PT Impaired gait Goal:Improved Stair Climbing Completed Stair training and instruction to patient on safe stair climbing, ascend/descend 4 steps, with railing and with std cane with stand by assist and verbal and visual cues for sequencing. Physical Therapy Gait Training Problem:PT Impaired gait Goal:Improved Gait Completed Gait training and instruction to patient and caregiver on safe ambulation with front wheeled walker 200 feet with supervision. Pt also amb std cane up to 60 ft with std cane with supervision, with verbal and visual cues for sequencing and to facilitate improved heel to toe Gt pattern. Instruct on orthopedic precautions and weight bearing restrictions Description: Orthopedic precautions including right total knee: no crossing legs, no knee flexed over pillow at rest, no kneeling, no squatting and no twisting. Weight bearing restrictions include: WBAT of involved extremity. Problem:PT Orthopedic Condition Goal:Manage Orthopedic Condition Completed patient instructed on orthopedic precautions. Instruct on self-management of post surgical and/or non-surgical orthopedic intervention Problem:PT Orthopedic Condition Goal:Manage Orthopedic Condition Completed patient instructed on incision care, staying well hydrated, eating foods with high protein, signs and symptoms of infection, signs and symptoms of DVT/PE, instructed on when to call provider and instructed on when to call 911. Instruct and educate on knowledge deficits Problem:PT Learning Assessment Goal:Demonstrate understanding of education Completed patient verbalize and/or demonstrate understanding of physical therapy education including orthopedic condition management, surgical precautions, pain management, fall prevention strategies, home safety, integumentary and incision/wound care management, infection control precautions, functional activity and home exercise program. Education methods include: verbal cues, tactile cues and visual cues. Further education required to improve knowledge and compliance with orthopedic condition management, surgical precautions, pain management, fall prevention strategies, home safety, integumentary and incision/wound care management, infection control precautions, functional activity and home exercise program. [facility] Visit Details Visit Type -COMMUNICATION TECHNICIAN ROUTINE Discipline -Physical Therapy Problems Problem Description Start Date Status Goals Interve ntions Physician Specific Parameters Disciplines: Skilled Services 03/26/2024 Active 1 goal linked to scheduled/document ed intervention 1 goal intervention scheduled/document ed in this visit Risk for Falls Disciplines: Skilled Services 03/26/2024 Active 1 goal linked to scheduled/document ed intervention 1 goal intervention scheduled/document ed in this visit Pain Disciplines: Skilled Services 03/26/2024 Active 1 goal linked to scheduled/document ed intervention 1 goal intervention scheduled/document ed in this visit PT Impaired muscle performance and/or ROM Disciplines: PT 03/26/2024 Active 1 goal linked to scheduled/document ed intervention 1 goal intervention scheduled/document ed in this visit PT Impaired mobility Disciplines: PT 03/26/2024 Active 2 goals linked to scheduled/document ed interventions 2 goal interventions scheduled/document ed in this visit PT Impaired gait Disciplines: PT 03/26/2024 Active 2 goals linked to scheduled/document ed interventions 2 goal interventions scheduled/document ed in this visit PT Orthopedic Condition Disciplines: PT 03/26/2024 Active 1 goal linked to scheduled/document ed intervention 2 goal interventions scheduled/document ed in this visit PT Learning Assessment Disciplines: PT 03/26/2024 Active 1 goal linked to scheduled/document ed intervention 1 goal intervention scheduled/document ed in this visit Goals Goal Associated Problem Outcome Goal Met? Visit Notes Patient to maintain parameters within physician-specified ranges throughout certification period Physician Specific Parameters No Manage Risk for falls Description: Patient/caregiver will verbalize knowledge of individualized fall prevention strategies by 05/24/24. Risk for Falls No Manage Pain Description: Patient/caregiver will verbalize knowledge and understanding of appropriate techniques to control pain, including non-pharmacological techniques. Patient will verbalize or demonstrate an acceptable level of pain as evidenced by a pain score of 0-2/10 and improvement in ability to perform activities of daily living to be achieved by 05/24/24. Pain No Improved Muscle Performance and/or ROM Description: LTG: Patient will demonstrate improved muscle performance to meet functional goals as evidenced by ability to tolerate 8 mins of standing activity, to be achieved by 04/18/24. LTG: Patient and/or caregiver will verbalize/demonstrate independence with home exercise program, to improve functional mobility, to be achieved by 04/18/24. LTG: Patient will demonstrate improved right knee passive range of motion to 0-100 degrees, to meet functional goals, to be achieved by 04/18/24. PT Impaired muscle performance and/or ROM No Improved Transfers Description: LTG: Patient will demonstrate safe transfers to/from bed, chair and toilet independently with AD, to be achieved by 04/18/24. PT Impaired mobility No Improved Bed Mobility Description: STG: Patient will demonstrate improved ability to position self independently to be achieved by 04/11/24. PT Impaired mobility No Improved Stair Climbing Description: LTG: Patient will demonstrate improved stair negotiation as evidenced by ascend/descend 14 steps with railing independently, to safely access all areas of the home, to be achieved by 04/18/24. PT Impaired gait No Improved Gait Description: LTG: Patient will demonstrate improved gait ability as evidenced by ambulation 200 feet with front wheeled walker independently with AD, to return to safe household ambulation, in order to reach car in the driveway, to be achieved by 04/18/24. PT Impaired gait No Manage Orthopedic Condition Description: Improve patient and/or caregiver understanding of post surgical and/or non-surgical orthopedic intervention management as evidenced by patient and/or caregiver able to verbalize, demonstrate, and teach back instruction, to be achieved by 04/18/24. PT Orthopedic Condition No Demonstrate understanding of education Description: Patient and/or caregiver will understand educational instruction to be achieved by 04/18/24. PT Learning Assessment No Interventions Intervention Associated Problem/Goal Status Variance Visit Notes SPO2 Description: Notify Dr. Chi if pulse ox is <92% at rest. Problem:Physician Specific Parameters Goal:Patient to maintain parameters within physician-specified ranges throughout certification period Completed Instruct on individual fall risk factors and strategies to prevent falls and injuries caused by falls. Problem:Risk for Falls Goal:Manage Risk for falls Completed OT: Patient instructed on Managing Impaired Functional Mobility: Use assistive device(s): front wheeled walker and single point cane and Caregiver to provide assist with: Ambulation and Steps Managing Pain Instruct on pain and instruct on strategies to control pain Problem:Pain Goal:Manage Pain Completed patient instructed on techniques to control pain including Pharmacological measures and Non-Pharmacological measures; positioning/elevation, mobility/therapeutic exercise, distraction, use of DME/assistive devices and use of thermal modalities, apply ice to affected area. Physical Therapy Therapeutic Exercises Problem:PT Impaired muscle performance and/or ROM Goal:Improved Muscle Performance and/or ROM Completed patient instructed on strengthening and range of motion exercises including: R LE ex's ( heel slides, hip abd/ add, gluet sets, quad sets, SAQ, SLR, LAQ, seated knee flexion ) x 10/ 1 set. Vc's to slow down and to facilitate full ROM. patient instructed to perform home exercise program twice a day which included: Above exercises. Physical Therapy Transfer Training Problem:PT Impaired mobility Goal:Improved Transfers Completed Transfer training and instruction to patient on safe transfers to and from bed and chair independent. Physical Therapy Bed Mobility Training Problem:PT Impaired mobility Goal:Improved Bed Mobility Completed Bed mobility training and instruction to patient, including supine<>sit independent. Physical Therapy Stair Training Problem:PT Impaired gait Goal:Improved Stair Climbing Completed Stair training and instruction to patient on safe stair climbing, ascend/descend 4 steps, with railing and with supervision and verbal and visual cues for sequencing. Physical Therapy Gait Training Problem:PT Impaired gait Goal:Improved Gait Completed Gait training and instruction to patient on safe ambulation with front wheeled walker independent. Pt also amb with std cane up to 100 feet with supervision, with verbal and visual cues to facilitate improved heel to toe Gt pattern. Instruct on orthopedic precautions and weight bearing restrictions Description: Orthopedic precautions including right total knee: no crossing legs, no knee flexed over pillow at rest, no kneeling, no squatting and no twisting. Weight bearing restrictions include: WBAT of involved extremity. Problem:PT Orthopedic Condition Goal:Manage Orthopedic Condition Completed patient instructed on orthopedic precautions. Instruct on self-management of post surgical and/or non-surgical orthopedic intervention Problem:PT Orthopedic Condition Goal:Manage Orthopedic Condition Completed patient instructed on staying well hydrated, eating foods with high protein, signs and symptoms of infection, signs and symptoms of DVT/PE, instructed on when to call provider and instructed on when to call 911. Instruct and educate on knowledge deficits Problem:PT Learning Assessment Goal:Demonstrate understanding of education Completed patient verbalize and/or demonstrate understanding of physical therapy education including orthopedic condition management, surgical precautions, pain management, fall prevention strategies, home safety, integumentary and incision/wound care management, infection control precautions, functional activity and home exercise program. Education methods include: verbal cues and visual cues. Further education required to improve knowledge and compliance with orthopedic condition management, surgical precautions, pain management, fall prevention strategies, home safety, integumentary and incision/wound care management, infection control precautions, functional activity and home exercise program. documented in this encounter [facility] home Plan of care note* Visit Details Visit Type -COMMUNICATION TECHNICIAN ROUTINE Discipline -Physical Therapy Problems Problem Description Start Date Status Goals Interve ntions Sepsis Disciplines: Skilled Services 03/26/2024 Active 1 goal linked to scheduled/document ed intervention 1 goal intervention scheduled/document ed in this visit Physician Specific Parameters Disciplines: Skilled Services 03/26/2024 Active 1 goal linked to scheduled/document ed intervention 1 goal intervention scheduled/document ed in this visit Risk for Falls Disciplines: Skilled Services 03/26/2024 Active 1 goal linked to scheduled/document ed intervention 1 goal intervention scheduled/document ed in this visit Pain Disciplines: Skilled Services 03/26/2024 Active 1 goal linked to scheduled/document ed intervention 1 goal intervention scheduled/document ed in this visit PT Impaired muscle performance and/or ROM Disciplines: PT 03/26/2024 Active 1 goal linked to scheduled/document ed intervention 1 goal intervention scheduled/document ed in this visit PT Impaired mobility Disciplines: PT 03/26/2024 Active 1 goal linked to scheduled/document ed intervention 1 goal intervention scheduled/document ed in this visit PT Impaired gait Disciplines: PT 03/26/2024 Active 1 goal linked to scheduled/document ed intervention 1 goal intervention scheduled/document ed in this visit PT Orthopedic Condition Disciplines: PT 03/26/2024 Active 1 goal linked to scheduled/document ed intervention 3 goal interventions scheduled/document ed in this visit PT Learning Assessment Disciplines: PT 03/26/2024 Active 1 goal linked to scheduled/document ed intervention 1 goal intervention scheduled/document ed in this visit Goals Goal Associated Problem Outcome Goal Met? Visit Notes Patient/caregiver will be able to identify and report symptoms of sepsis Description: Patient/caregiver will be able to identify signs/symptoms of sepsis infection and will verbalize actions to take if suspected by 05/24/24. Sepsis No Patient to maintain parameters within physician-specified ranges throughout certification period Physician Specific Parameters No Manage Risk for falls Description: Patient/caregiver will verbalize knowledge of individualized fall prevention strategies by 05/24/24. Risk for Falls No Manage Pain Description: Patient/caregiver will verbalize knowledge and understanding of appropriate techniques to control pain, including non-pharmacological techniques. Patient will verbalize or demonstrate an acceptable level of pain as evidenced by a pain score of 0-2/10 and improvement in ability to perform activities of daily living to be achieved by 05/24/24. Pain No Improved Muscle Performance and/or ROM Description: LTG: Patient will demonstrate improved muscle performance to meet functional goals as evidenced by ability to tolerate 8 mins of standing activity, to be achieved by 04/18/24. LTG: Patient and/or caregiver will verbalize/demonstrate independence with home exercise program, to improve functional mobility, to be achieved by 04/18/24. LTG: Patient will demonstrate improved right knee passive range of motion to 0-100 degrees, to meet functional goals, to be achieved by 04/18/24. PT Impaired muscle performance and/or ROM No Improved Transfers Description: LTG: Patient will demonstrate safe transfers to/from bed, chair and toilet independently with AD, to be achieved by 04/18/24. PT Impaired mobility No Improved Gait Description: LTG: Patient will demonstrate improved gait ability as evidenced by ambulation 200 feet with front wheeled walker independently with AD, to return to safe household ambulation, in order to reach car in the driveway, to be achieved by 04/18/24. PT Impaired gait No Manage Orthopedic Condition Description: Improve patient and/or caregiver understanding of post surgical and/or non-surgical orthopedic intervention management as evidenced by patient and/or caregiver able to verbalize, demonstrate, and teach back instruction, to be achieved by 04/18/24. PT Orthopedic Condition No Demonstrate understanding of education Description: Patient and/or caregiver will understand educational instruction to be achieved by 04/18/24. PT Learning Assessment No Interventions Intervention Associated Problem/Goal Status Variance Visit Notes Risk of Sepsis Description: Patient is at risk for sepsis. Monitor closely for s/s of sepsis. Problem:Sepsis Goal:Patient/caregive r will be able to identify and report symptoms of sepsis Completed SPO2 Description: Notify Dr. Chi if pulse ox is <92% at rest. Problem:Physician Specific Parameters Goal:Patient to maintain parameters within physician-specified ranges throughout certification period Completed Instruct on individual fall risk factors and strategies to prevent falls and injuries caused by falls. Problem:Risk for Falls Goal:Manage Risk for falls Completed PT: Patient instructed on Eliminating Environmental Hazards: Keep pathways clear, Keep pets out of pathways, Wear supportive shoes or non-skid socks and Keep frequently used items within reach Managing Impaired Functional Mobility: Use assistive device(s): front wheeled walker and single point cane Managing Pain Instruct on pain and instruct on strategies to control pain Problem:Pain Goal:Manage Pain Completed patient instructed on techniques to control pain including Pharmacological measures and Non-Pharmacological measures; rest, positioning/elevation, mobility/therapeutic exercise, use of DME/assistive devices and use of thermal modalities, apply ice to affected area for the following prescribed frequency: 10-20 minutes, 3-5 times daily Physical Therapy Therapeutic Exercises Problem:PT Impaired muscle performance and/or ROM Goal:Improved Muscle Performance and/or ROM Completed patient instructed on strengthening and range of motion exercises including supine AP, GS, QS, hip abd, SAQ, SLR, heel slides, knee ext stretch with foot on roll x 10 reps. Seated knee flx stretch x 10 reps with verbal, tactile, visual and written cues for proper range and speed. patient instructed to perform home exercise program three times a day which included listed ex. Physical Therapy Transfer Training Problem:PT Impaired mobility Goal:Improved Transfers Completed patient instructed on strengthening and range of motion exercises including supine AP, GS, QS, hip abd, SAQ, SLR, heel slides, knee ext stretch with foot on roll x 10 reps. Standing (B) ankle PF, (R/L) Hip flx/abd x 10 reps. Seated knee flx stretch x 10 reps with verbal, tactile, visual and written cues for proper range and speed. patient instructed to perform home exercise program three times a day which included listed ex. Physical Therapy Gait Training Problem:PT Impaired gait Goal:Improved Gait Completed Gait training and instruction to patient on safe ambulation with front wheeled walker with independence. Std cane for 100 feet with stand by assist, with verbal cues for corrections of gait deviations including symmetrical step length. Instruct on orthopedic precautions and weight bearing restrictions Description: Orthopedic precautions including right total knee: no crossing legs, no knee flexed over pillow at rest, no kneeling, no squatting and no twisting. Weight bearing restrictions include: WBAT of involved extremity. Problem:PT Orthopedic Condition Goal:Manage Orthopedic Condition Completed patient instructed on orthopedic precautions. Instruct on management of edema Problem:PT Orthopedic Condition Goal:Manage Orthopedic Condition Completed Instruct patient on management of edema including elevation of (R) LE above the level of the heart, ice, medication adherence strategies and benefits of activity. Instruct on self-management of post surgical and/or non-surgical orthopedic intervention Problem:PT Orthopedic Condition Goal:Manage Orthopedic Condition Completed patient instructed on managagement of orthopedic condition, signs and symptoms of infection and signs and symptoms of DVT/PE. Instruct and educate on knowledge deficits Problem:PT Learning Assessment Goal:Demonstrate understanding of education Completed patient verbalize and/or demonstrate understanding of physical therapy education including orthopedic condition management, surgical precautions, pain management, fall prevention strategies, home safety and integumentary and incision/wound care management. Education methods include: verbal cues, tactile cues, written instructions, visual cues and teach back. Further education required to improve knowledge and compliance with functional activity and home exercise program. documented in this encounter [facility]'s home Plan of care note* Visit Details Visit Type -COMMUNICATION TECHNICIAN ROUTINE Discipline -Physical Therapy Problems Problem Description Start Date Status Goals Interve ntions Physician Specific Parameters Disciplines: Skilled Services 03/26/2024 Active 1 goal linked to scheduled/document ed intervention 1 goal intervention scheduled/document ed in this visit Risk for Falls Disciplines: Skilled Services 03/26/2024 Active 1 goal linked to scheduled/document ed intervention 1 goal intervention scheduled/document ed in this visit Pain Disciplines: Skilled Services 03/26/2024 Active 1 goal linked to scheduled/document ed intervention 1 goal intervention scheduled/document ed in this visit Discharge Disciplines: Skilled Services 03/26/2024 Active 1 goal linked to scheduled/document ed intervention 1 goal intervention scheduled/document ed in this visit PT Impaired muscle performance and/or ROM Disciplines: PT 03/26/2024 Active 1 goal linked to scheduled/document ed intervention 1 goal intervention scheduled/document ed in this visit PT Impaired gait Disciplines: PT 03/26/2024 Active 1 goal linked to scheduled/document ed intervention 1 goal intervention scheduled/document ed in this visit PT Learning Assessment Disciplines: PT 03/26/2024 Active 1 goal linked to scheduled/document ed intervention 1 goal intervention scheduled/document ed in this visit Goals Goal Associated Problem Outcome Goal Met? Visit Notes Patient to maintain parameters within physician-specified ranges throughout certification period Physician Specific Parameters No Manage Risk for falls Description: Patient/caregiver will verbalize knowledge of individualized fall prevention strategies by 05/24/24. Risk for Falls No Manage Pain Description: Patient/caregiver will verbalize knowledge and understanding of appropriate techniques to control pain, including non-pharmacological techniques. Patient will verbalize or demonstrate an acceptable level of pain as evidenced by a pain score of 0-2/10 and improvement in ability to perform activities of daily living to be achieved by 05/24/24. Pain No Manage discharge planning Description: Patient/caregiver will verbalize understanding of ongoing discharge plan provided related to disease management, arrangements for outpatient and/or community services, obtaining medications, supplies, and DME, as needed throughout certification period. Discharge No Improved Muscle Performance and/or ROM Description: LTG: Patient will demonstrate improved muscle performance to meet functional goals as evidenced by ability to tolerate 8 mins of standing activity, to be achieved by 04/18/24. LTG: Patient and/or caregiver will verbalize/demonstrate independence with home exercise program, to improve functional mobility, to be achieved by 04/18/24. LTG: Patient will demonstrate improved right knee passive range of motion to 0-100 degrees, to meet functional goals, to be achieved by 04/18/24. PT Impaired muscle performance and/or ROM No Improved Gait Description: LTG: Patient will demonstrate improved gait ability as evidenced by ambulation 200 feet with front wheeled walker independently with AD, to return to safe household ambulation, in order to reach car in the driveway, to be achieved by 04/18/24. PT Impaired gait No Demonstrate understanding of education Description: Patient and/or caregiver will understand educational instruction to be achieved by 04/18/24. PT Learning Assessment No Interventions Intervention Associated Problem/Goal Status Variance Visit Notes SPO2 Description: Notify Dr. Chi if pulse ox is <92% at rest. Problem:Physician Specific Parameters Goal:Patient to maintain parameters within physician-specified ranges throughout certification period Completed Instruct on individual fall risk factors and strategies to prevent falls and injuries caused by falls. Problem:Risk for Falls Goal:Manage Risk for falls Completed PT: Patient instructed on Managing Impaired Functional Mobility: Use assistive device(s): front wheeled walker and single point cane and Caregiver to provide assist with: Ambulation and Steps Managing Pain Instruct on pain and instruct on strategies to control pain Problem:Pain Goal:Manage Pain Completed patient instructed on techniques to control pain including Pharmacological measures and Non-Pharmacological measures; positioning/elevation, mobility/therapeutic exercise, distraction, use of DME/assistive devices and use of thermal modalities, apply ice to affected area. Deliver [facility] Problem:Discharge Goal:Manage discharge planning Completed Delivered [facility] on 04/10/24 for discharge date of 04/13/24. Physical Therapy Therapeutic Exercises Problem:PT Impaired muscle performance and/or ROM Goal:Improved Muscle Performance and/or ROM Completed patient instructed on strengthening exercises including: LAQ, SAQ, heel slides, SLR, Seated quad set x 15 reps/ 1 set/ hold 5 sec. Standing ex: marching in place and heel to toe x 10/ 1 set. vc's to slow down and to limit substitutions. patient instructed to perform home exercise program twice a day which included; Above exercises. Physical Therapy Gait Training Problem:PT Impaired gait Goal:Improved Gait Completed Gait training and instruction to patient on safe ambulation with single point cane for 300 feet with supervision, with verbal and visual cues to facilitate improved ch[place] to toe Gt pattern. Instruct and educate on knowledge deficits Problem:PT Learning Assessment Goal:Demonstrate understanding of education Completed patient verbalize and/or demonstrate understanding of physical therapy education including orthopedic condition management, surgical precautions, pain management, fall prevention strategies, home safety, integumentary and incision/wound care management, infection control precautions, functional activity and home exercise program. Education methods include: verbal cues and visual cues. Further education required to improve knowledge and compliance with orthopedic condition management, surgical precautions, pain management, fall prevention strategies, home safety, integumentary and incision/wound care management, infection control precautions, functional activity and home exercise program. [facility] Visit Details Visit Type -PT AGENCY DC W V FREDDYT Discipline -Physical Therapy Problems Problem Description Start Date Status Goals Interve ntions Medication Education Disciplines: Skilled Services 03/26/2024 Resolved on 04/13/2024 1 goal linked to scheduled/document ed intervention 1 goal intervention scheduled/document ed in this visit Sepsis Disciplines: Skilled Services 03/26/2024 Resolved on 04/13/2024 1 goal linked to scheduled/document ed intervention 1 goal intervention scheduled/document ed in this visit Physician Specific Parameters Disciplines: Skilled Services 03/26/2024 Resolved on 04/13/2024 1 goal linked to scheduled/document ed intervention 1 goal intervention scheduled/document ed in this visit Risk for Falls Disciplines: Skilled Services 03/26/2024 Resolved on 04/13/2024 1 goal linked to scheduled/document ed intervention 1 goal intervention scheduled/document ed in this visit Pain Disciplines: Skilled Services 03/26/2024 Resolved on 04/13/2024 1 goal linked to scheduled/document ed intervention 1 goal intervention scheduled/document ed in this visit High Risk Medications Disciplines: Skilled Services 03/26/2024 Resolved on 04/13/2024 1 goal linked to scheduled/document ed intervention Discharge Disciplines: Skilled Services 03/26/2024 Resolved on 04/13/2024 1 goal linked to scheduled/document ed intervention 2 goal interventions scheduled/document ed in this visit PT Impaired muscle performance and/or ROM Disciplines: PT 03/26/2024 Resolved on 04/13/2024 1 goal linked to scheduled/document ed intervention 1 goal intervention scheduled/document ed in this visit PT Impaired mobility Disciplines: PT 03/26/2024 Resolved on 04/13/2024 2 goals linked to scheduled/document ed interventions 1 goal intervention scheduled/document ed in this visit PT Impaired gait Disciplines: PT 03/26/2024 Resolved on 04/13/2024 2 goals linked to scheduled/document ed interventions 2 goal interventions scheduled/document ed in this visit PT Impaired balance Disciplines: PT 03/26/2024 Resolved on 04/13/2024 1 goal linked to scheduled/document ed intervention 1 goal intervention scheduled/document ed in this visit PT Orthopedic Condition Disciplines: PT 03/26/2024 Resolved on 04/13/2024 1 goal linked to scheduled/document ed intervention 1 goal intervention scheduled/document ed in this visit PT Learning Assessment Disciplines: PT 03/26/2024 Resolved on 04/13/2024 1 goal linked to scheduled/document ed intervention 1 goal intervention scheduled/document ed in this visit Goals Goal Associated Problem Outcome Goal Met? Visit Notes Patient/caregiver will demonstrate ability to obtain, store, identify and administer ordered medications, keep accurate medication list in home, and adhere to medication schedule Description: Patient/caregiver will demonstrate ability to obtain, store, identify and administer ordered medications, keep accurate medication list in home, and adhere to medication schedule by 05/24/24. Medication Education Completed Yes Goal met Patient/caregiver will be able to identify and report symptoms of sepsis Description: Patient/caregiver will be able to identify signs/symptoms of sepsis infection and will verbalize actions to take if suspected by 05/24/24. Sepsis Completed Yes Goal met Patient to maintain parameters within physician-specified ranges throughout certification period Physician Specific Parameters Completed Yes Goal met Manage Risk for falls Description: Patient/caregiver will verbalize knowledge of individualized fall prevention strategies by 05/24/24. Risk for Falls Completed Yes Goal met Manage Pain Description: Patient/caregiver will verbalize knowledge and understanding of appropriate techniques to control pain, including non-pharmacological techniques. Patient will verbalize or demonstrate an acceptable level of pain as evidenced by a pain score of 0-2/10 and improvement in ability to perform activities of daily living to be achieved by 05/24/24. Pain Completed Yes Goal met Patient/caregiver will teach back high risk medication side effect and precaution education Description: LTG Patient/caregiver will continue to verbalize understanding of high risk medication side effects and precautions throughout certification period. High Risk Medications Completed Yes Goal met Manage discharge planning Description: Patient/caregiver will verbalize understanding of ongoing discharge plan provided related to disease management, arrangements for outpatient and/or community services, obtaining medications, supplies, and DME, as needed throughout certification period. Discharge Completed Yes Goal met Improved Muscle Performance and/or ROM Description: LTG: Patient will demonstrate improved muscle performance to meet functional goals as evidenced by ability to tolerate 8 mins of standing activity, to be achieved by 04/18/24. LTG: Patient and/or caregiver will verbalize/demonstrate independence with home exercise program, to improve functional mobility, to be achieved by 04/18/24. LTG: Patient will demonstrate improved right knee passive range of motion to 0-100 degrees, to meet functional goals, to be achieved by 04/18/24. PT Impaired muscle performance and/or ROM Completed Yes Goal met Improved Transfers Description: LTG: Patient will demonstrate safe transfers to/from bed, chair and toilet independently with AD, to be achieved by 04/18/24. PT Impaired mobility Completed Yes Goal met Improved Bed Mobility Description: STG: Patient will demonstrate improved ability to position self independently to be achieved by 04/11/24. PT Impaired mobility Completed Yes Goal met Improved Stair Climbing Description: LTG: Patient will demonstrate improved stair negotiation as evidenced by ascend/descend 14 steps with railing independently, to safely access all areas of the home, to be achieved by 04/18/24. PT Impaired gait Completed Yes Goal met Improved Gait Description: LTG: Patient will demonstrate improved gait ability as evidenced by ambulation 200 feet with front wheeled walker independently with AD, to return to safe household ambulation, in order to reach car in the driveway, to be achieved by 04/18/24. PT Impaired gait Completed Yes Goal met Improved Balance Description: LTG: Patient will demonstrate improved standing balance to meet functional goals as evidenced by TUG score of 30 to be achieved by 04/18/24. PT Impaired balance Completed Yes Goal met Manage Orthopedic Condition Description: Improve patient and/or caregiver understanding of post surgical and/or non-surgical orthopedic intervention management as evidenced by patient and/or caregiver able to verbalize, demonstrate, and teach back instruction, to be achieved by 04/18/24. PT Orthopedic Condition Completed Yes Goal met Demonstrate understanding of education Description: Patient and/or caregiver will understand educational instruction to be achieved by 04/18/24. PT Learning Assessment Completed Yes Goal met Interventions Intervention Associated Problem/Goal Status Variance Visit Notes Medication Education Description: Evaluate/instruct patient/caregiver on obtaining, storing, identifying and administering ordered medications as well as keeping accurate medication list in the home and adhereing to medication schedule Problem:Medication Education Goal:Patient/caregive r will demonstrate ability to obtain, store, identify and administer ordered medications, keep accurate medication list in home, and adhere to medication schedule Completed Patient instructed on adhering to medication schedule. Risk of Sepsis Description: Patient is at risk for sepsis. Monitor closely for s/s of sepsis. Problem:Sepsis Goal:Patient/caregive r will be able to identify and report symptoms of sepsis Completed SPO2 Description: Notify Dr. Chi if pulse ox is <92% at rest. Problem:Physician Specific Parameters Goal:Patient to maintain parameters within physician-specified ranges throughout certification period Completed Instruct on individual fall risk factors and strategies to prevent falls and injuries caused by falls. Problem:Risk for Falls Goal:Manage Risk for falls Completed Interventions implemented and instructions provided this visit to reduce risk of falls:Assistive devices to be used: SPC. Instruct on pain and instruct on strategies to control pain Problem:Pain Goal:Manage Pain Completed patient instructed on techniques to control pain including Pharmacological measures and Non-Pharmacological measures; rest, positioning/elevation, mobility/therapeutic exercise, use of DME/assistive devices and use of thermal modalities, apply ice to affected area. Instruct on final discharge plan and deliver discharge instructions Problem:Discharge Goal:Manage discharge planning Completed Delivered Discharge plan: Discharge plan discussed with patient for plan for transition to: outpatient therapy Instruct on importance of follow-up appts and continued monitoring with medical provider &/or chronic care clinic Problem:Discharge Goal:Manage discharge planning Completed Education provided on importance of compliance with follow-up appointment(s). Physical Therapy Therapeutic Exercises Problem:PT Impaired muscle performance and/or ROM Goal:Improved Muscle Performance and/or ROM Completed patient instructed on strengthening exercises including at countertop with verbal, visual and written cues for sequencing and to maintain upright posture. patient instructed to perform home exercise program two times a day which included standing: hip flexion, hip extension, hip abduction, heel/toe raises and hamstring curls. Physical Therapy Transfer Training Problem:PT Impaired mobility Goal:Improved Transfers Completed Transfer training and instruction to patient on safe transfers to and from chair Independently. Physical Therapy Stair Training Problem:PT Impaired gait Goal:Improved Stair Climbing Completed Stair training and instruction to patient on safe stair climbing, ascend/descend steps, with railing Independently. Physical Therapy Gait Training Problem:PT Impaired gait Goal:Improved Gait Completed Patient ambulated 400ft with SPC Independently with AD over a variety of floor surfaces with no LOB. Physical Therapy Balance Training Problem:PT Impaired balance Goal:Improved Balance Completed Developed, implemented, and instructed patient and/or caregiver on standing balance exercises, including static/dynamic activities with and without UE support and weight shifting with narrow JAZZY and SLS activities. Instruct on management of edema Problem:PT Orthopedic Condition Goal:Manage Orthopedic Condition Completed Instruct patient on management of edema including elevation above the level of the heart, ice and benefits of activity. Instruct and educate on knowledge deficits Problem:PT Learning Assessment Goal:Demonstrate understanding of education Completed patient verbalize and/or demonstrate understanding of physical therapy education including pain management, fall prevention strategies, functional activity and home exercise program. documented in this encounter [facility] for referral (narrative)* Diagnostic Procedure Only (Routine) - Pending Review Specialty Diagnoses / Procedures Referred By Contac t Referred To Contact XR IMAGING Diagnoses Primary osteoarthritis of knees, bilateral Procedures XR KNEE GENERAL 4V AP BOTH/PA BOTH/LAT/MERC BILATERAL RADIOLOGIC EXAM KNEE COMPLETE 4/MORE VIEWS Alfred Chandler PA-C [address] [place] [address] Xr Imaging Referral ID Status Reason Start Date Expiration Date Visits Requested Visits Authorized [id number] Pending Review Auto-Generat ed Referral 06/03/2023 [facility] Outpatient Procedure (Routine) - New Request Specialty Diagnoses / Procedures Referred By Contac t Referred To Contact [facility] Diagnoses Pre-op evaluation Procedures ECG COMPLETE ECG ROUTINE ECG W/LEAST 12 LDS W/I&R Chel Harrison PA-C [address] [place] [address] [facility] [place] [address] [place] [address] Referral ID Status Reason Start Date Expiration Date Visits Requested Visits Authorized [id number] New Request Auto-Generat ed Referral 03/09/2024 03/05/2025 1 1 [facility] Diagnostic Procedure Only (Routine) - Closed Specialty Diagnoses / Procedures Referred By Contac t Referred To Contact XR IMAGING Diagnoses Pain Procedures XR KNEE GENERAL 4V AP BOTH/PA BOTH/LAT/MERC BILATERAL RADIOLOGIC EXAM KNEE COMPLETE 4/MORE VIEWS Rohith Willis PA-C [address] [place] [address] Xr Imaging [facility] Referral ID Status Reason Start Date Expiration Date V isits Requested Visits Authorized [id number] Closed Auto-Generate d Referral 12/05/2023 01/03/2025 1 1 [facility] Diagnostic Procedure Only (Routine) - Closed Specialty Diagnoses / Procedures Referred By Contac t Referred To Contact XR IMAGING Diagnoses Aftercare following right hip joint replacement surgery Procedures XR HIP GENERAL 3V PELV/AP/LAT RIGHT RADEX HIP UNILATERAL WITH PELVIS 2-3 VIEWS Sziraky, Romana E, MD [address] [address] [place] [address] Referral ID Status Reason Start Date Expiration Date V isits Requested Visits Authorized [id number] Closed Auto-Generate d Referral 05/20/2023 06/18/2024 1 1 [facility] for referral (narrative)* Diagnostic Procedure Only (Routine) - Closed Specialty Diagnoses / Procedures Referred By Contac t Referred To Contact XR IMAGING Diagnoses Right knee pain, unspecified chronicity Procedures XR KNEE POST OP 3V AP/LAT/MERCHANT RIGHT RADIOLOGIC EXAMINATION KNEE 3 VIEWS Rohith Willis PA-C [address] [place] [address] [place] [address] Referral ID Status Reason Start Date Expiration Date V isits Requested Visits Authorized [id number] Closed Auto-Generate d Referral 03/26/2024 04/25/2025 1 1 T [facility] for referral (narrative)* Diagnostic Procedure Only (Routine) - Closed Specialty Diagnoses / Procedures Referred By Contac t Referred To Contact XR IMAGING Diagnoses Primary osteoarthritis of knees, bilateral Procedures XR KNEE GENERAL 4V AP BOTH/PA BOTH/LAT/MERC BILATERAL RADIOLOGIC EXAM KNEE COMPLETE 4/MORE VIEWS Alfred Chandler PA-C [address] [place] [address] [place] [address] Referral ID Status Reason Start Date Expiration Date V isits Requested Visits Authorized [id number] Closed Auto-Generate d Referral 05/04/2022 06/03/2023 1 1 T [facility] for visit Narrative* Diagnostic Procedure Only (Routine) - Closed Specialty Diagnoses / Procedures Referred By Contac t Referred To Contact XR IMAGING Diagnoses Pain Procedures XR KNEE GENERAL 4V AP BOTH/PA BOTH/LAT/MERC BILATERAL RADIOLOGIC EXAM KNEE COMPLETE 4/MORE VIEWS Rohith Willis PA-C [address] [place] [address] [place] [address] Referral ID Status Reason Start Date Expiration Date V isits Requested Visits Authorized [id number] Closed Auto-Generate d Referral 12/05/2023 01/03/2025 1 1 [facility] for visit Narrative* Diagnostic Procedure Only (Routine) - Closed Specialty Diagnoses / Procedures Referred By Contac t Referred To Contact XR IMAGING Diagnoses Aftercare following right hip joint replacement surgery Procedures XR HIP GENERAL 3V PELV/AP/LAT RIGHT RADEX HIP UNILATERAL WITH PELVIS 2-3 VIEWS Romana Chi MD [address] [place] [address] [place] [address] Referral ID Status Reason Start Date Expiration Date V isits Requested Visits Authorized [id number] Closed Auto-Generate d Referral 05/20/2023 06/18/2024 1 1 [facility] for visit Narrative* Diagnostic Procedure Only (Routine) - Closed Specialty Diagnoses / Procedures Referred By Contac t Referred To Contact XR IMAGING Diagnoses Right knee pain, unspecified chronicity Procedures XR KNEE POST OP 3V AP/LAT/MERCHANT RIGHT RADIOLOGIC EXAMINATION KNEE 3 VIEWS Rohith Willis PA-C [address] [place] [address] [place] [address] Referral ID Status Reason Start Date Expiration Date V isits Requested Visits Authorized [id number] Closed Auto-Generate d Referral 03/26/2024 04/25/2025 1 1 [facility] for visit Narrative* Diagnostic Procedure Only (Routine) - Closed Specialty Diagnoses / Procedures Referred By Contac t Referred To Contact XR IMAGING Diagnoses Primary osteoarthritis of knees, bilateral Procedures XR KNEE GENERAL 4V AP BOTH/PA BOTH/LAT/MERC BILATERAL RADIOLOGIC EXAM KNEE COMPLETE 4/MORE VIEWS Alfred Chandler PA-C [address] [place] [address] [place] [address] Referral ID Status Reason Start Date Expiration Date V isits Requested Visits Authorized [id number] Closed Auto-Generate d Referral 05/04/2022 06/03/2023 1 1 [facility] Reason for Referral Status Reason Specialty Diagnoses / Procedures Referred By Contact Referred To Contact Open Specialty Services Required Physical Therapy Diagnoses Closed displaced fracture of surgical neck of left humerus, unspecified fracture morphology, initial encounter Dislocation of left shoulder joint, initial encounter Taz Bautista MD [address] [facility] [address] [place] [address] Scheduling Instructions Nonweight bearing left upper extremity in sling Wear sling at all times except to perform range of motion at elbow/wrist/hand four times daily (OK for passive and active range of motion at elbow/wrist/hand) Initiate PT (Phase 1 with passive forward flexion to 90 only - no rotation at shoulder, no active range of motion to left shoulder) Specialty Diagnoses / Procedures Referred By Contac t Referred To Contact Radiology Diagnoses Pulmonary nodules Liver lesion Procedures CT Chest Abdomen Pelvis WO Contrast Abelino Harepr MD [address] [facility] [place] [address] Referral ID Status Reason Start Date Expiration Date Visits Re quested Visits Authorized [id number] Open 10/23/2021 10/23/2022 1 1 Specialty Diagnoses / Procedures Referred By Contac t Referred To Contact Radiology Diagnoses Solitary pulmonary nodule Procedures CT chest wo IV contrast Ibis Caldwell, YON - CELLULAR BIOLOGIST [address] [facility] [place] [address] Referral ID Status Reason Start Date Expiration Date Visits Re quested Visits Authorized [id number] Closed 11/16/2022 05/15/2023 1 1 Specialty Diagnoses / Procedures Referred By Contac t Referred To Contact [facility] Diagnoses Sacroiliitis (HCC) Procedures CONSULT TO PHYSICAL THERAPY PHYSICAL THERAPY EVALUATION HIGH COMPLEX 45 MINS Romana Chi MD [address] [address] [facility] [place] [address] [place] [address] Referral ID Status Reason Start Date Expiration Date Visits Requested Visits Authorized [id number] Authorized PCP Requested Referral Auto-Generate d Referral 05/20/2023 05/19/2024 99 99 Specialty Diagnoses / Procedures Referred By Contac t Referred To Contact XR IMAGING Diagnoses Aftercare following right hip joint replacement surgery Procedures XR HIP GENERAL 3V PELV/AP/LAT RIGHT RADEX HIP UNILATERAL WITH PELVIS 2-3 VIEWS Romana Chi MD [address] [address] [place] [address] Referral ID Status Reason Start Date Expiration Date V isits Requested Visits Authorized [id number] Closed Auto-Generate d Referral 05/20/2023 06/18/2024 1 1 Specialty Diagnoses / Procedures Referred By Contac t Referred To Contact CT IMAGING Diagnoses Primary osteoarthritis of right knee Preoperative testing Procedures CT KNEE WO IVCON RIGHT CT LOWER EXTREMITY W/O CONTRAST MATERIAL Rohith Willis PA-C [address] [place] [address] Ct Imaging [facility] Referral ID Status Reason Start Date Expiration Date Visits Requested Visits Authorized [id number] Authorized Auto-Generat ed Referral 02/25/2024 03/26/2025 1 1 Referral ID Status Reason Start Date Expiration Date V isits Requested Visits Authorized [id number] Closed Auto-Generate d Referral 02/25/2024 03/26/2025 1 1 Specialty Diagnoses / Procedures Referred By Chris t Referred To Contact [facility] Diagnoses S/P total knee arthroplasty, right Procedures CONSULT TO PHYSICAL THERAPY PHYSICAL THERAPY EVALUATION HIGH COMPLEX 45 MINS Rohith Willis PA-C [address] [place] [address] [facility] [place] [address] [place] [id number] Referral ID Status Reason Start Date Expiration Date Visits Requested Visits Authorized [id number] Authorized PCP Requested Referral Auto-Generate d Referral 04/06/2024 04/06/2025 99 99 Advance Directives No Advanced Directives Records FoundDocuments on File Type Date Recorded Patient Supervisor Record Press Expl anation ACP-Advance Directive ACP-Power of Piping Design Specialist Latest Code Status on File Code Status Date Activated Date Inactivated Comments Full Code 11/23/2020 3:15 AM Documents on File Type Date Recorded Patient Supervisor Record Press Expl anation ACP-Advance Directive ACP-Power of Piping Design Specialist Latest Code Status on File Code Status Date Activated Date Inactivated Comments Full Code 11/23/2020 3:15 AM 11/25/2020 5:25 PM Latest Code Status on File Code Status Date Activated Date Inactivated Comments Full Code 11/23/2020 3:15 AM 11/25/2020 5:25 PM Date Activated Date Inactivated Comments 03/26/2024 11:54 AM Date Activated Date Inactivated Comments 03/26/2024 11:54 AM Summary Purpose Family History No Family History Records Found Relationship Condition Age at Onset Recorded Date/T eder mother Hypertension Unknown Malignant neoplasm of colon Unknown father Hypertension Unknown Chief Complaint and Reason for Visit Chief Complaint 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) Chief Complaint SCREENING Medications Administered Section Inactive Administered Medications - up to 3 most recent administrations Medication Order MAR Action Action Date Dose Rate Site betamethasone acetate-betamethasone sodium phosphate 12 mg injection (CELESTONE) 12 mg, Injection - FOR ORTHO USE ONLY, ONE TIME INJECTION, 1 dose, Starting on Sat09/12/22 at 1138, Until Sat09/12/22 at 1138 Given 09/12/2022 11:38 AM EST 12 mg Knee, Left betamethasone acetate-betamethasone sodium phosphate 12 mg injection (CELESTONE) 12 mg, Injection - FOR ORTHO USE ONLY, ONE TIME INJECTION, 1 dose, Starting on Sat09/12/22 at 1138, Until Sat09/12/22 at 1138 Given 09/12/2022 11:38 AM EST 12 mg Knee, Right lidocaine (PF) 10 mg/mL (1 %) 4 mL injection (XYLOCAINE) 4 mL, Injection - FOR ORTHO USE ONLY, ONE TIME INJECTION, 1 dose, Starting on Sat09/12/22 at 1138, Until Sat09/12/22 at 1138 Given 09/12/2022 11:38 AM EST 4 mL Knee, Left lidocaine (PF) 10 mg/mL (1 %) 4 mL injection (XYLOCAINE) 4 mL, Injection - FOR ORTHO USE ONLY, ONE TIME INJECTION, 1 dose, Starting on Sat09/12/22 at 1138, Until Sat09/12/22 at 1138 Given 09/12/2022 11:38 AM EST 4 mL Knee, Right Inactive Administered Medications - up to 3 most recent administrations Medication Order MAR Action Action Date Dose Rate Site betamethasone acetate-betamethasone sodium phosphate 12 mg injection (CELESTONE) 12 mg, Injection - FOR ORTHO USE ONLY, ONE TIME INJECTION, 1 dose, Starting on Sat01/16/23 at 1011, Until Sat01/16/23 at 1011 Given 01/16/2023 10:11 AM EDT 12 mg Knee, Left betamethasone acetate-betamethasone sodium phosphate 12 mg injection (CELESTONE) 12 mg, Injection - FOR ORTHO USE ONLY, ONE TIME INJECTION, 1 dose, Starting on Sat01/16/23 at 1011, Until Sat01/16/23 at 1011 Given 01/16/2023 10:11 AM EDT 12 mg Knee, Right lidocaine (PF) 10 mg/mL (1 %) 4 mL injection (XYLOCAINE) 4 mL, Injection - FOR ORTHO USE ONLY, ONE TIME INJECTION, 1 dose, Starting on Sat01/16/23 at 1011, Until Sat01/16/23 at 1011 Given 01/16/2023 10:11 AM EDT 4 mL Knee, Left lidocaine (PF) 10 mg/mL (1 %) 4 mL injection (XYLOCAINE) 4 mL, Injection - FOR ORTHO USE ONLY, ONE TIME INJECTION, 1 dose, Starting on Sat01/16/23 at 1011, Until Sat01/16/23 at 1011 Given 01/16/2023 10:11 AM EDT 4 mL Knee, Right Inactive Administered Medications - up to 3 most recent administrations Medication Order MAR Action Action Date Dose Rate Site lidocaine (PF) 10 mg/mL (1 %) 4 mL injection (XYLOCAINE) 4 mL, Injection - FOR ORTHO USE ONLY, ONCE, 1 dose, Starting on Sat05/20/23 at 1436, Until Sat05/20/23 at 1436 Given 05/20/2023 2:36 PM EST 4 mL Knee, Left lidocaine (PF) 10 mg/mL (1 %) 4 mL injection (XYLOCAINE) 4 mL, Injection - FOR ORTHO USE ONLY, ONCE, 1 dose, Starting on Sat05/20/23 at 1436, Until Sat05/20/23 at 1436 Given 05/20/2023 2:36 PM EST 4 mL Knee, Right methylPREDNISolone acetate 80 mg injection (DEPO-Medrol) 80 mg, Injection - FOR ORTHO USE ONLY, ONCE, 1 dose, Starting on Sat05/20/23 at 1436, Until Sat05/20/23 at 1436 Given 05/20/2023 2:36 PM EST 80 mg Knee, Left methylPREDNISolone acetate 80 mg injection (DEPO-Medrol) 80 mg, Injection - FOR ORTHO USE ONLY, ONCE, 1 dose, Starting on 05/20/23 at 1436, Until 05/20/23 at 1436 Given 05/20/2023 2:36 PM EST 80 mg Knee, Right Additional Source Comments Reason for Visit (unrecogniz ed section and content) Reason Comments Fall approximately 5pm. c /o left shoulder pain Reason Comments New Knee Pain Reason Comments Patient Update Reason Comments Established Patient Pain Reason Comments Follow Up Specialty Diagnoses / Procedures Referred By Chris t Referred To Contact Radiology Diagnoses Solitary pulmonary nodule Procedures CT chest wo IV contrast Ibis Caldwell, ELIGIBILITY MANAGER - CELLULAR BIOLOGIST [address] [address] Referral ID Status Reason Start Date Expiration Date Visits Re quested Visits Authorized [id number] Closed 11/16/2022 05/15/2023 1 1 Reason Comments Appointment Reason Comments Follow Up Reason Comments Ear Fullness Right ear clogged. R eports using debrox x4 days, feels fine today. Reason Onset Date Comments Ear Fullness 08/27/2023 Reason Comments Patient Question Reason Comments Medicare Annual Wellness Visit Subsequen t Medicare AWV, Mammogram scheduled in February, Cerumen Impaction Ear check. Pt denies ear pain or drainage Reason Comments Follow Up Pre-Op Visit Reason Comments Appointment Reason Comments Pre-Op Teaching Reason Comments Anesthesia Consult Specialty Diagnoses / Procedures Referred By Chris t Referred To Contact CT IMAGING Diagnoses Primary osteoarthritis of right knee Preoperative testing Procedures CT KNEE WO IVCON RIGHT CT LOWER EXTREMITY W/O CONTRAST MATERIAL Rohith Willis PA-C [address] [place] [address] [place] [address] Referral ID Status Reason Start Date Expiration Date V isits Requested Visits Authorized [id number] Closed Auto-Generate d Referral 02/25/2024 03/26/2025 1 1 Reason Comments Home Care Confirmation Call Reason Comments Established Patient Follow Up Knee Replacement Post Op Reason Comments Post Op Knee Replacement Reason Comments Follow-up BP check / Rt ear wa x Reason Onset Date Comments Urinary Symptom 07/11/2022 Reason Comments Established Patient Knee Pain Post Op Reason Comments Results Discuss DEXA scan re sults Reason Comments Medicare Annual Wellness Visit Subsequen t Ordered Prescriptions (unrec ognized section and content) Prescription Sig Dispensed Refills Start Date End Da te docusate sodium (COLACE) 100 MG capsule Take 1 capsule by mouth daily as needed for Constipation 30 capsule 0 11/25/2020 HYDROcodone-acetamino phen (NORCO) 5-325 MG per tabletIndications:Marya sed displaced fracture of surgical neck of left humerus, unspecified fracture morphology, initial encounter Take 1 tablet by mouth every 6 hours as needed for Pain for up to 3 days. 12 tablet 0 11/25/2020 11/28/2020 oxyCODONE-acetaminoph en (PERCOCET) 5-325 MG per tabletIndications:Dis location of left shoulder joint, initial encounter,Closed displaced fracture of surgical neck of left humerus, unspecified fracture morphology, initial encounter Take 1 tablet by mouth every 6 hours as needed for Pain for up to 7 days. Intended supply: 7 days. Take lowest dose possible to manage pain 28 tablet 0 11/24/2020 11/25/2020 INFORMATION SOURCE (unrecogn ized section and content) DATE CREATED AUTHOR 01/04/2021 [facility] DATE CREATED AUTHOR AUTHOR'S ORGANIZ ATION 11/25/2021 [facility] DATE CREATED AUTHOR AUTHOR'S ORGANIZ ATION 04/07/2024 [facility] DATE CREATED AUTHOR AUTHOR'S ORGANIZ ATION 07/25/2024 [facility] DATE CREATED AUTHOR AUTHOR'S ORGANIZ ATION 01/13/2025 [facility] DATE CREATED AUTHOR AUTHOR'S ORGANIZ ATION 02/19/2025 [facility] Care Teams (unrecognized sec tion and content) Cutter Apprentice Hand Relationship Specialty Start Date End Date Claudette Lima MD [facility]0 [facility], [address] [place] [address] PCP - General Family Medicine 12/17/18 Cutter Apprentice Hand Relationship Specialty Start Date End Date Claudette Lima MD [address] [facility], [address] [place] [address] PCP - General Family Medicine 12/17/18 Cutter Apprentice Hand Relationship Specialty Start Date End Date Claudette Lima MD [address] [place] [place] [address] PCP - General Family Medicine 01/02/21 Cutter Apprentice Hand Relationship Specialty Start Date End Date Claudette Lima MD [address] [place] [address] PCP - General Family Medicine 01/02/21 Cutter Apprentice Hand Relationship Specialty Start Date End Date Claudette iLma MD [address] [place] [address] PCP - General Family Medicine 01/02/21 Cutter Apprentice Hand Relationship Specialty Start Date End Date Claudette Lima MD [address] [place] [address] PCP - General Family Medicine 01/02/21 Cutter Apprentice Hand Relationship Specialty Start Date End Date Claudette Lima MD [address] [place] [address] PCP - General Family Medicine 01/02/21 Cutter Apprentice Hand Relationship Specialty Start Date End Date Sabrina Verduzco MD [address] [place] [address] PCP - General Internal Medicine 10/03/22 Team Status: Active Member Role Status Dates Out of [facility] Doctor Family Provider Active SABRINA VERDUZCO Primary Care Provider Active Team Status: Inactive Member Role Status Dates Dr. Thania Brito MD Attending Provider, Referr ing Provider Active DAX BENNETT Primary Care Provider Active Cutter Apprentice Hand Relationship Specialty Start Date End Date Claudette Lima MD [address] [place] [address] PCP - General Family Medicine 01/02/21 Cutter Apprentice Hand Relationship Specialty Start Date End Date Claudette Lima MD [address] [place] [address] PCP - General Family Medicine 01/02/21 Cutter Apprentice Hand Relationship Specialty Start Date End Date Claudette Lima MD [address], [address] [place] [address] PCP - General 12/14/19 10/02/22 Claudette Lima MD [address], [address] [place] [address] PCP - General 12/17/18 12/13/19 Sabrina Verduzco MD [address] [place] [address] PCP - General Internal Medicine 10/03/22 Cutter Apprentice Hand Relationship Specialty Start Date End Date Claudette Lima MD [address] [place] [place] [address] PCP - General Family Medicine 01/02/21 Cutter Apprentice Hand Relationship Specialty Start Date End Date Sabrina Verduzco MD [address] [place] [address] PCP - General Internal Medicine 10/03/22 Cutter Apprentice Hand Relationship Specialty Start Date End Date Sabrina Verduzco MD [address] [place] [address] PCP - General Internal Medicine 10/03/22 Cutter Apprentice Hand Relationship Specialty Start Date End Date Claudette Lima MD [address] [place] [address] PCP - General Family Medicine 01/02/21 Cutter Apprentice Hand Relationship Specialty Start Date End Date Claudette Lima MD [address] [place] [address] [place] [address] PCP - General Family Medicine 01/02/21 Cutter Apprentice Hand Relationship Specialty Start Date End Date Claudette Lima MD [address] [place] [address] [place] [address] PCP - General Family Medicine 01/02/21 Cutter Apprentice Hand Relationship Specialty Start Date End Date Sabrina Verduzco MD [address] [place] [address] PCP - General Internal Medicine 10/03/22 Cutter Apprentice Hand Relationship Specialty Start Date End Date Claudette Lima MD [address] [place] [address] PCP - General Family Medicine 01/02/21 Batsheva Rose, [facility] [address] [place] [address] Specialty Rounder And Backer Orthopedics 08/09/16 05/01/24 Cutter Apprentice Hand Relationship Specialty Start Date End Date Claudette Lima MD [address] [place] [address] PCP - General Family Medicine 01/02/21 Batsheva Rose, [facility] [address] [place] [address] Specialty Rounder And Backer Orthopedics 08/09/16 05/01/24 Cutter Apprentice Hand Relationship Specialty Start Date End Date Claudette Lima MD [address] [place] [address] PCP - General Family Medicine 01/02/21 Batsheva Rose, [facility] [address] [place] [address] Specialty Rounder And Backer Orthopedics 08/09/16 05/01/24 Cutter Apprentice Hand Relationship Specialty Start Date End Date Claudette Lima MD [address] [place] [address] PCP - General Family Medicine 01/02/21 Batsheva Rose, [facility] [address] [place] [address] Specialty Rounder And Backer Orthopedics 08/09/16 05/01/24 Cutter Apprentice Hand Relationship Specialty Start Date End Date Claudette Lima MD [address] [place] [address] PCP - General Family Medicine 01/02/21 Batsheva Rose, [facility] [address] [place] [address] Specialty Rounder And Backer Orthopedics 08/09/16 05/01/24 Cutter Apprentice Hand Relationship Specialty Start Date End Date Claudette Lima MD [address] [place] [address] PCP - General Family Medicine 01/02/21 Batsheva Rose, [facility] [address] [place] [address] Specialty Rounder And Backer Orthopedics 08/09/16 05/01/24 Cutter Apprentice Hand Relationship Specialty Start Date End Date Claudette Lima MD [address] [place] [address] PCP - General Family Medicine 01/02/21 Batsheva Rose, [facility] [address] [place] [address] Specialty Rounder And Backer Orthopedics 08/09/16 05/01/24 Romana Chi MD [address] [address] Referring Orthopedics 03/25/24 Romana Chi MD [address] [address] Home Care Provider Orthopedics 03/25/24 Alexis Jorgensen, PT [address] [place] [address] Wire Coiler Post Acute Care 03/25/24 Cutter Apprentice Hand Relationship Specialty Start Date End Date Claudette Lima MD [address] [address] PCP - General Family Medicine 01/02/21 Batsheva Rose, [facility] [address] [place] [address] Specialty Rounder And Backer Orthopedics 08/09/16 05/01/24 Romana Chi MD [address] [place] [address] Referring Orthopedics 03/25/24 Romana Chi MD [address] [address] Home Care Provider Orthopedics 03/25/24 Alexis Jorgensen, PT [address] [place] [address] Wire Coiler Post Acute Care 03/25/24 Cutter Apprentice Hand Relationship Specialty Start Date End Date Claudette Lima MD [address] [address] PCP - General Family Medicine 01/02/21 Batsheva Rose, [facility] [address] [place] [address] Specialty Rounder And Backer Orthopedics 08/09/16 05/01/24 Romana Chi MD [address] [address] Referring Orthopedics 03/25/24 Romana Chi MD [address] [place] [address] Home Care Provider Orthopedics 03/25/24 Alexis Jorgensen, PT [address] [place] [address] Wire Coiler Post Acute Care 03/25/24 Cutter Apprentice Hand Relationship Specialty Start Date End Date Claudette Lima MD [address] [place] [address] PCP - General Family Medicine 01/02/21 Batsheva Rose [facility] [address] [place] [address] Specialty Rounder And Backer Orthopedics 08/09/16 05/01/24 Romana Chi MD [address] [place] [address] Referring Orthopedics 03/25/24 Romana Chi MD [address] [place] [address] Home Care Provider Orthopedics 03/25/24 Alexis Jorgensen, PT [address] [place] [address] Wire Coiler Post Acute Care 03/25/24 Cutter Apprentice Hand Relationship Specialty Start Date End Date Claudette Lima MD [address] [place] [address] PCP - General Family Medicine 01/02/21 Batsheva Rose, [facility] [address] [place] [address] Specialty Rounder And Backer Orthopedics 08/09/16 05/01/24 Cutter Apprentice Hand Relationship Specialty Start Date End Date Claudette Lima MD [address] [address] PCP - General Family Medicine 01/02/21 Bastheva Rose, [facility] [address] [place] [address] Specialty Rounder And Backer Orthopedics 08/09/16 05/01/24 Romana Chi MD [address] [place] [address] Referring Orthopedics 03/25/24 Romana Chi MD [address] [place] [address] Home Care Provider Orthopedics 03/25/24 Alexis Jorgensen, PT [address] [place] [address] Wire Coiler Post Acute Care 03/25/24 Cutter Apprentice Hand Relationship Specialty Start Date End Date Claudette Lima MD [address] [address] PCP - General Family Medicine 01/02/21 Batsheva Rose, [facility] [address] [place] [address] Specialty Rounder And Backer Orthopedics 08/09/16 05/01/24 Romana Chi MD [address] [place] [address] Referring Orthopedics 03/25/24 Romana Chi MD [facility] [address] [address] Home Care Provider Orthopedics 03/25/24 Alexis Jorgensen, PT [address] [place] [address] Wire Coiler Post Acute Care 03/25/24 Cutter Apprentice Hand Relationship Specialty Start Date End Date Claudette Lima MD [address] [place] [address] PCP - General Family Medicine 01/02/21 Batsheva Rose, [facility] [address] [place] [address] Specialty Rounder And Backer Orthopedics 08/09/16 05/01/24 Romana Chi MD [address] [address] Referring Orthopedics 03/25/24 Romana Chi MD [address] [address] Home Care Provider Orthopedics 03/25/24 Alexis Jorgensen, PT [address] [place] [address] Wire Coiler Post Acute Care 03/25/24 Cutter Apprentice Hand Relationship Specialty Start Date End Date Claudette Lima MD [address] [place] [address] PCP - General Family Medicine 01/02/21 Batsheva Rose, [facility] [address] [place] [address] Specialty Rounder And Backer Orthopedics 08/09/16 05/01/24 Cutter Apprentice Hand Relationship Specialty Start Date End Date Claudette Lima MD [address] [place] [address] PCP - General Family Medicine 01/02/21 Batsheva Rose, [facility] [address] [place] [address] Specialty Rounder And Backer Orthopedics 08/09/16 05/01/24 Romana Chi MD [address] [place] [address] Referring Orthopedics 03/25/24 Romana Chi MD [address] [place] [address] Home Care Provider Orthopedics 03/25/24 Alexis Jorgensen, PT [address] [place] [address] Wire Coiler Post Acute Care 03/25/24 Cutter Apprentice Hand Relationship Specialty Start Date End Date Claudette Lima MD [address] [address] PCP - General Family Medicine 01/02/21 Batsheva Rose, [facility] [address] [place] [address] Specialty Rounder And Backer Orthopedics 08/09/16 05/01/24 Romana Chi MD [address] [place] [address] Referring Orthopedics 03/25/24 Romana Chi MD [address] [address] Home Care Provider Orthopedics 03/25/24 Alexis Jorgensen, PT [address] [place], [place] [address] Wire Coiler Post Acute Care 03/25/24 Cutter Apprentice Hand Relationship Specialty Start Date End Date Claudette Lima MD [address] [address] PCP - General Family Medicine 01/02/21 Batsheva Rose, [facility] [address] [place] [address] Specialty Rounder And Backer Orthopedics 08/09/16 05/01/24 Romana Chi MD [address] [place] [address] Referring Orthopedics 03/25/24 Romana Chi MD [address] [place] [address] Home Care Provider Orthopedics 03/25/24 Alexis Jorgensen, PT [address] [place] [address] Wire Coiler Post Acute Care 03/25/24 Cutter Apprentice Hand Relationship Specialty Start Date End Date Claudette Lima MD [address] [address] PCP - General Family Medicine 01/02/21 Romana Chi MD [address] [place] [address] Referring Orthopedics 03/25/24 Romana Chi MD [address] [address] Home Care Provider Orthopedics 03/25/24 Alexis Jorgensen, PT [address] [place] [address] Wire Coiler Post Acute Care 03/25/24 Cutter Apprentice Hand Relationship Specialty Start Date End Date Claudette Lima MD [address] [place] [address] PCP - General 12/14/19 Cutter Apprentice Hand Relationship Specialty Start Date End Date Claudette Lima MD [address], [address] [facility] [place] [address] PCP - General 12/14/19 Cutter Apprentice Hand Relationship Specialty Start Date End Date Claudette Lima MD [address] [place], [place] [address] PCP - General Family Medicine 01/02/21 Romana Chi MD [address] [id number] Referring Orthopedics 03/25/24 Romana Chi MD [address] [address] Home Care Provider Orthopedics 03/25/24 Alexis Jorgensen, PT [address] [place] [address] Wire Coiler Post Acute Care 03/25/24 Cutter Apprentice Hand Relationship Specialty Start Date End Date Sultana Cohen DO [address] [place] [address] PCP - General Internal Medicine 07/29/24 Cutter Apprentice Hand Relationship Specialty Start Date End Date Sultana Cohen DO [address] [place], [place] [id number] PCP - General Internal Medicine 07/29/24 Cutter Apprentice Hand Relationship Specialty Start Date End Date Sultana Cohen DO [address] [facility] [address] [place] [address] PCP - General Internal Medicine 07/29/24 Goals (unrecognized section and content) Goals may be documented in a n alternate sectionGoals may be documented in an alternate section Source Comments (unrecognize d section and content) In the event this informatio n is protected by the Federal Confidentiality of Alcohol and Drug Abuse Patient Records regulations: The Federal rules restrict any use of the information to criminally investigate or prosecute any alcohol or drug abuse patient.[facility] CenterIn the event this information is protected by the Federal Confidentiality of Alcohol and Drug Abuse Patient Records regulations: The Federal rules restrict any use of the information to criminally investigate or prosecute any alcohol or drug abuse patient.[facility] CenterIn the event this information is protected by the Federal Confidentiality of Alcohol and Drug Abuse Patient Records regulations: The Federal rules restrict any use of the information to criminally investigate or prosecute any alcohol or drug abuse patient.[facility] CenterIn the event this information is protected by the Federal Confidentiality of Alcohol and Drug Abuse Patient Records regulations: The Federal rules restrict any use of the information to criminally investigate or prosecute any alcohol or drug abuse patient.[facility] CenterIn the event this information is protected by the Federal Confidentiality of Alcohol and Drug Abuse Patient Records regulations: The Federal rules restrict any use of the information to criminally investigate or prosecute any alcohol or drug abuse patient.[facility] CenterIn the event this information is protected by the Federal Confidentiality of Alcohol and Drug Abuse Patient Records regulations: The Federal rules restrict any use of the information to criminally investigate or prosecute any alcohol or drug abuse patient.[facility] CenterIn the event this information is protected by the Federal Confidentiality of Alcohol and Drug Abuse Patient Records regulations: The Federal rules restrict any use of the information to criminally investigate or prosecute any alcohol or drug abuse patient.[facility] CenterIn the event this information is protected by the Federal Confidentiality of Alcohol and Drug Abuse Patient Records regulations: The Federal rules restrict any use of the information to criminally investigate or prosecute any alcohol or drug abuse patient.[facility] CenterIn the event this information is protected by the Federal Confidentiality of Alcohol and Drug Abuse Patient Records regulations: The Federal rules restrict any use of the information to criminally investigate or prosecute any alcohol or drug abuse patient.[facility] CenterIn the event this information is protected by the Federal Confidentiality of Alcohol and Drug Abuse Patient Records regulations: The Federal rules restrict any use of the information to criminally investigate or prosecute any alcohol or drug abuse patient.[facility] CenterIn the event this information is protected by the Federal Confidentiality of Alcohol and Drug Abuse Patient Records regulations: The Federal rules restrict any use of the information to criminally investigate or prosecute any alcohol or drug abuse patient.[facility] CenterIn the event this information is protected by the Federal Confidentiality of Alcohol and Drug Abuse Patient Records regulations: The Federal rules restrict any use of the information to criminally investigate or prosecute any alcohol or drug abuse patient.[facility] CenterIn the event this information is protected by the Federal Confidentiality of Alcohol and Drug Abuse Patient Records regulations: The Federal rules restrict any use of the information to criminally investigate or prosecute any alcohol or drug abuse patient.[facility] CenterIn the event this information is protected by the Federal Confidentiality of Alcohol and Drug Abuse Patient Records regulations: The Federal rules restrict any use of the information to criminally investigate or prosecute any alcohol or drug abuse patient.[facility] CenterIn the event this information is protected by the Federal Confidentiality of Alcohol and Drug Abuse Patient Records regulations: The Federal rules restrict any use of the information to criminally investigate or prosecute any alcohol or drug abuse patient.[facility] CenterIn the event this information is protected by the Federal Confidentiality of Alcohol and Drug Abuse Patient Records regulations: The Federal rules restrict any use of the information to criminally investigate or prosecute any alcohol or drug abuse patient.[facility] CenterIn the event this information is protected by the Federal Confidentiality of Alcohol and Drug Abuse Patient Records regulations: The Federal rules restrict any use of the information to criminally investigate or prosecute any alcohol or drug abuse patient.[facility] CenterIn the event this information is protected by the Federal Confidentiality of Alcohol and Drug Abuse Patient Records regulations: The Federal rules restrict any use of the information to criminally investigate or prosecute any alcohol or drug abuse patient.[facility] CenterIn the event this information is protected by the Federal Confidentiality of Alcohol and Drug Abuse Patient Records regulations: The Federal rules restrict any use of the information to criminally investigate or prosecute any alcohol or drug abuse patient.[facility] CenterIn the event this information is protected by the Federal Confidentiality of Alcohol and Drug Abuse Patient Records regulations: The Federal rules restrict any use of the information to criminally investigate or prosecute any alcohol or drug abuse patient.[facility] CenterIn the event this information is protected by the Federal Confidentiality of Alcohol and Drug Abuse Patient Records regulations: The Federal rules restrict any use of the information to criminally investigate or prosecute any alcohol or drug abuse patient.[facility] CenterIn the event this information is protected by the Federal Confidentiality of Alcohol and Drug Abuse Patient Records regulations: The Federal rules restrict any use of the information to criminally investigate or prosecute any alcohol or drug abuse patient.[facility] CenterIn the event this information is protected by the Federal Confidentiality of Alcohol and Drug Abuse Patient Records regulations: The Federal rules restrict any use of the information to criminally investigate or prosecute any alcohol or drug abuse patient.[facility] CenterIn the event this information is protected by the Federal Confidentiality of Alcohol and Drug Abuse Patient Records regulations: The Federal rules restrict any use of the information to criminally investigate or prosecute any alcohol or drug abuse patient.[facility] CenterIn the event this information is protected by the Federal Confidentiality of Alcohol and Drug Abuse Patient Records regulations: The Federal rules restrict any use of the information to criminally investigate or prosecute any alcohol or drug abuse patient.[facility] CenterIn the event this information is protected by the Federal Confidentiality of Alcohol and Drug Abuse Patient Records regulations: The Federal rules restrict any use of the information to criminally investigate or prosecute any alcohol or drug abuse patient.[facility] CenterIn the event this information is protected by the Federal Confidentiality of Alcohol and Drug Abuse Patient Records regulations: The Federal rules restrict any use of the information to criminally investigate or prosecute any alcohol or drug abuse patient.[facility] CenterIn the event this information is protected by the Federal Confidentiality of Alcohol and Drug Abuse Patient Records regulations: The Federal rules restrict any use of the information to criminally investigate or prosecute any alcohol or drug abuse patient.[facility] CenterIn the event this information is protected by the Federal Confidentiality of Alcohol and Drug Abuse Patient Records regulations: The Federal rules restrict any use of the information to criminally investigate or prosecute any alcohol or drug abuse patient.[facility] CenterIn the event this information is protected by the Federal Confidentiality of Alcohol and Drug Abuse Patient Records regulations: The Federal rules restrict any use of the information to criminally investigate or prosecute any alcohol or drug abuse patient.[facility] CenterIn the event this information is protected by the Federal Confidentiality of Alcohol and Drug Abuse Patient Records regulations: The Federal rules restrict any use of the information to criminally investigate or prosecute any alcohol or drug abuse patient.[facility] CenterIn the event this information is protected by the Federal Confidentiality of Alcohol and Drug Abuse Patient Records regulations: The Federal rules restrict any use of the information to criminally investigate or prosecute any alcohol or drug abuse patient.[facility] CenterIn the event this information is protected by the Federal Confidentiality of Alcohol and Drug Abuse Patient Records regulations: The Federal rules restrict any use of the information to criminally investigate or prosecute any alcohol or drug abuse patient.[facility] CenterIn the event this information is protected by the Federal Confidentiality of Alcohol and Drug Abuse Patient Records regulations: The Federal rules restrict any use of the information to criminally investigate or prosecute any alcohol or drug abuse patient.[facility] CenterIn the event this information is protected by the Federal Confidentiality of Alcohol and Drug Abuse Patient Records regulations: The Federal rules restrict any use of the information to criminally investigate or prosecute any alcohol or drug abuse patient.[facility] Inactive Administered Medications - up to 3 most recent administrations Administered Medications (un recognized section and content) Medication Order MAR Action Action Date Dose Rate Site betamethasone acetate-betamethasone sodium phosphate 12 mg injection (CELESTONE) 12 mg, Injection - FOR ORTHO USE ONLY, ONCE, 1 dose, Starting on Sat09/25/23 at 1542, Until Sat09/25/23 at 1542 Given 09/25/2023 3:42 PM EDT 12 mg Knee, Left betamethasone acetate-betamethasone sodium phosphate 12 mg injection (CELESTONE) 12 mg, Injection - FOR ORTHO USE ONLY, ONCE, 1 dose, Starting on Sat09/25/23 at 1542, Until Sat09/25/23 at 1542 Given 09/25/2023 3:42 PM EDT 12 mg Knee, Right lidocaine (PF) 10 mg/mL (1 %) 4 mL injection (XYLOCAINE) 4 mL, Injection - FOR ORTHO USE ONLY, ONCE, 1 dose, Starting on Sat09/25/23 at 1542, Until Sat09/25/23 at 1542 Given 09/25/2023 3:42 PM EDT 4 mL Knee, Left lidocaine (PF) 10 mg/mL (1 %) 4 mL injection (XYLOCAINE) 4 mL, Injection - FOR ORTHO USE ONLY, ONCE, 1 dose, Starting on Sat09/25/23 at 1542, Until Sat09/25/23 at 1542 Given 09/25/2023 3:42 PM EDT 4 mL Knee, Right FOR RECORDS PERTAINING TO PATIENTS WHO ARE OR HAVE BEEN ENROLLED IN A CHEMICAL DEPENDENCY/SUBSTANCEABUSE PROGRAM, SOME INFORMATION MAY BE OMITTED. This clinical summary was aggregated from multiple sources. Caution should be exercised in using it in the provision of clinical care. This summary normalizes information from multiple sources, and as a consequence, information in this document may materially change the coding, format and clinical context of patient data. In addition, data may be omitted in some cases. CLINICAL DECISIONS SHOULD BE BASED ON THE PRIMARY CLINICAL RECORDS. [facility], [facility]. provides no warranty or guarantee of the accuracy or completeness of information in this document.
== END | disposition home or self-care (01) ==
LOC: OPBI 10:22
PROVIDERS: Referring Provider Obstetrics & Gynecology; Visit Provider Obstetrics & Gynecology
DX: Z12.31 Encounter for screening mammogram for malignant neoplasm of breast (principal)
CPT/HCPCS: 77063; 77067